=== PATIENT | male | born 1955 | race Caucasian/White ===

== ENCOUNTER → 2022-11-16 | Outpatient (CLI) | payer BC, SELFPAY ==
[2022-11-16 16:19] LABS: Anion Gap 4 (5-15); BUN 21 mg/dL (7-18); Calcium,Total 9.5 mg/dL (8.5-10.1); Chloride 108 mmol/L (98-107); Cholesterol 171 mg/dL (200); Creatinine, Serum 0.64 mg/dL (0.70-1.30); EST Glomerular Filtration Rate 134 mL/min (>60); Est Glom Filt Rate - Afr Amer 162 mL/min (>60); Glucose 98 mg/dL (74-106); High Density Lipoprotein 38 mg/dL; PSA,Total - Annual Screen 2.53 ng/mL (0.00-4.00); Potassium 4.2 mmol/L (3.5-5.1); Sodium Level 139 mmol/L (136-145); Triglycerides 101 mg/dL; Very Low Density Lipoprotein 20 mg/dL (5-40)
== END | disposition home or self-care (01) ==
LOC: MFPLAB 11:42
PROVIDERS: PCP Family Medicine; Visit Provider Family Medicine
DX: Z13.220 Encounter for screening for lipoid disorders (principal); Z13.1 Encounter for screening for diabetes mellitus; Z12.5 Encounter for screening for malignant neoplasm of prostate
CPT/HCPCS: 36415; 80048; 80061; 84153; G0103

== ENCOUNTER 2024-10-08 18:43 | Inpatient (IN) | payer BC, MEDICARE, SELFPAY ==
[2024-10-08] VITALS (7 sets, daily range): BP systolic 103–123; BP diastolic 79–90; PULSE 115–140; RESP 13–21; TEMP 36.6–36.7; O2SAT 96–100; BMI 27.1
[2024-10-08 19:04] LABS: Absolute Lymphocyte Count 1.53 X10^3/uL (0.83-4.51); Absolute Neutrophil Count 13.8 X10^3/uL (2.0-7.7); Basophil# 0.04 X10^3/uL; Basophil% 0.2 % (0-1); Eosinophil# 0.09 X10^3/uL; Eosinophils% 0.5 % (0-5); Hematocrit 49.6 % (40-54); Hemoglobin 16.5 g/dL (13.0-16.5); Lymphocyte # 1.53 X10^3/ul (0.83-4.51); Mean Corp Hgb Conc 33.3 g/dL (32-36); Mean Corpuscular Hgb 29.9 pg (27.0-32.0); Mean Corpuscular Volume 89.9 fL (80-94); Mean Platelet Vol. 11.3 fl (6.2-12.0); Monocyte# 1.36 X10^3/uL; NRBC Flagged by Analyzer 0 % (0-5); Neutrophil # 13.83 X10^3/uL (2.7-7.7); Neutrophil % 81.9 % (47-70); Platelet Count 280 K/mm3 (150-450); RBC Distribution Width CV 13.8 % (11.6-14.6); RBC Distribution Width SD 45.5 fl (35.1-43.9); Red Blood Count 5.52 M/mm3 (4.6-6.2); White Blood Count 16.9 K/mm3 (4.4-11.0)
[2024-10-08 19:30] LABS: Mucous, Urine 0 SEEN /hpf (<or=2+)
[2024-10-08 19:31] LABS: Color, Urine Yellow (Yellow); Glucose, Dipstick Normal (Normal); Ketone-Dipstick 5 mg/dl (Negative); Leukocyte Esterase-Dipstick 500 /ul (Negative); Nitrite-Dipstick Negative (Negative); Occult Blood-Urine 10 /ul (Negative); Protein-Dipstick 30 mg/dl (Negative); Urine Bilirubin Dipstick Negative (Negative); Urine Clarity Sl. Cloudy (Clear); Urine Urobilinogen Normal (Normal)
[2024-10-08 19:43] LABS: Bacteria 4+ /hpf (None Seen); Red Blood Cells-Urine 5-10 SEEN /hpf (0-5); Renal Epithelial Cells 0-5 SEEN /hpf (0-5); Squamous Epithelial Cells - UA 0-5 SEEN /hpf (0-5); White Blood Cells 25-50 SEEN /hpf (0-5)
--- NOTE | 2024-10-08 19:53 | US_ITS ---
PROCEDURE: TESTICULAR WITH ARTERIAL FLOW 10/08/2024 REASON FOR EXAM: R TESTICULAR PAIN TECHNIQUE: Roberts scale imaging and color and spectral Doppler analysis of the scrotal contents. COMPARISON: None. FINDINGS: RIGHT testicle: 4.1 x 3.3 x 2.3 cm Homogeneous echotexture. No intratesticular mass. Right epididymis: Mild asymmetric enlargement of the right epididymis with increased vascularity. LEFT testicle: 4 point x 3.3 x 2.4 cm Homogeneous echotexture. No intratesticular mass. Left epididymis: Unremarkable Other findings: No hydrocele or large varicocele. DOPPLER FINDINGS: Symmetric color doppler blood flow signal at both testes. Normal arterial inflow and venous outflow waveforms at both testes. US/Testicular with Arterial Flow IMPRESSION: No evidence of testicular torsion. Asymmetric enlargement of the right epididy mis with hypervascularity, which may represent epididymitis. Clinical and laboratory correlation recommended. Reading Location: [id number]
[2024-10-08 19:59] LABS: ALB/GLOB Ratio 1.3 RATIO (0.9-2.4); AST(SGOT) 24 U/L (<=37); Alanine Aminotransfer ALT/SGPT 25 U/L (<=46); Albumin, Serum 4.1 g/dL (3.4-4.8); Alkaline Phosphatase 99 U/L (40-129); Anion Gap 11 (5-15); BUN 20 mg/dL (4-19); BUN/Creat Ratio 25.1 RATIO (10-20); Calcium,Total 9.4 mg/dL (7.6-11.0); Carbon Dioxide 24.8 mmol/L (21.0-32.0); Chloride 107 mmol/L (98-108); EST Glomerular Filtration Rate 98 (>60); Estimated Creatinine Clearance 81.97 ml/min (50-250); Globulin 3.1 g/dL (2.2-4.2); Glucose 118 mg/dL (70-99); Potassium 4.3 mmol/L (3.3-5.1); Protein, Total 7.3 g/dL (5.9-8.4); Sodium Level 143 mmol/L (133-145); Total Bilirubin 1.08 mg/dL (0.00-1.30)
[2024-10-08] MEDS: Morphine 4 MG/ML Syringe IV ×2 (20:13→23:47)
[2024-10-08] MEDS: Ondansetron 4 MG/2 ML Vial IV (20:13)
--- NOTE | 2024-10-08 20:13 | EKG12_ITS ---
Test Reason : PAIN Blood Pressure : */* mmHG Vent. Rate : 115 BPM Atrial Rate : 278 BPM P-R Int : * ms QRS Dur : 90 ms QT Int : 274 ms P-R-T Axes : * -6 163 degrees QTcB Int : 379 ms Atrial flutter with variable A-V block Minimal voltage criteria for LVH, may be normal variant ( Crowley product ) ST & T wave abnormality, consider lateral ischemia Abnormal ECG Confirmed by Michael Heard ([id number]), index editor INDIO SOLOMON ([id number]) on 10/16/2024 1:07:36 PM Referred By: Confirmed By: Michael Heard
--- NOTE | 2024-10-08 20:24 | PCA ---
no old ekg
[2024-10-08 20:26] LABS: Lactic Acid 1.3 mmol/L (0.0-2.0)
[2024-10-08] MEDS: 0.9% Normal Saline (1000mL) 1,000 ML 999 ML IV (20:43)
--- NOTE | 2024-10-08 20:56 | EX.ED.DYSGE1 ---
HPI <KIZZY Amos - Last Filed: 10/08/24 22:01> History of Present Illness Chief Complaint: Flank Pain Narrative Narrative: Patient presenting today with right testicular pain that somewhat radiates to his right groin and right flank that started yesterday evening. He reports that the pain has progressively gotten worse. He denies any trauma to his testicle, abnormal penile discharge, dysuria, hematuria, and history of kidney stones. He has not been to a PCP in several years, he is unaware of any chronic medical conditions he may have. PFSH <KIZZY Amos - Last Filed: 10/08/24 22:01> PFSH Medical History Hernia Home Medications ?Medication ?Instructions ?Recorded ?Last Taken ?Type multivitamin with folic acid 400 1 tab PO DAILY 03/05/15 Unknown History mcg tablet (Thera) Allergy/AdvReac Type Severity Reaction Status Date / Time Sulfa (Sulfonamide Allergy Unknown Verified 10/08/24 18:49 Antibiotics) Surgical History S/P hernia surgery Social History Smoking Status: Never smoker ROS <KIZZY Amos - Last Filed: 10/08/24 22:01> ROS ED Constitutional Constitutional ED: Denies chills or fever(s) Cardiovascular Cardiovascular: Denies chest pain Respiratory/Chest Respiratory/Chest: Denies dyspnea Gastrointestinal Gastrointestinal: Denies abdominal pain, nausea or vomiting Genitourinary Genitourinary ED: Denies dysuria, hematuria or urinary urgency Musculoskeletal Musculoskeletal: Denies back pain Integumentary Denies rash EXAM <KIZZY Amos - Last Filed: 10/08/24 22:01> Physical Exam Const Vital Signs: 10/08/24 18:47 10/08/24 19:16 10/08/24 20:04 Temperature 97.9 F Temperature Source Oral Pulse Rate 140 H 137 H 140 H Respiratory Rate 18 15 13 Blood Pressure 123/87 H 119/90 H 113/80 Blood Pressure Mean 99 99 91 Pulse Ox 98 100 97 Oxygen Delivery Method Room Air Room Air 10/08/24 21:00 10/08/24 22:00 10/08/24 23:00 Temperature Temperature Source Pulse Rate 135 H 115 H 115 H Respiratory Rate 21 H 20 H 15 Blood Pressure 111/84 H 104/80 113/79 Blood Pressure Mean 93 88 90 Pulse Ox 98 96 99 Oxygen Delivery Method Room Air Room Air Room Air Positive well nourished, well developed and no apparent distress General Appearance ED: well developed HEENT Reports normocephalic and head/scalp atraumatic Mouth ED: Yes moist mucous membranes normal Eyes PERRL and EOMs intact bilaterally Neck full ROM and supple Chest Wall inspection of chest normal Resp normal respiratory effort and clear to auscultation bilaterally Cardio regular rate and regular rhythm GI soft to palpation, non-tender, non-distended and no masses Narrative: Right testicular tenderness to palpation with edema and abnormal lie, absent cremasteric reflex on the right Back/Spine normal ROM and normal to inspection General Back: Negative for CVA tenderness Extremity normal to inspection and full ROM Neuro oriented x3, CN's II-XII intact bilaterally, moves all extremities, no focal motor deficits and no sensory deficits noted Sensorium / Orientation: awake and alert Psych mental status grossly normal and thought process normal Skin no rashes or lesions noted and no wounds <Dr. Janessa De La Torre DO - Last Filed: 10/09/24 00:07> Physical Exam Const Vital Signs: 10/08/24 18:47 10/08/24 19:16 10/08/24 20:04 Temperature 97.9 F Temperature Source Oral Pulse Rate 140 H 137 H 140 H Respiratory Rate 18 15 13 Blood Pressure 123/87 H 119/90 H 113/80 Blood Pressure Mean 99 99 91 Pulse Ox 98 100 97 Oxygen Delivery Method Room Air Room Air 10/08/24 21:00 10/08/24 22:00 10/08/24 23:00 Temperature Temperature Source Pulse Rate 135 H 115 H 115 H Respiratory Rate 21 H 20 H 15 Blood Pressure 111/84 H 104/80 113/79 Blood Pressure Mean 93 88 90 Pulse Ox 98 96 99 Oxygen Delivery Method Room Air Room Air Room Air MDM <KIZZY Amos - Last Filed: 10/08/24 22:01> [facility] MDM Narrative Medical decision making narrative: Presenting today with pain to the right testicle that started yesterday, the pain somewhat radiates to his groin and flank. His right testicle is very tender to palpation, exam is somewhat limited due to his pain. I do have concerns for testicular torsion, testicular ultrasound will be obtained. Labs obtained. He does have a leukocytosis at 16.9, his CMP is largely unremarkable. UA shows 500 leukocytes, 25-50 WBCs, and 4+ bacteria, this will be cultured and he will be given a dose of Rocephin. His lactic acid is WNL. He is tachycardic here with a heart rate around 130, EKG was obtained and shows atrial flutter. He denies any history of this. After being given IV fluids and pain medication he continued to be tachycardic, he was given IV metoprolol. Testicular ultrasound shows epididymitis, he will be treated for this with antibiotics. Lab Data Attestation: I reviewed the patient's lab results. Labs: Laboratory Results - last 24 hr 10/08/24 10/08/24 10/08/24 18:55 19:25 20:00 WBC 16.9 H RBC 5.52 Hgb 16.5 Hct 49.6 MCV 89.9 MCH 29.9 MCHC 33.3 RDW Std Deviation 45.5 H RDW Coeff of Natty 13.8 Plt Count 280 MPV 11.3 Immature Gran % (Auto) 0.400 Neut % (Auto) 81.9 H Lymph % (Auto) 9.0 L [place] % (Auto) 8.0 Eos % (Auto) 0.5 Baso % (Auto) 0.2 Absolute Neuts (auto) 13.8 H Absolute Lymphs (auto) 1.53 Nucleated RBC % 0 Sodium 143 Potassium 4.3 Chloride 107 Carbon Dioxide 24.8 Anion Gap 11 BUN 20 H Creatinine 0.80 Estim Creat Clear Calc 81.97 Est GFR (MDRD) Non-Af 98 BUN/Creatinine Ratio 25.1 H Glucose 118 H Lactic Acid 1.3 Calcium 9.4 Total Bilirubin 1.08 AST 24 ALT 25 Alkaline Phosphatase 99 Troponin T High Sens 12 Troponin T Hi Sens 2 Hr Total Protein 7.3 Albumin 4.1 Globulin 3.1 Albumin/Globulin Ratio 1.3 TSH 2.930 Urine Color Yellow Urine Clarity Sl. Cloudy Urine pH 6.0 Ur Specific [place] 1.020 Urine Protein 30 H Urine Glucose (UA) Normal Urine Ketones 5 H Urine Occult Blood 10 H Urine Nitrite Negative Urine Bilirubin Negative Urine Urobilinogen Normal Ur Leukocyte Esterase 500 H Urine RBC 5-10 SEEN Urine WBC 25-50 SEEN Ur Squamous Epith Cells 0-5 SEEN Ur Renal Epithelial Cell 0-5 SEEN Urine Bacteria 4+ Urine Mucus 0 SEEN 10/08/24 20:55 WBC RBC Hgb Hct MCV MCH MCHC RDW Std Deviation RDW Coeff of Natty Plt Count MPV Immature Gran % (Auto) Neut % (Auto) Lymph % (Auto) [place] % (Auto) Eos % (Auto) Baso % (Auto) Absolute Neuts (auto) Absolute Lymphs (auto) Nucleated RBC % Sodium Potassium Chloride Carbon Dioxide Anion Gap BUN Creatinine Estim Creat Clear Calc Est GFR (MDRD) Non-Af BUN/Creatinine Ratio Glucose Lactic Acid Calcium Total Bilirubin AST ALT Alkaline Phosphatase Troponin T High Sens Troponin T Hi Sens 2 Hr 13 Total Protein Albumin Globulin Albumin/Globulin Ratio TSH Urine Color Urine Clarity Urine pH Ur Specific [place] Urine Protein Urine Glucose (UA) Urine Ketones Urine Occult Blood Urine Nitrite Urine Bilirubin Urine Urobilinogen Ur Leukocyte Esterase Urine RBC Urine WBC Ur Squamous Epith Cells Ur Renal Epithelial Cell Urine Bacteria Urine Mucus Radiography Diagnostic Testing: Clinical Impression(s) from Imaging Studies Testicular Ultrasound 10/08/24 19:53 IMPRESSION: No evidence of testicular torsion. Asymmetric enlargement of the right epididymis with hypervascularity, which may represent epididymitis. Clinical and laboratory correlation recommended. Reading Location: [facility] EKG Initial EKG: Comments: 115 bpm, atrial flutter, no ST elevation, interpreted by attending ED physician <Dr. Janessa De La Torre, DO - Last Filed: 10/09/24 00:07> [employer] Narrative Medical decision making narrative: Presenting today with pain to the right testicle that started yesterday, the pain somewhat radiates to his groin and flank. His right testicle is very tender to palpation, exam is somewhat limited due to his pain. I do have concerns for testicular torsion, testicular ultrasound will be obtained. Labs obtained. He does have a leukocytosis at 16.9, his CMP is largely unremarkable. UA shows 500 leukocytes, 25-50 WBCs, and 4+ bacteria, this will be cultured and he will be given a dose of Rocephin. His lactic acid is WNL. He is tachycardic here with a heart rate around 130, EKG was obtained and shows atrial flutter. He denies any history of this. After being given IV fluids and pain medication he continued to be tachycardic, he was given IV metoprolol. Testicular ultrasound shows epididymitis, he will be treated for this with antibiotics. I have personally performed a face to face assessment of the patient and have reviewed the MARIAMA Note. I performed a substantive portion of the visit including all aspects of the following. My herrera findings include: History Patient is evaluated for worsening right testicular pain that started yesterday evening. Has tried ibuprofen for pain relief. In triage patient has noted to have tachycardia. EKG is obtained which shows Atrial flutter at a rate of [address] segment changes. On telemetry patient's rates is more in the 130s to 140s. Initially given IV fluids and pain control in case this is more of a pain response as he does not have any history of arrhythmia however patient does admit he does not regularly see a physician. Concern for testicular torsion, epididymitis, incarcerated hernia, new onset of atrial flutter/atrial fibrillation, ACS. Patient CBC does show a leukocytosis of 16.9 which is nonspecific. Lactate is added on which is normal. BMP/liver panel normal. High sensitive troponin initially normal at 12. TSH checked which is normal at 2.93. Urinalysis consistent with infection with 500 leukocyte esterase, 25-50 white blood cells and 4+ bacteria. Urine culture is sent. Patient started on IV Rocephin. Testicular ultrasound shows asymmetric enlargement of the right epididymis which could represent epididymitis. No evidence of testicular torsion. This is consistent with his clinical presentation. Patient is given IV morphine and fluids with improvement of pain but he still has a tachyarrhythmia. He is given aliquots of IV metoprolol with minimal improvement. His blood pressure is somewhat soft with this. He is relatively asymptomatic from the standpoint. I did speak with cardiology on-call, Dr. Montero, who states ideally the patient should be admitted especially as he does not have any known medical history/reliable outpatient follow-up. Would recommend anticoagulation we does decide to leave with Eliquis and start on Lopressor twice daily 25 mg. Patient thankfully is agreeable with admission. Is given a dose of metoprolol 25 mg in the emergency room for further rate control. Case discussed with hospitalist for admission. He does request that I order an echocardiogram for tomorrow. This was placed. Lab Data Labs: Laboratory Results - last 24 hr 10/08/24 10/08/24 10/08/24 18:55 19:25 20:00 WBC 16.9 H RBC 5.52 Hgb 16.5 Hct 49.6 MCV 89.9 MCH 29.9 MCHC 33.3 RDW Std Deviation 45.5 H RDW Coeff of Natty 13.8 Plt Count 280 MPV 11.3 Immature Gran % (Auto) 0.400 Neut % (Auto) 81.9 H Lymph % (Auto) 9.0 L [place] % (Auto) 8.0 Eos % (Auto) 0.5 Baso % (Auto) 0.2 Absolute Neuts (auto) 13.8 H Absolute Lymphs (auto) 1.53 Nucleated RBC % 0 Sodium 143 Potassium 4.3 Chloride 107 Carbon Dioxide 24.8 Anion Gap 11 BUN 20 H Creatinine 0.80 Estim Creat Clear Calc 81.97 Est GFR (MDRD) Non-Af 98 BUN/Creatinine Ratio 25.1 H Glucose 118 H Lactic Acid 1.3 Calcium 9.4 Total Bilirubin 1.08 AST 24 ALT 25 Alkaline Phosphatase 99 Troponin T High Sens 12 Troponin T Hi Sens 2 Hr Total Protein 7.3 Albumin 4.1 Globulin 3.1 Albumin/Globulin Ratio 1.3 TSH 2.930 Urine Color Yellow Urine Clarity Sl. Cloudy Urine pH 6.0 Ur Specific [place] 1.020 Urine Protein 30 H Urine Glucose (UA) Normal Urine Ketones 5 H Urine Occult Blood 10 H Urine Nitrite Negative Urine Bilirubin Negative Urine Urobilinogen Normal Ur Leukocyte Esterase 500 H Urine RBC 5-10 SEEN Urine WBC 25-50 SEEN Ur Squamous Epith Cells 0-5 SEEN Ur Renal Epithelial Cell 0-5 SEEN Urine Bacteria 4+ Urine Mucus 0 SEEN 10/08/24 20:55 WBC RBC Hgb Hct MCV MCH MCHC RDW Std Deviation RDW Coeff of Natty Plt Count MPV Immature Gran % (Auto) Neut % (Auto) Lymph % (Auto) [place] % (Auto) Eos % (Auto) Baso % (Auto) Absolute Neuts (auto) Absolute Lymphs (auto) Nucleated RBC % Sodium Potassium Chloride Carbon Dioxide Anion Gap BUN Creatinine Estim Creat Clear Calc Est GFR (MDRD) Non-Af BUN/Creatinine Ratio Glucose Lactic Acid Calcium Total Bilirubin AST ALT Alkaline Phosphatase Troponin T High Sens Troponin T Hi Sens 2 Hr 13 Total Protein Albumin Globulin Albumin/Globulin Ratio TSH Urine Color Urine Clarity Urine pH Ur Specific [place] Urine Protein Urine Glucose (UA) Urine Ketones Urine Occult Blood Urine Nitrite Urine Bilirubin Urine Urobilinogen Ur Leukocyte Esterase Urine RBC Urine WBC Ur Squamous Epith Cells Ur Renal Epithelial Cell Urine Bacteria Urine Mucus Radiography Diagnostic Testing: Clinical Impression(s) from Imaging Studies Testicular Ultrasound 10/08/24 19:53 IMPRESSION: No evidence of testicular torsion. Asymmetric enlargement of the right epididymis with hypervascularity, which may represent epididymitis. Clinical and laboratory correlation recommended. Reading Location: [id number] Management Discussion w/another healthcare provider: Hospitalist and Pie Filler (Cardiology) Discharge Plan Triage Chief Complaint: Flank Pain Other Complaint: Male Pain/Injury ED Midlevel Provider: Stacey Devine ED Provider: Janessa De La Torre Dx/Rx/DC Orders Clinical Impression: Epididymitis, Acute cystitis with hematuria, Leukocytosis, Atrial flutter with rapid ventricular response Primary Care Provider: Kilo Lewis Disposition Disposition: Acute Care Hospital [facility]
[2024-10-08 21:24] LABS: Troponin T High Sensitivity 12 ng/L (<=22)
[2024-10-08] MEDS: Ceftriaxone 1 GM/50 ML BAG IV (21:35)
[2024-10-08] MEDS: Metoprolol Tartrate 5 MG/5 ML Vial IV ×2 (21:48→22:03)
[2024-10-08 21:49] LABS: Troponin T High Sens 2 HR 13 ng/L (<=22)
--- NOTE | 2024-10-08 23:27 | PCM.HP.STD ---
[facility] - General General Date of Admission: 10/08/24 Date of Service: 10/08/24 Chief Complaint: Right Testicular Pain. HPI Narrative STACIE JIMENEZ, is a 68 M with a past medical history of being overweight; with BMI of 27.1 this admission and history of hernia; s/p repair who presents to [facility] complaining of Right testicular pain. Mr. Jimenez reports his symptoms began yesterday evening with the abrupt-onset of Right flank pain radiating in to his Right groin that has progressively worsened since that time so he finally decided to come n for further evaluation and treatment. He denies recent trauma to his testicle, penile discharge, dysuria, hematuria, history of renal calculi or similar previous episodes. He states he has not seen a physician to several years and he is unaware if he has any chronic medical conditions. He denies associated fever, chills, nausea, vomiting, diarrhea, constipations, dysuria, hematuria, chest pain, palpitations, headache or rash. In the ER he was noted to have UA positive for Acute Cystitis; with microscopic hematuria with Leukocytosis of 16.9K present on admission and a corresponding testicular ultrasounds that revealed Right testicle ~4.1 cm x ~3.3 cm x ~2.3 cm with homogenous echotexture, no intratesticular mass and Right epididymis mild asymmetric enlargement with increased vascularity with normal Left testicle consistent with Epididymitis complicated by EKG evidence of apparently New-onset Atrial Flutter with RVR at ~140 bpm and he was then admitted to the PCU for ongoing care for stay that is expected to extend beyond 2 midnights. [facility] Medical History Hernia Home Medications ?Medication ?Instructions ?Recorded ?Last Taken ?Type multivitamin with folic acid 400 1 tab PO DAILY supplement 03/05/15 Unknown History mcg tablet (Thera) Allergy/AdvReac Type Severity Reaction Status Date / Time Sulfa (Sulfonamide Allergy Unknown Verified 10/08/24 18:49 Antibiotics) Surgical History S/P hernia surgery Social History Smoking Status: Never smoker ROS ROS Narrative Review of Systems: Constitutional: Patient denies fever or chills. Eyes: Patient denies changes in vision or discharge from eyes. ENT: Patient denies runny nose, sore throat or ear pain. Resp: Patient denies shortness of breath or cough. GI: Patient denies abdominal pain, nausea, vomiting, diarrhea or constipation. : Patient admits to Right flank pain radiating to groin as per HPI. MSK: Patient denies arthralgias or myalgias. Skin: Patient denies rash, abscess, wounds or jaundice. Psych: Patient denies symptoms of uncontrolled depression or anxiety. Neuro: Patient denies headache, paresthesias or focal neurologic deficits. Allergy: Patient denies lip swelling, tongue swelling or urticaria. Hematology: Patient denies easy bleeding or easy bruisability. Endocrinology: Patient denies polyuria, polydipsia, polyphagia or heat/cold intolerance. 14 point ROS otherwise negative except for positives noted above in HPI. Vital Signs Vital Signs Vital Signs: 10/08/24 18:47 10/08/24 19:16 10/08/24 20:04 Temperature 97.9 F Temperature Source Oral Pulse Rate 140 H 137 H 140 H Respiratory Rate 18 15 13 Blood Pressure 123/87 H 119/90 H 113/80 Blood Pressure Mean 99 99 91 Pulse Ox 98 100 97 Oxygen Delivery Method Room Air Room Air 10/08/24 21:00 10/08/24 22:00 10/08/24 23:00 Temperature Temperature Source Pulse Rate 135 H 115 H 115 H Respiratory Rate 21 H 20 H 15 Blood Pressure 111/84 H 104/80 113/79 Blood Pressure Mean 93 88 90 Pulse Ox 98 96 99 Oxygen Delivery Method Room Air Room Air Room Air Weight Weight: 167 lb 12.8 oz Body Mass Index (BMI) 27.1 Physical Exam Const alert, oriented x3 and average body habitus Constitutional Narrative: Moderate distress noted. General Appearance: cooperative HEENT normocephalic, head/scalp atraumatic, hearing grossly normal bilaterally and moist oral mucous membranes Eyes PERRL, EOMs intact bilaterally and conjunctivae normal Neck no lymphadenopathy, supple and no JVD Resp normal respiratory effort, no retractions, no use of accessory muscles and clear to auscultation bilaterally Cardio regular rate and regular rhythm Cardio Narrative: Tachycardia noted at ~115 bpm. GI normal to inspection, nondistended, normoactive bowel sounds, soft to palpation, non-tender and non-distended Extremity normal to inspection, full ROM and no clubbing, cyanosis or edema Skin Skin Narrative: Patient has evidence of rash, abscess, wounds or jaundice. Neuro oriented x3, CN's II-XII intact bilaterally, moves all extremities and no focal motor deficits Sensorium / Orientation: awake, alert, oriented to person, oriented to place and oriented to time Speech: speech normal Psych Mood & Affect: anxious Results Medical Records Data Attestation: I reviewed the patient's medical records Lab / Micro Data Attestation: I reviewed the patient's lab results. 10/08/24 18:55 10/08/24 18:55 Labs: Laboratory Results - last 24 hr 10/08/24 18:55: WBC 16.9 H, RBC 5.52, Hgb 16.5, Hct 49.6, MCV 89.9, MCH 29.9, MCHC 33.3, RDW Std Deviation 45.5 H, RDW Coeff of Natty 13.8, Plt Count 280, MPV 11.3, Immature Gran % (Auto) 0.400, Neut % (Auto) 81.9 H, Lymph % (Auto) 9.0 L, [place] % (Auto) 8.0, Eos % (Auto) 0.5, Baso % (Auto) 0.2, Absolute Neuts (auto) 13.8 H, Absolute Lymphs (auto) 1.53, Nucleated RBC % 0, Sodium 143, Potassium 4.3, Chloride 107, Carbon Dioxide 24.8, Anion Gap 11, BUN 20 H, Creatinine 0.80, Estim Creat Clear Calc 81.97, Est GFR (MDRD) Non-Af 98, BUN/Creatinine Ratio 25.1 H, Glucose 118 H, Calcium 9.4, Total Bilirubin 1.08, AST 24, ALT 25, Alkaline Phosphatase 99, Troponin T High Sens 12, Total Protein 7.3, Albumin 4.1, Globulin 3.1, Albumin/Globulin Ratio 1.3, TSH 2.930 10/08/24 19:25: Urine Color Yellow, Urine Clarity Sl. Cloudy, Urine pH 6.0, Ur Specific [place] 1.020, Urine Protein 30 H, Urine Glucose (UA) Normal, Urine Ketones 5 H, Urine Occult Blood 10 H, Urine Nitrite Negative, Urine Bilirubin Negative, Urine Urobilinogen Normal, Ur Leukocyte Esterase 500 H, Urine RBC 5-10 SEEN, Urine WBC 25-50 SEEN, Ur Squamous Epith Cells 0-5 SEEN, Ur Renal Epithelial Cell 0-5 SEEN, Urine Bacteria 4+, Urine Mucus 0 SEEN 10/08/24 20:00: Lactic Acid 1.3 10/08/24 20:55: Troponin T Hi Sens 2 Hr 13 Imaging Radiology Impression Testicular Ultrasound 10/08/24 19:53 IMPRESSION: No evidence of testicular torsion. Asymmetric enlargement of the right epididymis with hypervascularity, which may represent epididymitis. Clinical and laboratory correlation recommended. Reading Location: [facility] Assessment & Plan Assessment/Plan (1) Acute cystitis with hematuria: (2) Leukocytosis: QUALIFIERS: Leukocytosis type: unspecified Qualified Code(s): D72.829 - Elevated white blood cell count, unspecified (3) Epididymitis: (4) Atrial flutter with rapid ventricular response: (5) Overweight (BMI 25.0-29.9): PLAN: Plan 1. UA positive for Acute Cystitis; with microscopic hematuria with Leukocytosis of 16.9K present on admission and patient who has deliberately not seen a physician in several years - Admit to PCU. Continue IV ceftriaxone begun in the ER and await culture and sensitivity data. Give ondansetron IV prn nausea and vomiting. Give acetaminophen prn for [id number] (level 1-5/10) pain or fever. Give morphine IV prnf or severe (level 6-10/10) pain. 2. Right-sided Epididymitis evident on ultrasound this admission complicating #1 - Maintain IV antibiotics already started for #1. 3. New-onset Atrial Flutter with RVR at ~140 bpm compounding #1 & #2 - Start diltiazem IV drip with goal to keep heart rate < 100 bpm. Start full-dose enoxaparin. I will [facility] decision [facility] with help appreciated in advance. 4. Overweight; with BMI of 27.1 this admission adding to the burden of disease outlined from #1 - #3 - Weight loss will be recommended. Check TSH in light of #3. 5. History of hernia; s/p repair - Noted. 6. DVT prophylaxis - Patient on full-dose enoxaparin for #3. Total time: Approximately (but not less than) 75 minutes. Charges/Coding Visit Charges Inpatient E&M: 29957 Init Hosp L3
[2024-10-08] MEDS: Metoprolol Tartrate 25 MG Tablet PO (23:47)
[2024-10-09] VITALS (27 sets, daily range): BP systolic 90–130; BP diastolic 60–98; PULSE 79–135; RESP 12–23; TEMP 36.6–37.3; O2SAT 90–100; BMI 24.8; BMI 25.1
[2024-10-09 00:48] LABS: Troponin T High Sens 4 HR 14 ng/L (<=22)
[2024-10-09 00:51] LABS: Magnesium 1.8 mg/dL (1.5-2.2)
--- NOTE | 2024-10-09 01:40 | ECHOCSONC_ITS ---
Reason For Study Reason For Study: Afib, Aflutter Procedure This was a 2D Doppler, Color Flow transthoracic echocardiogram. Contrast injection was performed. Exam performed portable in patient room. Left Ventricle Moderately dilated left ventricle. The estimated ejection fraction is 10-15 %. Right Ventricle Mildly dilated right ventricle. Mild to moderate global right ventricular systolic dysfunction. Atria The left atrium is moderately enlarged. The right atrium is mildly enlarged. Mitral Valve The mitral valve is structurally normal. No prolapse or stenosis seen. Mild (1+) anteriorly directed mitral valve insufficiency. Tricuspid Valve Normal tricuspid valve. Mild (1+) tricuspid valve insufficiency. Aortic Valve Mild diffuse aortic valve calcification. Pulmonic Valve The pulmonic valve is not well visualized. Great Vessels The aortic root is not well visualized. Pericardium/Pleural No pericardial effusion. Medication Diluted definity 2ml given slow IV push to enhance endocardial definition. MMode/2D Measurements & Calculations LVIDd: 5.3 cm IVSd: 1.0 cm Ao root diam: 3.4 cm LVIDs: 4.6 cm LVPWd: 0.89 cm RVDd: 4.5 cm FS: 14.2 % LAV(MOD-bp): 89.9 ml LVAd ap4: 31.6 cm2 SV(MOD-sp4): 11.2 ml LAV(MOD-bp) Indexed: 48.5 ml/m2 LVLd ap4: 7.5 cm SI(MOD-sp4): 6.0 ml/m2 LAV(MOD-sp2): 88.9 ml EDV(MOD-sp4): 108.5 ml LAV(MOD-sp4): 84.6 ml EDV(sp4-el): 113.2 ml LVAs ap4: 28.6 cm2 LVLs ap4: 7.1 cm ESV(MOD-sp4): 97.3 ml ESV(sp4-el): 98.3 ml EF(MOD-sp4): 10.3 % EF(sp4-el): 13.2 % SV(sp4-el): 14.9 ml LA A4 area: 26.6 cm2 LA dimension(2D): 5.0 cm RA A4 area: 26.4 cm2 TAPSE: 1.2 cm Doppler Measurements & Calculations MV E max rios: 59.9 cm/sec Lat Peak E' Rios: 12.2 cm/sec Med Peak E' Rios: 8.6 cm/sec E/E' lat: 4.9 E/E' med: 7.0 Ao V2 max: 163.6 cm/sec LV V1 max: 96.2 cm/sec PA V2 max: 57.3 cm/sec Ao max P.1 mmHg LV V1 max P.9 mmHg Ao V2 mean: 121.9 cm/sec Ao mean P.7 mmHg Ao V2 VTI: 21.9 cm TR max rios: 254.2 cm/sec TR max P.8 mmHg ECHO/ONC Echo Complete W/ Contrast Interpretation Summary The estimated ejection fraction is 10-15 %. Severe global LV hypokinesia Severe LV systolic dysfunction Definity/contrast echo used No prior study to compare Ordering Physician: Michael Reyna Referring Physician: Kilo Lewis Performed By: Tere Castorena, MARTÍN, RVT
[2024-10-09] MEDS: 0.9% Normal Saline (1000mL) 1,000 ML 100 ML IV ×2 (01:45→11:23)
[2024-10-09] MEDS: Diltiazem 125 MG in Dextrose 5%-Water (100mL Bag) 100 ML IV (01:48)
[2024-10-09] MEDS: Enoxaparin 80 MG/0.8 ML Syringe 70 MG SC (01:51)
[2024-10-09 06:13] LABS: Absolute Lymphocyte Count 1.35 X10^3/uL (0.83-4.51); Absolute Neutrophil Count 14.9 X10^3/uL (2.0-7.7); Basophil# 0.04 X10^3/uL; Basophil% 0.2 % (0-1); Eosinophil# 0.01 X10^3/uL; Eosinophils% 0.1 % (0-5); Hematocrit 44.5 % (40-54); Hemoglobin 14.7 g/dL (13.0-16.5); Lymphocyte # 1.35 X10^3/ul (0.83-4.51); Lymphocyte % 7.6 % (19-41); Mean Corpuscular Hgb 29.8 pg (27.0-32.0); Mean Corpuscular Volume 90.1 fL (80-94); Mean Platelet Vol. 12.5 fl (6.2-12.0); Monocyte# 1.36 X10^3/uL; Monocyte% 7.7 % (0-10); NRBC Flagged by Analyzer 0 % (0-5); Neutrophil # 14.88 X10^3/uL (2.7-7.7); Neutrophil % 83.8 % (47-70); Platelet Count 225 K/mm3 (150-450); RBC Distribution Width CV 14.2 % (11.6-14.6); RBC Distribution Width SD 46.5 fl (35.1-43.9); Red Blood Count 4.94 M/mm3 (4.6-6.2); White Blood Count 17.8 K/mm3 (4.4-11.0)
[2024-10-09 06:37] LABS: ALB/GLOB Ratio 1.3 RATIO (0.9-2.4); AST(SGOT) 16 U/L (<=37); Alanine Aminotransfer ALT/SGPT 18 U/L (<=46); Albumin, Serum 3.5 g/dL (3.4-4.8); Alkaline Phosphatase 80 U/L (40-129); Anion Gap 11 (5-15); BUN 19 mg/dL (4-19); BUN/Creat Ratio 28.6 RATIO (10-20); Calcium,Total 8.9 mg/dL (7.6-11.0); Carbon Dioxide 18.5 mmol/L (21.0-32.0); Chloride 108 mmol/L (98-108); Creatinine, Serum 0.67 mg/dL (0.70-1.20); EST Glomerular Filtration Rate 103 (>60); Estimated Creatinine Clearance 87.88 ml/min (50-250); Globulin 2.8 g/dL (2.2-4.2); Glucose 146 mg/dL (70-99); Potassium 4.2 mmol/L (3.3-5.1); Protein, Total 6.3 g/dL (5.9-8.4); Sodium Level 138 mmol/L (133-145); Total Bilirubin 1.17 mg/dL (0.00-1.30)
[2024-10-09] MEDS: Lactobacillis Acidophilus 1 CAP PO ×2 (09:13→21:26)
[2024-10-09] MEDS: Multivitamins,Therapeutic Tablet 1 TABLET PO (09:13)
[2024-10-09] MEDS: Metoprolol Tartrate 25 MG Tablet PO ×3 (11:01→23:21)
[2024-10-09] MEDS: Ondansetron 4 MG/2 ML Vial IV (11:24)
[2024-10-09] MEDS: 0.9% Saline Lock 10 ML Syringe IV (11:29)
[2024-10-09] MEDS: Morphine 2 MG/ML Syringe IV (11:29)
--- NOTE | 2024-10-09 11:45 | PN_ITS ---
Subjective Subjective Patient seen and examined. He still complained of right scrotal pain. He denied any fever, chills, cough, palpitations, dizziness, nausea, vomiting or any other symptoms. Review of systems is otherwise negative. He is still in afib though now rate controlled. Objective Data Objective Data Vital Signs: Vital Signs Temp Pulse Resp BP Pulse Ox O2 Del Method O2 Flow Rate 97.9 F 95 15 104/74 99 Nasal Cannula 2 10/09/24 09:10 10/09/24 11:01 10/09/24 09:10 10/09/24 09:10 10/09/24 09:10 10/09/24 09:10 10/09/24 09:10 Oxygen Flow Rate (L/min) 2 Oxygen Delivery Method Nasal Cannula Weight: 165 lb 2.02 oz Body Mass Index (BMI) 25.1 Intake & Output: Intake and Output for Last 24 Hours 10/07/24 10/08/24 10/09/24 23:59 23:59 23:59 Intake Total 1050 / 1050 1200.16 / 1200.16 Balance 1050 / 1050 1200.16 / 1200.16 Lab / Micro Data 10/09/24 05:17 10/09/24 05:17 Labs: Laboratory Results - last 24 hr 10/08/24 18:55: WBC 16.9 H, RBC 5.52, Hgb 16.5, Hct 49.6, MCV 89.9, MCH 29.9, MCHC 33.3, RDW Std Deviation 45.5 H, RDW Coeff of Natty 13.8, Plt Count 280, MPV 11.3, Immature Gran % (Auto) 0.400, Neut % (Auto) 81.9 H, Lymph % (Auto) 9.0 L, [place] % (Auto) 8.0, Eos % (Auto) 0.5, Baso % (Auto) 0.2, Absolute Neuts (auto) 13.8 H, Absolute Lymphs (auto) 1.53, Nucleated RBC % 0, Sodium 143, Potassium 4.3, Chloride 107, Carbon Dioxide 24.8, Anion Gap 11, BUN 20 H, Creatinine 0.80, Estim Creat Clear Calc 81.97, Est GFR (MDRD) Non-Af 98, BUN/Creatinine Ratio 25.1 H, Glucose 118 H, Calcium 9.4, Total Bilirubin 1.08, AST 24, ALT 25, Alkaline Phosphatase 99, Troponin T High Sens 12, Total Protein 7.3, Albumin 4.1, Globulin 3.1, Albumin/Globulin Ratio 1.3, TSH 2.930 10/08/24 19:25: Urine Color Yellow, Urine Clarity Sl. Cloudy, Urine pH 6.0, Ur Specific [place] 1.020, Urine Protein 30 H, Urine Glucose (UA) Normal, Urine Ketones 5 H, Urine Occult Blood 10 H, Urine Nitrite Negative, Urine Bilirubin Negative, Urine Urobilinogen Normal, Ur Leukocyte Esterase 500 H, Urine RBC 5-10 SEEN, Urine WBC 25-50 SEEN, Ur Squamous Epith Cells 0-5 SEEN, Ur Renal Epithelial Cell 0-5 SEEN, Urine Bacteria 4+, Urine Mucus 0 SEEN 10/08/24 20:00: Lactic Acid 1.3 10/08/24 20:55: Troponin T Hi Sens 2 Hr 13 10/09/24 00:26: Magnesium 1.8, Troponin T Hi Sens 4Hr 14, TSH 2.440 10/09/24 05:17: WBC 17.8 H, RBC 4.94, Hgb 14.7, Hct 44.5, MCV 90.1, MCH 29.8, MCHC 33.0, RDW Std Deviation 46.5 H, RDW Coeff of Natty 14.2, Plt Count 225, MPV 12.5 H, Immature Gran % (Auto) 0.600, Neut % (Auto) 83.8 H, Lymph % (Auto) 7.6 L , [place] % (Auto) 7.7, Eos % (Auto) 0.1, Baso % (Auto) 0.2, Absolute Neuts (auto) 14.9 H, Absolute Lymphs (auto) 1.35, Nucleated RBC % 0, Sodium 138, Potassium 4.2, Chloride 108, Carbon Dioxide 18.5 L, Anion Gap 11, BUN 19, Creatinine 0.67 L, Estim Creat Clear Calc 87.88, Est GFR (MDRD) Non-Af 103, BUN/Creatinine Ratio 28.6 H, Glucose 146 H, Calcium 8.9, Phosphorus 3.0, Total Bilirubin 1.17, AST 16, ALT 18, Alkaline Phosphatase 80, Total Protein 6.3, Albumin 3.5, Globulin 2.8, Albumin/Globulin Ratio 1.3 Radiography Diagnostic Testing: Radiology Impression Testicular Ultrasound 10/08/24 19:53 IMPRESSION: No evidence of testicular torsion. Asymmetric enlargement of the right epididymis with hypervascularity, which may represent epididymitis. Clinical and laboratory correlation recommended. Reading Location: [facility] Physical Exam Const alert, oriented x3, no apparent distress and well nourished General Appearance: cooperative and well developed HEENT normocephalic, head/scalp atraumatic, moist oral mucous membranes and oropharynx normal Eyes PERRL and EOMs intact bilaterally Neck no lymphadenopathy, supple and no JVD Lymph Lymphatic: no lymphadenopathy noted and no lymphedema noted Resp normal respiratory effort, normal air movement and clear to auscultation bilaterally Cardio regular rate, S1 normal heart sound, S2 normal heart sound and no murmurs Cardio Narrative: afib, rate controlled GI normal to inspection, nondistended, normoactive bowel sounds, soft to palpation, non-tender and non-distended Extremity normal capillary refill, no clubbing, cyanosis or edema and no calf tenderness General Extremity: no tenderness to palpation of joints or extremities Skin Skin Narrative: scrotum is erythematous, right testicle very tender and warm to touch Neuro CN's II-XII intact bilaterally, no focal motor deficits and no sensory deficits noted Motor Exam: strength 5/5 throughout and general weakness Psych thought process normal, cooperative and affect normal Appearance: appropriate Assessment & Plan Assessment/Plan (1) Atrial flutter with rapid ventricular response: (2) Epididymitis: (3) Acute cystitis with hematuria: PLAN: Plan #Acute right epididymitis * ultrasound of the scrotum showed evidence of epididymitis, with no torsion. * on IV ceftriaxone * PO tylenol, PO oxycodone and IV morphine prn for pain. * #UTI * Urinalysis showed evidence of UTI with 4+ bacteriaand WBC was also elevated. * On IV ceftriaxone. * On IV Zofran as needed for nausea and vomiting. * Urine cultures ordered. * #New onset afib * patient now rate controlled. * on cardizem drip * will switch to PO metoprolol 25mg bid and wean off cardizem drip * on therapeutic lovenox * 2D echo ordered * TSH WNL * CHADVASC score is 1. * #DVT prophylaxis: on therapeutic lovenox for afib as above Charges/Coding Visit Charges Inpatient E&M: 33863 Subs Hosp L2
--- NOTE | 2024-10-09 15:44 | PCM.CONS.C ---
Assessment & Plan Assessment/Plan (1) Atrial flutter with rapid ventricular response: (2) Epididymitis: (3) Leukocytosis: QUALIFIERS: Leukocytosis type: unspecified Qualified Code(s): D72.829 - Elevated white blood cell count, unspecified (4) Acute cystitis with hematuria: PLAN: Cardiac care plan; 68-year-old patient seen and evaluated today along with the nursing staff Cardiac consult patient requested as patient has a new onset A-fib/atrial flutter with RVR in addition to severe LV dysfunction by echocardiogram. Patient has hernia repair presented with, right testicular pain. He also had symptoms of shortness of breath. I reviewed the cardiac evaluation which included the EKG the 21 dealer had underlying atrial flutter/A-fib Rate is better controlled on the current treatment with metoprolol started today. Patient has severe LV systolic dysfunction on echocardiogram Ejection fraction calculated 10-15%. With global LV hypokinesia I reviewed all his current medication Patient has been on beta-chucky metoprolol for rate control Calcium channel chucky has been discontinued Will continue on CHF protocol. And diuresis with Lasix Other medical problem patient has leukocytosis with acute cystitis with microscopic hematuria Epididymitis And has been on antibiotic treatment. Adding Entresto to his current treatment High risk patient will require further cardiac workup which will include a LifeVest prior to discharge possible And follow-up with the cardiology team and evaluate further. With possible Lexiscan sestamibi versus cardiac catheterization. Will continue to monitor during this admission and will follow-up clinically. Jonas Cedeno MD,[facility] HPI Consult Data Date of Consult: 10/09/24 HPI Narrative Reason for Consultation: Severe LV systolic dysfunction, EF 10-15%/A-fib HPI Narrative: STACIE JIMENEZ, is a 68 M who presents [facility] Medical History Hernia Home Medications ?Medication ?Instructions ?Recorded ?Last Taken ?Type multivitamin with folic acid 400 1 tab PO DAILY supplement 03/05/15 Unknown History mcg tablet (Thera) Allergy/AdvReac Type Severity Reaction Status Date / Time Sulfa (Sulfonamide Allergy Unknown Verified 10/08/24 18:49 Antibiotics) Surgical History S/P hernia surgery Social History Smoking Status: Never smoker Physical Exam Cardio Cardio Narrative: Patient seen and evaluated today along with the nursing staff Reviewed his 21 dealer which showed A-fib with controlled ventricular rate. I distended abdomen as well as discomfort in his swollen testicles. Cardiac exam regular venous pressure elevated S1-S2 is regular Chest exam mildly diminished air entry bilateral. Mild, bilateral lower extremity edema Risk Stratification Risk Stratification Applicable: No Objective Data Vital Signs: Vital Signs Temp Pulse Resp BP Pulse Ox O2 Del Method O2 Flow Rate 97.9 F 79 20 H 94/72 97 Room Air 2 10/09/24 12:00 10/09/24 12:00 10/09/24 12:00 10/09/24 12:00 10/09/24 12:00 10/09/24 12:00 10/09/24 09:10 Oxygen Flow Rate (L/min) 2 Oxygen Delivery Method Room Air Weight: 165 lb 2.02 oz Body Mass Index (BMI) 25.1 Intake & Output: Intake and Output for Last 24 Hours 10/07/24 10/08/24 10/09/24 23:59 23:59 23:59 Intake Total 1050 / 1050 1421.83 / 1421.83 Output Total 300 / 300 Balance 1050 / 1050 1121.83 / 1121.83 Lab / Micro Data 10/09/24 05:17 10/09/24 05:17 Labs: Laboratory Results - last 24 hr 10/08/24 18:55: WBC 16.9 H, RBC 5.52, Hgb 16.5, Hct 49.6, MCV 89.9, MCH 29.9, MCHC 33.3, RDW Std Deviation 45.5 H, RDW Coeff of Natty 13.8, Plt Count 280, MPV 11.3, Immature Gran % (Auto) 0.400, Neut % (Auto) 81.9 H, Lymph % (Auto) 9.0 L, [place] % (Auto) 8.0, Eos % (Auto) 0.5, Baso % (Auto) 0.2, Absolute Neuts (auto) 13.8 H, Absolute Lymphs (auto) 1.53, Nucleated RBC % 0, Sodium 143, Potassium 4.3, Chloride 107, Carbon Dioxide 24.8, Anion Gap 11, BUN 20 H, Creatinine 0.80, Estim Creat Clear Calc 81.97, Est GFR (MDRD) Non-Af 98, BUN/Creatinine Ratio 25.1 H, Glucose 118 H, Calcium 9.4, Total Bilirubin 1.08, AST 24, ALT 25, Alkaline Phosphatase 99, Troponin T High Sens 12, Total Protein 7.3, Albumin 4.1, Globulin 3.1, Albumin/Globulin Ratio 1.3, TSH 2.930 10/08/24 19:25: Urine Color Yellow, Urine Clarity Sl. Cloudy, Urine pH 6.0, Ur Specific [place] 1.020, Urine Protein 30 H, Urine Glucose (UA) Normal, Urine Ketones 5 H, Urine Occult Blood 10 H, Urine Nitrite Negative, Urine Bilirubin Negative, Urine Urobilinogen Normal, Ur Leukocyte Esterase 500 H, Urine RBC 5-10 SEEN, Urine WBC 25-50 SEEN, Ur Squamous Epith Cells 0-5 SEEN, Ur Renal Epithelial Cell 0-5 SEEN, Urine Bacteria 4+, Urine Mucus 0 SEEN 10/08/24 20:00: Lactic Acid 1.3 10/08/24 20:55: Troponin T Hi Sens 2 Hr 13 10/09/24 00:26: Magnesium 1.8, Troponin T Hi Sens 4Hr 14, TSH 2.440 10/09/24 05:17: WBC 17.8 H, RBC 4.94, Hgb 14.7, Hct 44.5, MCV 90.1, MCH 29.8, MCHC 33.0, RDW Std Deviation 46.5 H, RDW Coeff of Natty 14.2, Plt Count 225, MPV 12.5 H, Immature Gran % (Auto) 0.600, Neut % (Auto) 83.8 H, Lymph % (Auto) 7.6 L, [place] % (Auto) 7.7, Eos % (Auto) 0.1, Baso % (Auto) 0.2, Absolute Neuts (auto) 14.9 H, Absolute Lymphs (auto) 1.35, Nucleated RBC % 0, Sodium 138, Potassium 4.2, Chloride 108, Carbon Dioxide 18.5 L, Anion Gap 11, BUN 19, Creatinine 0.67 L, Estim Creat Clear Calc 87.88, Est GFR (MDRD) Non-Af 103, BUN/Creatinine Ratio 28.6 H, Glucose 146 H, Calcium 8.9, Phosphorus 3.0, Total Bilirubin 1.17, AST 16, ALT 18, Alkaline Phosphatase 80, Total Protein 6.3, Albumin 3.5, Globulin 2.8, Albumin/Globulin Ratio 1.3 Cardiology Labs/Tests 10/08/24 18:55: WBC 16.9 H, RBC 5.52, Hgb 16.5, Hct 49.6, MCV 89.9, MCH 29.9, MCHC 33.3, Plt Count 280, MPV 11.3, Immature Gran % (Auto) 0.400, Neut % (Auto) 81.9 H, Lymph % (Auto) 9.0 L, [place] % (Auto) 8.0, Eos % (Auto) 0.5, Baso % (Auto) 0.2, Absolute Neuts (auto) 13.8 H, Nucleated RBC % 0, Sodium 143, Potassium 4.3, Chloride 107, Carbon Dioxide 24.8, Anion Gap 11, BUN 20 H, Creatinine 0.80, Est GFR (MDRD) Non-Af 98, BUN/Creatinine Ratio 25.1 H, Glucose 118 H, Calcium 9.4, Total Bilirubin 1.08 10/08/24 19:25: Urine Color Yellow, Urine Clarity Sl. Cloudy, Urine pH 6.0, Ur Specific [place] 1.020, Urine Protein 30 H, Urine Glucose (UA) Normal, Urine Ketones 5 H, Urine Occult Blood 10 H, Urine Nitrite Negative, Urine Bilirubin Negative, Urine Urobilinogen Normal, Ur Leukocyte Esterase 500 H, Urine RBC 5-10 SEEN, Urine WBC 25-50 SEEN 10/08/24 20:00: Lactic Acid 1.3 10/09/24 00:26: Magnesium 1.8 10/09/24 05:17: WBC 17.8 H, RBC 4.94, Hgb 14.7, Hct 44.5, MCV 90.1, MCH 29.8, MCHC 33.0, Plt Count 225, MPV 12.5 H, Immature Gran % (Auto) 0.600, Neut % (Auto) 83.8 H, Lymph % (Auto) 7.6 L, [place] % (Auto) 7.7, Eos % (Auto) 0.1, Baso % (Auto) 0.2, Absolute Neuts (auto) 14.9 H, Nucleated RBC % 0, Sodium 138, Potassium 4.2, Chloride 108, Carbon Dioxide 18.5 L, Anion Gap 11, BUN 19, Creatinine 0.67 L, Est GFR (MDRD) Non-Af 103, BUN/Creatinine Ratio 28.6 H, Glucose 146 H, Calcium 8.9, Phosphorus 3.0, Total Bilirubin 1.17 Rhythm: EKG: ECHO: Stress Test: Cardiac Cath: PCI: CT Surgery: Holter monitor: EPS: PPM: CXR: Chest CT Scan: Radiography Diagnostic Testing: Radiology Impression Testicular Ultrasound 10/08/24 19:53 IMPRESSION: No evidence of testicular torsion. Asymmetric enlargement of the right epididymis with hypervascularity, which may represent epididymitis. Clinical and laboratory correlation recommended. Reading Location: [id number] Echocardiogram 10/09/24 01:40 Interpretation Summary The estimated ejection fraction is 10-15 %. Severe global LV hypokinesia Severe LV systolic dysfunction Definity/contrast echo used No prior study to compare Ordering Physician: Michael Reyna Referring Physician: Kilo Lewis Performed By: Tere Castorena, WILLIANCS, RVT
--- NOTE | 2024-10-09 15:49 | EKG12_ITS ---
Test Reason : AF Blood Pressure : */* mmHG Vent. Rate : 109 BPM Atrial Rate : 271 BPM P-R Int : * ms QRS Dur : 96 ms QT Int : 386 ms P-R-T Axes : * 51 262 degrees QTcB Int : 519 ms Atrial flutter with variable A-V block Minimal voltage criteria for LVH, may be normal variant ( [place] product ) ST & T wave abnormality, consider anterolateral ischemia Abnormal ECG When compared with ECG of 08-Oct-2024 19:01, MANUAL COMPARISON REQUIRED DATA IS UNCONFIRMED Confirmed by Michael Heard ([id number]), editor in chief newspaper INDIO SOLOMON ([id number]) on 10/16/2024 1:25:21 PM Referred By: Confirmed By: Michael Heard
[2024-10-09] MEDS: Ketorolac 15 MG/ML Vial IV (15:58)
[2024-10-09] MEDS: Polyethylene Glycol 3350 17 GM PACKET PO (17:21)
[2024-10-09] MEDS: Furosemide 20 MG/2 ML VIAL IV (17:21)
[2024-10-09] MEDS: APIXABAN 5 MG TABLET PO (21:26)
[2024-10-09] MEDS: Ceftriaxone 1 GM/50 ML BAG IV (21:26)
[2024-10-09] MEDS: SACUBITRIL/VALSARTAN 24/26 MG TABLET 1 EACH PO (21:26)
[2024-10-09] MEDS: MELATONIN 3 MG TABLET PO (23:22)
[2024-10-10] VITALS (32 sets, daily range): BP systolic 87–169; BP diastolic 68–98; PULSE 68–138; RESP 12–27; TEMP 36.5–37.3; O2SAT 90–99; BMI 25.6
[2024-10-10] MEDS: Diltiazem 125 MG in Dextrose 5%-Water (100mL Bag) 100 ML IV (01:10)
[2024-10-10] MEDS: Acetaminophen 325 MG Tablet 650 MG PO ×2 (02:18→20:25)
[2024-10-10] MEDS: 0.9% Saline Lock 10 ML Syringe IV ×4 (02:19→18:12)
[2024-10-10] MEDS: Ketorolac 15 MG/ML Vial IV (02:19)
[2024-10-10 06:49] LABS: Absolute Lymphocyte Count 1.97 X10^3/uL (0.83-4.51); Absolute Neutrophil Count 18.5 X10^3/uL (2.0-7.7); Basophil# 0.05 X10^3/uL; Basophil% 0.2 % (0-1); Hemoglobin 14.3 g/dL (13.0-16.5); Lymphocyte # 1.97 X10^3/ul (0.83-4.51); Lymphocyte % 8.6 % (19-41); Mean Corpuscular Hgb 30.7 pg (27.0-32.0); Mean Corpuscular Volume 90.1 fL (80-94); Monocyte# 2.11 X10^3/uL; Monocyte% 9.2 % (0-10); NRBC Flagged by Analyzer 0 % (0-5); Neutrophil # 18.53 X10^3/uL (2.7-7.7); Neutrophil % 81.1 % (47-70); POSITIVE DIFFERENTIAL YES; Platelet Count 216 K/mm3 (150-450); RBC Distribution Width CV 14.3 % (11.6-14.6); RBC Distribution Width SD 46.9 fl (35.1-43.9); Red Blood Count 4.66 M/mm3 (4.6-6.2); White Blood Count 22.9 K/mm3 (4.4-11.0)
[2024-10-10 06:50] LABS: Differential Indicated SCAN CRITERIA MET
[2024-10-10 07:10] LABS: Anion Gap 10 (5-15); BUN 21 mg/dL (4-19); BUN/Creat Ratio 31.5 RATIO (10-20); Calcium,Total 8.7 mg/dL (7.6-11.0); Carbon Dioxide 19.6 mmol/L (21.0-32.0); Chloride 108 mmol/L (98-108); Creatinine, Serum 0.65 mg/dL (0.70-1.20); EST Glomerular Filtration Rate 104 (>60); Estimated Creatinine Clearance 87.88 ml/min (50-250); Glucose 122 mg/dL (70-99); Potassium 3.8 mmol/L (3.3-5.1); Sodium Level 138 mmol/L (133-145)
[2024-10-10 07:40] LABS: Platelet Estimate A (ADEQ); Platelet Morphology GIANT
[2024-10-10] MEDS: 0.9% Normal Saline (250mL Bag) 250 ML 15 ML IV (09:06)
[2024-10-10] MEDS: Piperacil/Tazobactam 3.375 GM in 0.9% Normal Saline (50mL MB+) 50 ML IV ×3 (09:07→22:20)
--- NOTE | 2024-10-10 10:19 | PN_ITS ---
Subjective Subjective Patient seen and examined. He said he had an uneventful night. He was asking he could go home. Per his nurse he went into A-fib with RVR overnight again so he was placed back on the Cardizem drip. He was still in afib but rate controlled today. Objective Data Objective Data Vital Signs: Vital Signs Temp Pulse Resp BP Pulse Ox O2 Del Method O2 Flow Rate 98.4 F 73 18 107/83 H 98 Room Air 2 10/10/24 03:00 10/10/24 08:17 10/10/24 08:17 10/10/24 08:17 10/10/24 08:01 10/10/24 08:01 10/09/24 09:10 Oxygen Flow Rate (L/min) 2 Oxygen Delivery Method Room Air Weight: 168 lb 6.931 oz Body Mass Index (BMI) 25.6 Intake & Output: Intake and Output for Last 24 Hours 10/08/24 10/09/24 10/10/24 23:59 23:59 23:59 Intake Total 1050 / 1050 2671.83 / 2671.83 182.26 / 182.26 Output Total 550 / 800 250 / 250 Balance 1050 / 1050 2121.83 / 1871.83 -67.74 / -67.74 Lab / Micro Data 10/10/24 06:30 10/10/24 06:30 Labs: Laboratory Results - last 24 hr 10/10/24 06:30: WBC 22.9 H, RBC 4.66, Hgb 14.3, Hct 42.0, MCV 90.1, MCH 30.7, MCHC 34.0, RDW Std Deviation 46.9 H, RDW Coeff of Natty 14.3, Plt Count 216, MPV 12.0, Immature Gran % (Auto) 0.900, Neut % (Auto) 81.1 H, Lymph % (Auto) 8.6 L, [place] % (Auto) 9.2, Eos % (Auto) 0.0, Baso % (Auto) 0.2, Absolute Neuts (auto) 18.5 H, Absolute Lymphs (auto) 1.97, Nucleated RBC % 0, Platelet Estimate A, Plt Morphology Comment GIANT, Sodium 138, Potassium 3.8, Chloride 108, Carbon Dioxide 19.6 L, Anion Gap 10, BUN 21 H, Creatinine 0.65 L, Estim Creat Clear Calc 87.88, Est GFR (MDRD) Non-Af 104, BUN/Creatinine Ratio 31.5 H, Glucose 122 H, Calcium 8.7 Radiography Diagnostic Testing: Radiology Impression Echocardiogram 10/09/24 01:40 Interpretation Summary The estimated ejection fraction is 10-15 %. Severe global LV hypokinesia Severe LV systolic dysfunction Definity/contrast echo used No prior study to compare Ordering Physician: Michael Reyna Referring Physician: Kilo Lewis Performed By: Tere Castorena, MARTÍN, RVT Physical Exam Const alert, oriented x3, no apparent distress, average body habitus and well nourished Constitutional Narrative: Moderate distress noted. General Appearance: cooperative and well developed HEENT normocephalic, head/scalp atraumatic, hearing grossly normal bilaterally, moist oral mucous membranes and oropharynx normal Eyes PERRL, EOMs intact bilaterally and conjunctivae normal Neck no lymphadenopathy, supple and no JVD Lymph Lymphatic: no lymphadenopathy noted and no lymphedema noted Resp normal respiratory effort, normal air movement, no retractions, no use of accessory muscles and clear to auscultation bilaterally Cardio regular rate, S1 normal heart sound, S2 normal heart sound and no murmurs Cardio Narrative: afib, rate controlled GI normal to inspection, nondistended, normoactive bowel sounds, soft to palpation, non-tender and non-distended Extremity normal to inspection, full ROM, normal capillary refill, no clubbing, cyanosis or edema and no calf tenderness General Extremity: no tenderness to palpation of joints or extremities Skin Skin Narrative: scrotum is erythematous, right testicle mat making machine tender Neuro oriented x3, CN's II-XII intact bilaterally, moves all extremities, no focal motor deficits and no sensory deficits noted Sensorium / Orientation: awake, alert, oriented to person, oriented to place and oriented to time Speech: speech normal Motor Exam: strength 5/5 throughout and general weakness Psych thought process normal, cooperative and affect normal Appearance: appropriate Assessment & Plan Assessment/Plan (1) Atrial flutter with rapid ventricular response: (2) Epididymitis: (3) Acute cystitis with hematuria: PLAN: Plan #Acute right epididymitis * ultrasound of the scrotum showed evidence of epididymitis, with no torsion. * wbc trended upwards today to 22.9, so antibiotics broadened to IV zosyn. * PO tylenol, PO oxycodone and IV morphine prn for pain. * blood cultures pending * #UTI * Urinalysis showed evidence of UTI with 4+ bacteria and WBC was also elevated. * antibiotics broadened to IV zosyn. * On IV Zofran as needed for nausea and vomiting. * Urine cultures pending * #New onset afib * went back in into afib with RVR. * had to be put back on cardizem drip again overnight. * wean off cardizem drip and put on PO metoprolol 25mg bid again. * 2D echo is 10-15% with severe global LV hypokinesia and severe LV systolic dysfunction. * discussed with Dr Leo of cardiology who was consulted yesterday; he thinks it is more of a nonischemic cardiomyopathy and does not think patient needs cardiac cath now; cardiac cath can be done on outpatient basis. * TSH WNL. Now on eliquis * per cardiology, if afib with RVR recurs, to place on amiodarone drip and not cardizem drip. * #DVT prophylaxis: on eliquis Charges/Coding Visit Charges Inpatient E&M: 65221 Subs Hosp L2
[2024-10-10] MEDS: APIXABAN 5 MG TABLET PO ×2 (10:35→22:22)
[2024-10-10] MEDS: Lactobacillis Acidophilus 1 CAP PO ×3 (10:35→22:23)
[2024-10-10] MEDS: Furosemide 20 MG/2 ML VIAL IV ×2 (10:35→18:12)
[2024-10-10] MEDS: Multivitamins,Therapeutic Tablet 1 TABLET PO (10:35)
--- NOTE | 2024-10-10 11:00 | PN.CARD_ITS ---
Subjective Subjective Events of last night noted patient was in A-fib with RVR. Objective Data Vital Signs: Vital Signs Temp Pulse Resp BP Pulse Ox O2 Del Method O2 Flow Rate 97.7 F L 80 18 88/68 L 98 Room Air 2 10/10/24 09:00 10/10/24 10:32 10/10/24 10:32 10/10/24 10:32 10/10/24 10:32 10/10/24 10:32 10/09/24 09:10 Oxygen Flow Rate (L/min) 2 Oxygen Delivery Method Room Air Weight: 168 lb 6.931 oz Body Mass Index (BMI) 25.6 Intake & Output: Intake and Output for Last 24 Hours 10/08/24 10/09/24 10/10/24 23:59 23:59 23:59 Intake Total 1050 / 1050 2671.83 / 2671.83 190.84 / 190.84 Output Total 550 / 800 250 / 250 Balance 1050 / 1050 2121.83 / 1871.83 -59.16 / -59.16 Lab / Micro Data 10/10/24 06:30 10/10/24 06:30 Labs: Laboratory Results - last 24 hr 10/10/24 06:30: WBC 22.9 H, RBC 4.66, Hgb 14.3, Hct 42.0, MCV 90.1, MCH 30.7, MCHC 34.0, RDW Std Deviation 46.9 H, RDW Coeff of Natty 14.3, Plt Count 216, MPV 12.0, Immature Gran % (Auto) 0.900, Neut % (Auto) 81.1 H, Lymph % (Auto) 8.6 L, [place] % (Auto) 9.2, Eos % (Auto) 0.0, Baso % (Auto) 0.2, Absolute Neuts (auto) 18.5 H, Absolute Lymphs (auto) 1.97, Nucleated RBC % 0, Platelet Estimate A, Plt Morphology Comment GIANT, Sodium 138, Potassium 3.8, Chloride 108, Carbon Dioxide 19.6 L, Anion Gap 10, BUN 21 H, Creatinine 0.65 L, Estim Creat Clear Calc 87.88, Est GFR (MDRD) Non-Af 104, BUN/Creatinine Ratio 31.5 H, Glucose 122 H, Calcium 8.7 Cardiology Labs/Tests 10/10/24 06:30: WBC 22.9 H, RBC 4.66, Hgb 14.3, Hct 42.0, MCV 90.1, MCH 30.7, MCHC 34.0, Plt Count 216, MPV 12.0, Immature Gran % (Auto) 0.900, Neut % (Auto) 81.1 H, Lymph % (Auto) 8.6 L, [place] % (Auto) 9.2, Eos % (Auto) 0.0, Baso % (Auto) 0.2, Absolute Neuts (auto) 18.5 H, Nucleated RBC % 0, Sodium 138, Potassium 3.8, Chloride 108, Carbon Dioxide 19.6 L, Anion Gap 10, BUN 21 H, Creatinine 0.65 L, Est GFR (MDRD) Non-Af 104, BUN/Creatinine Ratio 31.5 H, Glucose 122 H, Calcium 8.7 Rhythm: EKG: ECHO: Stress Test: Cardiac Cath: PCI: CT Surgery: Holter monitor: EPS: PPM: CXR: Chest CT Scan: Radiography Diagnostic Testing: Radiology Impression Echocardiogram 10/09/24 01:40 Interpretation Summary The estimated ejection fraction is 10-15 %. Severe global LV hypokinesia Severe LV systolic dysfunction Definity/contrast echo used No prior study to compare Ordering Physician: Michael Reyna Referring Physician: Kilo Lewis Performed By: Tere Castorena, MARTÍN, RVT Assessment & Plan Assessment/Plan (1) Epididymitis: (2) Leukocytosis: QUALIFIERS: Leukocytosis type: unspecified Qualified Code(s): D 72.829 - Elevated white blood cell count, unspecified (3) Acute cystitis with hematuria: (4) Overweight (BMI 25.0-29.9): (5) Atrial flutter with rapid ventricular response: PLAN: Cardiac care plan recommendations; 68-year-old patient with new onset severe LV dysfunction EF in the range of 10-15% Patient has atrial flutter with rapid ventricular rate In this admission patient has epididymitis with acute cystitis and hematuria/microscopic. I review all his current medication. Discontinue the calcium channel chucky diltiazem Will continue on beta-chucky metoprolol Added digoxin to 50 mcg start dose with the plan of follow-up with 125 mcg His renal function is normal with a normal serum creatinine. From cardiac standpoint patient plan will be to continue medical treatment with guideline directed medical therapy as tolerated which will include Entresto in addition to Aldactone possible Farxiga LifeVest prior to discharge for risk of sudden cardiac . Evaluate further as an outpatient with the cardiac team/possible left heart catheterization to assess for CAD Likely presentation is secondary to nonischemic cardiomyopathy/with atrial flutter and rapid ventricular response. He is ventricular rate is improving with the current treatment Will continue to monitor and follow-up clinically. Cardiac care plan explained in detail to the medical team, patient and nursing staff Jonas Cedeno MD,FACC,[facility]
[2024-10-10] MEDS: Metoprolol Tartrate 25 MG Tablet PO ×2 (11:08→22:22)
[2024-10-10] MEDS: Spironolactone 25 MG Tablet PO (11:08)
[2024-10-10] MEDS: Digoxin 250 MCG Tablet PO (11:25)
--- NOTE | 2024-10-10 12:13 | CASEMGMT ---
CHARLEE PEARCE Assessment Face to Face with patient for initial transition planning/care coordination assessment. CHARLEE PEARCE introduced self and role at [facility], pt voices understanding. Pt is A&Ox4 and is resting comfortably in bed and is calm. Care providers, pharmacy, and demographics verified. Admitting dx: UTI, Right Epididymitis, New onset A-Flutter LACE Strata: 1 PCP: Kilo Lewis Specialists: Denies. Pt plans to follow with [facility] moving forward Preferred Pharmacy: [facility] Insurance: SANDIE Nicole Only Prescription Benefit: Yes LNOK: Aretta (W) Living Arrangements: Pt lives with his in a 2 story home with 3 steps to enter ADLs/IADLs: Independent, Cleared PT here Transportation: Self, DME: FWW, [employer] HHC/SNF: Denies history or needs Pt?s goal: Home Plan: Pt plans to DC home with his once medically ready and plans to follow up with cardiology as an OP. Per chart review, pt has low EF. Pt educated about the potential to follow up with the cardiac rehab program. Pt states that he may be interested in this if advised by the cardio team. CM to follow for new anticoagulant. Pt denies further questions or concerns at this time. Zo Alves RN, CM
[2024-10-10] MEDS: Magnesium Hydroxide 30 ML UDC PO (17:01)
[2024-10-10] MEDS: Ondansetron 4 MG/2 ML Vial IV (17:02)
[2024-10-10] MEDS: Amiodarone 360 MG in Dextrose 5% Viaflo Bag 192.8 ML 33.3 MG CONT INF (18:16)
[2024-10-10] MEDS: SACUBITRIL/VALSARTAN 24/26 MG TABLET 1 EACH PO (22:22)
[2024-10-11] VITALS (31 sets, daily range): BP systolic 100–141; BP diastolic 81–122; PULSE 105–137; RESP 11–27; TEMP 36.4–36.9; O2SAT 93–100; BMI 25.2
[2024-10-11] MEDS: Amiodarone 360 MG in Dextrose 5% Viaflo Bag 192.8 ML 16.7 MG CONT INF ×3 (00:15→20:33)
[2024-10-11] MEDS: Acetaminophen 325 MG Tablet 650 MG PO ×2 (02:32→22:22)
[2024-10-11] MEDS: Piperacil/Tazobactam 3.375 GM in 0.9% Normal Saline (50mL MB+) 50 ML IV ×3 (05:57→20:34)
[2024-10-11 06:03] LABS: Absolute Lymphocyte Count 1.89 X10^3/uL (0.83-4.51); Absolute Neutrophil Count 15.4 X10^3/uL (2.0-7.7); Basophil# 0.05 X10^3/uL; Basophil% 0.3 % (0-1); Eosinophil# 0.02 X10^3/uL; Eosinophils% 0.1 % (0-5); Hematocrit 44.6 % (40-54); Hemoglobin 14.9 g/dL (13.0-16.5); Lymphocyte # 1.89 X10^3/ul (0.83-4.51); Lymphocyte % 9.9 % (19-41); Mean Corp Hgb Conc 33.4 g/dL (32-36); Mean Corpuscular Volume 89.7 fL (80-94); Mean Platelet Vol. 11.8 fl (6.2-12.0); Monocyte% 8.4 % (0-10); NRBC Flagged by Analyzer 0 % (0-5); Neutrophil # 15.38 X10^3/uL (2.7-7.7); Neutrophil % 80.6 % (47-70); POSITIVE DIFFERENTIAL YES; Platelet Count 236 K/mm3 (150-450); RBC Distribution Width CV 13.7 % (11.6-14.6); RBC Distribution Width SD 44.8 fl (35.1-43.9); Red Blood Count 4.97 M/mm3 (4.6-6.2); White Blood Count 19.1 K/mm3 (4.4-11.0)
[2024-10-11 06:15] LABS: Differential Indicated SCAN CRITERIA MET
[2024-10-11 06:29] LABS: Anion Gap 11 (5-15); BUN 14 mg/dL (4-19); BUN/Creat Ratio 18.4 RATIO (10-20); Calcium,Total 8.5 mg/dL (7.6-11.0); Carbon Dioxide 22.7 mmol/L (21.0-32.0); Chloride 105 mmol/L (98-108); Creatinine, Serum 0.73 mg/dL (0.70-1.20); EST Glomerular Filtration Rate 100 (>60); Estimated Creatinine Clearance 87.88 ml/min (50-250); Glucose 103 mg/dL (70-99); Potassium 3.5 mmol/L (3.3-5.1); Sodium Level 138 mmol/L (133-145)
[2024-10-11 06:51] LABS: Differential Comment SCANNED
[2024-10-11] MEDS: Metoprolol Tartrate 25 MG Tablet PO ×2 (08:27→20:35)
[2024-10-11] MEDS: Lactobacillis Acidophilus 1 CAP PO ×4 (08:27→20:35)
[2024-10-11] MEDS: Multivitamins,Therapeutic Tablet 1 TABLET PO (08:27)
[2024-10-11] MEDS: Furosemide 20 MG/2 ML VIAL IV ×2 (10:16→18:05)
[2024-10-11] MEDS: Digoxin 125 MCG Tablet PO (10:16)
[2024-10-11] MEDS: APIXABAN 5 MG TABLET PO ×2 (10:16→20:35)
[2024-10-11] MEDS: Spironolactone 25 MG Tablet PO (10:17)
[2024-10-11] MEDS: 0.9% Saline Lock 10 ML Syringe IV ×3 (10:17→18:05)
--- NOTE | 2024-10-11 12:12 | PCM.PROGNOTE ---
Subjective Subjective Patient seen and examined. HE had no active complaints. He went back into [facility] overnight, and was started on amiodarone drip. He remains on amiodarone drip. He denies any chest pain, shortness of breath, palpitations, nausea, vomiting or any other symptoms. Review of systems is otherwise negative. Objective Data Objective Data Vital Signs: Vital Signs Temp Pulse Resp BP Pulse Ox O2 Del Method O2 Flow Rate 98.5 F 108 H 13 133/111 H 97 Room Air 2 10/11/24 03:00 10/11/24 10:16 10/11/24 07:02 10/11/24 07:02 10/11/24 07:02 10/11/24 08:20 10/09/24 09:10 Oxygen Flow Rate (L/min) 2 Oxygen Delivery Method Room Air Weight: 166 lb 0.129 oz Body Mass Index (BMI) 25.2 Intake & Output: Intake and Output for Last 24 Hours 10/09/24 10/10/24 10/11/24 23:59 23:59 23:59 Intake Total 2671.83 / 2671.83 480.00 / 912.19 1021.30 / 1021.30 Output Total 550 / 800 450 / 2250 2575 / 2575 Balance 2121.83 / 1871.83 30.00 / -1337.81 -1553.70 / -1553.70 Lab / Micro Data 10/11/24 05:48 10/11/24 05:48 Labs: Laboratory Results - last 24 hr 10/11/24 05:48: WBC 19.1 H, RBC 4.97, Hgb 14.9, Hct 44.6, MCV 89.7, MCH 30.0, MCHC 33.4, RDW Std Deviation 44.8 H, RDW Coeff of Natty 13.7, Plt Count 236, MPV 11.8, Immature Gran % (Auto) 0.700, Neut % (Auto) 80.6 H, Lymph % (Auto) 9.9 L, [place] % (Auto) 8.4, Eos % (Auto) 0.1, Baso % (Auto) 0.3, Absolute Neuts (auto) 15.4 H, Absolute Lymphs (auto) 1.89, Nucleated RBC % 0, Differential Comment SCANNED, Sodium 138, Potassium 3.5, Chloride 105, Carbon Dioxide 22.7, Anion Gap 11, BUN 14, Creatinine 0.73, Estim Creat Clear Calc 87.88, Est GFR (MDRD) Non-Af 100, BUN/Creatinine Ratio 18.4, Glucose 103 H, Calcium 8.5 Micro: Microbiology 10/10/24 09:48 Urine, Clean Catch Urine Culture - Preliminary Staphylococcus aureus Physical Exam Const alert, oriented x3, no apparent distress, average body habitus and well nourished General Appearance: cooperative and well developed HEENT normocephalic, head/scalp atraumatic, hearing grossly normal bilaterally, moist oral mucous membranes and oropharynx normal Eyes PERRL, EOMs intact bilaterally and conjunctivae normal Neck no lymphadenopathy, supple and no JVD Lymph Lymphatic: no lymphadenopathy noted and no lymphedema noted Resp normal respiratory effort, normal air movement, no retractions, no use of accessory muscles and clear to auscultation bilaterally Cardio S1 normal heart sound, S2 normal heart sound and no murmurs Cardio Narrative: afib,poor rate control GI normal to inspection, nondistended, normoactive bowel sounds, soft to palpation, non-tender and non-distended Extremity normal to inspection, full ROM, normal capillary refill, no clubbing, cyanosis or edema and no calf tenderness General Extremity: no tenderness to palpation of joints or extremities Skin Skin Narrative: scrotum erythema has improvecd, right testicle tenderness and erythema has improved significantly Neuro oriented x3, CN's II-XII intact bilaterally, moves all extremities, no focal motor deficits and no sensory deficits noted Sensorium / Orientation: awake, alert, oriented to person, oriented to place and oriented to time Speech: speech normal Motor Exam: strength 5/5 throughout and general weakness Psych thought process normal, cooperative and affect normal Appearance: appropriate Assessment & Plan Assessment/Plan (1) Atrial flutter with rapid ventricular response: (2) Epididymitis: (3) Acute cystitis with hematuria: PLAN: Plan #Acute right epididymitis ultrasound of the scrotum showed evidence of epididymitis, with no torsion. wbc is down to 19.1 today. Cotninue IV zosyn PO tylenol, PO oxycodone and IV morphine prn for pain. blood cultures pending #UTI Urinalysis showed evidence of UTI with 4+ bacteria and WBC was also elevated. antibiotics broadened to IV zosyn. On IV Zofran as needed for nausea and vomiting. Urine cultures growing staph aureus will add on PO bactrim #New onset afib went back in into afib with RVR. now on amiodarone drip 2D echo is 10-15% with severe global LV hypokinesia and severe LV systolic dysfunction. discussed with Dr Leo of cardiology who was consulted yesterday; he thinks it is more of a nonischemic cardiomyopathy and does not think patient needs cardiac cath now; cardiac cath can be done on outpatient basis. TSH WNL. Now on eliquis will await cardiology evaluation today. #DVT prophylaxis: on eliquis Charges/Coding Visit Charges Inpatient E&M: 59876 Subs Hosp L2
[2024-10-11] MEDS: SACUBITRIL/VALSARTAN 24/26 MG TABLET 1 EACH PO (20:36)
[2024-10-12] VITALS (28 sets, daily range): BP systolic 105–142; BP diastolic 67–107; PULSE 99–135; RESP 12–24; TEMP 35.3–36.4; O2SAT 93–100; BMI 24.4
[2024-10-12] MEDS: Piperacil/Tazobactam 3.375 GM in 0.9% Normal Saline (50mL MB+) 50 ML IV ×3 (04:47→21:50)
[2024-10-12 06:18] LABS: Absolute Lymphocyte Count 1.95 X10^3/uL (0.83-4.51); Absolute Neutrophil Count 13.3 X10^3/uL (2.0-7.7); Basophil# 0.08 X10^3/uL; Basophil% 0.5 % (0-1); Eosinophil# 0.03 X10^3/uL; Eosinophils% 0.2 % (0-5); Hematocrit 46.7 % (40-54); Lymphocyte # 1.95 X10^3/ul (0.83-4.51); Lymphocyte % 11.5 % (19-41); Mean Corp Hgb Conc 34.3 g/dL (32-36); Mean Corpuscular Hgb 30.5 pg (27.0-32.0); Mean Corpuscular Volume 89.1 fL (80-94); Mean Platelet Vol. 11.7 fl (6.2-12.0); Monocyte# 1.51 X10^3/uL; Monocyte% 8.9 % (0-10); NRBC Flagged by Analyzer 0 % (0-5); Neutrophil # 13.26 X10^3/uL (2.7-7.7); POSITIVE DIFFERENTIAL YES; Platelet Count 283 K/mm3 (150-450); RBC Distribution Width CV 13.7 % (11.6-14.6); RBC Distribution Width SD 44.4 fl (35.1-43.9); Red Blood Count 5.24 M/mm3 (4.6-6.2)
[2024-10-12 06:22] LABS: Differential Indicated SCAN CRITERIA MET
[2024-10-12 06:48] LABS: Anion Gap 10 (5-15); BUN 14 mg/dL (4-19); BUN/Creat Ratio 18.4 RATIO (10-20); Calcium,Total 8.5 mg/dL (7.6-11.0); Carbon Dioxide 25.8 mmol/L (21.0-32.0); Chloride 104 mmol/L (98-108); Creatinine, Serum 0.76 mg/dL (0.70-1.20); EST Glomerular Filtration Rate 99 (>60); Estimated Creatinine Clearance 87.88 ml/min (50-250); Glucose 106 mg/dL (70-99); Potassium 3.2 mmol/L (3.3-5.1); Sodium Level 140 mmol/L (133-145)
[2024-10-12] MEDS: Multivitamins,Therapeutic Tablet 1 TABLET PO (08:11)
[2024-10-12] MEDS: Metoprolol Tartrate 25 MG Tablet PO ×2 (08:11→21:42)
[2024-10-12] MEDS: Lactobacillis Acidophilus 1 CAP PO ×3 (08:12→21:43)
[2024-10-12] MEDS: Amiodarone 360 MG in Dextrose 5% Viaflo Bag 192.8 ML 16.7 MG CONT INF ×2 (08:13→21:40)
[2024-10-12] MEDS: Potassium Chloride Oral Tablet 20 MEQ 40 MEQ PO (10:17)
[2024-10-12] MEDS: Furosemide 20 MG/2 ML VIAL IV ×2 (10:18→17:52)
[2024-10-12] MEDS: SACUBITRIL/VALSARTAN 24/26 MG TABLET 1 EACH PO ×2 (10:18→21:42)
[2024-10-12] MEDS: Spironolactone 25 MG Tablet PO (10:18)
[2024-10-12] MEDS: APIXABAN 5 MG TABLET PO ×2 (10:18→21:42)
[2024-10-12] MEDS: 0.9% Saline Lock 10 ML Syringe IV ×2 (10:21→17:52)
--- NOTE | 2024-10-12 11:09 | PN_ITS ---
Subjective Subjective Patient seen and examined. He still remains on the amiodarone drip and remains in afib with RVR. He had no active complaints today. He denied any chest pain, nausea or vomiting. He is still having palpitations though. Review of systems is otherwise negative. Objective Data Objective Data Vital Signs: Vital Signs Temp Pulse Resp BP Pulse Ox O2 Del Method O2 Flow Rate 97.6 F L 128 H 15 133/103 H 98 Room Air 2 10/12/24 09:00 10/12/24 10:00 10/12/24 10:00 10/12/24 10:00 10/12/24 10:00 10/12/24 10:00 10/09/24 09:10 Oxygen Flow Rate (L/min) 2 Oxygen Delivery Method Room Air Weight: 160 lb 7.944 oz Body Mass Index (BMI) 24.4 Intake & Output: Intake and Output for Last 24 Hours 10/10/24 10/11/24 10/12/24 23:59 23:59 23:59 Intake Total 480.00 / 912.19 2055.93 / 2072.63 283.70 / 283.70 Output Total 450 / 2250 5500 / 5500 400 / 400 Balance 30.00 / -1337.81 -3444.07 / -3427.37 -116.30 / -116.30 Lab / Micro Data 10/12/24 06:00 10/12/24 06:00 Labs: Laboratory Results - last 24 hr 10/12/24 06:00: WBC 17.0 H, RBC 5.24, Hgb 16.0, Hct 46.7, MCV 89.1, MCH 30.5, MCHC 34.3, RDW Std Deviation 44.4 H, RDW Coeff of Natty 13.7, Plt Count 283, MPV 11.7, Immature Gran % (Auto) 0.900, Neut % (Auto) 78.0 H, Lymph % (Auto) 11.5 L, [place] % (Auto) 8.9, Eos % (Auto) 0.2, Baso % (Auto) 0.5, Absolute Neuts (auto) 13.3 H, Absolute Lymphs (auto) 1.95, Nucleated RBC % 0, Differential Comment COMMENT, Sodium 140, Potassium 3.2 L, Chloride 104, Carbon Dioxide 25.8, Anion Gap 10, BUN 14, Creatinine 0.76, Estim Creat Clear Calc 87.88, Est GFR (MDRD) Non-Af 99, BUN/Creatinine Ratio 18.4, Glucose 106 H, Calcium 8.5 Micro: Microbiology 10/10/24 09:48 Urine, Clean Catch Urine Culture - Final Staphylococcus aureus 10/10/24 08:40 Blood Culture (Wb) - Right Forearm Blood Culture - Preliminary No growth in 48 hours. 10/10/24 08:33 Blood Culture (Wb) - Anticubital Right Blood Culture - Preliminary No growth in 48 hours. Physical Exam Const alert, oriented x3, no apparent distress and average body habitus General Appearance: cooperative and well developed HEENT normocephalic, head/scalp atraumatic, hearing grossly normal bilaterally, moist oral mucous membranes and oropharynx normal Eyes PERRL, EOMs intact bilaterally and conjunctivae normal Neck no lymphadenopathy, supple and no JVD Lymph Lymphatic: no lymphadenopathy noted and no lymphedema noted Resp normal respiratory effort, normal air movement, no retractions, no use of accessory muscles and clear to auscultation bilaterally Cardio S1 normal heart sound, S2 normal heart sound and no murmurs Cardio Narrative: afib,poor rate control, still in RVR GI normal to inspection, nondistended, normoactive bowel sounds, soft to palpation, non-tender and non-distended Extremity normal to inspection, full ROM, normal capillary refill, no clubbing, cyanosis or edema and no calf tenderness General Extremity: no tenderness to palpation of joints or extremities Skin Skin Narrative: scrotum erythema has improvecd, right testicle tenderness and erythema has improved significantly Neuro oriented x3, CN's II-XII intact bilaterally, moves all extremities, no focal motor deficits and no sensory deficits noted Sensorium / Orientation: awake, alert, oriented to person, oriented to place and oriented to time Speech: speech normal Motor Exam: strength 5/5 throughout and general weakness Psych thought process normal, cooperative and affect normal Appearance: appropriate Mood & Affect: anxious Assessment & Plan Assessment/Plan (1) Atrial flutter with rapid ventricular response: (2) Epididymitis: (3) Acute cystitis with hematuria: PLAN: Plan #Acute right epididymitis * ultrasound of the scrotum showed evidence of epididymitis, with no torsion. * wbc is down to 17.0 today. Cotninue IV zosyn * PO tylenol, PO oxycodone and IV morphine prn for pain. * blood cultures negative so far. * will add on IV vancomycin due to culture results and elevated wbc #UTI * Urinalysis showed evidence of UTI with 4+ bacteria and WBC was also elevated. * antibiotics broadened to IV zosyn. * On IV Zofran as needed for nausea and vomiting. * Urine cultures growing staph aureus * will dc bactrim and add on vancomycin * #Persistent afib with RVR * went back in into afib with RVR. * remains on amiodarone drip * 2D echo is 10-15% with severe global LV hypokinesia and severe LV systolic dysfunction. * discussed with Dr Leo of cardiology who was consulted yesterday; he thinks it is more of a nonischemic cardiomyopathy and does not think patient needs cardiac cath now; cardiac cath can be done on outpatient basis. * TSH WNL. Now on eliquis * management as per cardiology * #DVT prophylaxis: on eliquis Charges/Coding Visit Charges Inpatient E&M: 88202 Subs Hosp L2
[2024-10-12] MEDS: Vancomycin HCl 1,750 MG in 0.9% Normal Saline (500mL Bag) 500 ML 250 MG IV (11:56)
--- NOTE | 2024-10-12 12:16 | PCM.RX.CS ---
Consult Antibiotic Management Pharmacy has been consulted to manage selected antibiotic: Vancomycin Type of Intervention Type of Consult: New start Suspected Infection Suspected Infection: Other (UTI) Prior Doses of Antibiotics Prior Doses of Antibiotics Received/Current Regimen: Vancomycin 1750 mg IV x 1 given 10/12/24 @ 1158 Labs Labs: Sodium 140 mmol/L (133-145) 10/12/24 06:00 Potassium 3.2 mmol/L (3.3-5.1) L 10/12/24 06:00 Chloride 104 mmol/L (98-108) 10/12/24 06:00 Carbon Dioxide 25.8 mmol/L (21.0-32.0) 10/12/24 06:00 Anion Gap 10 (5-15) 10/12/24 06:00 BUN 14 mg/dL (4-19) 10/12/24 06:00 Creatinine 0.76 mg/dL (0.70-1.20) 10/12/24 06:00 Est GFR (MDRD) Non-Af 99 (>60) 10/12/24 06:00 BUN/Creatinine Ratio 18.4 RATIO (10-20) 10/12/24 06:00 Glucose 106 mg/dL (70-99) H 10/12/24 06:00 Microbiology Microbiology: Microbiology 10/10/24 09:48 Urine, Clean Catch Urine Culture - Final Staphylococcus aureus 10/10/24 08:40 Blood Culture (Wb) - Right Forearm Blood Culture - Preliminary No growth in 48 hours. 10/10/24 08:33 Blood Culture (Wb) - Anticubital Right Blood Culture - Preliminary No growth in 48 hours. Dosing Weight Weight used for dosin kg Estimated Creatinine Clearance Estimated Creatinine Clearance: ~ 88 Goal Trough Goal Trough: 15-20 mcg/mL Pharmacy Plan for Drug Dosing Pharmacy Plan for Drug Dosing: Vancomycin 1750 mg IV x 1 followed by 1250 mg Q12H Pharmacy Service will continue to monitor and adjust dosing as required. Follow-Up Labs Follow-Up Labs: Trough: Vancomycin Date/Time Labs Ordered Labs to be done on [date and time ordered]: 10/13/24 @ 6413
[2024-10-13] VITALS (32 sets, daily range): BP systolic 90–134; BP diastolic 70–104; PULSE 88–130; RESP 12–25; TEMP 35.9–36.8; O2SAT 95–100; BMI 24.5
[2024-10-13] MEDS: Vancomycin HCl 1,250 MG in 0.9% Normal Saline (250mL Bag) 250 ML 167 MG IV ×2 (01:48→11:56)
[2024-10-13] MEDS: Piperacil/Tazobactam 3.375 GM in 0.9% Normal Saline (50mL MB+) 50 ML IV ×3 (05:37→21:29)
[2024-10-13 06:24] LABS: Absolute Lymphocyte Count 1.97 X10^3/uL (0.83-4.51); Absolute Neutrophil Count 12.4 X10^3/uL (2.0-7.7); Basophil# 0.09 X10^3/uL; Basophil% 0.6 % (0-1); Eosinophil# 0.08 X10^3/uL; Eosinophils% 0.5 % (0-5); Hematocrit 46.7 % (40-54); Lymphocyte # 1.97 X10^3/ul (0.83-4.51); Lymphocyte % 12.2 % (19-41); Mean Corp Hgb Conc 34.3 g/dL (32-36); Mean Corpuscular Hgb 30.2 pg (27.0-32.0); Mean Corpuscular Volume 88.3 fL (80-94); Mean Platelet Vol. 12.1 fl (6.2-12.0); Monocyte# 1.39 X10^3/uL; Monocyte% 8.6 % (0-10); NRBC Flagged by Analyzer 0 % (0-5); Neutrophil # 12.43 X10^3/uL (2.7-7.7); Neutrophil % 77.1 % (47-70); Platelet Count 278 K/mm3 (150-450); RBC Distribution Width CV 13.5 % (11.6-14.6); RBC Distribution Width SD 43.6 fl (35.1-43.9); Red Blood Count 5.29 M/mm3 (4.6-6.2); White Blood Count 16.1 K/mm3 (4.4-11.0)
[2024-10-13 06:46] LABS: Anion Gap 12 (5-15); BUN 14 mg/dL (4-19); BUN/Creat Ratio 19.9 RATIO (10-20); Calcium,Total 8.6 mg/dL (7.6-11.0); Carbon Dioxide 22.1 mmol/L (21.0-32.0); Chloride 104 mmol/L (98-108); EST Glomerular Filtration Rate 101 (>60); Estimated Creatinine Clearance 87.88 ml/min (50-250); Glucose 102 mg/dL (70-99); Potassium 3.1 mmol/L (3.3-5.1); Sodium Level 138 mmol/L (133-145)
[2024-10-13] MEDS: Potassium Chloride Oral Tablet 20 MEQ 40 MEQ PO (09:25)
[2024-10-13] MEDS: Lactobacillis Acidophilus 1 CAP PO ×3 (09:25→21:30)
[2024-10-13] MEDS: APIXABAN 5 MG TABLET PO ×2 (09:25→21:30)
[2024-10-13] MEDS: Multivitamins,Therapeutic Tablet 1 TABLET PO (09:25)
[2024-10-13] MEDS: Metoprolol Tartrate 25 MG Tablet PO (09:25)
[2024-10-13] MEDS: Spironolactone 25 MG Tablet PO (09:26)
[2024-10-13] MEDS: SACUBITRIL/VALSARTAN 24/26 MG TABLET 1 EACH PO ×2 (10:12→21:30)
[2024-10-13] MEDS: Furosemide 20 MG/2 ML VIAL IV ×2 (10:12→18:27)
[2024-10-13] MEDS: 0.9% Saline Lock 10 ML Syringe IV ×4 (10:13→21:30)
[2024-10-13] MEDS: Amiodarone 360 MG in Dextrose 5% Viaflo Bag 192.8 ML 16.7 MG CONT INF ×2 (10:21→21:31)
--- NOTE | 2024-10-13 11:13 | PN_ITS ---
Subjective Subjective Patient seen and examined. He has no active complaints. He still remains tachycardic, in afib with RVR. He remains on the amiodarone drip. His scrotal swellng has also improved. REview of systems is otherwise negative. Objective Data Objective Data Vital Signs: Vital Signs Temp Pulse Resp BP Pulse Ox O2 Del Method O2 Flow Rate 97.7 F L 123 H 17 126/97 H 99 Room Air 2 10/13/24 10:10/13/24 10:10/13/24 10:00 10/13/24 10:10/13/24 10:10/13/24 10:00 10/09/24 09:10 Oxygen Flow Rate (L/min) 2 Oxygen Delivery Method Room Air Weight: 161 lb 2.526 oz Body Mass Index (BMI) 24.5 Intake & Output: Intake and Output for Last 24 Hours 10/11/24 10/12/24 10/13/24 23:59 23:59 23:59 Intake Total 2055.93 / 2072.63 1661.19 / 2077.89 1302.73 / 1302.73 Output Total 5500 / 5500 1550 / 2250 1100 / 1100 Balance -3444.07 / -3427.37 111.19 / -172.11 202.73 / 202.73 Lab / Micro Data 10/13/24 05:41 10/13/24 05:41 Labs: Laboratory Results - last 24 hr 10/13/24 05:41: WBC 16.1 H, RBC 5.29, Hgb 16.0, Hct 46.7, MCV 88.3, MCH 30.2, MCHC 34.3, RDW Std Deviation 43.6, RDW Coeff of Natty 13.5, Plt Count 278, MPV 12.1 H, Immature Gran % (Auto) 1.000 H, Neut % (Auto) 77.1 H, Lymph % (Auto) 12.2 L, [place] % (Auto) 8.6, Eos % (Auto) 0.5, Baso % (Auto) 0.6, Absolute Neuts (auto) 12.4 H, Absolute Lymphs (auto) 1.97, Nucleated RBC % 0, Sodium 138, P otassium 3.1 L, Chloride 104, Carbon Dioxide 22.1, Anion Gap 12, BUN 14, Creatinine 0.70, Estim Creat Clear Calc 87.88, Est GFR (MDRD) Non-Af 101, BUN/Creatinine Ratio 19.9, Glucose 102 H, Calcium 8.6 Micro: Microbiology 10/10/24 09:48 Urine, Clean Catch Urine Culture - Final Staphylococcus aureus 10/10/24 08:40 Blood Culture (Wb) - Right Forearm Blood Culture - Preliminary No growth in 48 hours. 10/10/24 08:33 Blood Culture (Wb) - Anticubital Right Blood Culture - Preliminary No growth in 48 hours. Physical Exam Const alert, oriented x3, no apparent distress, average body habitus and well nourished Constitutional Narrative: General Appearance: cooperative and well developed HEENT normocephalic, head/scalp atraumatic, hearing grossly normal bilaterally, moist oral mucous membranes and oropharynx normal Eyes PERRL, EOMs intact bilaterally and conjunctivae normal Neck no lymphadenopathy, supple and no JVD Lymph Lymphatic: no lymphadenopathy noted and no lymphedema noted Resp normal respiratory effort, normal air movement, no retractions, no use of accessory muscles and clear to auscultation bilaterally Cardio S1 normal heart sound, S2 normal heart sound and no murmurs Cardio Narrative: afib,poor rate control, still in RVR GI normal to inspection, nondistended, normoactive bowel sounds, soft to palpation, non-tender and non-distended Extremity normal to inspection, full ROM, normal capillary refill, no clubbing, cyanosis or edema and no calf tenderness General Extremity: no tenderness to palpation of joints or extremities Skin Skin Narrative: scrotum erythema has improved, right testicle tenderness and erythema has improved significantly Neuro oriented x3, CN's II-XII intact bilaterally, moves all extremities, no focal motor deficits and no sensory deficits noted Sensorium / Orientation: awake, alert, oriented to person, oriented to place and oriented to time Speech: speech normal Motor Exam: strength 5/5 throughout and general weakness Psych thought process normal, cooperative and affect normal Appearance: appropriate Mood & Affect: anxious Assessment & Plan Assessment/Plan (1) Atrial flutter with rapid ventricular response: (2) Epididymitis: (3) Acute cystitis with hematuria: PLAN: Plan #Acute right epididymitis * ultrasound of the scrotum showed evidence of epididymitis, with no torsion. * wbc is 16 today. Cotninue IV zosyn * PO tylenol, PO oxycodone and IV morphine prn for pain. * blood cultures negative so far. * on IV vancomycin and zosyn. * #UTI * Urinalysis showed evidence of UTI with 4+ bacteria and WBC was also elevated. * urine cultures * On IV Zofran as needed for nausea and vomiting. * Urine cultures growing staph aureus * on IV vancomycin and zosyn * #Persistent afib with RVR * went back in into afib with RVR. * remains on amiodarone drip * 2D echo is 10-15% with severe global LV hypokinesia and severe LV systolic dysfunction. * I did see the patient with Dr Leo today; he says patient is not a candidate for [facility] cardioversion as he is worried that with his EF of 10% he may arrest in the [employer]. He wants to keep patient on amiodarone for now and add on loading dose of digoxin IV 250 mcg every 6 hours. * cardiology does not think this is an ischemic cardiomyopathy, so Dr Leo wants to hold off on doing a cardiac cath for now. * TSH WNL. Now on eliquis * management as per cardiology * #DVT prophylaxis: on eliquis Charges/Coding Visit Charges Inpatient E&M: 91251 Subs Hosp L2
[2024-10-13] MEDS: Digoxin 250 MCG/ML Ampul 125 MCG IV ×2 (11:49→18:27)
--- NOTE | 2024-10-13 15:52 | PN.CARD_ITS ---
Subjective Subjective Seen and evaluated at bedside along with the medical team and the nursing staff Lying in bed no symptoms reported. Objective Data Vital Signs: Vital Signs Temp Pulse Resp BP Pulse Ox O2 Del Method O2 Flow Rate 97.7 F L 127 H 19 H 100/88 H 100 Room Air 2 10/13/24 10:00 10/13/24 15:00 10/13/24 15:00 10/13/24 15:00 10/13/24 15:00 10/13/24 15:00 10/09/24 09:10 Oxygen Flow Rate (L/min) 2 Oxygen Delivery Method Room Air Weight: 161 lb 2.526 oz Body Mass Index (BMI) 24.5 Intake & Output: Intake and Output for Last 24 Hours 10/11/24 10/12/24 10/13/24 23:59 23:59 23:59 Intake Total 2055.93 / 2072.63 1661.19 / 2077.89 1686.64 / 1686.64 Output Total 5500 / 5500 1550 / 2250 1400 / 1400 Balance -3444.07 / -3427.37 111.19 / -172.11 286.64 / 286.64 Lab / Micro Data 10/13/24 05:41 10/13/24 05:41 Labs: Laboratory Results - last 24 hr 10/13/24 05:41: WBC 16.1 H, RBC 5.29, Hgb 16.0, Hct 46.7, MCV 88.3, MCH 30.2, MCHC 34.3, RDW Std Deviation 43.6, RDW Coeff of Natty 13.5, Plt Count 278, MPV 12.1 H, Immature Gran % (Auto) 1.000 H, Neut % (Auto) 77.1 H, Lymph % (Auto) 12.2 L, [place] % (Auto) 8.6, Eos % (Auto) 0.5, Baso % (Auto) 0.6, Absolute Neuts (auto) 12.4 H, Absolute Lymphs (auto) 1.97, Nucleated RBC % 0, Sodium 138, P otassium 3.1 L, Chloride 104, Carbon Dioxide 22.1, Anion Gap 12, BUN 14, Creatinine 0.70, Estim Creat Clear Calc 87.88, Est GFR (MDRD) Non-Af 101, BUN/Creatinine Ratio 19.9, Glucose 102 H, Calcium 8.6 Cardiology Labs/Tests 10/13/24 05:41: WBC 16.1 H, RBC 5.29, Hgb 16.0, Hct 46.7, MCV 88.3, MCH 30.2, MCHC 34.3, Plt Count 278, MPV 12.1 H, Immature Gran % (Auto) 1.000 H, Neut % (Auto) 77.1 H, Lymph % (Auto) 12.2 L, [place] % (Auto) 8.6, Eos % (Auto) 0.5, Baso % (Auto) 0.6, Absolute Neuts (auto) 12.4 H, Nucleated RBC % 0, Sodium 138, P otassium 3.1 L, Chloride 104, Carbon Dioxide 22.1, Anion Gap 12, BUN 14, Creatinine 0.70, Est GFR (MDRD) Non-Af 101, BUN/Creatinine Ratio 19.9, Glucose 102 H, Calcium 8.6 Rhythm: EKG: ECHO: Stress Test: Cardiac Cath: PCI: CT Surgery: Holter monitor: EPS: PPM: CXR: Chest CT Scan: Assessment & Plan Assessment/Plan (1) Atrial flutter with rapid ventricular response: (2) Epididymitis: (3) Leukocytosis: QUALIFIERS: Leukocytosis type: unspecified Qualified Code(s): D 72.829 - Elevated white blood cell count, unspecified PLAN: Plan 68-year-old patient Seen and evaluated today at bedside along with the medical team and the nursing staff. Review of the cardiac cath lab technologist showed A-fib with RVR. Cardiac exam S1-S2 is irregular This patient has severe LV systolic dysfunction with ejection fraction in the range of 10-15%. Cardiac medication and care plan discussed; 1. Amiodarone IV 2. Increase the dose of beta-chucky to metoprolol 50 twice daily 3. Load with digoxin 125 mcg every 6 hours then followed by 125 mcg daily His renal function is normal with a creatinine within normal. From cardiac standpoint once his ventricular rate is controlled and patient currently on anticoagulation/OAC with Eliquis With recommend to follow-up with cardiology team, at [facility] With a LifeVest prior to discharge due to high risk of sudden cardiac and severe LV dysfunction EF 10-15%. In addition as tolerated to start him on guideline directed medical therapy in the form of Entresto, Aldactone, Farxiga. Patient will require further evaluation as an outpatient and repeat echocardiogram possible in 3 months. He will require left heart cath as an elective outpatient to assess for coronary artery disease and ischemic cardiomyopathy. Likely his presentation is nonischemic cardiomyopathy. Jonas Cedeno MD,FACC,[facility]
[2024-10-13] MEDS: Metoprolol Tartrate 50 MG Tablet PO (21:30)
[2024-10-14] VITALS (25 sets, daily range): BP systolic 98–130; BP diastolic 69–102; PULSE 65–126; RESP 12–23; TEMP 36.1–37.1; O2SAT 97–100; BMI 24.1
[2024-10-14 00:10] LABS: Vancomycin, Trough Level 10.4 ug/mL (5.0-15.0)
[2024-10-14] MEDS: Vancomycin Trough/Random Due 1 LAB MC (00:20)
--- NOTE | 2024-10-14 00:24 | PCM.RX.CS ---
Consult Antibiotic Management Pharmacy has been consulted to manage selected antibiotic: Vancomycin Type of Intervention Type of Consult: Follow-up Labs Labs: Sodium 138 mmol/L (133-145) 10/13/24 05:41 Potassium 3.1 mmol/L (3.3-5.1) L 10/13/24 05:41 Chloride 104 mmol/L (98-108) 10/13/24 05:41 Carbon Dioxide 22.1 mmol/L (21.0-32.0) 10/13/24 05:41 Anion Gap 12 (5-15) 10/13/24 05:41 BUN 14 mg/dL (4-19) 10/13/24 05:41 Creatinine 0.70 mg/dL (0.70-1.20) 10/13/24 05:41 Est GFR (MDRD) Non-Af 101 (>60) 10/13/24 05:41 BUN/Creatinine Ratio 19.9 RATIO (10-20) 10/13/24 05:41 Glucose 102 mg/dL (70-99) H 10/13/24 05:41 Vancomycin Trough 10.4 ug/mL (5.0-15.0) 10/13/24 23:30 Microbiology Microbiology: Microbiology 10/10/24 09:48 Urine, Clean Catch Urine Culture - Final Staphylococcus aureus 10/10/24 08:40 Blood Culture (Wb) - Right Forearm Blood Culture - Preliminary No growth in 48 hours. 10/10/24 08:33 Blood Culture (Wb) - Anticubital Right Blood Culture - Preliminary No growth in 48 hours. Pharmacy Plan for Drug Dosing Pharmacy Plan for Drug Dosing: VANCOMYCIN LEVEL RECEIVED Current Vancomycin Dose: 1250MG Q12 Number of Doses Received: 3 Vancomycin Level: 10.4 MG/DL Hours Since Last Dose: 11.5 Renal Function: SCr 0.7 mg/dL, CrCl 87 mL/min Renal Function Trend: stable Lab/Micro: MSSA in wound cx Vancomycin Plan/Comments: 11.5 hour trough is subtherapeutic at 10.4 mg/dL (goal 15-20). Will increase dose to 1750mg Q12 and get a trough prior to 4th dose of new regimen. Pending Level: 10/15/24 @ 1200 Pharmacy Service will continue to monitor and adjust dosing as required.
[2024-10-14] MEDS: Digoxin 250 MCG/ML Ampul 125 MCG IV ×3 (01:10→09:31)
[2024-10-14] MEDS: Vancomycin HCl 1,750 MG in 0.9% Normal Saline (500mL Bag) 500 ML 250 MG IV ×2 (01:15→12:07)
[2024-10-14] MEDS: Piperacil/Tazobactam 3.375 GM in 0.9% Normal Saline (50mL MB+) 50 ML IV ×2 (05:09→14:24)
[2024-10-14] MEDS: 0.9% Saline Lock 10 ML Syringe IV ×2 (05:11→06:19)
[2024-10-14 05:14] LABS: Absolute Neutrophil Count 10.5 X10^3/uL (2.0-7.7); Basophil# 0.06 X10^3/uL; Basophil% 0.4 % (0-1); Eosinophil# 0.16 X10^3/uL; Eosinophils% 1.1 % (0-5); Hematocrit 46.5 % (40-54); Hemoglobin 15.9 g/dL (13.0-16.5); Lymphocyte % 15.4 % (19-41); Mean Corp Hgb Conc 34.2 g/dL (32-36); Mean Corpuscular Hgb 30.4 pg (27.0-32.0); Mean Corpuscular Volume 88.9 fL (80-94); Mean Platelet Vol. 11.6 fl (6.2-12.0); Monocyte# 1.18 X10^3/uL; Monocyte% 8.2 % (0-10); NRBC Flagged by Analyzer 0 % (0-5); Neutrophil # 10.54 X10^3/uL (2.7-7.7); Neutrophil % 73.6 % (47-70); Platelet Count 282 K/mm3 (150-450); RBC Distribution Width CV 13.5 % (11.6-14.6); RBC Distribution Width SD 43.5 fl (35.1-43.9); Red Blood Count 5.23 M/mm3 (4.6-6.2); White Blood Count 14.3 K/mm3 (4.4-11.0)
[2024-10-14 05:50] LABS: Anion Gap 11 (5-15); BUN 13 mg/dL (4-19); BUN/Creat Ratio 17.5 RATIO (10-20); Calcium,Total 8.5 mg/dL (7.6-11.0); Chloride 108 mmol/L (98-108); Creatinine, Serum 0.74 mg/dL (0.70-1.20); EST Glomerular Filtration Rate 100 (>60); Estimated Creatinine Clearance 87.88 ml/min (50-250); Glucose 106 mg/dL (70-99); Potassium 3.4 mmol/L (3.3-5.1); Sodium Level 139 mmol/L (133-145)
[2024-10-14] MEDS: APIXABAN 5 MG TABLET PO ×2 (09:33→21:31)
[2024-10-14] MEDS: Lactobacillis Acidophilus 1 CAP PO ×4 (09:33→21:31)
[2024-10-14] MEDS: Multivitamins,Therapeutic Tablet 1 TABLET PO (09:34)
[2024-10-14] MEDS: Furosemide 20 MG/2 ML VIAL IV ×2 (09:34→17:52)
[2024-10-14] MEDS: SACUBITRIL/VALSARTAN 24/26 MG TABLET 1 EACH PO ×2 (09:34→21:31)
[2024-10-14] MEDS: Spironolactone 25 MG Tablet PO (09:34)
[2024-10-14] MEDS: Metoprolol Tartrate 50 MG Tablet PO ×2 (09:35→21:31)
[2024-10-14] MEDS: Amiodarone 360 MG in Dextrose 5% Viaflo Bag 192.8 ML 16.7 MG CONT INF (10:33)
--- NOTE | 2024-10-14 10:43 | CASEMGMT ---
CHARLEE PEARCE into pt room, pt and granddaughter came in while CHARLEE PEARCE was speaking to pt. Pt started on Eliquis while in the hospital, provided Pt with a savings card in case pt is DC'd tomorrow. Explained savings card to pt, pt denies questions or concerns at this time. Denies any DC needs at this time.
--- NOTE | 2024-10-14 12:01 | PN.HOSP_ITS ---
Reason for Visit Reason for Visit: Diagnoses Elevated white blood cell count, unspecified (10/08/24) Overweight (10/08/24) Unspecified atrial flutter (10/08/24) Acute cystitis with hematuria (10/08/24) Epididymitis (10/08/24) Objective Data Objective Data Vital Signs: Vital Signs Temp Pulse Resp BP Pulse Ox O2 Del Method O2 Flow Rate 98.7 F 88 19 H 105/69 99 Room Air 2 10/14/24 09:44 10/14/24 11:00 10/14/24 11:00 10/14/24 11:00 10/14/24 11:00 10/14/24 11:00 10/09/24 09:10 Oxygen Flow Rate (L/min) 2 Oxygen Delivery Method Room Air Weight: 158 lb 11.725 oz Body Mass Index (BMI) 24.1 Intake & Output: Intake and Output for Last 24 Hours 10/12/24 10/13/24 10/14/24 23:59 23:59 23:59 Intake Total 1661.19 / 2077.89 2288.36 / 2305.06 1467.75 / 1467.75 Output Total 1550 / 2250 2400 / 2400 700 / 700 Balance 111.19 / -172.11 -111.64 / -94.94 767.75 / 767.75 Lab / Micro Data 10/14/24 05:00 10/14/24 05:00 Labs: Laboratory Results - last 24 hr 10/13/24 23:30: Vancomycin Trough 10.4 10/14/24 05:00: WBC 14.3 H, RBC 5.23, Hgb 15.9, Hct 46.5, MCV 88.9, MCH 30.4, MCHC 34.2, RDW Std Deviation 43.5, RDW Coeff of Natty 13.5, Plt Count 282, MPV 11.6, Immature Gran % (Auto) 1.300 H, Neut % (Auto) 73.6 H, Lymph % (Auto) 15.4 L, [place] % (Auto) 8.2, Eos % (Auto) 1.1, Baso % (Auto) 0.4, Absolute Neuts (auto) 10.5 H, Absolute Lymphs (auto) 2.20, Nucleated RBC % 0, Sodium 139, Potassium 3.4, Chloride 108, Carbon Dioxide 20.0 L, Anion Gap 11, BUN 13, Creatinine 0.74, Estim Creat Clear Calc 87.88, Est GFR (MDRD) Non-Af 100, BUN/Creatinine Ratio 17.5, Glucose 106 H, Calcium 8.5 Micro: Microbiology 10/10/24 09:48 Urine, Clean Catch Urine Culture - Final Staphylococcus aureus 10/10/24 08:40 Blood Culture (Wb) - Right Forearm Blood Culture - Preliminary No growth in 48 hours. 10/10/24 08:33 Blood Culture (Wb) - Anticubital Right Blood Culture - Preliminary No growth in 48 hours. Physical Exam Narrative Seen and examined. Patient does not have chest pain shortness of breath or palpitation. Heart rate is controlled. Afebrile. Patient on amnio drip. Denies burning micturition. Patient said he had a soft loose bowel movement Physical exam General: Alert, Oriented x3, Cooperative HEENT: Atraumatic, PERRLA, EOMI, Normocephalic. Oral: No Gingival or Mucosal Lesions/ Ulcerations Neck: Supple, No JVD, Negative Carotid Bruits Chest wall/Lungs: Air entry diminished in bilateral lung bases. No crepitation/rhonchi Cardiovascular: Irregular rate and rhythm, A-fib, Normal S1,S2, No M/G/R Abdomen: Bowel Sounds Present, Soft, Non Tender, Non-Distended : No dysuria. No renal angle tenderness. No suprapubic tenderness. Extremities: No edema, Capillary Refill Less than 3 Seconds Skin: No rashes, No breakdown Musculoskeletal: No Tenderness to Palpation of Joints or Extremities Neurological: Cranial nerves II-XII grossly intact, DTR 2+/4. No acute focal neurological deficit. Psych/Mental Status: Normal Affect, Appropriate. Assessment & Plan Assessment/Plan (1) Atrial flutter with rapid ventricular response: (2) Epididymitis: (3) Acute cystitis with hematuria: PLAN: Plan #Acute right epididymitis * ultrasound of the scrotum showed evidence of epididymitis, with no torsion. * wbc is 16 today. Cotninue IV zosyn * PO tylenol, PO oxycodone and IV morphine prn for pain. * blood cultures negative so far. * on IV vancomycin and zosyn. 10/14: Urine culture shows MSSA 11,000-25,000 colonies, not in pathology range. IV antibiotic changed to doxycycline and ceftriaxone #UTI * Urinalysis showed evidence of UTI with 4+ bacteria and WBC was also elevated. * urine cultures * On IV Zofran as needed for nausea and vomiting. * Urine cultures growing staph aureus * on IV vancomycin and zosyn * #Persistent afib with RVR * went back in into afib with RVR. * remains on amiodarone drip * 2D echo is 10-15% with severe global LV hypokinesia and severe LV systolic dysfunction. * I did see the patient with Dr Leo today; he says patient is not a candidate for LAMONT cardioversion as he is worried that with his EF of 10% he may arrest in the [employer]. He wants to keep patient on amiodarone for now and add on loading dose of digoxin IV 250 mcg every 6 hours. * cardiology does not think this is an ischemic cardiomyopathy, so Dr Leo wants to hold off on doing a cardiac cath for now. * TSH WNL. Now on eliquis * management as per cardiology 10/14: On amiodarone drip being changed to oral 20 mg twice daily. Metoprolol dose decreased to 25 mg twice daily. Recommend LifeVest prior to discharge. #DVT prophylaxis: on eliquis Charges/Coding Visit Charges Inpatient E&M: 98809 Subs Hosp L2
--- NOTE | 2024-10-14 14:31 | PN.CARD_ITS ---
Subjective Subjective Seen and evaluated today at bedside and examined and family were at bedside Discussed with the nursing staff patient is comfortable not in apparent distress. And no symptoms reported. Objective Data Vital Signs: Vital Signs Temp Pulse Resp BP Pulse Ox O2 Del Method O2 Flow Rate 98.7 F 76 21 H 113/87 H 100 Room Air 2 10/14/24 09:44 10/14/24 13:00 10/14/24 13:00 10/14/24 13:00 10/14/24 13:00 10/14/24 13:00 10/09/24 09:10 Oxygen Flow Rate (L/min) 2 Oxygen Delivery Method Room Air Weight: 158 lb 11.725 oz Body Mass Index (BMI) 24.1 Intake & Output: Intake and Output for Last 24 Hours 10/12/24 10/13/24 10/14/24 23:59 23:59 23:59 Intake Total 1661.19 / 2077.89 2288.36 / 2305.06 2336.15 / 2336.15 Output Total 1550 / 2250 2400 / 2400 1450 / 1450 Balance 111.19 / -172.11 -111.64 / -94.94 886.15 / 886.15 Lab / Micro Data 10/14/24 05:00 10/14/24 05:00 Labs: Laboratory Results - last 24 hr 10/13/24 23:30: Vancomycin Trough 10.4 10/14/24 05:00: WBC 14.3 H, RBC 5.23, Hgb 15.9, Hct 46.5, MCV 88.9, MCH 30.4, MCHC 34.2, RDW Std Deviation 43.5, RDW Coeff of Natty 13.5, Plt Count 282, MPV 11.6, Immature Gran % (Auto) 1.300 H, Neut % (Auto) 73.6 H, Lymph % (Auto) 15.4 L, [place] % (Auto) 8.2, Eos % (Auto) 1.1, Baso % (Auto) 0.4, Absolute Neuts (auto) 10.5 H, Absolute Lymphs (auto) 2.20, Nucleated RBC % 0, Sodium 139, Potassium 3.4, Chloride 108, Carbon Dioxide 20.0 L, Anion Gap 11, BUN 13, Creatinine 0.74, Estim Creat Clear Calc 87.88, Est GFR (MDRD) Non-Af 100, BUN/Creatinine Ratio 17.5, Glucose 106 H, Calcium 8.5 Cardiology Labs/Tests 10/14/24 05:00: WBC 14.3 H, RBC 5.23, Hgb 15.9, Hct 46.5, MCV 88.9, MCH 30.4, MCHC 34.2, Plt Count 282, MPV 11.6, Immature Gran % (Auto) 1.300 H, Neut % (Auto) 73.6 H, Lymph % (Auto) 15.4 L, [place] % (Auto) 8.2, Eos % (Auto) 1.1, Baso % (Auto) 0.4, Absolute Neuts (auto) 10.5 H, Nucleated RBC % 0, Sodium 139, Potassium 3.4, Chloride 108, Carbon Dioxide 20.0 L, Anion Gap 11, BUN 13, Creatinine 0.74, Est GFR (MDRD) Non-Af 100, BUN/Creatinine Ratio 17.5, Glucose 106 H, Calcium 8.5 Rhythm: EKG: ECHO: Stress Test: Cardiac Cath: PCI: CT Surgery: Holter monitor: EPS: PPM: CXR: Chest CT Scan: Physical Exam Cardio Cardio Narrative: Cardiac rhythm A-fib with controlled ventricular rate Cardiac exam S1-S2 is irregular Chest exam mildly diminished air entry bilateral Examination lower extremity mild lower extremity edema. Assessment & Plan Assessment/Plan (1) Atrial flutter with rapid ventricular response: (2) Severe left ventricular systolic dysfunction (LVSD): (3) Epididymitis: (4) Leukocytosis: QUALIFIERS: Leukocytosis type: unspecified Qualified Code(s): D 72.829 - Elevated white blood cell count, unspecified (5) Acute cystitis with hematuria: (6) Overweight (BMI 25.0-29.9): PLAN: 68-year-old patient admitted with symptoms of shortness of breath palpitation He had echocardiogram which showed severe LV systolic dysfunction Ejection fraction in the range of 10-15% does not have any active symptoms of chest pain His presentation also is swelling of the scrotum with pain and diagnosed with epididymitis and has been on antibiotic treatment I reviewed all the current cardiac evaluation as well as his medication Will start the patient on amiodarone, digoxin, beta-chucky Is a underlying atrial flutter improved with rate control. Cardiac care plan; 1. Will discontinue the digoxin On we will reduce the dose of beta-chucky to metoprolol tartrate 25 twice daily Will continue on amiodarone 200 mg twice daily. Patient will require [facility] he has mild bilateral inspiratory rales and diminished air entry bilateral. In addition we will start on guideline directed medical therapy in the form of Entresto, Farxiga, Aldactone as tolerated. Patient to have LifeVest and to follow-up with the cardiology team at [facility]. I discussed this in detail and including the cardiac care plan to the patient, to the as well as to the nursing staff.
[2024-10-14] MEDS: Amiodarone 200 MG Tablet PO (21:31)
[2024-10-14] MEDS: Doxycycline 100 MG CAPSULE PO (21:31)
[2024-10-15 03:30] VITALS: BP 98/80; PULSE 90; RESP 18; TEMP 36.4; O2SAT 99
[2024-10-15 03:56] VITALS: BMI 23.8
[2024-10-15 05:51] LABS: Absolute Lymphocyte Count 2.45 X10^3/uL (0.83-4.51); Absolute Neutrophil Count 9.7 X10^3/uL (2.0-7.7); Basophil# 0.06 X10^3/uL; Basophil% 0.4 % (0-1); Eosinophil# 0.17 X10^3/uL; Eosinophils% 1.2 % (0-5); Hematocrit 48.6 % (40-54); Hemoglobin 16.3 g/dL (13.0-16.5); Lymphocyte # 2.45 X10^3/ul (0.83-4.51); Lymphocyte % 17.9 % (19-41); Mean Corp Hgb Conc 33.5 g/dL (32-36); Mean Corpuscular Hgb 29.6 pg (27.0-32.0); Mean Corpuscular Volume 88.4 fL (80-94); Monocyte# 1.02 X10^3/uL; Monocyte% 7.5 % (0-10); NRBC Flagged by Analyzer 0 % (0-5); Neutrophil # 9.71 X10^3/uL (2.7-7.7); Neutrophil % 71.2 % (47-70); Platelet Count 341 K/mm3 (150-450); RBC Distribution Width CV 13.4 % (11.6-14.6); RBC Distribution Width SD 43.2 fl (35.1-43.9); White Blood Count 13.7 K/mm3 (4.4-11.0)
[2024-10-15 06:42] LABS: Anion Gap 13 (5-15); BUN 14 mg/dL (4-19); BUN/Creat Ratio 17.8 RATIO (10-20); Calcium,Total 9.2 mg/dL (7.6-11.0); Carbon Dioxide 19.9 mmol/L (21.0-32.0); Chloride 108 mmol/L (98-108); Creatinine, Serum 0.77 mg/dL (0.70-1.20); EST Glomerular Filtration Rate 99 (>60); Estimated Creatinine Clearance 87.88 ml/min (50-250); Glucose 100 mg/dL (70-99); Potassium 3.3 mmol/L (3.3-5.1); Sodium Level 140 mmol/L (133-145)
[2024-10-15 07:49] VITALS: BP 131/101; PULSE 103; RESP 14; TEMP 36.8; O2SAT 100
[2024-10-15 07:53] VITALS: PULSE 103
[2024-10-15] MEDS: Metoprolol Tartrate 25 MG Tablet PO ×2 (07:53→20:58)
[2024-10-15] MEDS: APIXABAN 5 MG TABLET PO ×2 (07:53→20:58)
[2024-10-15] MEDS: Amiodarone 200 MG Tablet PO ×2 (07:53→20:58)
[2024-10-15] MEDS: Lactobacillis Acidophilus 1 CAP PO ×4 (07:54→20:58)
[2024-10-15] MEDS: Furosemide 20 MG/2 ML VIAL IV (07:54)
[2024-10-15] MEDS: Multivitamins,Therapeutic Tablet 1 TABLET PO (07:54)
[2024-10-15] MEDS: SACUBITRIL/VALSARTAN 24/26 MG TABLET 1 EACH PO ×2 (07:54→20:58)
[2024-10-15] MEDS: Doxycycline 100 MG CAPSULE PO ×2 (07:55→20:58)
[2024-10-15] MEDS: Spironolactone 25 MG Tablet PO (07:56)
[2024-10-15] MEDS: Ceftriaxone 1 GM/50 ML BAG IV (08:00)
--- NOTE | 2024-10-15 12:29 | PN.CARD_ITS ---
Subjective Subjective Patient seen and evaluated today along with the nursing staff Comfortable in bed no symptoms reported. Objective Data Vital Signs: Vital Signs Temp Pulse Resp BP Pulse Ox O2 Del Method O2 Flow Rate 98.3 F 103 H 14 131/101 H 100 Room Air 2 10/15/24 07:49 10/15/24 07:53 10/15/24 07:49 10/15/24 07:49 10/15/24 07:49 10/15/24 07:49 10/09/24 09:10 Oxygen Flow Rate (L/min) 2 Oxygen Delivery Method Room Air Weight: 156 lb 11.979 oz Body Mass Index (BMI) 23.8 Intake & Output: Intake and Output for Last 24 Hours 10/13/24 10/14/24 10/15/24 23:59 23:59 23:59 Intake Total 2288.36 / 2305.06 2808.63 / 2808.63 50 / 50 Output Total 2400 / 2400 2350 / 3150 1300 / 1300 Balance -111.64 / -94.94 458.63 / -341.37 -1250 / -1250 Lab / Micro Data 10/15/24 05:15 10/15/24 05:15 Labs: Laboratory Results - last 24 hr 10/15/24 05:15: WBC 13.7 H, RBC 5.50, Hgb 16.3, Hct 48.6, MCV 88.4, MCH 29.6, MCHC 33.5, RDW Std Deviation 43.2, RDW Coeff of Natty 13.4, Plt Count 341, MPV 12.0, Immature Gran % (Auto) 1.800 H, Neut % (Auto) 71.2 H, Lymph % (Auto) 17.9 L, [place] % (Auto) 7.5, Eos % (Auto) 1.2, Baso % (Auto) 0.4, Absolute Neuts (auto) 9.7 H, Absolute Lymphs (auto) 2.45, Nucleated RBC % 0, Sodium 140, Potassium 3.3, Chloride 108, Carbon Dioxide 19.9 L, Anion Gap 13, BUN 14, Creatinine 0.77, Estim Creat Clear Calc 87.88, Est GFR (MDRD) Non-Af 99, BUN/Creatinine Ratio 17.8, Glucose 100 H, Calcium 9.2 Cardiology Labs/Tests 10/15/24 05:15: WBC 13.7 H, RBC 5.50, Hgb 16.3, Hct 48.6, MCV 88.4, MCH 29.6, MCHC 33.5, Plt Count 341, MPV 12.0, Immature Gran % (Auto) 1.800 H, Neut % (Auto) 71.2 H, Lymph % (Auto) 17.9 L, [place] % (Auto) 7.5, Eos % (Auto) 1.2, Baso % (Auto) 0.4, Absolute Neuts (auto) 9.7 H, Nucleated RBC % 0, Sodium 140, Potassium 3.3, Chloride 108, Carbon Dioxide 19.9 L, Anion Gap 13, BUN 14, Creatinine 0.77, Est GFR (MDRD) Non-Af 99, BUN/Creatinine Ratio 17.8, Glucose 100 H, Calcium 9.2 Rhythm: EKG: ECHO: Stress Test: Cardiac Cath: PCI: CT Surgery: Holter monitor: EPS: PPM: CXR: Chest CT Scan: Physical Exam Cardio Cardio Narrative: nuclear monitoring technician reviewed revealed evidence of A- flutter with controlled ventricular rate Cardiac exam S1-S2 is irregular Chest exam, mildly reduced air entry bilateral Examination lower extremity no lower extremity edema noted. Assessment & Plan Assessment/Plan (1) Severe left ventricular systolic dysfunction (LVSD): (2) Atrial flutter with rapid ventricular response: (3) Epididymitis: (4) Leukocytosis: QUALIFIERS: Leukocytosis type: unspecified Qualified Code(s): D 72.829 - Elevated white blood cell count, unspecified PLAN: Cardiac care plan recommendation 68-year-old patient admitted with scrotal swelling and pain And diagnosed with epididymitis acute and treated with antibiotic improving Has cardiac evaluation which revealed severe LV systolic dysfunction on echocardiogram EF in the range of 10-15% Patient had atrial flutter with rapid ventricular response Started on treatment with amiodarone beta-chucky digoxin Responded well now he is underlying cardiac rhythm is atrial flutter with controlled ventricular rate Discontinued digoxin and will continue on a low-dose beta-chucky metoprolol 25 g twice daily in addition to amiodarone 200 mg twice a day. Cardiac care plan; 1. I discussed the cardiac medication which include guideline directed medical therapy in the form of Entresto, Aldactone, beta-chucky metoprolol. Patient will require LifeVest prior to discharge. He also would require evaluation further by the cardiac team possible cardiac catheterization versus Lexiscan sestamibi The underlying etiology of his severe LV systolic dysfunction may represent multivessel CAD versus nonischemic cardiomyopathy. I discussed the cardiac care plan in detail to the patient to the as well as to the nursing staff and patient can be discharged from cardiac standpoint to follow-up with the, cardiology team at [facility].
--- NOTE | 2024-10-15 13:51 | PN.HOSP_ITS ---
Reason for Visit Reason for Visit: Diagnoses Elevated white blood cell count, unspecified (10/08/24) Overweight (10/08/24) Unspecified atrial flutter (10/08/24) Other ill-defined heart diseases (10/08/24) Acute cystitis with hematuria (10/08/24) Epididymitis (10/08/24) Objective Data Objective Data Vital Signs: Vital Signs Temp Pulse Resp BP Pulse Ox O2 Del Method O2 Flow Rate 98.3 F 103 H 14 131/101 H 100 Room Air 2 10/15/24 07:49 10/15/24 07:53 10/15/24 07:49 10/15/24 07:49 10/15/24 07:49 10/15/24 07:49 10/09/24 09:10 Oxygen Flow Rate (L/min) 2 Oxygen Delivery Method Room Air Weight: 156 lb 11.979 oz Body Mass Index (BMI) 23.8 Intake & Output: Intake and Output for Last 24 Hours 10/13/24 10/14/24 10/15/24 23:59 23:59 23:59 Intake Total 2288.36 / 2305.06 2808.63 / 2808.63 50 / 50 Output Total 2400 / 2400 2350 / 3150 1300 / 1300 Balance -111.64 / -94.94 458.63 / -341.37 -1250 / -1250 Lab / Micro Data 10/15/24 05:15 10/15/24 05:15 Labs: Laboratory Results - last 24 hr 10/15/24 05:15: WBC 13.7 H, RBC 5.50, Hgb 16.3, Hct 48.6, MCV 88.4, MCH 29.6, MCHC 33.5, RDW Std Deviation 43.2, RDW Coeff of Natty 13.4, Plt Count 341, MPV 12.0, Immature Gran % (Auto) 1.800 H, Neut % (Auto) 71.2 H, Lymph % (Auto) 17.9 L, [place] % (Auto) 7.5, Eos % (Auto) 1.2, Baso % (Auto) 0.4, Absolute Neuts (auto) 9.7 H, Absolute Lymphs (auto) 2.45, Nucleated RBC % 0, Sodium 140, Potassium 3.3, Chloride 108, Carbon Dioxide 19.9 L, Anion Gap 13, BUN 14, Creatinine 0.77, Estim Creat Clear Calc 87.88, Est GFR (MDRD) Non-Af 99, BUN/Creatinine Ratio 17.8, Glucose 100 H, Calcium 9.2 Micro: Microbiology 10/10/24 09:48 Urine, Clean Catch Urine Culture - Final Staphylococcus aureus 10/10/24 08:40 Blood Culture (Wb) - Right Forearm Blood Culture - Preliminary No growth in 48 hours. 10/10/24 08:33 Blood Culture (Wb) - Anticubital Right Blood Culture - Preliminary No growth in 48 hours. Physical Exam Narrative Seen and examined. Patient does not have chest pain shortness of breath or palpitation. Heart rate is controlled, A-fib on the monitor. Afebrile. Patient have soft Dilaudid 0.5 mg for moderate pain and 1 mg for severe pain respectively bowel movement Physical exam General: Alert, Oriented x3, Cooperative HEENT: Atraumatic, PERRLA, EOMI, Normocephalic. Oral: No Gingival or Mucosal Lesions/ Ulcerations Neck: Supple, No JVD, Negative Carotid Bruits Chest wall/Lungs: Air entry diminished in bilateral lung bases. No crepitation/rhonchi Cardiovascular: Irregular rate and rhythm, A-fib, No M/G/R Abdomen: Bowel Sounds Present, Soft, Non Tender, Non-Distended : No dysuria. No renal angle tenderness. No suprapubic tenderness. Extremities: No edema, Capillary Refill Less than 3 Seconds Skin: No rashes, No breakdown Musculoskeletal: No Tenderness to Palpation of Joints or Extremities Neurological: Cranial nerves II-XII grossly intact, DTR 2+/4. No acute focal neurological deficit. Psych/Mental Status: Normal Affect, Appropriate. Assessment & Plan Assessment/Plan (1) Atrial flutter with rapid ventricular response: (2) Epididymitis: (3) Acute cystitis with hematuria: PLAN: Plan #Acute right epididymitis * ultrasound of the scrotum showed evidence of epididymitis, with no torsion. * wbc is 16 today. Cotninue IV zosyn * PO tylenol, PO oxycodone and IV morphine prn for pain. * blood cultures negative so far. * on IV vancomycin and zosyn. 10/14: Urine culture shows MSSA 11,000-25,000 colonies, not in pathology range. IV antibiotic changed to doxycycline and ceftriaxone #UTI * Urinalysis showed evidence of UTI with 4+ bacteria and WBC was also elevated. * urine cultures * On IV Zofran as needed for nausea and vomiting. * Urine cultures growing staph aureus 10/15: As mentioned above #Persistent afib with RVR, severe systolic heart failure, exact etiology unclear and classification * went back in into afib with RVR. * remains on amiodarone drip * 2D echo is 10-15% with severe global LV hypokinesia and severe LV systolic dysfunction. * I did see the patient with Dr Leo today; he says patient is not a candidate for LAMONT cardioversion as he is worried that with his EF of 10% he may arrest in the [employer]. He wants to keep patient on amiodarone for now and add on loading dose of digoxin IV 250 mcg every 6 hours. * cardiology does not think this is an ischemic cardiomyopathy, so Dr Leo wants to hold off on doing a cardiac cath for now. * TSH WNL. Now on eliquis * management as per cardiology 10/14: On amiodarone drip being changed to oral 20 mg twice daily. Metoprolol dose decreased to 25 mg twice daily. Recommend LifeVest prior to discharge. 10/15: Cardiology note reviewed. Guideline directed medical therapy Entresto, Aldactone beta-chucky metoprolol. LifeVest prior to discharge. Further evaluation as an outpatient, stress test versus cardiac cath to ascertain possible etiology either ischemic or nonischemic cardiomyopathy. On oral amiodarone 200 mg twice daily #DVT prophylaxis: on eliquis Anticipate discharge tomorrow Charges/Coding Visit Charges Inpatient E&M: 54601 Subs Hosp L2
[2024-10-15 14:25] VITALS: BP 109/88; PULSE 93; RESP 14; TEMP 37.3; O2SAT 100
[2024-10-15 20:58] VITALS: PULSE 111
[2024-10-15] MEDS: 0.9% Saline Lock 10 ML Syringe IV (20:58)
[2024-10-15 21:00] VITALS: BP 109/60; PULSE 115; RESP 18; TEMP 36.6; O2SAT 99
[2024-10-16] VITALS (7 sets, daily range): BP systolic 120–124; BP diastolic 73–85; PULSE 82–118; RESP 16–20; TEMP 36.4–36.6; O2SAT 94–99; BMI 23.5
[2024-10-16 05:40] LABS: Absolute Lymphocyte Count 2.17 X10^3/uL (0.83-4.51); Absolute Neutrophil Count 7.7 X10^3/uL (2.0-7.7); Basophil# 0.09 X10^3/uL; Basophil% 0.8 % (0-1); Eosinophils% 1.8 % (0-5); Hematocrit 46.4 % (40-54); Hemoglobin 15.6 g/dL (13.0-16.5); Lymphocyte # 2.17 X10^3/ul (0.83-4.51); Lymphocyte % 19.2 % (19-41); Mean Corp Hgb Conc 33.6 g/dL (32-36); Mean Corpuscular Hgb 29.9 pg (27.0-32.0); Mean Corpuscular Volume 88.9 fL (80-94); Mean Platelet Vol. 11.7 fl (6.2-12.0); Monocyte# 0.92 X10^3/uL; Monocyte% 8.2 % (0-10); NRBC Flagged by Analyzer 0 % (0-5); Neutrophil # 7.66 X10^3/uL (2.7-7.7); Neutrophil % 67.9 % (47-70); Platelet Count 316 K/mm3 (150-450); RBC Distribution Width CV 13.4 % (11.6-14.6); RBC Distribution Width SD 43.9 fl (35.1-43.9); Red Blood Count 5.22 M/mm3 (4.6-6.2); White Blood Count 11.3 K/mm3 (4.4-11.0)
[2024-10-16 06:18] LABS: Anion Gap 12 (5-15); BUN 17 mg/dL (4-19); BUN/Creat Ratio 23.2 RATIO (10-20); Calcium,Total 8.9 mg/dL (7.6-11.0); Carbon Dioxide 20.7 mmol/L (21.0-32.0); Chloride 109 mmol/L (98-108); Creatinine, Serum 0.72 mg/dL (0.70-1.20); EST Glomerular Filtration Rate 101 (>60); Estimated Creatinine Clearance 87.88 ml/min (50-250); Glucose 91 mg/dL (70-99); Potassium 3.4 mmol/L (3.3-5.1); Sodium Level 141 mmol/L (133-145)
--- NOTE | 2024-10-16 08:47 | PN.CARD_ITS ---
Subjective Subjective Patient was resting flat in the bed in no apparent distress. Reports his pain in his testicles is markedly improved. He has been up in the room and walk the pitts. Objective Data Vital Signs: Vital Signs Temp Pulse Resp BP Pulse Ox O2 Del Method O2 Flow Rate 97.8 F 82 18 124/83 H 96 Room Air 2 10/16/24 03:10 10/16/24 03:10 10/16/24 03:10 10/16/24 03:10 10/16/24 03:10 10/16/24 03:10 10/09/24 09:10 Oxygen Flow Rate (L/min) 2 Oxygen Delivery Method Room Air Weight: 154 lb 12.232 oz Body Mass Index (BMI) 23.5 Intake & Output: Intake and Output for Last 24 Hours 10/14/24 10/15/24 10/16/24 23:59 23:59 23:59 Intake Total 2808.63 / 2808.63 850 / 850 Output Total 2350 / 3150 2100 / 2250 450 / 450 Balance 458.63 / -341.37 -1250 / -1400 -450 / -450 Lab / Micro Data Attestation: I reviewed the patient's lab results. 10/16/24 05:07 10/16/24 05:07 Labs: Laboratory Results - last 24 hr 10/16/24 05:07: WBC 11.3 H, RBC 5.22, Hgb 15.6, Hct 46.4, MCV 88.9, MCH 29.9, MCHC 33.6, RDW Std Deviation 43.9, RDW Coeff of Natty 13.4, Plt Count 316, MPV 11.7, Immature Gran % (Auto) 2.100 H, Neut % (Auto) 67.9, Lymph % (Auto) 19.2, [place] % (Auto) 8.2, Eos % (Auto) 1.8, Baso % (Auto) 0.8, Absolute Neuts (auto) 7.7, Absolute Lymphs (auto) 2.17, Nucleated RBC % 0, Sodium 141, Potassium 3.4, Chloride 109 H, Carbon Dioxide 20.7 L, Anion Gap 12, BUN 17, Creatinine 0.72, Estim Creat Clear Calc 87.88, Est GFR (MDRD) Non-Af 101, BUN/Creatinine Ratio 23.2 H, Glucose 91, Calcium 8.9 Micro: Microbiology 05/27/25 08:40 Blood Culture (Wb) - Right Forearm Blood Culture - Final No growth in 5 days. 10/10/24 08:33 Blood Culture (Wb) - Anticubital Right Blood Culture - Final No growth in 5 days. Rhythm Strip Rhythm Strip: A.Flutter Rate: 120 Cardiology Labs/Tests 10/16/24 05:07: WBC 11.3 H, RBC 5.22, Hgb 15.6, Hct 46.4, MCV 88.9, MCH 29.9, MCHC 33.6, Plt Count 316, MPV 11.7, Immature Gran % (Auto) 2.100 H, Neut % (Auto) 67.9, Lymph % (Auto) 19.2, [place] % (Auto) 8.2, Eos % (Auto) 1.8, Baso % (Auto) 0.8, Absolute Neuts (auto) 7.7, Nucleated RBC % 0, Sodium 141, Potassium 3.4, Chloride 109 H, Carbon Dioxide 20.7 L, Anion Gap 12, BUN 17, Creatinine 0.72, Est GFR (MDRD) Non-Af 101, BUN/Creatinine Ratio 23.2 H, Glucose 91, Calcium 8.9 Rhythm: EKG: ECHO: Stress Test: Cardiac Cath: PCI: CT Surgery: Holter monitor: EPS: PPM: CXR: Chest CT Scan: Physical Exam Const alert and oriented x3 HEENT normocephalic Eyes EOMs intact bilaterally Neck no JVD Chest inspection of chest normal Resp normal respiratory effort and clear to auscultation bilaterally Cardio Rate: tachycardic Rhythm: other Other Details: Atrial flutter by telemetry with variable AV conduction 2-1 versus 3-1. Heart Sounds: S1 normal and S2 normal; Negative for click, gallop or murmur GI soft to palpation Extremity no pedal edema Neuro Neuro Narrative: Alert and oriented x 3 Psych mental status grossly normal Assessment & Plan Assessment/Plan (1) Severe left ventricular systolic dysfunction (LVSD): PLAN: Patient's LVEF was documented 10-15% on echocardiogram. The patient has no prior history of progressive dyspnea on exertion shortness of breath lower extremity edema or drop-off in exercise tolerance prior to the week that he presented here with epididymitis. The patient specifically denies any history of chest pains tightness squeezing no PND orthopnea no lower extremity edema. 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 Currently the patient is tolerating his guideline directed medical therapy he is on metoprolol, Entresto, spironolactone, and Lasix. His atrial arrhythmias being treated with amiodarone 200 mg twice daily. His heart rate remains elevated. At this point, do not feel the patient will require LifeVest as given his current atrial arrhythmia he would probably be more apt obtain inappropriate shocks due to the tachycardia. (2) Atrial flutter with rapid ventricular response: PLAN: Telemetry shows the patient is in atrial flutter with 2-1 AV conduction at 120 bpm. Would recommend increasing his amiodarone to 400 mg twice daily. The patient is also on Eliquis. At this point in time would recommend the patient be maintained on Eliquis and amiodarone 400 g twice daily for 5 days. The amiodarone will then be decreased to 200 mg twice daily when he is discharged to home. And the plan would be to bring the patient back to the office in 3-4 weeks for a repeat ECG and determination of timing of an attempt at direct-current cardioversion. PLAN: Plan 1. Will increase amiodarone to 400 mg twice daily to increase loading. 2. Continue Entresto, spironolactone, and metoprolol, and Lasix. 3. Continue Eliquis 5 mg twice daily. Charges/Coding Visit Charges Inpatient E&M: 47785 [facility] L3
--- NOTE | 2024-10-16 08:56 | PCM.PN.HOSP ---
Reason for Visit Reason for Visit: Diagnoses Elevated white blood cell count, unspecified (10/08/24) Overweight (10/08/24) Unspecified atrial flutter (10/08/24) Other ill-defined heart diseases (10/08/24) Acute cystitis with hematuria (10/08/24) Epididymitis (10/08/24) Subjective Subjective still with some scrotal pain Objective Data Objective Data Vital Signs: Vital Signs Temp Pulse Resp BP Pulse Ox O2 Del Method O2 Flow Rate 36.6 C 82 18 124/83 H 96 Room Air 2 10/16/24 03:10 10/16/24 03:10 10/16/24 03:10 10/16/24 03:10 10/16/24 03:10 10/16/24 03:10 10/09/24 09:10 Oxygen Flow Rate (L/min) 2 Oxygen Delivery Method Room Air Weight: 70.2 kg Body Mass Index (BMI) 23.5 Intake & Output: Intake and Output for Last 24 Hours 10/14/24 10/15/24 10/16/24 23:59 23:59 23:59 Intake Total 2808.63 / 2808.63 850 / 850 Output Total 2350 / 3150 2100 / 2250 450 / 450 Balance 458.63 / -341.37 -1250 / -1400 -450 / -450 Lab / Micro Data 10/16/24 05:07 10/16/24 05:07 Labs: Laboratory Results - last 24 hr 10/16/24 05:07: WBC 11.3 H, RBC 5.22, Hgb 15.6, Hct 46.4, MCV 88.9, MCH 29.9, MCHC 33.6, RDW Std Deviation 43.9, RDW Coeff of Natty 13.4, Plt Count 316, MPV 11.7, Immature Gran % (Auto) 2.100 H, Neut % (Auto) 67.9, Lymph % (Auto) 19.2, [place] % (Auto) 8.2, Eos % (Auto) 1.8, Baso % (Auto) 0.8, Absolute Neuts (auto) 7.7, Absolute Lymphs (auto) 2.17, Nucleated RBC % 0, Sodium 141, Potassium 3.4, Chloride 109 H, Carbon Dioxide 20.7 L, Anion Gap 12, BUN 17, Creatinine 0.72, Estim Creat Clear Calc 87.88, Est GFR (MDRD) Non-Af 101, BUN/Creatinine Ratio 23.2 H, Glucose 91, Calcium 8.9 Micro: Microbiology 10/10/24 08:40 Blood Culture (Wb) - Right Forearm Blood Culture - Final No growth in 5 days. 10/10/24 08:33 Blood Culture (Wb) - Anticubital Right Blood Culture - Final No growth in 5 days. 10/10/24 09:48 Urine, Clean Catch Urine Culture - Final Staphylococcus aureus Rhythm Strip Rhythm Strip: A.Flutter Rate: 120 Physical Exam Const alert and no apparent distress HEENT head/scalp atraumatic and moist oral mucous membranes Resp normal respiratory effort, no retractions, no use of accessory muscles and clear to auscultation bilaterally Cardio regular rate, regular rhythm, S1 normal heart sound and S2 normal heart sound GI normal to inspection, nondistended, normoactive bowel sounds, soft to palpation, non-tender and non-distended Extremity Extremity Narrative: infiltrated IV in LUE. Neuro Sensorium / Orientation: awake and alert Assessment & Plan Assessment/Plan (1) Epididymitis: PLAN: Noted asymmetric enlargement of the right epididymis w hypervascularity. Doxycycline and CTX (2) UTI (urinary tract infection): PLAN: Cx positive for MSSA, but only 11-25k. Doubt true infection. (3) Severe left ventricular systolic dysfunction (LVSD): PLAN: EF 10-15 % on echo on metoprolol, furosemide, spironolactone, sacubitril/valsartan Cardiology not recommending LifeVest at this time given his Aflutter and risk for inappropriate shocks. (4) Atrial flutter with rapid ventricular response: PLAN: metoprolol tartrate, amiodarone 400 BID (started today) for 5 days, then 200 BID. anticoagulated on apixaban PLAN: Plan VTE prophylaxis: not indicated as already anticoagulated. Disposition: hopefully home in 1-2 days depending on HR. Charges/Coding Visit Charges Inpatient E&M: 99250 Subs Hosp L2
[2024-10-16] MEDS: Ceftriaxone 1 GM/50 ML BAG IV (09:44)
[2024-10-16] MEDS: 0.9% Saline Lock 10 ML Syringe IV ×2 (09:45→21:30)
[2024-10-16] MEDS: Metoprolol Tartrate 25 MG Tablet PO ×2 (09:45→21:29)
[2024-10-16] MEDS: Spironolactone 25 MG Tablet PO (09:46)
[2024-10-16] MEDS: APIXABAN 5 MG TABLET PO ×2 (09:46→21:29)
[2024-10-16] MEDS: Furosemide 20 MG Tablet PO (09:46)
[2024-10-16] MEDS: Amiodarone 200 MG Tablet 400 MG PO ×2 (09:46→21:29)
[2024-10-16] MEDS: Multivitamins,Therapeutic Tablet 1 TABLET PO (09:46)
[2024-10-16] MEDS: SACUBITRIL/VALSARTAN 24/26 MG TABLET 1 EACH PO ×2 (09:46→21:29)
[2024-10-16] MEDS: Lactobacillis Acidophilus 1 CAP PO ×4 (09:46→21:29)
[2024-10-16] MEDS: Doxycycline 100 MG CAPSULE PO ×2 (09:47→21:29)
[2024-10-17 03:00] VITALS: BP 117/82; PULSE 78; RESP 16; TEMP 36.4; O2SAT 98
[2024-10-17 05:16] VITALS: BMI 23.7
[2024-10-17 06:13] LABS: Absolute Lymphocyte Count 2.26 X10^3/uL (0.83-4.51); Absolute Neutrophil Count 7.5 X10^3/uL (2.0-7.7); Basophil# 0.08 X10^3/uL; Basophil% 0.7 % (0-1); Eosinophil# 0.22 X10^3/uL; Hematocrit 46.5 % (40-54); Hemoglobin 15.7 g/dL (13.0-16.5); Lymphocyte # 2.26 X10^3/ul (0.83-4.51); Lymphocyte % 20.2 % (19-41); Mean Corp Hgb Conc 33.8 g/dL (32-36); Mean Corpuscular Volume 88.7 fL (80-94); Mean Platelet Vol. 11.9 fl (6.2-12.0); Monocyte# 0.91 X10^3/uL; Monocyte% 8.1 % (0-10); NRBC Flagged by Analyzer 0 % (0-5); Neutrophil # 7.53 X10^3/uL (2.7-7.7); Neutrophil % 67.2 % (47-70); Platelet Count 343 K/mm3 (150-450); RBC Distribution Width CV 13.4 % (11.6-14.6); RBC Distribution Width SD 43.3 fl (35.1-43.9); Red Blood Count 5.24 M/mm3 (4.6-6.2); White Blood Count 11.2 K/mm3 (4.4-11.0)
[2024-10-17 06:57] LABS: Anion Gap 13 (5-15); BUN 15 mg/dL (4-19); BUN/Creat Ratio 21.2 RATIO (10-20); Calcium,Total 8.6 mg/dL (7.6-11.0); Carbon Dioxide 18.6 mmol/L (21.0-32.0); Chloride 109 mmol/L (98-108); Creatinine, Serum 0.71 mg/dL (0.70-1.20); EST Glomerular Filtration Rate 101 (>60); Estimated Creatinine Clearance 87.88 ml/min (50-250); Glucose 83 mg/dL (70-99); Potassium 3.6 mmol/L (3.3-5.1); Sodium Level 140 mmol/L (133-145)
--- NOTE | 2024-10-17 08:03 | PN.CARD_ITS ---
Subjective Subjective Patient resting comfortably in recumbent position in bed. He denies any recurrent fevers or chills. His heart rate has come under much better control he remains in atrial flutter on telemetry heart rate is 45-80 bpm. Objective Data Vital Signs: Vital Signs Temp Pulse Resp BP Pulse Ox O2 Del Method O2 Flow Rate 97.6 F L 78 16 117/82 H 98 Room Air 2 10/17/24 03:00 10/17/24 03:00 10/17/24 03:00 10/17/24 03:00 10/17/24 03:00 10/17/24 03:00 10/09/24 09:10 Oxygen Flow Rate (L/min) 2 Oxygen Delivery Method Room Air Weight: 156 lb 1.396 oz Body Mass Index (BMI) 23.7 Intake & Output: Intake and Output for Last 24 Hours 10/15/24 10/16/24 10/17/24 23:59 23:59 23:59 Intake Total 850 / 850 50 / 250 400 / 400 Output Total 2100 / 2250 450 / 850 800 / 800 Balance -1250 / -1400 -400 / -600 -400 / -400 Lab / Micro Data Attestation: I reviewed the patient's lab results. 10/17/24 04:46 10/17/24 04:46 Labs: Laboratory Results - last 24 hr 10/17/24 04:46: WBC 11.2 H, RBC 5.24, Hgb 15.7, Hct 46.5, MCV 88.7, MCH 30.0, MCHC 33.8, RDW Std Deviation 43.3, RDW Coeff of Natty 13.4, Plt Count 343, MPV 11.9, Immature Gran % (Auto) 1.800 H, Neut % (Auto) 67.2, Lymph % (Auto) 20.2, [place] % (Auto) 8.1, Eos % (Auto) 2.0, Baso % (Auto) 0.7, Absolute Neuts (auto) 7.5, Absolute Lymphs (auto) 2.26, Nucleated RBC % 0, Sodium 140, Potassium 3.6, Chloride 109 H, Carbon Dioxide 18.6 L, Anion Gap 13, BUN 15, Creatinine 0.71, Estim Creat Clear Calc 87.88, Est GFR (MDRD) Non-Af 101, BUN/Creatinine Ratio 21.2 H, Glucose 83, Calcium 8.6 Rhythm Strip Rhythm Strip: A.Flutter Rate: 70 Cardiology Labs/Tests 10/17/24 04:46: WBC 11.2 H, RBC 5.24, Hgb 15.7, Hct 46.5, MCV 88.7, MCH 30.0, MCHC 33.8, Plt Count 343, MPV 11.9, Immature Gran % (Auto) 1.800 H, Neut % (Auto) 67.2, Lymph % (Auto) 20.2, [place] % (Auto) 8.1, Eos % (Auto) 2.0, Baso % (Auto) 0.7, Absolute Neuts (auto) 7.5, Nucleated RBC % 0, Sodium 140, Potassium 3.6, Chloride 109 H, Carbon Dioxide 18.6 L, Anion Gap 13, BUN 15, Creatinine 0.71, Est GFR (MDRD) Non-Af 101, BUN/Creatinine Ratio 21.2 H, Glucose 83, Calcium 8.6 Rhythm: EKG: ECHO: Stress Test: Cardiac Cath: PCI: CT Surgery: Holter monitor: EPS: PPM: CXR: Chest CT Scan: Physical Exam Const alert and oriented x3 HEENT normocephalic Eyes EOMs intact bilaterally Neck no JVD Resp normal respiratory effort and clear to auscultation bilaterally Cardio Rate: regular rate Rhythm: regular rhythm Heart Sounds: S1 normal and S2 normal; Negative for click, gallop or murmur GI non-tender Extremity no pedal edema Neuro Neuro Narrative: Alert and oriented x 3 Psych mental status grossly normal Assessment & Plan Assessment/Plan (1) Atrial flutter with rapid ventricular response: PLAN: Patient remains in atrial flutter on telemetry with heart rates running 45-80 bpm. His heart rate is much better controlled on the combination of the amiodarone 400 mg twice daily and metoprolol 25 mg twice daily. The patient is tolerating Eliquis 5 mg twice daily without incident. Plan would be to keep the patient on amiodarone 400 mg twice daily until day of discharge. At that time I would decrease it to 200 mg twice daily, continue his metoprolol at 25 mg twice daily along with his Entresto spironolactone and his home Lasix dose. The patient should be reevaluated in the [facility] office in 7 to 10 days with an ECG. He should follow-up with one of our advanced practitioners in 4 weeks in preparation for direct-current cardioversion to be done as an outpatient in 6 weeks. I went over this in detail with the patient today. (2) Severe left ventricular systolic dysfunction (LVSD): PLAN: Patient has a history of significant LV dysfunction EF was 10-15%. This will be reevaluated with a limited echocardiogram at 4 weeks prior to his direct-current cardioversion. He should continue his current Entresto, metoprolol, spironolactone, and home Lasix doses at discharge. (3) Epididymitis: PLAN: Treatment per the primary service. PLAN: Plan 1. From a cardiovascular standpoint the patient's heart rate remains controlled over the next 24 hours he should be able to be discharged to home. 2. At discharge the patient should follow-up with the [facility] in 7 to 10 days with an ECG in the office. Should then be evaluated by advanced practitioner in 4 weeks and at that time scheduled for limited echocardiogram. We would then plan tentatively on a direct-current cardioversion in the ambulatory setting at 6 to 7 weeks if he remains in atrial flutter after clearing his infectious process. Charges/Coding Visit Charges Inpatient E&M: 91219 Subs Hosp L2
--- NOTE | 2024-10-17 08:12 | PN.HOSP_ITS ---
Reason for Visit Reason for Visit: Diagnoses Elevated white blood cell count, unspecified (10/08/24) Overweight (10/08/24) Unspecified atrial flutter (10/08/24) Other ill-defined heart diseases (10/08/24) Acute cystitis with hematuria (10/08/24) Urinary tract infection, site not specified (10/08/24) Epididymitis (10/08/24) Subjective Subjective Feeling well. Right scrotal induration improving. Objective Data Objective Data Vital Signs: Vital Signs Temp Pulse Resp BP Pulse Ox O2 Del Method O2 Flow Rate 36.4 C L 78 16 117/82 H 98 Room Air 2 10/17/24 03:00 10/17/24 03:00 10/17/24 03:00 10/17/24 03:00 10/17/24 03:00 10/17/24 03:00 10/09/24 09:10 Oxygen Flow Rate (L/min) 2 Oxygen Delivery Method Room Air Weight: 70.8 kg Body Mass Index (BMI) 23.7 Intake & Output: Intake and Output for Last 24 Hours 10/15/24 10/16/24 10/17/24 23:59 23:59 23:59 Intake Total 850 / 850 50 / 250 400 / 400 Output Total 2100 / 2250 450 / 850 800 / 800 Balance -1250 / -1400 -400 / -600 -400 / -400 Lab / Micro Data 10/17/24 04:46 10/17/24 04:46 Labs: Laboratory Results - last 24 hr 10/17/24 04:46: WBC 11.2 H, RBC 5.24, Hgb 15.7, Hct 46.5, MCV 88.7, MCH 30.0, MCHC 33.8, RDW Std Deviation 43.3, RDW Coeff of Natty 13.4, Plt Count 343, MPV 11.9, Immature Gran % (Auto) 1.800 H, Neut % (Auto) 67.2, Lymph % (Auto) 20.2, [place] % (Auto) 8.1, Eos % (Auto) 2.0, Baso % (Auto) 0.7, Absolute Neuts (auto) 7.5, Absolute Lymphs (auto) 2.26, Nucleated RBC % 0, Sodium 140, Potassium 3.6, Chloride 109 H, Carbon Dioxide 18.6 L, Anion Gap 13, BUN 15, Creatinine 0.71, Estim Creat Clear Calc 87.88, Est GFR (MDRD) Non-Af 101, BUN/Creatinine Ratio 21.2 H, Glucose 83, Calcium 8.6 Micro: Microbiology 10/10/24 08:40 Blood Culture (Wb) - Right Forearm Blood Culture - Final No growth in 5 days. 10/10/24 08:33 Blood Culture (Wb) - Anticubital Right Blood Culture - Final No growth in 5 days. 10/10/24 09:48 Urine, Clean Catch Urine Culture - Final Staphylococcus aureus Rhythm Strip Rhythm Strip: A.Flutter Rate: 70 Physical Exam Narrative induration over right scrotum. Const alert and no apparent distress Assessment & Plan Assessment/Plan (1) Epididymitis: PLAN: Noted asymmetric enlargement of the right epididymis w hypervascularity. Doxycycline and CTX (2) UTI (urinary tract infection): PLAN: Cx positive for MSSA, but only 11-25k. Doubt true infection. (3) Severe left ventricular systolic dysfunction (LVSD): PLAN: EF 10-15 % on echo on metoprolol, furosemide, spironolactone, sacubitril/valsartan Cardiology not recommending LifeVest at this time given his Aflutter and risk for inappropriate shocks. (4) Atrial flutter with rapid ventricular response: PLAN: metoprolol tartrate, amiodarone 400 BID (started today) for 5 days, then 200 BID. anticoagulated on apixaban PLAN: Plan VTE prophylaxis: not indicated as already anticoagulated. Disposition: hopefully home in 1-2 days depending on HR.
[2024-10-17 09:00] VITALS: BP 128/92; PULSE 84; RESP 16; TEMP 36.3; O2SAT 100
[2024-10-17] MEDS: Multivitamins,Therapeutic Tablet 1 TABLET PO (09:18)
[2024-10-17] MEDS: Lactobacillis Acidophilus 1 CAP PO ×4 (09:18→21:43)
[2024-10-17] MEDS: Spironolactone 25 MG Tablet PO (09:18)
[2024-10-17 09:19] VITALS: BP 128/92; PULSE 84
[2024-10-17] MEDS: Metoprolol Tartrate 25 MG Tablet PO ×2 (09:19→21:42)
[2024-10-17] MEDS: Furosemide 20 MG Tablet PO (09:19)
[2024-10-17] MEDS: APIXABAN 5 MG TABLET PO ×2 (09:19→21:42)
[2024-10-17] MEDS: Doxycycline 100 MG CAPSULE PO ×2 (09:19→21:42)
[2024-10-17] MEDS: SACUBITRIL/VALSARTAN 24/26 MG TABLET 1 EACH PO ×2 (09:19→21:42)
[2024-10-17] MEDS: Amiodarone 200 MG Tablet 400 MG PO ×2 (09:19→21:43)
[2024-10-17] MEDS: Ceftriaxone 1 GM/50 ML BAG IV (09:25)
--- NOTE | 2024-10-17 12:16 | DS.PCM_ITS ---
Providers Date of Admission: 10/08/24 Primary Care Physician: Dr. Kilo Lewis MD Consultations 10/09/24 15:42 Consult: Cardiology Routine Consulting Provider: Jonas Cedeno Reason for Consult: reduced EF EMERGENT Consult: No MD Notified: Yes Date Notified: 10/09/24 Time Notified: 15:42 Method of Notification: Verbal Reason For Visit: UTI, RIGHT EPIDIDYMITIS AND [place] ATRIAL Diagnosis Discharge Diagnosis (1) Epididymitis: Status: Acute Code(s): N45.1 - Epididymitis Plan: Noted asymmetric enlargement of the right epididymis w hypervascularity. Doxycycline and CTX (2) UTI (urinary tract infection): Status: Acute Code(s): N39.0 - Urinary tract infection, site not specified Plan: Cx positive for MSSA, but only 11-25k. Doubt true infection. (3) Severe left ventricular systolic dysfunction (LVSD): Status: Acute Code(s): I51.89 - Other ill-defined heart diseases Plan: EF 10-15 % on echo on metoprolol, furosemide, spironolactone, sacubitril/valsartan Cardiology not recommending LifeVest at this time given his Aflutter and risk for inappropriate shocks. (4) Atrial flutter with rapid ventricular response: Status: Acute Code(s): I48.92 - Unspecified atrial flutter Plan: metoprolol tartrate, amiodarone 400 BID (started today) for 5 days, then 200 BID. anticoagulated on apixaban Plan VTE prophylaxis: not indicated as already anticoagulated. Disposition: hopefully home in 1-2 days depending on HR. Medications at Discharge Home Medications multivitamin with folic acid 400 mcg tablet (Thera) 1 tab PO DAILY supplement 03/05/15 Hospital Course Operations None Procedures None Summary of Care Provided Hospital Course: Pt admitted with right epididymitis, will discharge with Augmentin. Developed aflutter with RVR. Aflutter improved and will be discharged with amiodarone. Weight / BMI Weight Weight: 70.8 kg Body Mass Index (BMI) 23.7 ABG / Lab / Microbiology Data 10/17/24 04:46 10/17/24 04:46 Laboratory: Laboratory Results - last 24 hr 10/17/24 04:46: WBC 11.2 H, RBC 5.24, Hgb 15.7, Hct 46.5, MCV 88.7, MCH 30.0, MCHC 33.8, RDW Std Deviation 43.3, RDW Coeff of Natty 13.4, Plt Count 343, MPV 11.9, Immature Gran % (Auto) 1.800 H, Neut % (Auto) 67.2, Lymph % (Auto) 20.2, [place] % (Auto) 8.1, Eos % (Auto) 2.0, Baso % (Auto) 0.7, Absolute Neuts (auto) 7.5, Absolute Lymphs (auto) 2.26, Nucleated RBC % 0, Sodium 140, Potassium 3.6, Chloride 109 H, Carbon Dioxide 18.6 L, Anion Gap 13, BUN 15, Creatinine 0.71, Estim Creat Clear Calc 87.88, Est GFR (MDRD) Non-Af 101, BUN/Creatinine Ratio 21.2 H, Glucose 83, Calcium 8.6 Microbiology: Microbiology 10/10/24 08:40 Blood Culture (Wb) - Right Forearm Blood Culture - Final No growth in 5 days. 10/10/24 08:33 Blood Culture (Wb) - Anticubital Right Blood Culture - Final No growth in 5 days. 10/10/24 09:48 Urine, Clean Catch Urine Culture - Final Staphylococcus aureus D/C Instructions Discharge Diet: No restrictions Meaningful Use Info Meaningful Use Meaningful Use Diagnoses (Choose all that apply): None applicable Ischemic Stroke Statin Dosing Therapy Reference: STATIN DOSE THERAPY REFERENCE: * Patients > 75 years receive moderate or high dose statin therapy. * Patients 75 years or YOUNGER should receive HIGH intensity statin dose unless contraindicated. You will be required to document reason for non-treatment if statin daily dose does not meet guidelines. HIGH DOSE STATIN THERAPY DAILY Atorvastatin > than or = to 40 mg Rosuvastatin > than or = to 20 mg Amlodipine + Atorvastatin > than or = to 2.5/40 mg Ezetimibe + Simvastatin 10/80 mg Simvastatin 80mg Discharge Plan Admission Admit Date/Time: 10/08/24 23:59 Primary Reason for Your Visit: epididymitis. Aflutter. Attending Provider: Chaitanya Saucedo Primary Care Provider: Kilo Lewis Consulting Providers: Michael Reyna; Jonas Cedeno; Madison Lemus; Garrison Viveros Instructions Additional Instructions / Restrictions: You developed epididymitis (the scrotal infection). Be sure to compete you antibioitcs (Augmentin [amoxicillin/clavulonic acid]) as instructed. Addditionally, you developed Atrial flutter. You will be on metoprolol and amiodarone and blood thinners with Eliquis (apixaban) to prevent a stroke. Please follow up with cardiology in 1 month. Discharge Orders/Prescriptions Prescriptions: No Action multivitamin with folic acid [Thera] 1 TABLET tablet 1 tab PO DAILY Referrals / Follow Up: Kilo Lewis MD [Primary Care Provider] -
[2024-10-17 14:00] VITALS: PULSE 105
[2024-10-17 15:08] VITALS: BP 112/83; PULSE 95; RESP 14; TEMP 36.3; O2SAT 96
[2024-10-17 21:42] VITALS: BP 117/82; PULSE 85
[2024-10-17] MEDS: 0.9% Saline Lock 10 ML Syringe IV (21:44)
[2024-10-18 03:00] VITALS: BP 105/72; PULSE 76; RESP 16; TEMP 36.4; O2SAT 98
[2024-10-18 06:00] VITALS: BMI 23.4
[2024-10-18 09:00] VITALS: BP 127/98; PULSE 102; RESP 16; TEMP 36.8; O2SAT 95
--- NOTE | 2024-10-18 09:08 | PCM.PN.CARD ---
Subjective Subjective Patient reports that he is doing fairly well. He has been up in his room but has not been out in the halls walking. He denies any significant shortness of breath denies any PND orthopnea. Objective Data Vital Signs: Vital Signs Temp Pulse Resp BP Pulse Ox O2 Del Method O2 Flow Rate 97.5 F L 76 16 105/72 98 Room Air 2 10/18/24 03:00 10/18/24 03:00 10/18/24 03:00 10/18/24 03:00 10/18/24 03:00 10/18/24 03:00 10/09/24 09:10 Oxygen Flow Rate (L/min) 2 Oxygen Delivery Method Room Air Weight: 154 lb 1 oz Body Mass Index (BMI) 23.4 Intake & Output: Intake and Output for Last 24 Hours 10/16/24 10/17/24 10/18/24 23:59 23:59 23:59 Intake Total 50 / 250 1500 / 1500 200 / 200 Output Total 450 / 850 1100 / 1100 400 / 400 Balance -400 / -600 400 / 400 -200 / -200 Lab / Micro Data Attestation: I reviewed the patient's lab results. 10/17/24 04:46 10/17/24 04:46 Rhythm Strip Rhythm Strip: A.Flutter Rate: 65 Cardiology Labs/Tests Rhythm: EKG: ECHO: Stress Test: Cardiac Cath: PCI: CT Surgery: Holter monitor: EPS: PPM: CXR: Chest CT Scan: Physical Exam Const alert and oriented x3 HEENT normocephalic Eyes EOMs intact bilaterally Neck no JVD Resp normal respiratory effort and clear to auscultation bilaterally Cardio Rate: regular rate Rhythm: regular rhythm Heart Sounds: S1 normal and S2 normal; Negative for click, gallop or murmur Extremity no pedal edema Psych mental status grossly normal Assessment & Plan Assessment/Plan (1) Severe left ventricular systolic dysfunction (LVSD): PLAN: EF was initially estimated at 10 to 15% on his echo this admission. He has now been titrated on guideline directed medical therapy. He does remain in atrial flutter with a controlled ventricular response. Patient is tolerating Eliquis without incident. He remains on amiodarone 40 mg twice daily. This will be decreased to 200 mg twice daily at discharge. The patient is on furosemide 20 mg daily metoprolol tartrate 25 mg twice daily Entresto and spironolactone 25 mg daily. The patient be followed up in the [facility] office in 7 to 10 days with an ECG and will have repeat metabolic panel done at that time. After an additional 4 weeks of medical therapy the patient will see the advanced practitioner in 6 weeks after that have a limited echocardiogram to reevaluate the LV function. This should give time for complete clearing of his infectious process with his epididymitis. (2) Atrial flutter with rapid ventricular response: PLAN: Patient's heart rate is well-controlled on his current medical therapy. He will be continued on the amiodarone 400 mg twice daily until discharge. At discharge this will be decreased to 200 mg twice daily. He will then be reevaluated in the office with an ECG in 7 to 10 days and again in 4 weeks. If he remains in atrial flutter we will set up for direct-current cardioversion at 6 to 7 weeks after echocardiogram is repeated. PLAN: Plan 1. At discharge the patient should follow-up with the [facility] in 7 to 10 days with an ECG in the office. Should then be evaluated by advanced practitioner in 4 weeks and at that time scheduled for limited echocardiogram. We would then plan tentatively on a direct-current cardioversion in the ambulatory setting at 6 to 7 weeks if he remains in atrial flutter after clearing his infectious process. 2. From a cardiovascular standpoint should be able to be discharged to home if able to ambulate in the halls and feels able to do self-care in his home environment. 3. If further assistance is needed please call. 4. Please reinstruct the patient on follow-up directions as I gave him these this morning and room but I want a make sure that he follows through. Charges/Coding Visit Charges Inpatient E&M: 70978 Subs Hosp L3
[2024-10-18] MEDS: Multivitamins,Therapeutic Tablet 1 TABLET PO (09:14)
[2024-10-18] MEDS: Lactobacillis Acidophilus 1 CAP PO ×2 (09:14→13:49)
[2024-10-18] MEDS: Spironolactone 25 MG Tablet PO (09:14)
[2024-10-18 09:15] VITALS: BP 127/98; PULSE 102
[2024-10-18] MEDS: Doxycycline 100 MG CAPSULE PO (09:15)
[2024-10-18] MEDS: Amiodarone 200 MG Tablet 400 MG PO (09:15)
[2024-10-18] MEDS: Metoprolol Tartrate 25 MG Tablet PO (09:15)
[2024-10-18] MEDS: APIXABAN 5 MG TABLET PO (09:15)
[2024-10-18] MEDS: SACUBITRIL/VALSARTAN 24/26 MG TABLET 1 EACH PO (09:15)
[2024-10-18] MEDS: Furosemide 20 MG Tablet PO (09:15)
[2024-10-18] MEDS: Ceftriaxone 1 GM/50 ML BAG IV (09:16)
--- NOTE | 2024-10-18 12:40 | PCM.DC.SUM ---
Providers Date of Admission: 10/08/24 Primary Care Physician: Dr. Kilo Lewis MD Consultations 10/09/24 15:42 Consult: Cardiology Routine Consulting Provider: Jonas Cedeno Reason for Consult: reduced EF EMERGENT Consult: No MD Notified: Yes Date Notified: 10/09/24 Time Notified: 15:42 Method of Notification: Verbal Reason For Visit: UTI, RIGHT EPIDIDYMITIS AND NEW-ONSET ATRIAL Diagnosis Discharge Diagnosis (1) Severe left ventricular systolic dysfunction (LVSD): Status: Acute Code(s): I51.89 - Other ill-defined heart diseases Plan: EF 10-15 % on echo on metoprolol, furosemide, spironolactone, sacubitril/valsartan Cardiology not recommending LifeVest at this time given his Aflutter and risk for inappropriate shocks. (2) Atrial flutter with rapid ventricular response: Status: Acute Code(s): I48.92 - Unspecified atrial flutter Plan: metoprolol tartrate, amiodarone 400 BID (started today) for 5 days, then 200 BID. anticoagulated on apixaban DW osbaldo Ness for discharge. Further cardiac recommedations: At discharge the patient should follow-up with the [facility] in 7 to 10 days with an ECG in the office. Should then be evaluated by advanced practitioner in 4 weeks and at that time scheduled for limited echocardiogram. We would then plan tentatively on a direct-current cardioversion in the ambulatory setting at 6 to 7 weeks if he remains in atrial flutter after clearing his infectious process. Plan Epididymitis: overall improving. DC with Augmentin. Medications at Discharge Home Medications multivitamin with folic acid 400 mcg tablet (Thera) 1 tab PO DAILY supplement 03/05/15 amiodarone 200 mg tablet 200 mg PO BID #60 tabs 10/18/24 amoxicillin 875 mg-potassium clavulanate 125 mg tablet 1 tab PO Q12H #10 tabs 10/18/24 apixaban 5 mg tablet (Eliquis) 5 mg PO BID #60 tabs 10/18/24 furosemide 20 mg tablet 20 mg PO DAILY #30 tabs 10/18/24 metoprolol tartrate 25 mg tablet 25 mg PO BID #60 tabs 10/18/24 sacubitril 24 mg-valsartan 26 mg tablet (Entresto) 1 tab PO BID #60 tabs 10/18/24 spironolactone 25 mg tablet 25 mg PO DAILY #30 tabs 10/18/24 Hospital Course Operations None Procedures 2-D Echocardiogram Summary of Care Provided Minutes Spent on Discharge: 35 Weight / BMI Weight Weight: 69.882 kg Body Mass Index (BMI) 23.4 ABG / Lab / Microbiology Data 10/17/24 04:46 10/17/24 04:46 Microbiology: Microbiology 10/10/24 08:40 Blood Culture (Wb) - Right Forearm Blood Culture - Final No growth in 5 days. 10/10/24 08:33 Blood Culture (Wb) - Anticubital Right Blood Culture - Final No growth in 5 days. 10/10/24 09:48 Urine, Clean Catch Urine Culture - Final Staphylococcus aureus D/C Instructions Discharge Diet: 2000 mg Sodium Diet and - (1.5 liters fluid per day maximum. ) DC O2, CPAP, BIPAP Needs Home O2 Discharge instructions: No Meaningful Use Info Meaningful Use Meaningful Use Diagnoses (Choose all that apply): CHF CHF BECCA/ARB ordered at discharge?: Yes Documented LVEF (%): 20 Ischemic Stroke Statin Dosing Therapy Reference: STATIN DOSE THERAPY REFERENCE: * Patients > 75 years receive moderate or high dose statin therapy. * Patients 75 years or YOUNGER should receive HIGH intensity statin dose unless contraindicated. You will be required to document reason for non-treatment if statin daily dose does not meet guidelines. HIGH DOSE STATIN THERAPY DAILY Atorvastatin > than or = to 40 mg Rosuvastatin > than or = to 20 mg Amlodipine + Atorvastatin > than or = to 2.5/40 mg Ezetimibe + Simvastatin 10/80 mg Simvastatin 80mg Discharge Plan Admission Admit Date/Time: 10/08/24 23:59 Primary Reason for Your Visit: epididymitis. Aflutter. Attending Provider: Chaitanya Saucedo Primary Care Provider: Kilo Lewis Consulting Providers: Michael Reyna; Jonas Cedeno; Madison Lemus; Garrison Viveros Instructions Additional Instructions / Restrictions: You developed epididymitis (the scrotal infection). Be sure to compete you antibioitcs (Augmentin [amoxicillin/clavulonic acid]) as instructed. Addditionally, you developed Atrial flutter. You will be on metoprolol and amiodarone and blood thinners with Eliquis (apixaban) to prevent a stroke. Please follow up with cardiology in 7-10 days and again in 1 month. If redness and pain of your scrotum gets worse, notify your physician or return to the emergency room. Discharge Orders/Prescriptions Prescriptions: New amiodarone 200 mg Tablet 200 mg PO BID Qty: 60 0RF spironolactone 25 mg Tablet 25 mg PO DAILY Qty: 30 0RF furosemide 20 mg Tablet 20 mg PO DAILY Qty: 30 0RF metoprolol tartrate 25 mg Tablet 25 mg PO BID Qty: 60 0RF Eliquis 5 mg Tablet 5 mg PO BID Qty: 60 0RF Entresto 24-26 mg Tablet 1 tab PO BID Qty: 60 0RF amoxicillin-pot clavulanate 875-125 mg tablet 1 tab PO Q12H Qty: 10 0RF Continued multivitamin with folic acid [Thera] 1 TABLET tablet 1 tab PO DAILY Referrals / Follow Up: [facility] [Provider Group] - Within 1 Week Kilo Lewis MD [Primary Care Provider] - Within 2 Weeks Disposition Disposition (needs filled in before D/C Order can be placed): Home, Self Care Charges/Coding Visit Charges Inpatient E&M: 92906 Disch Hosp >30min
[2024-10-18 13:30] VITALS: BP 116/85; PULSE 69; RESP 16; TEMP 36.5; O2SAT 96
--- NOTE | 2024-10-18 14:32 | CASEMGMT ---
Patient has order for discharge. RN CM called [facility] to inquire about cost of Eliquis and Entresto, copays are $45 and $95. RN CM in to discuss needs at discharge. RN CM updated patient and regarding copays and provided savings cards to patient. Patient denies further needs or concerns. Patient had no further questions.
--- NOTE | 2024-10-18 15:12 | PHA.DC_ITS ---
Pharmacy [facility] Counseling Pharmacy Service has performed discharge medication reconciliation and counseling for this patient. 1. AUGMENTIN 875MG PO BID X 5 DAYS 2. AMIODARONE 200MG PO BID 3. APIXABAN 5MG PO BID 4. ENTRESTO 24/26MG PO BID 5. FUROSEMIDE 20MG PO DAILY 6. METOPROLOL TARTRATE 23MG PO BID 7. SPIRONOLACTONE 25MG PO DAILY The patient's discharge medication list was reviewed for discrepancies and discrepancies were resolved. The patient was counseled on the following discharge medications and changes in medications for homegoing were reviewed. The Reason for Use, instructions for use, and potential side effects were reviewed for all new medications. The patient's questions regarding all of their medications were answered. The patient was able to verbally demonstrate an understanding of their discharge medications. Medications at Discharge Home Medications multivitamin with folic acid 400 mcg tablet (Thera) 1 tab PO DAILY supplement 03/05/15 amiodarone 200 mg tablet 200 mg PO BID #60 tabs 10/18/24 amoxicillin 875 mg-potassium clavulanate 125 mg tablet 1 tab PO Q12H #10 tabs 10/18/24 apixaban 5 mg tablet (Eliquis) 5 mg PO BID #60 tabs 10/18/24 furosemide 20 mg tablet 20 mg PO DAILY #30 tabs 10/18/24 metoprolol tartrate 25 mg tablet 25 mg PO BID #60 tabs 10/18/24 sacubitril 24 mg-valsartan 26 mg tablet (Entresto) 1 tab PO BID #60 tabs 10/18/24 spironolactone 25 mg tablet 25 mg PO DAILY #30 tabs 10/18/24
== END 2024-10-18 15:05 | disposition home or self-care (01) | DRG 315 ==
LOC: ED 20:33 → PCU 23:47
PROVIDERS: Student in an Organized Health Care Education/Training Program; Admitting Provider Internal Medicine; Emergency Provider Emergency Medicine; PCP Family Medicine
DX: I42.8 Other cardiomyopathies (principal); I48.92 Unspecified atrial flutter; I48.19 Other persistent atrial fibrillation; D72.829 Elevated white blood cell count, unspecified; I51.89 Other ill-defined heart diseases; B95.61 Methicillin susceptible Staphylococcus aureus infection as the cause of diseases classified elsewhere; R31.29 Other microscopic hematuria; N45.1 Epididymitis; Z68.27 Body mass index [BMI] 27.0-27.9, adult; E66.3 Overweight; Z79.01 Long term (current) use of anticoagulants; Z79.899 Other long term (current) drug therapy
CPT/HCPCS: 36415; 76870; 80048; 80053; 80202; 81001; 83605; 83735; 84100; 84443; 84484; 85025; 87040; 87077; 87086; 87088; 87186; 93005; 93306; 93356; 93976; 94668; 94762; 97116; 97161; 97530; 99285; Q9957; A4216; C8929; J1938; J2405

== ENCOUNTER → 2024-11-29 | Outpatient (CLI) | payer BC, SELFPAY ==
--- NOTE | 2024-11-29 14:44 | ECHOD_ITS ---
Reason For Study Reason For Study: CARDIOMYOPATHY Procedure This was a 2D Doppler, Color Flow transthoracic echocardiogram. Exam performed in department. Left Ventricle Normal LV size. The left ventricular ejection fraction is 35 %. No regional wall motion abnormalities noted. There is moderate global hypokinesis of the left ventricle. Right Ventricle Normal RV size. Normal systolic function. Atria Normal left atrium. Normal right atrium. Mitral Valve Normal mitral valve. Tricuspid Valve Normal tricuspid valve. Mild tricuspid valve insufficiency. Pulmonary artery systolic pressure is 16 mmHg. Aortic Valve Trisinus/trileaflet aortic valve. Mild focal aortic valve calcification. Pulmonic Valve Normal pulmonic valve. Great Vessels Normal aortic root. The pulmonary artery is normal size. Inferior vena cava collapse with respiration. Pericardium/Pleural No pericardial effusion. MMode/2D Measurements & Calculations LVIDd: 4.7 cm IVSd: 1.1 cm LVOT diam: 2.0 cm LVIDs: 3.3 cm LVPWd: 1.1 cm LVOT area: 3.3 cm2 RVDd: 3.4 cm FS: 29.6 % asc Aorta Diam: 3.7 cm LAV(MOD-bp): 76.8 ml LVAd ap4: 21.3 cm2 LAV(MOD-bp) Indexed: 42.5 ml/m2 LVLd ap4: 7.3 cm LAV(MOD-sp2): 83.0 ml EDV(MOD-sp4): 52.7 ml LAV(MOD-sp4): 72.3 ml EDV(sp4-el): 52.9 ml LVAs ap4: 16.5 cm2 LVLs ap4: 6.8 cm ESV(MOD-sp4): 34.6 ml ESV(sp4-el): 33.8 ml EF(MOD-sp4): 34.4 % EF(sp4-el): 36.2 % LVAd ap2: 18.8 cm2 SV(MOD-sp4): 18.1 ml SV(MOD-sp2): 16.7 ml LVLd ap2: 7.2 cm SI(MOD-sp4): 10.0 ml/m2 SI(MOD-sp2): 9.3 ml/m2 EDV(MOD-sp2): 43.7 ml EDV(sp2-el): 41.6 ml LVAs ap2: 14.1 cm2 LVLs ap2: 6.5 cm ESV(MOD-sp2): 26.9 ml ESV(sp2-el): 26.2 ml EF(MOD-sp2): 38.3 % SV(sp4-el): 19.1 ml Ao sinus diam: 3.[address] Junction: 3.2 cm LA dimension(2D): 4.8 cm LA A4 area: 24.0 cm2 RA A4 area: 19.5 cm2 TAPSE: 2.4 cm Doppler Measurements & Calculations Lat Peak E' Rios: 7.8 cm/sec Med Peak E' Rios: 9.8 cm/sec Ao V2 max: 172.2 cm/sec Ao max P.9 mmHg Ao V2 mean: 122.0 cm/sec Ao mean P.8 mmHg Ao V2 VTI: 28.2 cm AV (velocity ratio): 0.80 YEMI(I,D): 2.6 cm2 YEMI(V,D): 2.7 cm2 LV V1 max: 145.4 cm/sec SV(LVOT): 73.4 ml PA V2 max: 76.1 cm/sec LV V1 max P.5 mmHg LV V1 mean P.0 mmHg LV V1 mean: 119.8 cm/sec LV V1 VTI: 22.6 cm TR max rios: 185.1 cm/sec TR max P.7 mmHg ECHO/Echo Complete Interpretation Summary Normal LV size. The left ventricular ejection fraction is 35 %. No regional wall motion abnormalities noted. There is moderate global hypokinesis of the left ventricle. Compared to previous study, the left ventricular systolic function has improved .. Ordering Physician: Trisha Colmenares Referring Physician: Kilo Lewis MD Performed By: Alexa Razo RDCS
== END | disposition home or self-care (01) ==
LOC: CVS 14:43
PROVIDERS: PCP Family Medicine; Referring Provider Nurse Practitioner Gerontology; Visit Provider Nurse Practitioner Gerontology
DX: I48.92 Unspecified atrial flutter (principal); I42.9 Cardiomyopathy, unspecified
CPT/HCPCS: 93306

== ENCOUNTER → 2024-12-01 | Outpatient (CLI) | payer BC, SELFPAY ==
[2024-12-01 16:35] LABS: Anion Gap 10 (5-15); BUN 26 mg/dL (4-19); BUN/Creat Ratio 29.3 RATIO (10-20); Calcium,Total 9.6 mg/dL (7.6-11.0); Carbon Dioxide 24.2 mmol/L (21.0-32.0); Chloride 106 mmol/L (98-108); Glucose 86 mg/dL (70-99); Potassium 5.3 mmol/L (3.3-5.1)
== END | disposition home or self-care (01) ==
LOC: LAB 14:53
PROVIDERS: PCP Family Medicine; Referring Provider Physician Assistant Medical; Visit Provider Physician Assistant Medical
DX: I42.9 Cardiomyopathy, unspecified (principal); I48.92 Unspecified atrial flutter; I51.89 Other ill-defined heart diseases
CPT/HCPCS: 36415; 80048

== ENCOUNTER → 2024-12-05 | Outpatient (CLI) | payer BC, SELFPAY ==
[2024-12-05 11:16] LABS: Anion Gap 9 (5-15); BUN 27 mg/dL (4-19); BUN/Creat Ratio 34.4 RATIO (10-20); Calcium,Total 9.2 mg/dL (7.6-11.0); Carbon Dioxide 25.1 mmol/L (21.0-32.0); Chloride 106 mmol/L (98-108); Glucose 94 mg/dL (70-99); Potassium 4.1 mmol/L (3.3-5.1)
--- OUTSIDE RECORDS SUMMARY | 2024-12-05 19:26 | XMS RPT_ITS | CCD ---
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 Boateng Primary Care Provider Dr. Janessa De La Torre DO Emergency Provider [phone] Reyna DO, Dr. Rodriguez Admit Provider Unavail able Reyna DO, Dr. Rodriguez Attending Provider Unav ailable Joshua LOBO, Dr. Boateng Primary Care Provider Dr. Janessa De La Torre DO Emergency Provider [phone] Reyna DO, Dr. Rodriguez Admit Provider Unavail able Reyna DO, Dr. Rodriguez Other Provider Unavail able Pao LOBO, Dr. Mcdaniel Other Provider Allan LOBO, Dr. Madison Raygoza Other Provider Dr. Garrison Viveros MD Other Provider Dr. Chaitanya Saucedo DO Attending Provider Dr. Jonas Cedeno MD Attending Provider Allan LOBO, Dr. Madison Raygoza Attending Provider Dr. Garrison Viveros MD Attending Provider Dr. Chaitanya Saucedo DO Other Provider Dr. Michael Heard MD Attending Provider Dr. Kilo Lewis MD Referring Provider Trisha Cannon Attending Provider Dr. Jonas Cedeno MD Other Provider Dr. Jonas Cedeno MD Attending Provider Trisha Cannon Referring Provider Dr. Bhavesh Song MD Attending Provider [phone] Regla Bautista Attending Provider [phone] Kilo Lewis Referring Unavailable Darrian PROTOTYPE MACHINIST, Trisha Attending Unavailable [facility] Unavailable Michael Reyna Consulting Unavailable Allan, Madison Raygoza Attending Unavailable Michael Reyna Admitting Unavailable [facility] Unavailable Belal, Farouk Consulting Unavailable Leandroam, Madison Idalmis Consulting Unavailable Cuate Cedenok Attending Unavailable Regla Bautista Attending Unavail able [facility] Unavailable Regla Bautista Referring Unavail able Darrian BILL, Trisha Referring Unavailable [facility] Unavailable Darrian BILL, Trisha Attending Unavailable Michael Reyna Admitting Unavailable Chaitanya Saucedo Attending Unavailable Michael Reyna Consulting Unavailable [facility] Unavailable Belal, Farouk Consulting Unavailable Koram, Madison Idalmis Consulting Unavailable Felice, Garrison Consulting Unavailable Felice, Garrison Consulting Unavailable Piter Viveroskash Attending Unavailable Chaitanya Saucedo Attending Unavailable Chaitanya Saucedo Consulting Unavailable Michael Heard Attending Unavailable Pao, Cuatek Attending Unavailable [facility] Unavailable Bhavesh Song Attending Unavailable [facility] Unavailable Michael Reyna Attending Unavailable [facility] Referring Unavailable [facility] Care Unavailable Regla Bautista Attending Unavail able Regla Bautista Referring Provider [phone] Allergies Allergy Classification Reported Allergen(s) Allergy Type Date of Onset Reaction(s) Facility (6 sources) Sulfonamides (Antibiotic) Allergy to substance 5 Unknown [facility] (1 source) Sulfonamides (Antibiotic) Drug allergy (disorder) 5 [facility] Repository Medications Current Medications Medication Drug Class(es) Dates Sig (Normalized) Sig (Original) amiodarone hydrochloride 200 mg oral tablet (9 sources) Antiarrhythmic Start: 10-23-2024 End: 11-13-2024 take 1 tablet by mouth once daily Amiodarone 200 mg tablet Active 200 mg PO daily 90 3 November 13, 2024 3:35pm Start: 10-18-2024 End: 10-23-2024 take 1 tablet by mouth twice daily Amiodarone 200 mg Tablet Discontinued 200 mg PO TWICE A DAY 60 0 October 18, 2024 12:00am October 23, 2024 2:11pm Multivitamin With Folic Acid (Thera) 1 TABLET tablet (6 sources) Start: 03-05-2015 take 1 tablet by mouth once daily Multivitamin With Folic Acid (Thera) 1 TABLET tablet Active 1 {tbl} PO DAILY March 05, 2015 12:00am supplement Start: 03-05-2015 take 1 tablet by renée th once daily Multivitamin With Folic Acid (Thera) 1 TABLET tablet Active 1 {tbl} PO DAILY March 05, 2015 12:00am Start: 03-05-2015 take 1 tablet by renée th once daily Multivitamin With Folic Acid (Thera) 1 TABLET tablet Active 1 TABLET PO DAILY March 05, 2015 12:00am Completed/Discontinued Medications Medication Drug Class(es) Dates Sig (Normalized) Sig (Original) amoxicillin 875 mg / clavulanate 125 mg oral tablet (4 sources) Penicillin-class Antibacterial Start: 10-18-2024 End: 10-23-2024 Amoxicillin-Pot Clavulanate 875-125 mg tablet Discontinued 1 {tbl} PO Q12H 10 0 October 18, 2024 12:00am October 23, 2024 1:43pm apixaban 5 mg oral tablet (9 sources) Factor Xa Inhibitor Start: 10-18-2024 End: 11-13-2024 take 1 tablet by mouth twice daily Apixaban (Eliquis) 5 mg tablet Discontinued 5 mg PO TWICE A DAY 180 3 October 23, 2024 2:09pm November 13, 2024 3:36pm etodolac 300 mg oral capsule (6 sources) Nonsteroidal Anti-inflammatory Drug Start: 03-05-2015 End: 10-08-2024 take 1 capsule by mouth three times daily at mealtime Etodolac 300 MG capsule Discontinued 300 mg PO 3 TIMES DAILY WITH MEALS 30 0 March 05, 2015 12:00am October 08, 2024 7:17pm with food furosemide 20 mg oral tablet (9 sources) Loop Diuretic Start: 10-18-2024 End: 11-13-2024 take 1 tablet by mouth once daily Furosemide 20 mg tablet Discontinued 20 mg PO DAILY 90 3 October 23, 2024 2:10pm November 13, 2024 3:36pm metoprolol tartrate 25 mg oral tablet (9 sources) beta-Adrenergic Chucky Start: 10-18-2024 End: 11-13-2024 take 1 tablet by mouth twice daily Metoprolol Tartrate 25 mg tablet Discontinued 25 mg PO TWICE A DAY 180 3 October 23, 2024 2:10pm November 13, 2024 3:36pm sacubitril 24 mg / valsartan 26 mg oral tablet (9 sources) Angiotensin 2 Receptor Chucky Start: 10-18-2024 End: 11-13-2024 Sacubitril-Valsarta n (Entresto) 24-26 mg tablet Discontinued 1 {tbl} PO TWICE A DAY 180 3 October 23, 2024 2:10pm November 13, 2024 3:36pm spironolactone 25 mg oral tablet (9 sources) Aldosterone Antagonist Start: 10-18-2024 End: 11-13-2024 take 1 tablet by mouth once daily Spironolactone 25 mg tablet Discontinued 25 mg PO DAILY 90 3 October 23, 2024 2:10pm November 13, 2024 3:36pm Problems Problem Classification Problem Date Documented Da te Episodic/Chronic Cardiac dysrhythmias (17 sources) Atrial flutter; Translations: [Unspecified atrial flutter] Onset: 11-29-2024 10-09-2024 Chronic Diseases of white blood cells (11 sources) Leukocytosis; Translations: [Elevated white blood cell count, unspecified] Onset: 10-31-2024 10-09-2024 Chronic Inflammatory conditions of male genital organs (11 sources) Epididymitis; Translations: [Epididymitis] Onset: 10-31-2024 10-09-2024 Episodic Other and ill-defined heart disease (12 sources) Left ventricular systolic dysfunction; Translations: [Other ill-defined heart diseases] 10-14-2024 Chronic Other and ill-defined heart disease (2 sources) Other ill-defined heart diseases; Translations: [Other ill-defined heart diseases] Onset: 10-31-2024 Chronic Other nutritional; endocrine; and metabolic disorders (10 sources) Body mass index 25-29 - overweight; Translations: [Overweight] 10-09-2024 Episodic Other nutritional; endocrine; and metabolic disorders (1 source) Overweight; Translations: [Overweight] Onset: 10-31-2024 Episodic Bela-; endo-; and myocarditis; cardiomyopathy (except that caused by tuberculosis or sexually transmitted disease) (8 sources) Cardiomyopathy; Translations: [Cardiomyopathy, unspecified] Onset: 11-29-2024 10-23-2024 Chronic Urinary tract infections (20 sources) Acute cystitis; Translations: [Acute cystitis with hematuria] Onset: 10-31-2024 10-09-2024 Episodic Results Test Name Value Interpretation Reference Range Facility Anion gap in Serum or Plasma Ordered By: Regla Morgan on 2024 Anion gap [Moles/Vol] 10 mmol/L - [facility] BUN/creatinine ratioOrdered By: Regla Morgan on 2024 Urea nitrogen/Creatinine [Mass ratio] 29.3 mg/mg High 03-05 [facility] Basic Metabolic Profile (BMP )on 2024 BUN/CRE 29.3 RATIO High 03-05 [facility] Comment on above: Performed By: #### L 100.0100, L500.4050 #### [facility] [address] [place], [address] Calcium [Mass/Vol] 9.6 mg/dL Normal 7.6-11.0 [facility] Comment on above: Performed By: #### L 100.0100, L500.4050 #### [facility] [address] [place], [address] Chloride [Moles/Vol] 106 mmol/L Normal 98-108 [facility] Comment on above: Performed By: #### L 100.0100, L500.4050 #### [facility] [address] [place], [address] CO2 [Moles/Vol] 24.2 mmol/L Normal 21.0-32.0 [facility] Comment on above: Performed By: #### L 100.0100, L500.4050 #### [facility] [address] [place], [address] Creatinine [Mass/Vol] 0.88 mg/dL Normal 0.70-1.20 [facility] Comment on above: Performed By: #### L 100.0100, L500.4050 #### [facility] [address] [place], [address] GAP 10 Normal 5-15 [facility] Comment on above: Performed By: #### L 100.0100, L500.4050 #### [facility] [address] [place], [address] GFR/1.73 sq M.predicted among non-blacks MDRD (S/P/Bld) [Vol rate/Area] 94 mL/min/{1.73_m2} Normal >60 [facility] Comment on above: Result Comment: mL/m in/1.73m2 CKD-EPI Creatinine Equation (2020) Performed By: #### L 100.0100, L500.4050 #### [facility] [address] [place], [address] Glucose [Mass/Vol] 86 mg/dL Normal 70-99 [facility] Comment on above: Performed By: #### L 100.0100, L500.4050 #### [facility] [address] [place], [address] Potassium [Moles/Vol] 5.3 mmol/L High 3.3-5.1 [facility] Comment on above: Performed By: #### L 100.0100, L500.4050 #### [facility] [address] [place], [address] Sodium [Moles/Vol] 140 mmol/L Normal 133-145 [facility] Comment on above: Performed By: #### L 100.0100, L500.4050 #### [facility] [address] [place], [address] Urea nitrogen [Mass/Vol] 26 mg/dL High 4-19 [facility] Comment on above: Performed By: #### L 100.0100, L500.4050 #### [facility] [address] [place], [place], [address] Carbon dioxide, total [Moles /volume] in Central venous bloodOrdered By: Regla Morgan on 2024 CO2 [Moles/Vol] 24.2 mmol/L 21.0-32.0 [facility] Chloride assayOrdered By: Ghazal Morgan on 2024 Chloride [Moles/Vol] 106 mmol/L 98-108 [facility] Glomerular filtration rate ( GFR) estimation/1.73 sq m using serum, plasma, or whole bOrdered By: Regla Morgan on 2024 GFR/1.73 sq M.predicted among non-blacks MDRD (S/P/Bld) [Vol rate/Area] 94 mL/min/{1.73_m2} >60 [facility] Comment on above: mL/min/1.73m2 CKD-EP I Creatinine Equation (2020) Potassium measurement (mass/ volume)Ordered By: Regla Morgan on 2024 Potassium (Unsp spec) [Mass/Vol] 5.3 mmol/L High 3.3-5.1 [facility] Serum creatinine measurement (mass/volume)Ordered By: Regla Morgan on 2024 Creatinine [Mass/Vol] 0.88 mg/dL 0.70-1.20 [facility] Serum glucose measurement (m ass/volume)Ordered By: Regla Morgan on 2024 Glucose [Mass/Vol] 86 mg/dL 70-99 [facility] Serum or plasma calcium shyann urement (mass/volume)Ordered By: Regla Morgan on 2024 Calcium [Mass/Vol] 9.6 mg/dL 7.6-11.0 [facility] Serum or plasma urea nitroge n measurement (mass/volume)Ordered By: Regla Morgan on 2024 Urea nitrogen [Mass/Vol] 26 mg/dL High 4-19 [facility] Sodium levelOrdered By: Kyle adames Cathy on 2024 Sodium [Moles/Vol] 140 mmol/L 133-145 [facility] Echo Completeon 11-29-2024 Echo Complete [facility] [address] [place] [address] Echo Complete 11/29/24 1449 MR#: [id number] Acct: [id number] Name: STACIE BARRAZA Rep #: [id number] : 1955 68 From: Bhavesh Song MD Attending Dr: Trisha Colmenares PROTOTYPE MACHINIST-C Status: CARRIE BONE Ordering Dr: Trisha Colmenares PROTOTYPE MACHINIST PROTOTYPE MACHINIST-C Date: 11/29/24 Location: [facility] Sex: M C Admitted: Reason For Study Reason For Study: CARDIOMYOPATHY Procedure This was a 2D Doppler, Color Flow transthoracic echocardiogram. Exam performed in department. Left Ventricle Normal LV size. The left ventricular ejection fraction is 35 %. No regional wall motion abnormalities noted. There is moderate global hypokinesis of the left ventricle. Right Ventricle Normal RV size. Normal systolic function. Atria Normal left atrium. Normal right atrium. Mitral Valve Normal mitral valve. Tricuspid Valve Normal tricuspid valve. Mild tricuspid valve insufficiency. Pulmonary artery systolic pressure is 16 mmHg. Aortic Valve Trisinus/trileaflet aortic valve. Mild focal aortic valve calcification. Pulmonic Valve Normal pulmonic valve. Great Vessels Normal aortic root. The pulmonary artery is normal size. Inferior vena cava collapse with respiration. Pericardium/Pleural No pericardial effusion. MMode/2D Measurements Calculations LVIDd: 4.7 cm IVSd: 1.1 cm LVOT diam: 2.0 cm LVIDs: 3.3 cm LVPWd: 1.1 cm LVOT area: 3.3 cm2 RVDd: 3.4 cm FS: 29.6 % asc Aorta Diam: 3.7 cm LAV(MOD-bp): 76.8 ml LVAd ap4: 21.3 cm2 LAV(MOD-bp) Indexed: 42.5 ml/m2 LVLd ap4: 7.3 cm LAV(MOD-sp2): 83.0 ml EDV(MOD-sp4): 52.7 ml LAV(MOD-sp4): 72.3 ml EDV(sp4-el): 52.9 ml LVAs ap4: 16.5 cm2 LVLs ap4: 6.8 cm ESV(MOD-sp4): 34.6 ml ESV(sp4-el): 33.8 ml EF(MOD-sp4): 34.4 % EF(sp4-el): 36.2 % LVAd ap2: 18.8 cm2 SV(MOD-sp4): 18.1 ml SV(MOD-sp2): 16.7 ml LVLd ap2: 7.2 cm SI(MOD-sp4): 10.0 ml/m2 SI(MOD-sp2): 9.3 ml/m2 EDV(MOD-sp2): 43.7 ml EDV(sp2-el): 41.6 ml LVAs ap2: 14.1 cm2 LVLs ap2: 6.5 cm ESV(MOD-sp2): 26.9 ml ESV(sp2-el): 26.2 ml EF(MOD-sp2): 38.3 % SV(sp4-el): 19.1 ml Ao sinus diam: 3.[address] Junction: 3.2 cm LA dimension(2D): 4.8 cm LA A4 area: 24.0 cm2 RA A4 area: 19.5 cm2 TAPSE: 2.4 cm Doppler Measurements Calculations Lat Peak E' Jovita: 7.8 cm/sec Med Peak E' Jovita: 9.8 cm/sec Ao V2 max: 172.2 cm/sec Ao max P.9 mmHg Ao V2 mean: 122.0 cm/sec Ao mean P.8 mmHg Ao V2 VTI: 28.2 cm AV (velocity ratio): 0.80 YEMI(I,D): 2.6 cm2 YEMI(V,D): 2.7 cm2 LV V1 max: 145.4 cm/sec SV(LVOT): 73.4 ml PA V2 max: 76.1 cm/sec LV V1 max P.5 mmHg LV V1 mean P.0 mmHg LV V1 mean: 119.8 cm/sec LV V1 VTI: 22.6 cm TR max jovita: 185.1 cm/sec TR max P.7 mmHg ECHO/Echo Complete Interpretation Summary Normal LV size. The left ventricular ejection fraction is 35 %. No regional wall motion abnormalities noted. There is moderate global hypokinesis of the left ventricle. Compared to previous study, the left ventricular systolic function has improved.. Ordering Physician: Trisha Colmenares Referring Physician: iKlo Lewis MD Performed By: Alexa Razo RDCS 11/29/241647 Date Bhavesh Song MD CC: FIDE Colmenares; Dr. Kilo Lewis MD Date Dictated: 11/29/241448 Date Transcribed: 11/29/241647 Sharepoint Net Developer: Signed Normal [facility] Echocardiogram study reportO rdered By: Bhavesh Song on 11-29-2024 Study report [facility] [address] [place] [address] Echo Complete 11/29/24 1449 MR#: [id number] Acct: [id number] Name: STACIE BARRAZA Rep #:[id number] : 1955 68 From: Bhavesh Prabhakar Attending Dr: FIDE Gao tatus: CARRIE CLI Ordering Dr: Trisha Colmenares NP Janes e: 11/29/24 Location: [facility] Sex: M C Admitted: Reason For Study Reason For Study: CARDIOMYOPATHY Procedure This was a 2D Doppler, Color Flow transthoracic echocardiogram. Exam performed in department. Left Ventricle Normal LV size. The left ventricular ejection fraction is 35 %. No regional wallmotion abnormalities noted. There is moderate global hypokinesis of the left ventricle. Right Ventricle Normal RV size. Normal systolic function. Atria Normal left atrium. Normal right atrium. Mitral Valve Normal mitral valve. Tricuspid Valve Normal tricuspid valve. Mild tricuspid valve insufficiency. Pulmonary artery systolic pressure is 16 mmHg. Aortic Valve Trisinus/trileaflet aortic valve. Mild focal aortic valve calcification. Pulmonic Valve Normal pulmonic valve. Great Vessels Normal aortic root. The pulmonary artery is normal size. Inferior vena cava collapse with respiration. Pericardium/Pleural No pericardial effusion. MMode/2D Measurements & Calculations LVIDd: 4.7 cm IVSd: 1.1 cm LVOT diam: 2.0 cm LVIDs: 3.3 cm LVPWd: 1.1 cm LVOT area: 3.3 cm2 RVDd: 3.4 cm FS: 29.6 % asc Aorta Diam: 3.7 cm LAV(MOD-bp): 76.8 ml LVAd ap4: 21.3 cm2 LAV(MOD-bp) Indexed: 42.5 ml/m2 LVLd ap4: 7.3 cm LAV(MOD-sp2): 83.0 ml EDV(MOD-sp4): 52.7 ml LAV(MOD-sp4): 72.3 ml EDV(sp4-el): 52.9 ml LVAs ap4: 16.5 cm2 LVLs ap4: 6.8 cm ESV(MOD-sp4): 34.6 ml ESV(sp4-el): 33.8 ml EF(MOD-sp4): 34.4 % EF(sp4-el): 36.2 % LVAd ap2: 18.8 cm2 SV(MOD-sp4): 18.1 ml SV(MOD-sp2): 16.7 ml LVLd ap2: 7.2 cm SI(MOD-sp4): 10.0 ml/m2 SI(MOD-sp2): 9.3 ml/m2 EDV(MOD-sp2): 43.7 ml EDV(sp2-el): 41.6 ml LVAs ap2: 14.1 cm2 LVLs ap2: 6.5 cm ESV(MOD-sp2): 26.9 ml ESV(sp2-el): 26.2 ml EF(MOD-sp2): 38.3 % SV(sp4-el): 19.1 ml Ao sinus diam: 3.[address] Junction: 3.2 cm LA dimension(2D): 4.8 cm LA A4 area: 24.0 cm2 RA A4 area: 19.5 cm2 TAPSE: 2.4 cm Doppler Measurements & Calculations Lat Peak E' Jovita: 7.8 cm/sec Med Peak E' Jovita: 9.8 cm/sec Ao V2 max: 172.2 cm/sec Ao max P.9 mmHg Ao V2 mean: 122.0 cm/sec Ao mean P.8 mmHg Ao V2 VTI: 28.2 cm AV (velocity ratio): 0.80 YEMI(I,D): 2.6 cm2 YEMI(V,D): 2.7 cm2 LV V1 max: 145.4 cm/sec SV(LVOT): 73.4 ml PA V2 max: 76.1 cm/sec LV V1 max P.5 mmHg LV V1 mean P.0 mmHg LV V1 mean: 119.8 cm/sec LV V1 VTI: 22.6 cm TR max jovita: 185.1 cm/sec TR max P.7 mmHg ECHO/Echo Complete Interpretation Summary Normal LV size. The left ventricular ejection fraction is 35 %. No regional wall motion abnormalities noted. There is moderate global hypokinesis of the left ventricle. Compared to previous study, the left ventricular systolic function has improved.. Ordering Physician: Trisha Colmenares Referring Physician: Kilo Lewis MD Performed By: Alexa Razo RDCS 11/29/241647 Date _ Bhavesh Song MD CC: FIDE Colmenares; Dr. Kilo Lewis MD ~ Date Dictated: 11/29/24 1449 Date Transcribed: 11/29/241647 Sharepoint Net Developer: Signed [facility] Work Phone: Cardiology Visit Reporton Cardiology Visit Report [facility] [address] [place] [address] OFFICE VISIT Date of Service: 10/23/24 MR#: [id number] Acct: [id number] Name: STACIE BARRAZA Rep #: [id number] : 1955 Provider: FIDE casas Age/Sex: 68/M [place] [facility] [place] Status: Signed HPI HPI History of Present Illness Details: This is a 68-year-old male, who presents to the office today for cardiovascular hospital visit presented to the emergency room on 10/08/2024 with complaints of flank pain his EKG at that time demonstrated atrial flutter at a heart rate of 115 bpm. Patient was admitted to the hospital for epididymitis, and atrial flutter. He was started on Eliquis 5 mg twice daily, and metoprolol 25 mg twice daily. During his hospitalization, he underwent echocardiogram on 10/09/2024 which demonstrated ejection fraction of 10 to 15%, moderately enlarged left atrium, and mildly enlarged right atrium. He was discharged home on antibiotics, Eliquis, and metoprolol. It was recommended to follow-up with cardiology for further evaluation, and possible cardiac catheterization on an outpatient basis. From a cardiac standpoint, the patient is doing well. He denies any palpitations, chest pain, pressure or heaviness. He denies SOB, Orthopnea, and PND. He does not have bleeding issues; no blood in urine, stool, or nosebleeds. He denies any decrease in energy level, myalgias, or claudication. He does not have edema, or sudden weight gain. He denies lightheadedness, dizziness, syncopal or near syncopal episodes, and headaches. Intake Vital Signs 10/17/24 14:45 10/23/24 07:03 Height 5 ft 8 in 5 ft 8 in Weight: 159 lb BMI 24.1 BP 104/63 Blood Pressure Location Lt brachial Position Sitting Respiration 18 Pulse 84 Pulse Source Monitor Pulse Oximetry (%) 99 Intake Visit Reasons: S/P [facility] 10/19 Admitting Interviewer Required: No Is patient in pain?: No Allergies Sulfa (Sulfonamide Antibiotics) Allergy (Verified 10/23/24 14:08) Unknown Medications ???Medication ???Instructions ???Recorded ???Confirmed ???Type multivitamin with folic acid 400 1 tab PO DAILY supplement 03/05/15 10/23/24 History mcg tablet (Thera) amiodarone 200 mg tablet 200 mg PO QDAY #90 tabs 10/23/24 0 10/23/24 Rx apixaban 5 mg tablet (Eliquis) 5 mg PO BID #180 tabs 10/23/2402/08 Rx furosemide 20 mg tablet 20 mg PO DAILY #90 tabs 10/23/24 0 10/23/24 Rx metoprolol tartrate 25 mg tablet 25 mg PO BID #180 tabs 10/23/24 Rx sacubitril 24 mg-valsartan 26 mg 1 tab PO BID #180 tabs 10/23/24 Rx tablet (Entresto) spironolactone 25 mg tablet 25 mg PO DAILY #90 tabs 10/23/24 0 10/23/24 Rx Have you fallen in the past year?: No REPLACED BY [facility] Medical History (Updated 10/26/24 @ 16:35 by Trisha Colmenares PROTOTYPE MACHINIST, PROTOTYPE MACHINIST-C) Severe left ventricular systolic dysfunction (LVSD) Hernia Surgical History S/P hernia surgery Family History Father CAD (coronary artery disease) Grandfather CAD (coronary artery disease) Social History Smoking Status: Never smoker ROS Const Const: Negative for fatigue, weakness, headache(s) or frequent falls Eyes Eyes: Negative for blurry vision ENT ENT: Negative for headache(s), dizziness or Nosebleed/epistaxis Cardio Chest Pain: No Palpitations: No Edema: None Muscle aches with walking: None Resp Respiratory: Negative for SOB with activity, SOB at rest or SOB orthopnea SOB lying down GI GI: Negative nausea, vomiting, heartburn, bright, red blood in stools or black,tarry stools : Negative for hematuria Neuro Neuro: Negative for dizziness, lightheadedness, near syncope, syncope, frequent falls, headache(s), weakness or blurry vision Endo Endo: Negative for fatigue Cardiology Exam Const Appearance: cooperative, healthy appearing and no acute distress Nutritional Appearance: average body habitus Orientation: alert and oriented x3 Head Head: normal to inspection Ears: hearing grossly normal bilaterally Nose: external nose normal Face and Sinus: face symmetric Eyes General: appearance normal, both eyes and all related structures Eyelids: eyelids normal Conjunctivae: conjunctivae normal Pupils: PERRL and pupil size EOM: EOM intact bilaterally Neck Neck: normal visual inspection Carotids: Negative bruit Chest Chest inspection: normal inspection of the chest and normal respiratory effort Auscultation: Bilateral: Clear to Auscultation Cardio Palpation: normal PMI Rate: regular rate Rhythm: regular rhythm Heart sounds: S1 normal and S2 normal; Negative rub, gallop or murmur GI GI: normal to inspecti (more content not included)... Normal [facility] Absolute lymphocyte countOrd ered By: Madison Lemus on 10-17-2024 Lymphocytes Auto (Unsp spec) [#/Vol] 2.26 10*3/uL 0.83-4.51 [facility] Absolute neutrophil countOrd ered By: [facility]24 Neutrophils (Bld) [#/Vol] 7.5 10*3/uL 2.0-7.7 [facility] Anion gap in Serum or Plasma Ordered By: Madison Lemus on 10-17-2024 Anion gap [Moles/Vol] 13 mmol/L 5-15 [facility] Automated lymphocyte count a s percentage of total leukocytesOrdered By: Madison Lemus on 10-17-2024 Lymphocytes/100 WBC Auto (Unsp spec) 20.2 % 19-41 [facility] BUN/creatinine ratioOrdered By: [facility] on 10-17-2024 Urea nitrogen/Creatinine [Mass ratio] 21.2 mg/mg High 10-20 [facility] Basic Metabolic Profile (BMP )on 10-17-2024 BUN/CRE 21.2 RATIO High 10-20 [facility] Comment on above: Performed By: #### L 100.0100, L500.4050 #### [facility] [address] [place], [address] Calcium [Mass/Vol] 8.6 mg/dL Normal 7.6-11.0 [facility] Comment on above: Performed By: #### L 100.0100, L500.4050 #### [facility] [address] [place], [address] Chloride [Moles/Vol] 109 mmol/L High 98-108 [facility] Comment on above: Performed By: #### L 100.0100, L500.4050 #### [facility] [address] [place], [address] CO2 [Moles/Vol] 18.6 mmol/L Low 21.0-32.0 [facility] Comment on above: Performed By: #### L 100.0100, L500.4050 #### [facility] [address] [place], [address] Creatinine [Mass/Vol] 0.71 mg/dL Normal 0.70-1.20 [facility] Comment on above: Performed By: #### L 100.0100, L500.4050 #### [facility] [address] [place], [address] ECRCL 87.88 ml/min Normal 50-250 [facility] Comment on above: Performed By: #### L 100.0100, L500.4050 #### [facility] [address] [place], [address] GAP 13 Normal 5-15 [facility] Comment on above: Performed By: #### L 100.0100, L500.4050 #### [facility] [address] [place], [address] GFR/1.73 sq M.predicted among non-blacks MDRD (S/P/Bld) [Vol rate/Area] 101 mL/min/{1.73_m2} Normal >60 [facility] Comment on above: Result Comment: mL/m in/1.73m2 CKD-EPI Creatinine Equation (2020) Performed By: #### L 100.0100, L500.4050 #### [facility] [address] [place], [address] Glucose [Mass/Vol] 83 mg/dL Normal 70-99 [facility] Comment on above: Performed By: #### L 100.0100, L500.4050 #### [facility] [address] [place], [address] Potassium [Moles/Vol] 3.6 mmol/L Normal 3.3-5.1 [facility] Comment on above: Performed By: #### L 100.0100, L500.4050 #### [facility] [address] [place], [address] Sodium [Moles/Vol] 140 mmol/L Normal 133-145 [facility] Comment on above: Performed By: #### L 100.0100, L500.4050 #### [facility] [address] [place], [address] Urea nitrogen [Mass/Vol] 15 mg/dL Normal 4-19 [facility] Comment on above: Performed By: #### L 100.0100, L500.4050 #### [facility] [address] [place], [address] Basophil percentageOrdered B y: Madison Lemus on 10-17-2024 Basophils/100 WBC (Bld) 0.7 % 0-1 [facility] CBC W/Diff, Automatedon Absolute Lymph 2.26 X10 3/uL Normal 0.83-4.51 [facility] Comment on above: Performed By: #### L 100.0100, L500.4050 #### [facility] [address] [place], [address] Absolute Neut 7.5 X10 3/uL Normal 2.0-7.7 [facility] Comment on above: Performed By: #### L 100.0100, L500.4050 #### [facility] [address] [place], [address] Basophils/100 WBC (Bld) 0.7 % Normal 0-1 [facility] Comment on above: Performed By: #### L 100.0100, L500.4050 #### [facility] [address] [place], [address] Eosinophils/100 WBC (Bld) 2.0 % Normal 0-5 [facility] Comment on above: Performed By: #### L 100.0100, L500.4050 #### [facility] [address] [place], [address] Erythrocyte distribution width (RBC) [Ratio] 13.4 % Normal 11.6-14.6 [facility] Comment on above: Performed By: #### L 100.0100, L500.4050 #### [facility] [address] [place], [address] Hematocrit (Bld) [Volume fraction] 46.5 % Normal 40-54 [facility] Comment on above: Performed By: #### L 100.0100, L500.4050 #### [facility] [address] [place], [address] Hemoglobin (Bld) [Mass/Vol] 15.7 g/dL Normal 13.0-16.5 [facility] Comment on above: Performed By: #### L 100.0100, L500.4050 #### [facility] [address] [place], [address] IG% 1.800 High 0.0-0.9 [facility] Comment on above: Result Comment: IG% - Immature Granulocytes (promyelocytes, myelocytes and metamyelocytes) > 1% indicates that a LEFT SHIFT is Present. Performed By: #### L 100.0100, L500.4050 #### [facility] [address] [place], [address] Lymphocytes/100 WBC (Bld) 20.2 % Normal 19-41 [facility] Comment on above: Performed By: #### L 100.0100, L500.4050 #### [facility] [address] [place], [address] MCH (RBC) [Entitic mass] 30.0 pg Normal 27.0-32.0 [facility] Comment on above: Performed By: #### L 100.0100, L500.4050 #### [facility] [address] [place], [address] MCHC (RBC) [Mass/Vol] 33.8 g/dL Normal 32-36 [facility] Comment on above: Performed By: #### L 100.0100, L500.4050 #### [facility] [address] [place], [address] MCV (RBC) [Entitic vol] 88.7 fL Normal 80-94 [facility] Comment on above: Performed By: #### L 100.0100, L500.4050 #### [facility] [address] [place], [address] Monocytes/100 WBC (Bld) 8.1 % Normal 0-10 [facility] Comment on above: Performed By: #### L 100.0100, L500.4050 #### [facility] [address] [place], [address] Neutrophils/100 WBC (Bld) 67.2 % Normal 47-70 [facility] Comment on above: Performed By: #### L 100.0100, L500.4050 #### [facility] [address] [place], [address] Nucleated RBC (Bld) [#/Vol] 0 10*3/uL Normal 0-5 [facility] Comment on above: Performed By: #### L 100.0100, L500.4050 #### [facility] [address] [place], [address] Platelet mean volume (Bld) [Entitic vol] 11.9 fL Normal 6.2-12.0 [facility] Comment on above: Performed By: #### L 100.0100, L500.4050 #### [facility] [address] [place], [address] Platelets (Bld) [#/Vol] 343 10*3/uL Normal 150-450 [facility] Comment on above: Performed By: #### L 100.0100, L500.4050 #### [facility] [address] [place], [address] RBC (Bld) [#/Vol] 5.24 10*6/uL Normal 4.6-6.2 [facility] Comment on above: Performed By: #### L 100.0100, L500.4050 #### [facility] [address] [place], [address] RDW SD 43.3 fl Normal 35.1-43.9 [facility] Comment on above: Performed By: #### L 100.0100, L500.4050 #### [facility] [address] [place], [address] WBC (Bld) [#/Vol] 11.2 10*3/uL High 4.4-11.0 [facility] Comment on above: Performed By: #### L 100.0100, L500.4050 #### [facility] [address] [place], [address] Carbon dioxide, total [Moles /volume] in Central venous bloodOrdered By: Madison Lemus on 10-17-2024 CO2 [Moles/Vol] 18.6 mmol/L Low 21.0-32.0 [facility] Chloride assayOrdered By: Elza Lemus on 10-17-2024 Chloride [Moles/Vol] 109 mmol/L High 98-108 [facility] Eosinophil percentageOrdered By: Madison Lemus on 10-17-2024 Eosinophils/100 WBC (Bld) 2.0 % 0-5 [facility] Erythrocyte distribution wid th ratioOrdered By: Madison Lemus on 10-17-2024 Erythrocyte distribution width (RBC) [Ratio] 13.4 % 11.6-14.6 [facility] Erythrocyte distribution wid th standard deviationOrdered By: Madison Lemus on 10-17-2024 Erythrocyte distribution width (RBC) [Ratio] 43.3 fl 35.1-43.9 [facility] Glomerular filtration rate ( GFR) estimation/1.73 sq m using serum, plasma, or whole bOrdered By: Madison Lemus on 10-17-2024 GFR/1.73 sq M.predicted among non-blacks MDRD (S/P/Bld) [Vol rate/Area] 101 mL/min/{1.73_m2} >60 [facility] Comment on above: mL/min/1.73m2 CKD-EP I Creatinine Equation (2020) Hematocrit Auto (Bld) [Volum e fraction]Ordered By: Madison Lemus on 10-17-2024 Hematocrit (Bld) [Volume fraction] 46.5 % 40-54 [facility] Hemoglobin measurementOrdere d By: Madison Lemus on 10-17-2024 Hemoglobin (Bld) [Mass/Vol] 15.7 g/dL 13.0-16.5 [facility] Immature granulocytes/100 WB C Auto (Bld)Ordered By: Madison Lemus on 10-17-2024 Immature granulocytes/100 WBC (Bld) 1.800 % High 0.0-0.9 [facility] Comment on above: IG% - Immature Granu locytes (promyelocytes, myelocytes and metamyelocytes) > 1% indicates that a LEFT SHIFT is Present. MCV (mean corpuscular volume ) determinationOrdered By: Madison Lemus on 10-17-2024 MCV (RBC) [Entitic vol] 88.7 fL 80-94 [facility] Mean corpuscular hemoglobin (MCH) determinationOrdered By: Madison Lemus 10-17-2024 MCH (RBC) [Entitic mass] 30.0 pg 27.0-32.0 [facility] Mean corpuscular hemoglobin concentration (MCHC) determinationOrdered By: Madison Lemus 10-17-2024 MCHC (RBC) [Mass/Vol] 33.8 g/dL 32-36 [facility] Mean platelet volume determi nationOrdered By: Madison Lemus on 10-17-2024 Platelet mean volume (Bld) [Entitic vol] 11.9 fL 6.2-12.0 [facility] Monocyte percentageOrdered B y: Madison Lemus on 10-17-2024 Monocytes/100 WBC (Bld) 8.1 % 0-10 [facility] Neutrophil percentageOrdered By: Madison Lemus on 10-17-2024 Neutrophils/100 WBC (Bld) 67.2 % 47-70 [facility] Nucleated red blood cell per centageOrdered By: Madison Lemus on 10-17-2024 Nucleated RBC/100 WBC (Bld) [Ratio] 0 % 0-5 [facility] Platelet countOrdered By: Elza Lemus on 10-17-2024 Platelets (Bld) [#/Vol] 343 10*3/uL 150-450 [facility] Potassium measurement (mass/ volume)Ordered By: Madison Lemus on 10-17-2024 Potassium (Unsp spec) [Mass/Vol] 3.6 mmol/L 3.3-5.1 [facility] RBC Auto (Bld) [#/Vol]Ordere d By: Madison Lemus on 10-17-2024 RBC (Bld) [#/Vol] 5.24 10*6/uL 4.6-6.2 [facility] Serum creatinine measurement (mass/volume)Ordered By: Madison Lemus on 10-17-2024 Creatinine [Mass/Vol] 0.71 mg/dL 0.70-1.20 [facility] Serum glucose measurement (m ass/volume)Ordered By: Madison Lemus on 10-17-2024 Glucose [Mass/Vol] 83 mg/dL 70-99 [facility] Serum or plasma calcium shyann urement (mass/volume)Ordered By: Madison Lemus on 10-17-2024 Calcium [Mass/Vol] 8.6 mg/dL 7.6-11.0 [facility] Serum or plasma urea nitroge n measurement (mass/volume)Ordered By: Madison Lemus on 10-17-2024 Urea nitrogen [Mass/Vol] 15 mg/dL 4-19 [facility] Sodium levelOrdered By: Madison Lemus on 10-17-2024 Sodium [Moles/Vol] 140 mmol/L 133-145 [facility] White blood cell (WBC) count Ordered By: Madison Lemus on 10-17-2024 WBC (Bld) [#/Vol] 11.2 10*3/uL High 4.4-11.0 [facility] Basic Metabolic Profile (BMP )on 10-16-2024 BUN/CRE 23.2 RATIO High 10-20 [facility] Comment on above: Performed By: #### L 500.2500, L100.0100 #### [facility] [address] [place], [address] Calcium [Mass/Vol] 8.9 mg/dL Normal 7.6-11.0 [facility] Comment on above: Performed By: #### L 500.2500, L100.0100 #### [facility] [address] [place], [address] Chloride [Moles/Vol] 109 mmol/L High 98-108 [facility] Comment on above: Performed By: #### L 500.2500, L100.0100 #### [facility] [address] [place], [address] CO2 [Moles/Vol] 20.7 mmol/L Low 21.0-32.0 [facility] Comment on above: Performed By: #### L 500.2500, L100.0100 #### [facility] [address] [place], [address] Creatinine [Mass/Vol] 0.72 mg/dL Normal 0.70-1.20 [facility] Comment on above: Performed By: #### L 500.2500, L100.0100 #### [facility] [address] [place], [address] ECRCL 87.88 ml/min Normal 50-250 [facility] Comment on above: Performed By: #### L 500.2500, L100.0100 #### [facility] [address] [place], [address] GAP 12 Normal 5-15 [facility] Comment on above: Performed By: #### L 500.2500, L100.0100 #### [facility] [address] [place], [address] GFR/1.73 sq M.predicted among non-blacks MDRD (S/P/Bld) [Vol rate/Area] 101 mL/min/{1.73_m2} Normal >60 [facility] Comment on above: Result Comment: mL/m in/1.73m2 CKD-EPI Creatinine Equation (2020) Performed By: #### L 500.2500, L100.0100 #### [facility] [address] [place], [address] Glucose [Mass/Vol] 91 mg/dL Normal 70-99 [facility] Comment on above: Performed By: #### L 500.2500, L100.0100 #### [facility] [address] [place], [address] Potassium [Moles/Vol] 3.4 mmol/L Normal 3.3-5.1 [facility] Comment on above: Performed By: #### L 500.2500, L100.0100 #### [facility] [address] [place], [address] Sodium [Moles/Vol] 141 mmol/L Normal 133-145 [facility] Comment on above: Performed By: #### L 500.2500, L100.0100 #### [facility] [address] [place], [address] Urea nitrogen [Mass/Vol] 17 mg/dL Normal 4-19 [facility] Comment on above: Performed By: #### L 500.2500, L100.0100 #### [facility] [address] [place], [address] CBC W/Diff, Automatedon 06-0 Absolute Lymph 2.17 X10 3/uL Normal 0.83-4.51 [facility] Comment on above: Performed By: #### L 500.2500, L100.0100 #### [facility] [address] [place], [address] Absolute Neut 7.7 X10 3/uL Normal 2.0-7.7 [facility] Comment on above: Performed By: #### L 500.2500, L100.0100 #### [facility] [address] [place], [address] Basophils/100 WBC (Bld) 0.8 % Normal 0-1 [facility] Comment on above: Performed By: #### L 500.2500, L100.0100 #### [facility] [address] [place], [address] Eosinophils/100 WBC (Bld) 1.8 % Normal 0-5 [facility] Comment on above: Performed By: #### L 500.2500, L100.0100 #### [facility] [address] [place], [address] Erythrocyte distribution width (RBC) [Ratio] 13.4 % Normal 11.6-14.6 [facility] Comment on above: Performed By: #### L 500.2500, L100.0100 #### [facility] [address] [place], [address] Hematocrit (Bld) [Volume fraction] 46.4 % Normal 40-54 [facility] Comment on above: Performed By: #### L 500.2500, L100.0100 #### [facility] [address] [place], [address] Hemoglobin (Bld) [Mass/Vol] 15.6 g/dL Normal 13.0-16.5 [facility] Comment on above: Performed By: #### L 500.2500, L100.0100 #### [facility] [address] [place], [address] IG% 2.100 High 0.0-0.9 [facility] Comment on above: Result Comment: IG% - Immature Granulocytes (promyelocytes, myelocytes and metamyelocytes) > 1% indicates that a LEFT SHIFT is Present. Performed By: #### L 500.2500, L100.0100 #### [facility] [address] [place], [address] Lymphocytes/100 WBC (Bld) 19.2 % Normal 19-41 [facility] Comment on above: Performed By: #### L 500.2500, L100.0100 #### [facility] [address] [place], [address] MCH (RBC) [Entitic mass] 29.9 pg Normal 27.0-32.0 [facility] Comment on above: Performed By: #### L 500.2500, L100.0100 #### [facility] [address] [place], [address] MCHC (RBC) [Mass/Vol] 33.6 g/dL Normal 32-36 [facility] Comment on above: Performed By: #### L 500.2500, L100.0100 #### [facility] [address] [place], [address] MCV (RBC) [Entitic vol] 88.9 fL Normal 80-94 [facility] Comment on above: Performed By: #### L 500.2500, L100.0100 #### [facility] [address] [place], [address] Monocytes/100 WBC (Bld) 8.2 % Normal 0-10 [facility] Comment on above: Performed By: #### L 500.2500, L100.0100 #### [facility] [address] [place], [address] Neutrophils/100 WBC (Bld) 67.9 % Normal 47-70 [facility] Comment on above: Performed By: #### L 500.2500, L100.0100 #### [facility] [address] [place], [address] Nucleated RBC (Bld) [#/Vol] 0 10*3/uL Normal 0-5 [facility] Comment on above: Performed By: #### L 500.2500, L100.0100 #### [facility] [address] [place], [address] Platelet mean volume (Bld) [Entitic vol] 11.7 fL Normal 6.2-12.0 [facility] Comment on above: Performed By: #### L 500.2500, L100.0100 #### [facility] [address] [place], [address] Platelets (Bld) [#/Vol] 316 10*3/uL Normal 150-450 [facility] Comment on above: Performed By: #### L 500.2500, L100.0100 #### [facility] [address] [place], [address] RBC (Bld) [#/Vol] 5.22 10*6/uL Normal 4.6-6.2 [facility] Comment on above: Performed By: #### L 500.2500, L100.0100 #### [facility] [address] [place], [address] RDW SD 43.9 fl Normal 35.1-43.9 [facility] Comment on above: Performed By: #### L 500.2500, L100.0100 #### [facility] [address] [place], [address] WBC (Bld) [#/Vol] 11.3 10*3/uL High 4.4-11.0 [facility] Comment on above: Performed By: #### L 500.2500, L100.0100 #### [facility] [address] [place], [address] Electrocardiogram reportOrde red By: Michael Heard on 10-16-2024 EKG study [facility] [address] [place] [address] 12 Lead EKG 10/09/24 1657 MR#: [id number] Acct: [id number] Name: STACIE BARRAZA Rep #:[id number] : 1955 68 From: Michael hilliard MD Attending Dr: Dr. Chaitanya Saucedo DO Status: ADM IN Ordering Dr: Jonas Cedeno MD Date: Location: [facility] Sex: M C Admitted: 10/08/24 Test Reason : AF Blood Pressure : */* mmHG Vent. Rate : 109 BPM Atrial Rate : 271 BPM P-R Int : * ms QRS Dur : 96 ms QT Int : 386 ms P-R-T Axes : * 51 262 degrees QTcB Int : 519 ms Atrial flutter with variable A-V block Minimal voltage criteria for LVH, may be normal variant ( Currie product ) ST & T wave abnormality, consider anterolateral ischemia Abnormal ECG When compared with ECG of 08-Oct-2024 19:01, MANUAL COMPARISON REQUIRED DATA IS UNCONFIRMED Confirmed by Michael Heard ([id number]), marketing editor INDIO SOLOMON ([id number]) on 10/16/2024 1:25:21 PM Referred By: Confirmed By: Michael Heard 10/16/24 1325 Date _ Michael Heard MD CC: Dr. Kilo Lewis MD; Dr. Chaitanya Saucedo DO; Dr. Jonas Cedeno MD ~ Signed [facility] Work Phone: EKG study [facility] [address] [place] [address] 12 Lead EKG 10/08/24 1901 MR#: [id number] Acct: [id number] Name: STACIE BARRAZA Rep #:[id number] : 1955 68 From: Michael hilliard MD Attending Dr: Dr. Chaitanya Saucedo DO Status: ADM IN Ordering Dr: Janessa De La Torre DO Date: 10/08/24 Location: [facility] Sex: M C Admitted: 10/08/24 Test Reason : PAIN Blood Pressure : */* mmHG Vent. Rate : 115 BPM Atrial Rate : 278 BPM P-R Int : * ms QRS Dur : 90 ms QT Int : 274 ms P-R-T Axes : * -6 163 degrees QTcB Int : 379 ms Atrial flutter with variable A-V block Minimal voltage criteria for LVH, may be normal variant ( Alex product ) ST & T wave abnormality, consider lateral ischemia Abnormal ECG Confirmed by Michael Heard ([id number]), marketing editor INDIO SOLOMON ([id number]) on 10/16/2024 1:07:36 PM Referred By: Confirmed By: Michael Heard 10/16/24 1307 Date _ Michael Heard MD CC: Dr. Kilo Lewis MD; Dr. Janessa De La Torre DO; Dr. Chaitanya Saucedo DO ~ Signed [facility] Work Phone: Basic Metabolic Profile (BMP )on 10-15-2024 BUN/CRE 17.8 RATIO Normal 10-20 [facility] Comment on above: Performed By: #### L 500.2500, L100.0100 #### [facility] [address] [place], [address] Calcium [Mass/Vol] 9.2 mg/dL Normal 7.6-11.0 [facility] Comment on above: Performed By: #### L 500.2500, L100.0100 #### [facility] [address] [place], [address] Chloride [Moles/Vol] 108 mmol/L Normal 98-108 [facility] Comment on above: Performed By: #### L 500.2500, L100.0100 #### [facility] [address] [place], [address] CO2 [Moles/Vol] 19.9 mmol/L Low 21.0-32.0 [facility] Comment on above: Performed By: #### L 500.2500, L100.0100 #### [facility] [address] [place], [address] Creatinine [Mass/Vol] 0.77 mg/dL Normal 0.70-1.20 [facility] Comment on above: Performed By: #### L 500.2500, L100.0100 #### [facility] [address] [place], [address] ECRCL 87.88 ml/min Normal 50-250 [facility] Comment on above: Performed By: #### L 500.2500, L100.0100 #### [facility] [address] [place], [address] GAP 13 Normal 5-15 [facility] Comment on above: Performed By: #### L 500.2500, L100.0100 #### [facility] [address] [place], [address] GFR/1.73 sq M.predicted among non-blacks MDRD (S/P/Bld) [Vol rate/Area] 99 mL/min/{1.73_m2} Normal >60 [facility] Comment on above: Result Comment: mL/m in/1.73m2 CKD-EPI Creatinine Equation (2020) Performed By: #### L 500.2500, L100.0100 #### [facility] [address] [place], [address] Glucose [Mass/Vol] 100 mg/dL High 70-99 [facility] Comment on above: Performed By: #### L 500.2500, L100.0100 #### [facility] [address] [place], [address] Potassium [Moles/Vol] 3.3 mmol/L Normal 3.3-5.1 [facility] Comment on above: Performed By: #### L 500.2500, L100.0100 #### [facility] [address] [place], [address] Sodium [Moles/Vol] 140 mmol/L Normal 133-145 [facility] Comment on above: Performed By: #### L 500.2500, L100.0100 #### [facility] [address] [place], [address] Urea nitrogen [Mass/Vol] 14 mg/dL Normal 4-19 [facility] Comment on above: Performed By: #### L 500.2500, L100.0100 #### [facility] [address] [place], [address] CBC W/Diff, Automatedon 06-0 1-2025 Absolute Lymph 2.45 X10 3/uL Normal 0.83-4.51 [facility] Comment on above: Performed By: #### L 500.2500, L100.0100 #### [facility] [address] [place], [address] Absolute Neut 9.7 X10 3/uL High 2.0-7.7 [facility] Comment on above: Performed By: #### L 500.2500, L100.0100 #### [facility] [address] [place], [address] Basophils/100 WBC (Bld) 0.4 % Normal 0-1 [facility] Comment on above: Performed By: #### L 500.2500, L100.0100 #### [facility] [address] [place], [address] Eosinophils/100 WBC (Bld) 1.2 % Normal 0-5 [facility] Comment on above: Performed By: #### L 500.2500, L100.0100 #### [facility] [address] [place], [address] Erythrocyte distribution width (RBC) [Ratio] 13.4 % Normal 11.6-14.6 [facility] Comment on above: Performed By: #### L 500.2500, L100.0100 #### [facility] [address] [place], [address] Hematocrit (Bld) [Volume fraction] 48.6 % Normal 40-54 [facility] Comment on above: Performed By: #### L 500.2500, L100.0100 #### [facility] [address] [place], [address] Hemoglobin (Bld) [Mass/Vol] 16.3 g/dL Normal 13.0-16.5 [facility] Comment on above: Performed By: #### L 500.2500, L100.0100 #### [facility] [address] [place], [address] IG% 1.800 High 0.0-0.9 [facility] Comment on above: Result Comment: IG% - Immature Granulocytes (promyelocytes, myelocytes and metamyelocytes) > 1% indicates that a LEFT SHIFT is Present. Performed By: #### L 500.2500, L100.0100 #### [facility] [address] [place], [address] Lymphocytes/100 WBC (Bld) 17.9 % Low 19-41 [facility] [facility] Comment on above: Performed By: #### L 500.2500, L100.0100 #### [facility] [address] [place], [address] MCH (RBC) [Entitic mass] 29.6 pg Normal 27.0-32.0 [facility] Comment on above: Performed By: #### L 500.2500, L100.0100 #### [facility] [address] [place], [address] MCHC (RBC) [Mass/Vol] 33.5 g/dL Normal 32-36 [facility] Comment on above: Performed By: #### L 500.2500, L100.0100 #### [facility] [address] [place], [address] MCV (RBC) [Entitic vol] 88.4 fL Normal 80-94 [facility] Comment on above: Performed By: #### L 500.2500, L100.0100 #### [facility] [address] [place], [address] Monocytes/100 WBC (Bld) 7.5 % Normal 0-10 [facility] Comment on above: Performed By: #### L 500.2500, L100.0100 #### [facility] [address] [place], [address] Neutrophils/100 WBC (Bld) 71.2 % High 47-70 [facility] Comment on above: Performed By: #### L 500.2500, L100.0100 #### [facility] [address] [place], [address] Nucleated RBC (Bld) [#/Vol] 0 10*3/uL Normal 0-5 [facility] Comment on above: Performed By: #### L 500.2500, L100.0100 #### [facility] [address] [place], [address] Platelet mean volume (Bld) [Entitic vol] 12.0 fL Normal 6.2-12.0 [facility] Comment on above: Performed By: #### L 500.2500, L100.0100 #### [facility] [address] [place], [address] Platelets (Bld) [#/Vol] 341 10*3/uL Normal 150-450 [facility] Comment on above: Performed By: #### L 500.2500, L100.0100 #### [facility] [address] [place], [address] RBC (Bld) [#/Vol] 5.50 10*6/uL Normal 4.6-6.2 [facility] Comment on above: Performed By: #### L 500.2500, L100.0100 #### [facility] [address] [place], [address] RDW SD 43.2 fl Normal 35.1-43.9 [facility] Comment on above: Performed By: #### L 500.2500, L100.0100 #### [facility] [address] [place], [address] WBC (Bld) [#/Vol] 13.7 10*3/uL High 4.4-11.0 [facility] Comment on above: Performed By: #### L 500.2500, L100.0100 #### [facility] [address] [place], [address] Culture, Blood (WB)on 2024 CUB No growth in 5 days. Normal [facility] Comment on above: Performed By: #### L 100.0100, L500.4050 #### [facility] [address] [place], [address] Basic Metabolic Profile (BMP )on 10-14-2024 BUN/CRE 17.5 RATIO Normal 10-20 [facility] Comment on above: Performed By: #### L 100.0100, L500.4050 #### [facility] [address] [place], [address] Calcium [Mass/Vol] 8.5 mg/dL Normal 7.6-11.0 [facility] Comment on above: Performed By: #### L 100.0100, L500.4050 #### [facility] [address] [place], [address] Chloride [Moles/Vol] 108 mmol/L Normal 98-108 [facility] Comment on above: Performed By: #### L 100.0100, L500.4050 #### [facility] [address] [place], [address] CO2 [Moles/Vol] 20.0 mmol/L Low 21.0-32.0 [facility] Comment on above: Performed By: #### L 100.0100, L500.4050 #### [facility] [address] [place], [address] Creatinine [Mass/Vol] 0.74 mg/dL Normal 0.70-1.20 [facility] Comment on above: Performed By: #### L 100.0100, L500.4050 #### [facility] [address] [place], [address] ECRCL 87.88 ml/min Normal 50-250 [facility] Comment on above: Performed By: #### L 100.0100, L500.4050 #### [facility] [address] [place], [address] GAP 11 Normal 5-15 [facility] Comment on above: Performed By: #### L 100.0100, L500.4050 #### [facility] [address] [place], [address] GFR/1.73 sq M.predicted among non-blacks MDRD (S/P/Bld) [Vol rate/Area] 100 mL/min/{1.73_m2} Normal >60 [facility] Comment on above: Result Comment: mL/m in/1.73m2 CKD-EPI Creatinine Equation (2020) Performed By: #### L 100.0100, L500.4050 #### [facility] [address] [place], [address] Glucose [Mass/Vol] 106 mg/dL High 70-99 [facility] Comment on above: Performed By: #### L 100.0100, L500.4050 #### [facility] [address] [place], [address] Potassium [Moles/Vol] 3.4 mmol/L Normal 3.3-5.1 [facility] Comment on above: Performed By: #### L 100.0100, L500.4050 #### [facility] [address] [place], [address] Sodium [Moles/Vol] 139 mmol/L Normal 133-145 [facility] Comment on above: Performed By: #### L 100.0100, L500.4050 #### [facility] [address] [place], [address] Urea nitrogen [Mass/Vol] 13 mg/dL Normal 4-19 [facility] Comment on above: Performed By: #### L 100.0100, L500.4050 #### [facility] [address] [place], [address] CBC W/Diff, Automatedon 05-3 -2024 Absolute Lymph 2.20 X10 3/uL Normal 0.83-4.51 [facility] Comment on above: Performed By: #### L 100.0100, L500.4050 #### [facility] [address] [place], [address] Absolute Neut 10.5 X10 3/uL High 2.0-7.7 [facility] Comment on above: Performed By: #### L 100.0100, L500.4050 #### [facility] [address] [place], [address] Basophils/100 WBC (Bld) 0.4 % Normal 0-1 [facility] Comment on above: Performed By: #### L 100.0100, L500.4050 #### [facility] [address] [place], [address] Eosinophils/100 WBC (Bld) 1.1 % Normal 0-5 [facility] Comment on above: Performed By: #### L 100.0100, L500.4050 #### [facility] [address] [place], [address] Erythrocyte distribution width (RBC) [Ratio] 13.5 % Normal 11.6-14.6 [facility] Comment on above: Performed By: #### L 100.0100, L500.4050 #### [facility] [address] [place], [address] Hematocrit (Bld) [Volume fraction] 46.5 % Normal 40-54 [facility] Comment on above: Performed By: #### L 100.0100, L500.4050 #### [facility] [address] [place], [address] Hemoglobin (Bld) [Mass/Vol] 15.9 g/dL Normal 13.0-16.5 [facility] Comment on above: Performed By: #### L 100.0100, L500.4050 #### [facility] [address] [place], [address] IG% 1.300 High 0.0-0.9 [facility] Comment on above: Result Comment: IG% - Immature Granulocytes (promyelocytes, myelocytes and metamyelocytes) > 1% indicates that a LEFT SHIFT is Present. Performed By: #### L 100.0100, L500.4050 #### [facility] [address] [place], [address] Lymphocytes/100 WBC (Bld) 15.4 % Low 19-41 [facility] Comment on above: Performed By: #### L 100.0100, L500.4050 #### [facility] [address] [place], [address] MCH (RBC) [Entitic mass] 30.4 pg Normal 27.0-32.0 [facility] Comment on above: Performed By: #### L 100.0100, L500.4050 #### [facility] [address] [place], [address] MCHC (RBC) [Mass/Vol] 34.2 g/dL Normal 32-36 [facility] Comment on above: Performed By: #### L 100.0100, L500.4050 #### [facility] [address] [place], [address] MCV (RBC) [Entitic vol] 88.9 fL Normal 80-94 [facility] Comment on above: Performed By: #### L 100.0100, L500.4050 #### [facility] [address] [place], [address] Monocytes/100 WBC (Bld) 8.2 % Normal 0-10 [facility] Comment on above: Performed By: #### L 100.0100, L500.4050 #### [facility] [address] [place], [address] Neutrophils/100 WBC (Bld) 73.6 % High 47-70 [facility] Comment on above: Performed By: #### L 100.0100, L500.4050 #### [facility] [address] [place], [address] Nucleated RBC (Bld) [#/Vol] 0 10*3/uL Normal 0-5 [facility] Comment on above: Performed By: #### L 100.0100, L500.4050 #### [facility] [address] [place], [address] Platelet mean volume (Bld) [Entitic vol] 11.6 fL Normal 6.2-12.0 [facility] Comment on above: Performed By: #### L 100.0100, L500.4050 #### [facility] [address] [place], [address] Platelets (Bld) [#/Vol] 282 10*3/uL Normal 150-450 [facility] Comment on above: Performed By: #### L 100.0100, L500.4050 #### [facility] [address] [place], [address] RBC (Bld) [#/Vol] 5.23 10*6/uL Normal 4.6-6.2 [facility] Comment on above: Performed By: #### L 100.0100, L500.4050 #### [facility] [address] [place], [address] RDW SD 43.5 fl Normal 35.1-43.9 [facility] Comment on above: Performed By: #### L 100.0100, L500.4050 #### [facility] [address] [place], [address] WBC (Bld) [#/Vol] 14.3 10*3/uL High 4.4-11.0 [facility] Comment on above: Performed By: #### L 100.0100, L500.4050 #### [facility] [address] [place], [address] Vancomycin, Trough Levelon 0 - VANCO, TROUGH 10.4 ug/mL Normal 5.0-15.0 [facility] Comment on above: Order Comment: Comme nts: DRAW 30 MIN PRIOR TO [id number] Result Comment: Jose C mmended goal trough ranges are generally 10-15 mcg/ml for less severe/complicated infections such as cellulitis or UTI and 15-20 mcg/ml for more severe/complicated infections such as bacteremia/sepsis, osteomyelitis, pneumonia or meningitis. Goal trough ranges should take into account indication, patient-specific factors and organism LETICIA. VANCOMYCIN STANDARED DRUG THERAPY TROUGH LEVEL: 5.0 - 15.0 mg/L VANCOMYCIN HIGH INTENSITY THERAPY TROUGH LEVEL: 15.0 - 20.0 mg/L High Intensity therapy recommended for serious life threatening infections include: - Meningitis -Endocarditis -Pneumonia (Ventilator/Healtcare Associated) -Sepsis PLEASE CONTACT PHARMACY SERVICES (#[id number]) FOR INTERPRETATION OF RESULTS. Performed By: #### L 500.2500, L100.0100 #### [facility] [address] [place], [address] Basic Metabolic Profile (BMP )on 10-13-2024 BUN/CRE 19.9 RATIO Normal 10-20 [facility] Comment on above: Performed By: #### L 100.0100, L500.4050 #### [facility] [address] [place], [address] Calcium [Mass/Vol] 8.6 mg/dL Normal 7.6-11.0 [facility] Comment on above: Performed By: #### L 100.0100, L500.4050 #### [facility] [address] [place], [address] Chloride [Moles/Vol] 104 mmol/L Normal 98-108 [facility] Comment on above: Performed By: #### L 100.0100, L500.4050 #### [facility] [address] [place], [address] CO2 [Moles/Vol] 22.1 mmol/L Normal 21.0-32.0 [facility] Comment on above: Performed By: #### L 100.0100, L500.4050 #### [facility] [address] [place], [address] Creatinine [Mass/Vol] 0.70 mg/dL Normal 0.70-1.20 [facility] Comment on above: Performed By: #### L 100.0100, L500.4050 #### [facility] [address] [place], [address] ECRCL 87.88 ml/min Normal 50-250 [facility] Comment on above: Performed By: #### L 100.0100, L500.4050 #### [facility] [address] [place], [address] GAP 12 Normal 5-15 [facility] Comment on above: Performed By: #### L 100.0100, L500.4050 #### [facility] [address] [place], [address] GFR/1.73 sq M.predicted among non-blacks MDRD (S/P/Bld) [Vol rate/Area] 101 mL/min/{1.73_m2} Normal >60 [facility] Comment on above: Result Comment: mL/m in/1.73m2 CKD-EPI Creatinine Equation (2020) Performed By: #### L 100.0100, L500.4050 #### [facility] [address] [place], [address] Glucose [Mass/Vol] 102 mg/dL High 70-99 [facility] Comment on above: Performed By: #### L 100.0100, L500.4050 #### [facility] [address] [place], [address] Potassium [Moles/Vol] 3.1 mmol/L Low 3.3-5.1 [facility] Comment on above: Performed By: #### L 100.0100, L500.4050 #### [facility] [address] [place], [address] Sodium [Moles/Vol] 138 mmol/L Normal 133-145 [facility] Comment on above: Performed By: #### L 100.0100, L500.4050 #### [facility] [address] [place], [address] Urea nitrogen [Mass/Vol] 14 mg/dL Normal 4-19 [facility] Comment on above: Performed By: #### L 100.0100, L500.4050 #### [facility] [address] [place], [address] CBC W/Diff, Automatedon 05-3 0-2025 Absolute Lymph 1.97 X10 3/uL Normal 0.83-4.51 [facility] Comment on above: Performed By: #### L 100.0100, L500.4050 #### [facility] [address] [place], [address] Absolute Neut 12.4 X10 3/uL High 2.0-7.7 [facility] Comment on above: Performed By: #### L 100.0100, L500.4050 #### [facility] [address] [place], [address] Basophils/100 WBC (Bld) 0.6 % Normal 0-1 [facility] Comment on above: Performed By: #### L 100.0100, L500.4050 #### [facility] [address] [place], [address] Eosinophils/100 WBC (Bld) 0.5 % Normal 0-5 [facility] Comment on above: Performed By: #### L 100.0100, L500.4050 #### [facility] [address] [place], [address] Erythrocyte distribution width (RBC) [Ratio] 13.5 % Normal 11.6-14.6 [facility] Comment on above: Performed By: #### L 100.0100, L500.4050 #### [facility] [address] [place], [address] Hematocrit (Bld) [Volume fraction] 46.7 % Normal 40-54 [facility] Comment on above: Performed By: #### L 100.0100, L500.4050 #### [facility] [address] [place], [address] Hemoglobin (Bld) [Mass/Vol] 16.0 g/dL Normal 13.0-16.5 [facility] Comment on above: Performed By: #### L 100.0100, L500.4050 #### [facility] [address] [place], [address] IG% 1.000 High 0.0-0.9 [facility] Comment on above: Result Comment: IG% - Immature Granulocytes (promyelocytes, myelocytes and metamyelocytes) > 1% indicates that a LEFT SHIFT is Present. Performed By: #### L 100.0100, L500.4050 #### [facility] [address] [place], [address] Lymphocytes/100 WBC (Bld) 12.2 % Low 19-41 [facility] Comment on above: Performed By: #### L 100.0100, L500.4050 #### [facility] [address] [place], [address] MCH (RBC) [Entitic mass] 30.2 pg Normal 27.0-32.0 [facility] Comment on above: Performed By: #### L 100.0100, L500.4050 #### [facility] [address] [place], [address] MCHC (RBC) [Mass/Vol] 34.3 g/dL Normal 32-36 [facility] Comment on above: Performed By: #### L 100.0100, L500.4050 #### [facility] [address] [place], [address] MCV (RBC) [Entitic vol] 88.3 fL Normal 80-94 [facility] Comment on above: Performed By: #### L 100.0100, L500.4050 #### [facility] [address] [place], [address] Monocytes/100 WBC (Bld) 8.6 % Normal 0-10 [facility] Comment on above: Performed By: #### L 100.0100, L500.4050 #### [facility] [address] [place], [address] Neutrophils/100 WBC (Bld) 77.1 % High 47-70 [facility] Comment on above: Performed By: #### L 100.0100, L500.4050 #### [facility] [address] [place], [address] Nucleated RBC (Bld) [#/Vol] 0 10*3/uL Normal 0-5 [facility] Comment on above: Performed By: #### L 100.0100, L500.4050 #### [facility] [address] [place], [address] Platelet mean volume (Bld) [Entitic vol] 12.1 fL High 6.2-12.0 [facility] Comment on above: Performed By: #### L 100.0100, L500.4050 #### [facility] [address] [place], [address] Platelets (Bld) [#/Vol] 278 10*3/uL Normal 150-450 [facility] Comment on above: Performed By: #### L 100.0100, L500.4050 #### [facility] [address] [place], [address] RBC (Bld) [#/Vol] 5.29 10*6/uL Normal 4.6-6.2 [facility] Comment on above: Performed By: #### L 100.0100, L500.4050 #### [facility] [address] [place], [address] RDW SD 43.6 fl Normal 35.1-43.9 [facility] Comment on above: Performed By: #### L 100.0100, L500.4050 #### [facility] [address] [place], [address] WBC (Bld) [#/Vol] 16.1 10*3/uL High 4.4-11.0 [facility] Comment on above: Performed By: #### L 100.0100, L500.4050 #### [facility] [address] [place], [address] Trough vancomycin levelOrder ed By: Madison Lemus on 10-13-2024 Vancomycin trough [Mass/Vol] 10.4 ug/mL 5.0-15.0 [facility] Comment on above: Recommended goal tro ugh ranges are generally 10-15 mcg/ml for less severe/complicated infections such as cellulitis or UTI and 15-20 mcg/ml for more severe/complicated infections such as bacteremia/sepsis, osteomyelitis, pneumonia or meningitis. Goal trough ranges should take into account indication, patient-specific factors and organism LETICIA.VANCOMYCIN STANDARED DRUG THERAPY TROUGH LEVEL: 5.0 - 15.0 mg/L VANCOMYCIN HIGH INTENSITY THERAPY TROUGH LEVEL: 15.0 - 20.0 mg/L High Intensity therapy recommended for serious lifethreatening infections include:- Ycieiuwran-Vdbbruhodcpx-Lwzgmtqso (Ventilator/Healtcare Associated)-Sepsis PLEASE CONTACT PHARMACY SERVICES (#6282) FOR INTERPRETATIONOF RESULTS. Basic Metabolic Profile (BMP )on 10-12-2024 BUN/CRE 18.4 RATIO Normal 10-20 [facility] Comment on above: Performed By: #### L 500.2500, L100.0100 #### [facility] [address] [place], [address] Calcium [Mass/Vol] 8.5 mg/dL Normal 7.6-11.0 [facility] Comment on above: Performed By: #### L 500.2500, L100.0100 #### [facility] [address] [place], [address] Chloride [Moles/Vol] 104 mmol/L Normal 98-108 [facility] Comment on above: Performed By: #### L 500.2500, L100.0100 #### [facility] [address] [place], [address] CO2 [Moles/Vol] 25.8 mmol/L Normal 21.0-32.0 [facility] Comment on above: Performed By: #### L 500.2500, L100.0100 #### [facility] [address] [place], [address] Creatinine [Mass/Vol] 0.76 mg/dL Normal 0.70-1.20 [facility] Comment on above: Performed By: #### L 500.2500, L100.0100 #### [facility] [address] [place], [address] ECRCL 87.88 ml/min Normal 50-250 [facility] Comment on above: Performed By: #### L 500.2500, L100.0100 #### [facility] [address] [place], [address] GAP 10 Normal 5-15 [facility] Comment on above: Performed By: #### L 500.2500, L100.0100 #### [facility] [address] [place], [address] GFR/1.73 sq M.predicted among non-blacks MDRD (S/P/Bld) [Vol rate/Area] 99 mL/min/{1.73_m2} Normal >60 [facility] Comment on above: Result Comment: mL/m in/1.73m2 CKD-EPI Creatinine Equation (2020) Performed By: #### L 500.2500, L100.0100 #### [facility] [address] [place], [address] Glucose [Mass/Vol] 106 mg/dL High 70-99 [facility] Comment on above: Performed By: #### L 500.2500, L100.0100 #### [facility] [address] [place], [address] Potassium [Moles/Vol] 3.2 mmol/L Low 3.3-5.1 [facility] Comment on above: Performed By: #### L 500.2500, L100.0100 #### [facility] [address] [place], [address] Sodium [Moles/Vol] 140 mmol/L Normal 133-145 [facility] Comment on above: Performed By: #### L 500.2500, L100.0100 #### [facility] [address] [place], [address] Urea nitrogen [Mass/Vol] 14 mg/dL Normal 4-19 [facility] Comment on above: Performed By: #### L 500.2500, L100.0100 #### [facility] [address] [place], [address] Blood manual differential co mment interpretation (narrative result)Ordered By: Madison Lemus on 10-12-2024 Manual differential comment Karlo (Bld) [Interp] COMMENT [facility] Comment on above: MONOCYTOSIS. CBC W/Diff, Automatedon 09-15 SMEAR COMMENT COMMENT Normal [facility] Comment on above: Result Comment: MONO CYTOSIS. Performed By: #### L 500.2500, L100.0100 #### [facility] [address] [place], [address] Urine Cultureon 10-12-2024 [facility] Urine Culture Staphylococcus aureus Dale Count 11,000-25,000 Staphylococcus aureus: REACTION cefOXitin Susc Islt Doxycycline Islt LETICIA <=0.5 S Clindamycin.induced Susc Islt NEG Gentamicin Islt LETICIA <=0.5 S Linezolid Islt LETICIA 2 S Moxifloxacin Islt LETICIA <=0.25 S Nitrofurantoin Islt LETICIA <=16 S Oxacillin Susc Islt <=0.25 S Tetracycline Islt LETICIA <=1 S TMP SMX Islt LETICIA <=10 S Vancomycin Islt LETICIA 1 S Normal [facility] Comment on above: Performed By: #### L 500.2500, L100.0100 #### [facility] [address] [place], [address] Basic Metabolic Profile (BMP )on 10-11-2024 BUN/CRE 18.4 RATIO Normal 10-20 [facility] Comment on above: Performed By: #### L 500.2500, L100.0100 #### [facility] [address] [place], [address] Calcium [Mass/Vol] 8.5 mg/dL Normal 7.6-11.0 [facility] Comment on above: Performed By: #### L 500.2500, L100.0100 #### [facility] [address] [place], [address] Chloride [Moles/Vol] 105 mmol/L Normal 98-108 [facility] Comment on above: Performed By: #### L 500.2500, L100.0100 #### [facility] [address] [place], [address] CO2 [Moles/Vol] 22.7 mmol/L Normal 21.0-32.0 [facility] Comment on above: Performed By: #### L 500.2500, L100.0100 #### [facility] [address] [place], [address] Creatinine [Mass/Vol] 0.73 mg/dL Normal 0.70-1.20 [facility] Comment on above: Performed By: #### L 500.2500, L100.0100 #### [facility] [address] [place], [address] ECRCL 87.88 ml/min Normal 50-250 [facility] Comment on above: Performed By: #### L 500.2500, L100.0100 #### [facility] [address] [place], [address] GAP 11 Normal 5-15 [facility] Comment on above: Performed By: #### L 500.2500, L100.0100 #### [facility] [address] [place], [address] GFR/1.73 sq M.predicted among non-blacks MDRD (S/P/Bld) [Vol rate/Area] 100 mL/min/{1.73_m2} Normal >60 [facility] Comment on above: Result Comment: mL/m in/1.73m2 CKD-EPI Creatinine Equation (2020) Performed By: #### L 500.2500, L100.0100 #### [facility] [address] [place], [address] Glucose [Mass/Vol] 103 mg/dL High 70-99 [facility] Comment on above: Performed By: #### L 500.2500, L100.0100 #### [facility] [address] [place], [address] Potassium [Moles/Vol] 3.5 mmol/L Normal 3.3-5.1 [facility] Comment on above: Result Comment: Hemo lysis present, Results??could be affected. ?? Performed By: #### L 500.2500, L100.0100 #### [facility] [address] [place], [address] Sodium [Moles/Vol] 138 mmol/L Normal 133-145 [facility] Comment on above: Performed By: #### L 500.2500, L100.0100 #### [facility] [address] [place], [address] Urea nitrogen [Mass/Vol] 14 mg/dL Normal 4-19 [facility] Comment on above: Performed By: #### L 500.2500, L100.0100 #### [facility] [address] [place], [address] CBC W/Diff, Automatedon 09-15 SMEAR COMMENT SCANNED Normal [facility] Comment on above: Performed By: #### L 500.2500, L100.0100 #### [facility] [address] [place], [address] Basic Metabolic Profile (BMP )on 10-10-2024 BUN/CRE 31.5 RATIO High 10-20 [facility] Comment on above: Performed By: #### L 500.2500, L100.0100 #### [facility] [address] [place], [address] Calcium [Mass/Vol] 8.7 mg/dL Normal 7.6-11.0 [facility] Comment on above: Performed By: #### L 500.2500, L100.0100 #### [facility] [address] [place], [address] Chloride [Moles/Vol] 108 mmol/L Normal 98-108 [facility] Comment on above: Performed By: #### L 500.2500, L100.0100 #### [facility] [address] [place], [address] CO2 [Moles/Vol] 19.6 mmol/L Low 21.0-32.0 [facility] Comment on above: Performed By: #### L 500.2500, L100.0100 #### [facility] [address] [place], [address] Creatinine [Mass/Vol] 0.65 mg/dL Low 0.70-1.20 [facility] Comment on above: Performed By: #### L 500.2500, L100.0100 #### [facility] [address] [place], [address] ECRCL 87.88 ml/min Normal 50-250 [facility] Comment on above: Performed By: #### L 500.2500, L100.0100 #### [facility] [address] [place], [address] GAP 10 Normal 5-15 [facility] Comment on above: Performed By: #### L 500.2500, L100.0100 #### [facility] [address] [place], [address] GFR/1.73 sq M.predicted among non-blacks MDRD (S/P/Bld) [Vol rate/Area] 104 mL/min/{1.73_m2} Normal >60 [facility] Comment on above: Result Comment: mL/m in/1.73m2 CKD-EPI Creatinine Equation (2020) Performed By: #### L 500.2500, L100.0100 #### [facility] [address] [place], [address] Glucose [Mass/Vol] 122 mg/dL High 70-99 [facility] Comment on above: Performed By: #### L 500.2500, L100.0100 #### [facility] [address] [place], [address] Potassium [Moles/Vol] 3.8 mmol/L Normal 3.3-5.1 [facility] Comment on above: Performed By: #### L 500.2500, L100.0100 #### [facility] [address] [place], [address] Sodium [Moles/Vol] 138 mmol/L Normal 133-145 [facility] Comment on above: Performed By: #### L 500.2500, L100.0100 #### [facility] [address] [place], [address] Urea nitrogen [Mass/Vol] 21 mg/dL High 4-19 [facility] Comment on above: Performed By: #### L 500.2500, L100.0100 #### [facility] [address] [place], [address] Blood cultureOrdered By: Gayla Lemus on 10-10-2024 Bacteria identified Cx Nom (Bld) No growth in 5 days. [facility] Bacteria identified Cx Nom (Bld) No growth in 5 days. [facility] CBC W/Diff, Automatedon 09-15 PLT EST A Normal [facility] Comment on above: Performed By: #### L 500.2500, L100.0100 #### [facility] [address] [place], [address] PLT MORPH GIANT Normal [facility] Comment on above: Performed By: #### L 500.2500, L100.0100 #### [facility] [address] [place], [address] Platelet estimateOrdered By: Madison Lemus on 10-10-2024 Platelets LM Ql (Bld) A ADEQ [facility] Platelet morphologyOrdered B y: Madison Lemus on 10-10-2024 Platelet morphology finding Nom (Bld) GIANT [facility] Urine cultureOrdered By: Gayla Lemus on 10-10-2024 Bacteria identified Cx Nom (U) Staphylococcus aureus Abnormal [facility] 12 Lead EKGon 10-09-2024 12 Lead EKG [facility] Cardiovascular Services [address] [place] [address] 12 Lead EKG 10/09/24 1657 MR#: [id number] Acct: [id number] Name: STACIE BARRAZA Rep #: [id number] : 1955 68 From: Michael Heard MD Attending Dr: Dr. Chaitanya Saucedo, Status: ADM IN Ordering Dr: Jonas Cedeno MD Date: 10/09/24 Location: U Sex: M C Admitted: 10/08/24 Test Reason : AF Blood Pressure : */* mmHG Vent. Rate : 109 BPM Atrial Rate : 271 BPM P-R Int : * ms QRS Dur : 96 ms QT Int : 386 ms P-R-T Axes : * 51 262 degrees QTcB Int : 519 ms Atrial flutter with variable A-V block Minimal voltage criteria for LVH, may be normal variant ( Currie product ) ST T wave abnormality, consider anterolateral ischemia Abnormal ECG When compared with ECG of 08-Oct-2024 19:01, MANUAL COMPARISON REQUIRED DATA IS UNCONFIRMED Confirmed by Michael Heard ([id number]), marketing editor INDIO SOLOMON ([id number]) on 10/16/2024 1:25:21 PM Referred By: Confirmed By: Michael Heard 10/16/24 1325 Date Michael Heard MD CC: Dr. Kilo Lewis MD; Dr. Chaitanya Saucedo DO; Dr. Jonas Cedeno MD Signed Normal [facility] Bilirubin, totalOrdered By: Michael Herrera on 10-09-2024 Bilirubin [Mass/Vol] 1.17 mg/dL 0.00-1.30 [facility] CBC W/Diff, Automatedon 09-15 Absolute Lymph 1.35 X10 3/uL Normal 0.83-4.51 [facility] Comment on above: Performed By: #### L 100.0100, L501.2300, L500.4050 #### [facility] [address] [place], [address] Absolute Neut 14.9 X10 3/uL High 2.0-7.7 [facility] Comment on above: Performed By: #### L 100.0100, L501.2300, L500.4050 #### [facility] [address] [place], [address] Basophils/100 WBC (Bld) 0.2 % Normal 0-1 [facility] Comment on above: Performed By: #### L 100.0100, L501.2300, L500.4050 #### [facility] [address] [place], [address] Eosinophils/100 WBC (Bld) 0.1 % Normal 0-5 [facility] Comment on above: Performed By: #### L 100.0100, L501.2300, L500.4050 #### [facility] [address] [place], [address] Erythrocyte distribution width (RBC) [Ratio] 14.2 % Normal 11.6-14.6 [facility] Comment on above: Performed By: #### L 100.0100, L501.2300, L500.4050 #### [facility] [address] [place], [address] Hematocrit (Bld) [Volume fraction] 44.5 % Normal 40-54 [facility] Comment on above: Performed By: #### L 100.0100, L501.2300, L500.4050 #### [facility] [address] [place], [address] Hemoglobin (Bld) [Mass/Vol] 14.7 g/dL Normal 13.0-16.5 [facility] Comment on above: Performed By: #### L 100.0100, L501.2300, L500.4050 #### [facility] [address] [place], [address] IG% 0.600 Normal 0.0-0.9 [facility] Comment on above: Result Comment: IG% - Immature Granulocytes (promyelocytes, myelocytes and metamyelocytes) > 1% indicates that a LEFT SHIFT is Present. Performed By: #### L 100.0100, L501.2300, L500.4050 #### [facility] [address] [place], [address] Lymphocytes/100 WBC (Bld) 7.6 % Low 19-41 [facility] Comment on above: Performed By: #### L 100.0100, L501.2300, L500.4050 #### [facility] [address] [place], [address] MCH (RBC) [Entitic mass] 29.8 pg Normal 27.0-32.0 [facility] Comment on above: Performed By: #### L 100.0100, L501.2300, L500.4050 #### [facility] [address] [place], [address] MCHC (RBC) [Mass/Vol] 33.0 g/dL Normal 32-36 [facility] Comment on above: Performed By: #### L 100.0100, L501.2300, L500.4050 #### [facility] [address] [place], [address] MCV (RBC) [Entitic vol] 90.1 fL Normal 80-94 [facility] Comment on above: Performed By: #### L 100.0100, L501.2300, L500.4050 #### [facility] [address] [place], [address] Monocytes/100 WBC (Bld) 7.7 % Normal 0-10 [facility] Comment on above: Performed By: #### L 100.0100, L501.2300, L500.4050 #### [facility] [address] [place], [address] Neutrophils/100 WBC (Bld) 83.8 % High 47-70 [facility] Comment on above: Performed By: #### L 100.0100, L501.2300, L500.4050 #### [facility] [address] [place], [address] Nucleated RBC (Bld) [#/Vol] 0 10*3/uL Normal 0-5 [facility] Comment on above: Performed By: #### L 100.0100, L501.2300, L500.4050 #### [facility] [address] [place], [address] Platelet mean volume (Bld) [Entitic vol] 12.5 fL High 6.2-12.0 [facility] Comment on above: Performed By: #### L 100.0100, L501.2300, L500.4050 #### [facility] [address] [place], [address] Platelets (Bld) [#/Vol] 225 10*3/uL Normal 150-450 [facility] Comment on above: Performed By: #### L 100.0100, L501.2300, L500.4050 #### [facility] [address] [place], [address] RBC (Bld) [#/Vol] 4.94 10*6/uL Normal 4.6-6.2 [facility] Comment on above: Performed By: #### L 100.0100, L501.2300, L500.4050 #### [facility] [address] [place], [address] RDW SD 46.5 fl High 35.1-43.9 [facility] Comment on above: Performed By: #### L 100.0100, L501.2300, L500.4050 #### [facility] [address] [place], [address] WBC (Bld) [#/Vol] 17.8 10*3/uL High 4.4-11.0 [facility] Comment on above: Performed By: #### L 100.0100, L501.2300, L500.4050 #### [facility] [address] [place], [address] Comprehensive Metabolic Prof nmon 10-09-2024 Albumin [Mass/Vol] 3.5 g/dL Normal 3.4-4.8 [facility] Comment on above: Performed By: #### L 100.0100, L500.4050 #### [facility] [address] [place], [address] Albumin/Globulin [Mass ratio] 1.3 {ratio} Normal 0.9-2.4 [facility] Comment on above: Performed By: #### L 100.0100, L500.4050 #### [facility] [address] [place], [address] ALK PHOS 80 U/L Normal 40-129 [facility] Comment on above: Performed By: #### L 100.0100, L500.4050 #### [facility] [address] [place], [address] ALT [Catalytic activity/Vol] 18 U/L Normal <=46 [facility] Comment on above: Performed By: #### L 100.0100, L500.4050 #### [facility] [address] [place], [address] AST [Catalytic activity/Vol] 16 U/L Normal <=37 [facility] Comment on above: Performed By: #### L 100.0100, L500.4050 #### [facility] [address] [place], [address] Bilirubin [Mass/Vol] 1.17 mg/dL Normal 0.00-1.30 [facility] Comment on above: Performed By: #### L 100.0100, L500.4050 #### [facility] [address] [place], [address] BUN/CRE 28.6 RATIO High 10-20 [facility] Comment on above: Performed By: #### L 100.0100, L500.4050 #### [facility] [address] [place], [address] Calcium [Mass/Vol] 8.9 mg/dL Normal 7.6-11.0 [facility] Comment on above: Performed By: #### L 100.0100, L500.4050 #### [facility] [address] [place], [address] Chloride [Moles/Vol] 108 mmol/L Normal 98-108 [facility] Comment on above: Performed By: #### L 100.0100, L500.4050 #### [facility] [address] [place], [address] CO2 [Moles/Vol] 18.5 mmol/L Low 21.0-32.0 [facility] Comment on above: Performed By: #### L 100.0100, L500.4050 #### [facility] [address] [place], [address] Creatinine [Mass/Vol] 0.67 mg/dL Low 0.70-1.20 [facility] Comment on above: Performed By: #### L 100.0100, L500.4050 #### [facility] [address] [place], [address] ECRCL 87.88 ml/min Normal 50-250 [facility] Comment on above: Performed By: #### L 100.0100, L500.4050 #### [facility] [address] [place], [address] GAP 11 Normal 5-15 [facility] Comment on above: Performed By: #### L 100.0100, L500.4050 #### [facility] [address] [place], [address] GFR/1.73 sq M.predicted among non-blacks MDRD (S/P/Bld) [Vol rate/Area] 103 mL/min/{1.73_m2} Normal >60 [facility] Comment on above: Result Comment: mL/m in/1.73m2 CKD-EPI Creatinine Equation (2020) Performed By: #### L 100.0100, L500.4050 #### [facility] [address] [place], [address] Globulin (S) [Mass/Vol] 2.8 g/dL Normal 2.2-4.2 [facility] Comment on above: Performed By: #### L 100.0100, L500.4050 #### [facility] [address] [place], [address] Glucose [Mass/Vol] 146 mg/dL High 70-99 [facility] Comment on above: Performed By: #### L 100.0100, L500.4050 #### [facility] [address] [place], [address] Potassium [Moles/Vol] 4.2 mmol/L Normal 3.3-5.1 [facility] Comment on above: Performed By: #### L 100.0100, L500.4050 #### [facility] [address] [place], [address] Sodium [Moles/Vol] 138 mmol/L Normal 133-145 [facility] Comment on above: Performed By: #### L 100.0100, L500.4050 #### [facility] [address] [place], [address] T PROT 6.3 g/dL Normal 5.9-8.4 [facility] Comment on above: Performed By: #### L 100.0100, L500.4050 #### [facility] [address] [place], [address] Urea nitrogen [Mass/Vol] 19 mg/dL Normal 4-19 [facility] Comment on above: Performed By: #### L 100.0100, L500.4050 #### [facility] [address] [place], [address] Consultation - Cardiologyon 10-09-2024 Consultation - Cardiology [facility] Medical Records Department [address] [place] [address] Consultation - Cardiology 10/09/24 1544 MR#: [id number] Acct: [id number] Name: STACIE BARRAZA Rep #: [id number] : 1955 68 From: Jonas Cedeno MD PCP: Dr. Kilo Lewis MD Status:ADM IN Location: [place] [address] Assessment Plan Assessment/Plan (1) Atrial flutter with rapid ventricular response: (2) Epididymitis: (3) Leukocytosis: QUALIFIERS: Leukocytosis type: unspecified Qualified Code(s): D72.829 - Elevated white blood cell count, unspecified (4) Acute cystitis with hematuria: PLAN: Cardiac care plan; 68-year-old patient seen and evaluated today along with the nursing staff Cardiac consult patient requested as patient has a new onset A-fib/atrial flutter with RVR in addition to severe LV dysfunction by echocardiogram. Patient has hernia repair presented with, right testicular pain. He also had symptoms of shortness of breath. 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 Patient has severe LV systolic dysfunction on echocardiogram Ejection fraction calculated 10-15%. With global LV hypokinesia I reviewed all his current medication Patient has been on beta-chucky metoprolol for rate control Calcium channel chucky has been discontinued Will continue on CHF protocol. And diuresis with Lasix Other medical problem patient has leukocytosis with acute cystitis with microscopic hematuria Epididymitis And has been on antibiotic treatment. Adding Entresto to his current treatment High risk patient will require further cardiac workup which will include a LifeVest prior to discharge possible And follow-up with the cardiology team and evaluate further. With possible Lexiscan sestamibi versus cardiac catheterization. Will continue to monitor during this admission and will follow-up clinically. Jonas Cedeno MD,[facility] HPI Consult Data Date of Consult: 10/09/24 HPI Narrative Reason for Consultation: Severe LV systolic dysfunction, EF 10-15%/A-fib HPI Narrative: STACIE BARRAZA, is a 68 M who presents REPLACED BY [facility] Medical History Hernia Home Medications ???Medication ???Instructions ???Recorded ???Last Taken ???Type multivitamin with folic acid 400 1 tab PO DAILY supplement 03/05/15 Unknown History mcg tablet (Thera) Allergy/AdvReac Type Severity Reaction Status Date / Time Sulfa (Sulfonamide Allergy Unknown Verified 10/08/24 18:49 Antibiotics) Surgical History S/P hernia surgery Social History Smoking Status: Never smoker Physical Exam Cardio Cardio Narrative: Patient seen and evaluated today along with the nursing staff Reviewed his school childcare attendant which showed A-fib with controlled ventricular rate. I distended abdomen as well as discomfort in his swollen testicles. Cardiac exam regular venous pressure elevated S1-S2 is regular Chest exam mildly diminished air entry bilateral. Mild, bilateral lower extremity edema Risk Stratification Risk Stratification Applicable: No Objective Data Vital Signs: Vital Signs Temp Pulse Resp BP Pulse Ox O2 Del Method O2 Flow Rate 97.9 F 79 20 H 94/72 97 Room Air 2 10/09/24 12:00 10/09/24 12:00 10/09/24 12:00 10/09/24 12:00 10/09/24 12:00 10/09/24 12:00 10/09/24 09:10 Oxygen Flow Rate (L/min) 2 Oxygen Delivery Method Room Air Weight: 165 lb 2.02 oz Body Mass Index (BMI) 25.1 Intake Output: Intake and Output for Last 24 Hours 10/07/24 10/08/24 10/09/24 23:59 23:59 23:59 Intake Total 1050 / 1050 1421.83 / 1421.83 Output Total 300 / 300 Balance 1050 / 1050 1121.83 / 1121.83 Lab / Micro Data 10/09/24 05:17 10/09/24 05:17 Labs: Laboratory Results - last 24 hr 10/08/24 18:55: WBC 16.9 H, RBC 5.52, Hgb 16.5, Hct 49.6, MCV 89.9, MCH 29.9, MCHC 33.3, RDW Std Deviation 45.5 H, RDW Coeff of Natty 13.8, Plt Count 280, MPV 11.3, Immature Gran % (Auto) 0.400, Neut % (Auto) 81.9 H, Lymph % (Auto) 9.0 L, [place] % (Auto) 8.0, Eos % (Auto) 0.5, Baso % (Auto) 0.2, A bsolute Neuts (auto) 13.8 H, Absolute Lymphs (auto) 1.53, Nucleated RBC % 0, Sodium 143, Potassium 4.3, Chloride 107, Carbon Dioxide 24.8, Anion Gap 11, BUN 20 H, Creatinine 0.80, Estim Creat Clear Calc 81.97, Est GFR (MDRD) Non-Af 98, BUN/Creatinine Ratio 25.1 H, Glucose 118 H, Calcium 9.4, Total Bilirubin 1.08, AST 24, ALT 25, Alkaline Phosphatase 99, Troponin T High Sens 12, Total Protein 7.3, Albumin 4.1, Globulin 3.1, Albumin/Globulin Ratio 1.3, TSH 2.930 10/08/24 19:25: Urine Color Yellow, (more content not included)... Normal [facility] Echocardiogram study reportO rdered By: Jonas Cedeno on 10-09-2024 Study report [facility] [address] [place] [address] ONC Echo Complete W/ Contrast 10/09/24 1000 MR#: [id number] Acct: [id number] Name: STACIE BARRAZA Rep #:[id number] : 1955 68 From: Jonas Cedeno MD Attending Dr: Dr. Madison Lemus MD Status: ADM IN Ordering Dr: Michael Reyna DO Date: 10/09/24 Location: U Sex: M C Admitted: 10/08/24 Reason For Study Reason For Study: Afib, Aflutter Procedure This was a 2D Doppler, Color Flow transthoracic echocardiogram. Contrast injection was performed. Exam performed portable in patient room. Left Ventricle Moderately dilated left ventricle. The estimated ejection fraction is 10-15 %. Right Ventricle Mildly dilated right ventricle. Mild to moderate global right ventricular systolic dysfunction. Atria The left atrium is moderately enlarged. The right atrium is mildly enlarged. Mitral Valve The mitral valve is structurally normal. No prolapse or stenosis seen. Mild (1+)anteriorly directed mitral valve insufficiency. Tricuspid Valve Normal tricuspid valve. Mild (1+) tricuspid valve insufficiency. Aortic Valve Mild diffuse aortic valve calcification. Pulmonic Valve The pulmonic valve is not well visualized. Great Vessels The aortic root is not well visualized. Pericardium/Pleural No pericardial effusion. Medication Diluted definity 2ml given slow IV push to enhance endocardial definition. MMode/2D Measurements & Calculations LVIDd: 5.3 cm IVSd: 1.0 cm Ao root diam: 3.4 cm LVIDs: 4.6 cm LVPWd: 0.89 cm RVDd: 4.5 cm FS: 14.2 % LAV(MOD-bp): 89.9 ml LVAd ap4: 31.6 cm2 SV(MOD-sp4): 11.2 ml LAV(MOD-bp) Indexed: 48.5 ml/m2 LVLd ap4: 7.5 cm SI(MOD-sp4): 6.0 ml/m2 LAV(MOD-sp2): 88.9 ml EDV(MOD-sp4): 108.5 ml LAV(MOD-sp4): 84.6 ml EDV(sp4-el): 113.2 ml LVAs ap4: 28.6 cm2 LVLs ap4: 7.1 cm ESV(MOD-sp4): 97.3 ml ESV(sp4-el): 98.3 ml EF(MOD-sp4): 10.3 % EF(sp4-el): 13.2 % SV(sp4-el): 14.9 ml LA A4 area: 26.6 cm2 LA dimension(2D): 5.0 cm RA A4 area: 26.4 cm2 TAPSE: 1.2 cm Doppler Measurements & Calculations MV E max jovita: 59.9 cm/sec Lat Peak E' Jovita: 12.2 cm/sec Med Peak E' Jovita: 8.6 cm/sec E/E' lat: 4.9 E/E' med: 7.0 Ao V2 max: 163.6 cm/sec LV V1 max: 96.2 cm/sec PA V2 max: 57.3 cm/sec Ao max P.1 mmHg LV V1 max P.9 mmHg Ao V2 mean: 121.9 cm/sec Ao mean P.7 mmHg Ao V2 VTI: 21.9 cm TR max jovita: 254.2 cm/sec TR max P.8 mmHg ECHO/ONC Echo Complete W/ Contrast Interpretation Summary The estimated ejection fraction is 10-15 %. Severe global LV hypokinesia Severe LV systolic dysfunction Definity/contrast echo used No prior study to compare Ordering Physician: Michael Reyna Referring Physician: Kilo Lewis Performed By: Tere Castorena, MARTÍN, RVT 10/09/24 1312 Date _ Jonas Cedeno MD CC: Dr. Kilo Lewis MD; Dr. Michael Reyna DO; Dr. Madison Lemus MD ~ Date Dictated: 10/09/24 1000 Date Transcribed: 10/09/241311 [employer] Developer: Signed [facility] Work Phone: [phone] 10-09-2024 Trop T High Sen 14 ng/L Normal <=22 [facility] Comment on above: Performed By: #### L 500.2500, L100.0100 #### [facility] [address] [place], [address] Laboratory - Chemistry and C hemistry - challengeOrdered By: Michael Herrera on 10-09-2024 AST [Catalytic activity/Vol] 16 U/L <38 [facility] Magnesiumon 10-09-2024 Magnesium [Mass/Vol] 1.8 mg/dL Normal 1.5-2.2 [facility] Comment on above: Performed By: #### L 501.5200 #### [facility] [address] [place], [address] Magnesium measurement (mass/ volume)Ordered By: Michael Herrera on 10-09-2024 Magnesium (Unsp spec) [Mass/Vol] 1.8 mg/dL 1.5-2.2 [facility] ONC Echo Complete W/ Contras ton 10-09-2024 ONC Echo Complete W/ Contrast [facility] [address] [place] [address] ONC Echo Complete W/ Contrast 10/09/24 1000 MR#: [id number] Acct: [id number] Name: STACIE BARRAZA Rep #: [id number] : 1955 68 From: Jonas Cedeno MD Attending Dr: Dr. Madison Lemus MD Status: AD M IN Ordering Dr: Michael Reyna DO Date: 10/09/24 Location: [facility] Sex: M C Admitted: 10/08/24 Reason For Study Reason For Study: Afib, Aflutter Procedure This was a 2D Doppler, Color Flow transthoracic echocardiogram. Contrast injection was performed. Exam performed portable in patient room. Left Ventricle Moderately dilated left ventricle. The estimated ejection fraction is 10-15 %. Right Ventricle Mildly dilated right ventricle. Mild to moderate global right ventricular systolic dysfunction. Atria The left atrium is moderately enlarged. The right atrium is mildly enlarged. Mitral Valve The mitral valve is structurally normal. No prolapse or stenosis seen. Mild (1+) anteriorly directed mitral valve insufficiency. Tricuspid Valve Normal tricuspid valve. Mild (1+) tricuspid valve insufficiency. Aortic Valve Mild diffuse aortic valve calcification. Pulmonic Valve The pulmonic valve is not well visualized. Great Vessels The aortic root is not well visualized. Pericardium/Pleural No pericardial effusion. Medication Diluted definity 2ml given slow IV push to enhance endocardial definition. MMode/2D Measurements Calculations LVIDd: 5.3 cm IVSd: 1.0 cm Ao root diam: 3.4 cm LVIDs: 4.6 cm LVPWd: 0.89 cm RVDd: 4.5 cm FS: 14.2 % LAV(MOD-bp): 89.9 ml LVAd ap4: 31.6 cm2 SV(MOD-sp4): 11.2 ml LAV(MOD-bp) Indexed: 48.5 ml/m2 LVLd ap4: 7.5 cm SI(MOD-sp4): 6.0 ml/m2 LAV(MOD-sp2): 88.9 ml EDV(MOD-sp4): 108.5 ml LAV(MOD-sp4): 84.6 ml EDV(sp4-el): 113.2 ml LVAs ap4: 28.6 cm2 LVLs ap4: 7.1 cm ESV(MOD-sp4): 97.3 ml ESV(sp4-el): 98.3 ml EF(MOD-sp4): 10.3 % EF(sp4-el): 13.2 % SV(sp4-el): 14.9 ml LA A4 area: 26.6 cm2 LA dimension(2D): 5.0 cm RA A4 area: 26.4 cm2 TAPSE: 1.2 cm Doppler Measurements Calculations MV E max jovita: 59.9 cm/sec Lat Peak E' Jovita: 12.2 cm/sec Med Peak E' Jovita: 8.6 cm/sec E/E' lat: 4.9 E/E' med: 7.0 Ao V2 max: 163.6 cm/sec LV V1 max: 96.2 cm/sec PA V2 max: 57.3 cm/sec Ao max P.1 mmHg LV V1 max P.9 mmHg Ao V2 mean: 121.9 cm/sec Ao mean P.7 mmHg Ao V2 VTI: 21.9 cm TR max jovita: 254.2 cm/sec TR max P.8 mmHg ECHO/ONC Echo Complete W/ Contrast Interpretation Summary The estimated ejection fraction is 10-15 %. Severe global LV hypokinesia Severe LV systolic dysfunction Definity/contrast echo used No prior study to compare Ordering Physician: Michael Reyna Referring Physician: Kilo Lewis Performed By: Tere Castorena RDCS, RVT 10/09/24 1312 Date Jonas Cedeno MD CC: Dr. Kilo Lewis MD; Dr. Michael Reyna DO; Dr. Madison Lemus MD Date Dictated: 10/09/24 1000 Date Transcribed: 10/09/241311 Sharepoint Net Developer: Signed Normal [facility] Phosphoruson 10-09-2024 Phosphate [Mass/Vol] 3.0 mg/dL Normal 2.7-4.5 [facility] Comment on above: Performed By: #### L 100.0100, L500.4050 #### [facility] [address] [place], [address] Serum globulin measurementOr dered By: Michael Herrera on 10-09-2024 Globulin (S) [Mass/Vol] 2.8 g/dL 2.2-4.2 [facility] Serum or plasma alanine mccormack otransferase (ALT) measurementOrdered By: Michael Herrera on 10-09-2024 ALT [Catalytic activity/Vol] 18 U/L <47 [facility] Serum or plasma albumin shyann urement (mass/volume)Ordered By: Michael Herrera on 10-09-2024 Albumin [Mass/Vol] 3.5 g/dL 3.4-4.8 [facility] Serum or plasma albumin/glob ulin mass ratioOrdered By: Michael Herrera on 10-09-2024 Albumin/Globulin [Mass ratio] 1.3 {ratio} 0.9-2.4 [facility] Serum or plasma alkaline nicolas sphatase measurementOrdered By: Michael Herrera on 10-09-2024 ALP [Catalytic activity/Vol] 80 U/L 40-129 [facility] TSH DL <= 0.005 mIU/L QnOrde red By: Michael Herrera on 10-09-2024 TSH Qn 2.440 uIU/mL 0.300-4.200 [facility] Thyroid Stim Hormone (TSH)on 10-09-2024 TSH 2.440 uIU/mL Normal 0.300-4.200 [facility] Comment on above: Performed By: #### L 500.2500, L100.0100 #### [facility] [address] [place], [address] Total proteinOrdered By: Gopal Herrera on 10-09-2024 Protein [Mass/Vol] 6.3 g/dL 5.9-8.4 [facility] Troponin T.cardiac [Mass/vol ume] in Serum or Plasma by High sensitivity methodOrdered By: Janessa De La Torre on 10-09-2024 Troponin T.cardiac High sensitivity method [Mass/Vol] 14 ng/L <22 [facility] 12 Lead EKGon 10-08-2024 12 Lead EKG [facility] [address] [place] [address] 12 Lead EKG 10/08/24 1901 MR#: [id number] Acct: [id number] Name: STACIE BARRAZA Rep #: [id number] : 1955 68 From: Michael Heard MD Attending Dr: Dr. Chaitanya Saucedo DO Status: ADM IN Ordering Dr: Janessa De La Torre DO Date: 10/08/24 Location: [facility] Sex: M C Admitted: 10/08/24 Test Reason : PAIN Blood Pressure : */* mmHG Vent. Rate : 115 BPM Atrial Rate : 278 BPM P-R Int : * ms QRS Dur : 90 ms QT Int : 274 ms P-R-T Axes : * -6 163 degrees QTcB Int : 379 ms Atrial flutter with variable A-V block Minimal voltage criteria for LVH, may be normal variant ( Currie product ) ST T wave abnormality, consider lateral ischemia Abnormal ECG Confirmed by Michael Heard ([id number]), marketing editor INDIO SOLOMON ([id number]) on 10/16/2024 1:07:36 PM Referred By: Confirmed By: Michael Heard 10/16/24 7781 Date Michael Heard MD CC: Dr. Kilo Lewis MD; Dr. Janessa De La Torre, DO; Dr. Chaitanya Saucedo DO Signed Normal [facility] Absolute lymphocyte countOrd ered By: ED PROVIDER on 10-08-2024 Lymphocytes Auto (Unsp spec) [#/Vol] 1.53 10*3/uL 0.83-4.51 [facility] Absolute neutrophil countOrd ered By: ED PROVIDER on 10-08-2024 Neutrophils (Bld) [#/Vol] 13.8 10*3/uL High 2.0-7.7 [facility] Anion gap in Serum or Plasma Ordered By: Janessa De La Torre on 10-08-2024 Anion gap [Moles/Vol] 11 mmol/L 5-15 [facility] Automated lymphocyte count a s percentage of total leukocytesOrdered By: ED PROVIDER on 10-08-2024 Lymphocytes/100 WBC Auto (Unsp spec) 9.0 % Low 19-41 [facility] BUN/creatinine ratioOrdered By: Janessa De La Torre on 10-08-2024 Urea nitrogen/Creatinine [Mass ratio] 25.1 mg/mg High 10-20 [facility] Basophil percentageOrdered B y: ED PROVIDER on 10-08-2024 Basophils/100 WBC (Bld) 0.2 % 0-1 [facility] Bilirubin Test strip Ql (U)O rdered By: ED PROVIDER on 10-08-2024 Bilirubin Ql (U) Negative Negative [facility] Bilirubin, totalOrdered By: Janessa De La Torre on 10-08-2024 Bilirubin [Mass/Vol] 1.08 mg/dL 0.00-1.30 [facility] CBC W/Diff, Automatedon 09-15 Absolute Lymph 1.53 X10 3/uL Normal 0.83-4.51 [facility] Comment on above: Performed By: #### L 100.0100, L500.4050 #### [facility] [address] [place], [address] Absolute Neut 13.8 X10 3/uL High 2.0-7.7 [facility] Comment on above: Performed By: #### L 100.0100, L500.4050 #### [facility] [address] [place], [address] Basophils/100 WBC (Bld) 0.2 % Normal 0-1 [facility] Comment on above: Performed By: #### L 100.0100, L500.4050 #### [facility] [address] [place], [address] Eosinophils/100 WBC (Bld) 0.5 % Normal 0-5 [facility] Comment on above: Performed By: #### L 100.0100, L500.4050 #### [facility] [address] [place], [address] Erythrocyte distribution width (RBC) [Ratio] 13.8 % Normal 11.6-14.6 [facility] Comment on above: Performed By: #### L 100.0100, L500.4050 #### [facility] [address] [place], [address] Hematocrit (Bld) [Volume fraction] 49.6 % Normal 40-54 [facility] Comment on above: Performed By: #### L 100.0100, L500.4050 #### [facility] [address] [place], [address] Hemoglobin (Bld) [Mass/Vol] 16.5 g/dL Normal 13.0-16.5 [facility] Comment on above: Performed By: #### L 100.0100, L500.4050 #### [facility] [address] [place], [address] IG% 0.400 Normal 0.0-0.9 [facility] Comment on above: Result Comment: IG% - Immature Granulocytes (promyelocytes, myelocytes and metamyelocytes) > 1% indicates that a LEFT SHIFT is Present. Performed By: #### L 100.0100, L500.4050 #### [facility] [address] [place], [address] Lymphocytes/100 WBC (Bld) 9.0 % Low 19-41 [facility] Comment on above: Performed By: #### L 100.0100, L500.4050 #### [facility] [address] [place], [address] MCH (RBC) [Entitic mass] 29.9 pg Normal 27.0-32.0 [facility] Comment on above: Performed By: #### L 100.0100, L500.4050 #### [facility] [address] [place], [address] MCHC (RBC) [Mass/Vol] 33.3 g/dL Normal 32-36 [facility] Comment on above: Performed By: #### L 100.0100, L500.4050 #### [facility] [address] [place], [address] MCV (RBC) [Entitic vol] 89.9 fL Normal 80-94 [facility] Comment on above: Performed By: #### L 100.0100, L500.4050 #### [facility] [address] [place], [address] Monocytes/100 WBC (Bld) 8.0 % Normal 0-10 [facility] Comment on above: Performed By: #### L 100.0100, L500.4050 #### [facility] [address] [place], [address] Neutrophils/100 WBC (Bld) 81.9 % High 47-70 [facility] Comment on above: Performed By: #### L 100.0100, L500.4050 #### [facility] [address] [place], [address] Nucleated RBC (Bld) [#/Vol] 0 10*3/uL Normal 0-5 [facility] Comment on above: Performed By: #### L 100.0100, L500.4050 #### [facility] [address] [place], [address] Platelet mean volume (Bld) [Entitic vol] 11.3 fL Normal 6.2-12.0 [facility] Comment on above: Performed By: #### L 100.0100, L500.4050 #### [facility] [address] [place], [address] Platelets (Bld) [#/Vol] 280 10*3/uL Normal 150-450 [facility] Comment on above: Performed By: #### L 100.0100, L500.4050 #### [facility] [address] [place], [address] RBC (Bld) [#/Vol] 5.52 10*6/uL Normal 4.6-6.2 [facility] Comment on above: Performed By: #### L 100.0100, L500.4050 #### [facility] [address] [place], [address] RDW SD 45.5 fl High 35.1-43.9 [facility] Comment on above: Performed By: #### L 100.0100, L500.4050 #### [facility] [address] [place], [address] WBC (Bld) [#/Vol] 16.9 10*3/uL High 4.4-11.0 [facility] Comment on above: Performed By: #### L 100.0100, L500.4050 #### [facility] [address] [place], [address] Carbon dioxide, total [Moles /volume] in Central venous bloodOrdered By: Janessa De La Torre on 10-08-2024 CO2 [Moles/Vol] 24.8 mmol/L 21.0-32.0 [facility] Chloride assayOrdered By: Kurt De La Torre on 10-08-2024 Chloride [Moles/Vol] 107 mmol/L 98-108 [facility] Comprehensive Metabolic Prof ilon 10-08-2024 Albumin [Mass/Vol] 4.1 g/dL Normal 3.4-4.8 [facility] Comment on above: Performed By: #### L 100.0100, L500.4050 #### [facility] [address] [place], [address] Albumin/Globulin [Mass ratio] 1.3 {ratio} Normal 0.9-2.4 [facility] Comment on above: Performed By: #### L 100.0100, L500.4050 #### [facility] [address] [place], [address] ALK PHOS 99 U/L Normal 40-129 [facility] Comment on above: Performed By: #### L 100.0100, L500.4050 #### [facility] [address] [place], [address] ALT [Catalytic activity/Vol] 25 U/L Normal <=46 [facility] Comment on above: Performed By: #### L 100.0100, L500.4050 #### [facility] [address] [place], [address] AST [Catalytic activity/Vol] 24 U/L Normal <=37 [facility] Comment on above: Performed By: #### L 100.0100, L500.4050 #### [facility] [address] [place], [address] Bilirubin [Mass/Vol] 1.08 mg/dL Normal 0.00-1.30 [facility] Comment on above: Performed By: #### L 100.0100, L500.4050 #### [facility] [address] [place], [address] BUN/CRE 25.1 RATIO High 10-20 [facility] Comment on above: Performed By: #### L 100.0100, L500.4050 #### [facility] [address] [place], [address] Calcium [Mass/Vol] 9.4 mg/dL Normal 7.6-11.0 [facility] Comment on above: Performed By: #### L 100.0100, L500.4050 #### [facility] [address] [place], [address] Chloride [Moles/Vol] 107 mmol/L Normal 98-108 [facility] Comment on above: Performed By: #### L 100.0100, L500.4050 #### [facility] [address] [place], [address] CO2 [Moles/Vol] 24.8 mmol/L Normal 21.0-32.0 [facility] Comment on above: Performed By: #### L 100.0100, L500.4050 #### [facility] [address] [place], [address] Creatinine [Mass/Vol] 0.80 mg/dL Normal 0.70-1.20 [facility] Comment on above: Performed By: #### L 100.0100, L500.4050 #### [facility] [address] [place], [address] ECRCL 81.97 ml/min Normal 50-250 [facility] Comment on above: Performed By: #### L 100.0100, L500.4050 #### [facility] [address] [place], [address] GAP 11 Normal 5-15 [facility] Comment on above: Performed By: #### L 100.0100, L500.4050 #### [facility] [address] [place], [address] GFR/1.73 sq M.predicted among non-blacks MDRD (S/P/Bld) [Vol rate/Area] 98 mL/min/{1.73_m2} Normal >60 [facility] Comment on above: Result Comment: mL/m in/1.73m2 CKD-EPI Creatinine Equation (2020) Performed By: #### L 100.0100, L500.4050 #### [facility] [address] [place], [address] Globulin (S) [Mass/Vol] 3.1 g/dL Normal 2.2-4.2 [facility] Comment on above: Performed By: #### L 100.0100, L500.4050 #### [facility] [address] [place], [address] Glucose [Mass/Vol] 118 mg/dL High 70-99 [facility] Comment on above: Performed By: #### L 100.0100, L500.4050 #### [facility] [address] [place], [address] Potassium [Moles/Vol] 4.3 mmol/L Normal 3.3-5.1 [facility] Comment on above: Performed By: #### L 100.0100, L500.4050 #### [facility] [address] [place], [address] Sodium [Moles/Vol] 143 mmol/L Normal 133-145 [facility] Comment on above: Performed By: #### L 100.0100, L500.4050 #### [facility] [address] [place], [address] T PROT 7.3 g/dL Normal 5.9-8.4 [facility] Comment on above: Performed By: #### L 100.0100, L500.4050 #### [facility] [address] [place], [address] Urea nitrogen [Mass/Vol] 20 mg/dL High 4-19 [facility] Comment on above: Performed By: #### L 100.0100, L500.4050 #### [facility] [address] [place], [address] Emergency Department Summary on 10-08-2024 Emergency Department Summary [facility] Medical Records Department [address] [place] [address] Emergency Department Summary 10/08/24 MR#: [id number] Acct: [id number] Name: STACIE BARRAZA Rep #: [id number] : 1955 68 From: Stacey DURAND PCP: Dr. Kilo Lewis MD Status:ADM [place] Location: [address] History of Present Illness Chief Complaint: Flank Pain Narrative Narrative: Patient presenting today with right testicular pain that somewhat radiates to his right groin and right flank that started yesterday evening. He reports that the pain has progressively gotten worse. He denies any trauma to his testicle, abnormal penile discharge, dysuria, hematuria, and history of kidney stones. He has not been to a PCP in several years, he is unaware of any chronic medical conditions he may have. [facility] Medical History Hernia Home Medications ???Medication ???Instructions ???Recorded ???Last Taken ???Type multivitamin with folic acid 400 1 tab PO DAILY 03/05/15 Unknown Hi story mcg tablet (Thera) Allergy/AdvReac Type Severity Reaction Status Date / Time Sulfa (Sulfonamide Allergy Unknown Verified 10/08/24 18:49 Antibiotics) Surgical History S/P hernia surgery Social History Smoking Status: Never smoker ROS ROS ED Constitutional Constitutional ED: Denies chills or fever(s) Cardiovascular Cardiovascular: Denies chest pain Respiratory/Chest Respiratory/Chest: Denies dyspnea Gastrointestinal Gastrointestinal: Denies abdominal pain, nausea or vomiting Genitourinary Genitourinary ED: Denies dysuria, hematuria or urinary urgency Musculoskeletal Musculoskeletal: Denies back pain Integumentary Denies rash EXAM Physical Exam Const Vital Signs: 10/08/24 18:47 10/08/24 19:16 10/08/24 20:04 Temperature 97.9 F Temperature Source Oral Pulse Rate 140 H 137 H 140 H Respiratory Rate 18 15 13 Blood Pressure 123/87 H 119/90 H 113/80 Blood Pressure Mean 99 99 91 Pulse Ox 98 100 97 Oxygen Delivery Method Room Air Room Air 10/08/24 21:00 10/08/24 22:00 10/08/24 23:00 Temperature Temperature Source Pulse Rate 135 H 115 H 115 H Respiratory Rate 21 H 20 H 15 Blood Pressure 111/84 H 104/80 113/79 Blood Pressure Mean 93 88 90 Pulse Ox 98 96 99 Oxygen Delivery Method Room Air Room Air Room Air Positive well nourished, well developed and no apparent distress General Appearance ED: well developed HEENT Reports normocephalic and head/scalp atraumatic Mouth ED: Yes moist mucous membranes normal Eyes PERRL and EOMs intact bilaterally Neck full ROM and supple Chest Wall inspection of chest normal Resp normal respiratory effort and clear to auscultation bilaterally Cardio regular rate and regular rhythm GI soft to palpation, non-tender, non-distended and no masses Narrative: Right testicular tenderness to palpation with edema and abnormal lie, absent cremasteric reflex on the right Back/Spine normal ROM and normal to inspection General Back: Negative for CVA tenderness Extremity normal to inspection and full ROM Neuro oriented x3, CN's II-XII intact bilaterally, moves all extremities, no focal motor deficits and no sensory deficits noted Sensorium / Orientation: awake and alert Psych mental status grossly normal and thought process normal Skin no rashes or lesions noted and no wounds Physical Exam Const Vital Signs: 10/08/24 18:47 10/08/24 19:16 10/08/24 20:04 Temperature 97.9 F Temperature Source Oral Pulse Rate 140 H 137 H 140 H Respiratory Rate 18 15 13 Blood Pressure 123/87 H 119/90 H 113/80 Blood Pressure Mean 99 99 91 Pulse Ox 98 100 97 Oxygen Delivery Method Room Air Room Air 10/08/24 21:00 10/08/24 22:00 10/08/24 23:00 Temperature Temperature Source Pulse Rate 135 H 115 H 115 H Respiratory Rate 21 H 20 H 15 Blood Pressure 111/84 H 104/80 113/79 Blood Pressure Mean 93 88 90 Pulse Ox 98 96 99 Oxygen Delivery Method Room Air Room Air Room Air MDM MDM MDM Narrative Medical decision making narrative: Presenting today with pain to the right testicle that started yesterday, the pain somewhat radiates to his groin and flank. His right testicle is very tender to palpation, exam is somewhat limited due to his pain. I do have concerns for testicular torsion, testicular ultrasound will be obtained. Labs obtained. He does have a leukocytosis at 16.9, his CMP is largely unremarkable. UA shows 500 leukocytes, 25-50 WBCs, and 4+ bacteria, this will be cultured an (more content not included)... Normal [facility] Eosinophil percentageOrdered By: ED PROVIDER on 10-08-2024 Eosinophils/100 WBC (Bld) 0.5 % 0-5 [facility] Erythrocyte distribution wid th ratioOrdered By: ED PROVIDER on 10-08-2024 Erythrocyte distribution width (RBC) [Ratio] 13.8 % 11.6-14.6 [facility] Erythrocyte distribution wid th standard deviationOrdered By: ED PROVIDER on 10-08-2024 Erythrocyte distribution width (RBC) [Ratio] 45.5 fl High 35.1-43.9 [facility] Glomerular filtration rate ( GFR) estimation/1.73 sq m using serum, plasma, or whole bOrdered By: Janessa De La Torre on 10-08-2024 GFR/1.73 sq M.predicted among non-blacks MDRD (S/P/Bld) [Vol rate/Area] 98 mL/min/{1.73_m2} >60 [facility] Comment on above: mL/min/1.73m2 CKD-EP I Creatinine Equation (2020) H AND P Exam - [facility] 10-08-2024 H&P Exam - Hospitalist [facility] Medical Records Department [address] [place] [address] H P Exam - Hospitalist 10/08/242326 MR#: [id number] Acct: [id number] Name: STACIE BARRAZA Rep #: [id number] : 1955 68 From: Michael Reyna DO PCP: Dr. Kilo Lewis MD Status:ADM IN Location: [id number] HPI - General General Date of Admission: 10/08/24 Date of Service: 10/08/24 Chief Complaint: Right Testicular Pain. HPI Narrative STACIE BARRAZA, is a 68 M with a past medical history of being overweight; with BMI of 27.1 this admission and history of hernia; s/p repair who presents to [facility] complaining of Right testicular pain. Mr. Barraza reports his symptoms began yesterday evening with the abrupt-onset of Right flank pain radiating in to his Right groin that has progressively worsened since that time so he finally decided to come n for further evaluation and treatment. He denies recent trauma to his testicle, penile discharge, dysuria, hematuria, history of renal calculi or similar previous episodes. He states he has not seen a physician to several years and he is unaware if he has any chronic medical conditions. He denies associated fever, chills, nausea, vomiting, diarrhea, constipations, dysuria, hematuria, chest pain, palpitations, headache or rash. In the ER he was noted to have UA positive for Acute Cystitis; with microscopic hematuria with Leukocytosis of 16.9K present on admission and a corresponding testicular ultrasounds that revealed Right testicle 4.1 cm x 3.3 cm x 2.3 cm with homogenous echotexture, no intratesticular mass and Right epididymis mild asymmetric enlargement with increased vascularity with normal Left testicle consistent with Epididymitis complicated by EKG evidence of apparently New-onset Atrial Flutter with RVR at 140 bpm and he was then admitted to the PCU for ongoing care for stay that is expected to extend beyond 2 midnights. REPLACED BY [facility] Medical History Hernia Home Medications ???Medication ???Instructions ???Recorded ???Last Taken ???Type multivitamin with folic acid 400 1 tab PO DAILY supplement 03/05/15 Unknown History mcg tablet (Thera) Allergy/AdvReac Type Severity Reaction Status Date / Time Sulfa (Sulfonamide Allergy Unknown Verified 10/08/24 18:49 Antibiotics) Surgical History S/P hernia surgery Social History Smoking Status: Never smoker ROS ROS Narrative Review of Systems: Constitutional: Patient denies fever or chills. Eyes: Patient denies changes in vision or discharge from eyes. ENT: Patient denies runny nose, sore throat or ear pain. Resp: Patient denies shortness of breath or cough. GI: Patient denies abdominal pain, nausea, vomiting, diarrhea or constipation. : Patient admits to Right flank pain radiating to groin as per HPI. MSK: Patient denies arthralgias or myalgias. Skin: Patient denies rash, abscess, wounds or jaundice. Psych: Patient denies symptoms of uncontrolled depression or anxiety. Neuro: Patient denies headache, paresthesias or focal neurologic deficits. Allergy: Patient denies lip swelling, tongue swelling or urticaria. Hematology: Patient denies easy bleeding or easy bruisability. Endocrinology: Patient denies polyuria, polydipsia, polyphagia or heat/cold intolerance. 14 point ROS otherwise negative except for positives noted above in HPI. Vital Signs Vital Signs Vital Signs: 10/08/24 18:47 10/08/24 19:16 10/08/24 20:04 Temperature 97.9 F Temperature Source Oral Pulse Rate 140 H 137 H 140 H Respiratory Rate 18 15 13 Blood Pressure 123/87 H 119/90 H 113/80 Blood Pressure Mean 99 99 91 Pulse Ox 98 100 97 Oxygen Delivery Method Room Air Room Air 10/08/24 21:00 10/08/24 22:00 10/08/24 23:00 Temperature Temperature Source Pulse Rate 135 H 115 H 115 H Respiratory Rate 21 H 20 H 15 Blood Pressure 111/84 H 104/80 113/79 Blood Pressure Mean 93 88 90 Pulse Ox 98 96 99 Oxygen Delivery Method Room Air Room Air Room Air Weight Weight: 167 lb 12.8 oz Body Mass Index (BMI) 27.1 Physical Exam Const alert, oriented x3 and average body habitus Constitutional Narrative: Moderate distress noted. General Appearance: cooperative HEENT normocephalic, head/scalp atraumatic, hearing grossly normal bilaterally and moist oral mucous membranes Eyes PERRL, EOMs intact bilaterally and conjunctivae normal Neck no lymphadenopathy, supple and no JVD Resp normal respiratory effort, no retractions, no use of accessory muscles and clear to auscultation bilaterally Cardio regular rate and regular rhythm Cardio Narrative: (more content not included)... Normal [facility] Hematocrit Auto (Bld) [Volum e fraction]Ordered By: ED PROVIDER on 10-08-2024 Hematocrit (Bld) [Volume fraction] 49.6 % 40-54 [facility] Hemoglobin measurementOrdere d By: ED PROVIDER on 10-08-2024 Hemoglobin (Bld) [Mass/Vol] 16.5 g/dL 13.0-16.5 [facility] Immature granulocytes/100 WB C Auto (Bld)Ordered By: ED PROVIDER on 10-08-2024 Immature granulocytes/100 WBC (Bld) 0.400 % 0.0-0.9 [facility] Comment on above: IG% - Immature Granu locytes (promyelocytes, myelocytes and metamyelocytes) > 1% indicates that a LEFT SHIFT is Present. Ketones Test strip Ql (U)Ord ered By: ED PROVIDER on 10-08-2024 Ketones Ql (U) 5 mg/dl High Negative [facility] L499.0042on 10-08-2024 Trop T High Sen 13 ng/L Normal <=22 [facility] Comment on above: Performed By: #### L 499.0042 #### [facility] [address] [place], [address] L501.4021on 10-08-2024 Trop T High Sen 12 ng/L Normal <=22 [facility] Comment on above: Performed By: #### L 501.9520, L501.4021 #### [facility] [address] [place], [address] Laboratory - Chemistry and C hemistry - challengeOrdered By: Janessa De La Torre on 10-08-2024 AST [Catalytic activity/Vol] 24 U/L <38 [facility] Lactic acid measurementOrder ed By: Janessa De La Torre on 10-08-2024 Lactate [Moles/Vol] 1.3 mmol/L 0.0-2.0 [facility] Comment on above: Order Comment: Y Performed By: #### L 503.6005 #### [facility] [address] [place], [address] MCV (mean corpuscular volume ) determinationOrdered By: ED PROVIDER on 10-08-2024 MCV (RBC) [Entitic vol] 89.9 fL 80-94 [facility] Mean corpuscular hemoglobin (MCH) determinationOrdered By: ED PROVIDER on 10-08-2024 MCH (RBC) [Entitic mass] 29.9 pg 27.0-32.0 [facility] Mean corpuscular hemoglobin concentration (MCHC) determinationOrdered By: ED PROVIDER on 10-08-2024 MCHC (RBC) [Mass/Vol] 33.3 g/dL 32-36 [facility] Mean platelet volume determi nationOrdered By: ED PROVIDER on 10-08-2024 Platelet mean volume (Bld) [Entitic vol] 11.3 fL 6.2-12.0 [facility] Microscopic analysis of urin e for red blood cells (RBC)Ordered By: ED PROVIDER on 10-08-2024 Microscopic analysis of urine for red blood cells (RBC) 5-10 SEEN /hpf 0-5 [facility] Monocyte percentageOrdered B y: ED PROVIDER on 10-08-2024 Monocytes/100 WBC (Bld) 8.0 % 0-10 [facility] Mucus LM Ql (Urine sed)Order ed By: ED PROVIDER on 10-08-2024 Mucus Ql (Urine sed) 0 SEEN /hpf [facility] Neutrophil percentageOrdered By: ED PROVIDER on 10-08-2024 Neutrophils/100 WBC (Bld) 81.9 % High 47-70 [facility] Nitrite Test strip Ql (U)Ord ered By: ED PROVIDER on 10-08-2024 Nitrite Ql (U) Negative Negative [facility] Nucleated red blood cell per centageOrdered By: ED PROVIDER on 10-08-2024 Nucleated RBC/100 WBC (Bld) [Ratio] 0 % 0-5 [facility] Platelet countOrdered By: ED PROVIDER on 10-08-2024 Platelets (Bld) [#/Vol] 280 10*3/uL 150-450 [facility] Potassium measurement (mass/ volume)Ordered By: Janessa De La Torre on 10-08-2024 Potassium (Unsp spec) [Mass/Vol] 4.3 mmol/L 3.3-5.1 [facility] Protein Test strip Ql (U)Ord ered By: ED PROVIDER on 10-08-2024 Protein Ql (U) 30 mg/dl High Negative [facility] RBC Auto (Bld) [#/Vol]Ordere d By: ED PROVIDER on 10-08-2024 RBC (Bld) [#/Vol] 5.52 10*6/uL 4.6-6.2 [facility] Serum creatinine measurement (mass/volume)Ordered By: Janessa De La Torre on 10-08-2024 Creatinine [Mass/Vol] 0.80 mg/dL 0.70-1.20 [facility] Serum globulin measurementOr dered By: Janessa De La Torre on 10-08-2024 Globulin (S) [Mass/Vol] 3.1 g/dL 2.2-4.2 [facility] Serum glucose measurement (m ass/volume)Ordered By: Janessa De La Torre on 10-08-2024 Glucose [Mass/Vol] 118 mg/dL High 70-99 [facility] Serum or plasma alanine mccormack otransferase (ALT) measurementOrdered By: Janessa De La Torre on 10-08-2024 ALT [Catalytic activity/Vol] 25 U/L <47 [facility] Serum or plasma albumin shyann urement (mass/volume)Ordered By: Janessa De La Torre on 10-08-2024 Albumin [Mass/Vol] 4.1 g/dL 3.4-4.8 [facility] Serum or plasma albumin/glob ulin mass ratioOrdered By: Janessa De La Torre on 10-08-2024 Albumin/Globulin [Mass ratio] 1.3 {ratio} 0.9-2.4 [facility] Serum or plasma alkaline nicolas sphatase measurementOrdered By: Janessa De La Torre on 10-08-2024 ALP [Catalytic activity/Vol] 99 U/L 40-129 [facility] Serum or plasma calcium shyann urement (mass/volume)Ordered By: Janessa De La Torre on 10-08-2024 Calcium [Mass/Vol] 9.4 mg/dL 7.6-11.0 [facility] Serum or plasma urea nitroge n measurement (mass/volume)Ordered By: Janessa De La Torre on 10-08-2024 Urea nitrogen [Mass/Vol] 20 mg/dL High 4-19 [facility] Sodium levelOrdered By: Paul De La Torre on 10-08-2024 Sodium [Moles/Vol] 143 mmol/L 133-145 [facility] Squamous epithelial cells de tection in urine sediment by light microscopyOrdered By: ED PROVIDER on 10-08-2024 Epithelial cells.squamous LM Ql (Urine sed) 0-5 SEEN /hpf 0-5 [facility] TSH DL <= 0.005 mIU/L QnOrde red By: Janessa De La Torre on 10-08-2024 TSH Qn 2.930 uIU/mL 0.300-4.200 [facility] Testicular with Arterial Max won 10-08-2024 Testicular with Arterial Flow [facility] [address] [place], [place] [address] Testicular with Arterial Flow MR#: [id number] Acct: [id number] Name: STACIE BARRAZA Rep #: [id number] : 1955 M 68 From: Sharifa Jaimes nd, MD PCP: Dr. Kilo Lewis MD Status: REG ER Study: Testicular with Arterial Flow Date of Exam: Exam# [id number] Ordering Dr: Stacey Devine PROCEDURE: TESTICULAR WITH ARTERIAL FLOW 10/08/2024 REASON FOR EXAM: R TESTICULAR PAIN TECHNIQUE: Roberts scale imaging and color and spectral Doppler analysis of the scrotal contents. COMPARISON: None. FINDINGS: RIGHT testicle: 4.1 x 3.3 x 2.3 cm Homogeneous echotexture. No intratesticular mass. Right epididymis: Mild asymmetric enlargement of the right epididymis with increased vascularity. LEFT testicle: 4 point x 3.3 x 2.4 cm Homogeneous echotexture. No intratesticular mass. Left epididymis: Unremarkable Other findings: No hydrocele or large varicocele. DOPPLER FINDINGS: Symmetric color doppler blood flow signal at both testes. Normal arterial inflow and venous outflow waveforms at both testes. US/Testicular with Arterial Flow IMPRESSION: No evidence of testicular torsion. Asymmetric enlargement of the right epididymis with hypervascularity, which may represent epididymitis. Clinical and laboratory correlation recommended. Reading Location: [id number] CC: Dr. Kilo Lewis MD; KIZZY Amos [employer] Net Developer: Signed Normal [facility] Thyroid Stim Hormone (TSH)on 10-08-2024 TSH 2.930 uIU/mL Normal 0.300-4.200 [facility] Comment on above: Performed By: #### L 501.9520, L501.4021 #### [facility] [address] [facility] [address] Total proteinOrdered By: Lottie De La Torre on 10-08-2024 Protein [Mass/Vol] 7.3 g/dL 5.9-8.4 [facility] Troponin T.cardiac [Mass/vol ume] in Serum or Plasma by High sensitivity methodOrdered By: Janessa De La Torre on 10-08-2024 Troponin T.cardiac High sensitivity method [Mass/Vol] 13 ng/L <22 [facility] Troponin T.cardiac High sensitivity method [Mass/Vol] 12 ng/L <22 [facility] Urinalysis, Completeon 10-08 BACTERIA 4+ /hpf Normal None Seen [facility] Comment on above: Order Comment: CLEAN CATCH Performed By: #### L 500.2500, L100.0100 #### [facility] [address] [place], [address] EPI,RENAL 0-5 SEEN Normal 0-5 [facility] Comment on above: Order Comment: CLEAN CATCH Performed By: #### L 500.2500, L100.0100 #### [facility] [address] [place], [address] EPI,SQUAMOUS 0-5 SEEN Normal 0-5 [facility] Comment on above: Order Comment: CLEAN CATCH Performed By: #### L 500.2500, L100.0100 #### [facility] [address] [place], [address] RBC 5-10 SEEN Normal 0-5 [facility] Comment on above: Order Comment: CLEAN CATCH Performed By: #### L 500.2500, L100.0100 #### [facility] [address] [place], [address] WBC 25-50 SEEN Normal 0-5 [facility] Comment on above: Order Comment: CLEAN CATCH Performed By: #### L 500.2500, L100.0100 #### [facility] [address] [place], [address] Mucus Ql (Urine sed) 0 SEEN Normal [facility] Comment on above: Order Comment: CLEAN CATCH Performed By: #### L 500.2500, L100.0100 #### [facility] [address] [place], [address] Urine clarityOrdered By: ED PROVIDER on 10-08-2024 Clarity (U) Sl. Cloudy Clear [facility] Urine color determinationOrd ered By: ED PROVIDER on 10-08-2024 Color (U) Yellow Yellow [facility] Urine glucose detectionOrder ed By: ED PROVIDER on 10-08-2024 Glucose Ql (U) Normal mg/dl Normal [facility] Urine leukocyte esterase det ection by dipstickOrdered By: ED PROVIDER on 10-08-2024 Leukocyte esterase Test strip Ql (U) 500 /ul High Negative [facility] Urine pHOrdered By: ED PROVI ROSY on 10-08-2024 pH (U) 6.0 [pH] 5.0 - 8.0 [facility] Urine sediment bacteria coun t by microscopy (number/high power field)Ordered By: ED PROVIDER on 10-08-2024 Bacteria LM.HPF (Urine sed) [#/Area] 4 /[HPF] None Seen [facility] Urine sediment renal epithel ial cell count by microscopy (number/high power field)Ordered By: ED PROVIDER on 10-08-2024 Epithelial cells.renal LM.HPF (Urine sed) [#/Area] 0 /[HPF] 0-5 [facility] Urine specific gravity measu rementOrdered By: ED PROVIDER on 10-08-2024 Specific gravity (U) [Rel density] 1.020 1.002-1.030 [facility] Urine urobilinogen measureme ntOrdered By: ED PROVIDER on 10-08-2024 Urobilinogen Ql (U) Normal mg/dl Normal [facility] White blood cell (WBC) count Ordered By: ED PROVIDER on 10-08-2024 WBC (Bld) [#/Vol] 16.9 10*3/uL High 4.4-11.0 [facility] White blood cell countOrdere d By: ED PROVIDER on 10-08-2024 White blood cell count 25-50 SEEN /hpf 0-5 [facility] Basophil percentageOrdered B y: Reinier Lewis on 11-16-2022 Chloride [Moles/Vol] 108 mmol/L 98-107 [facility] Cholesterol [Mass/Vol] 171 mg/dL <200 [facility] Comment on above: <200 mg/dL Desirable 200-240 mg/dL Borderline >240 mg/dL High Risk Glucose [Mass/Vol] 98 mg/dL 74-106 [facility] Potassium [Moles/Vol] 4.2 mmol/L 3.5-5.1 [facility] Sodium [Moles/Vol] 139 mmol/L 136-145 [facility] Triglyceride [Mass/Vol] 101 mg/dL <199 [facility] Comment on above: The drugs N-Acetylcy steine and Metamizole may falsely depress this assay.Serum Triglycerides Reference Interval Normal <150 mg/dL Borderline high 150 - 199 mg/dL High 200 - 499 mg/dL Very High > or = 500 mg/dL Laboratory - Chemistry and C hemistry - challengeOrdered By: Reinier Lewis on 11-16-2022 CO2 [Moles/Vol] 27.0 mmol/L 21.0-32.0 [facility] Urea nitrogen/Creatinine [Mass ratio] 33.0 mg/mg 10-20 [facility] No Panel InformationOrdered By: Reinier Lewis on 11-16-2022 Estimated GFR (MDRD) Amer 162 mL/min >60 [facility] Comment on above: GFR Calc Estimated GFR (MDRD) Non-Af Amer 134 mL/min >60 [facility] Comment on above: Non- GFR Calc Prostate Specific Antigen Screen 2.53 ng/mL 0.00-4.00 [facility] Comment on above: This test was perfor med using the TPSA assay method for theEventVue chemistry system. Values obtained with differentassay methods cannot be used interchangably.When changing PSA assays in the course of monitoring apatient, additional sequential testing should be carriedout to confirm baseline values. Serum or plasma calcium shyann urement (mass/volume)Ordered By: Reinier Lewis on 11-16-2022 Calcium [Mass/Vol] 9.5 mg/dL 8.5-10.1 [facility] Serum or plasma cholesterol in HDL measurement (mass/volume)Ordered By: Reinier Lewis on 11-16-2022 Cholesterol in HDL [Mass/Vol] 38 mg/dL >40 [facility] Comment on above: The drugs N-Acetylcy steine and Metamizole may falsely depress this assay. Reference Range HDL <40 mg/dL Low HDL Cholesterol HDL >or= 60 mg/dL High HDL Cholesterol Serum or plasma cholesterol in VLDL measurement (mass/volume)Ordered By: Reinier Lewis on 11-16-2022 Cholesterol in VLDL [Mass/Vol] 20 mg/dL 5-40 [facility] Serum or plasma creatinine m easurement (mass/volume)Ordered By: Reinier Lewis on 11-16-2022 Creatinine [Mass/Vol] 0.64 mg/dL 0.70-1.30 [facility] Comment on above: The validity of the calculated GFR & GFRAA in patients over 70 years has not been determined. Clinical correlation is essential. Serum or plasma low density lipoprotein (LDL) cholesterol measurement (mass/volume)Ordered By: Reinier Lewis on 11-16-2022 Cholesterol in LDL [Mass/Vol] 113 mg/dL 0-130 [facility] Serum or plasma urea nitroge n measurement (mass/volume)Ordered By: Reinier Lewis on 11-16-2022 Urea nitrogen [Mass/Vol] 21 mg/dL 7-18 [facility] Thin prep Papanicolaou smear with manual screeningOrdered By: Reinier Lewis on 11-16-2022 Thin prep Papanicolaou smear with manual screening 4 5-15 [facility] Vital Signs Date Time Vital Sign Value Performing Clinician Brittanii jamiey 2024 06:47-0400 Body mass index (BMI) [Ratio] 24.5 kg/m2 Dr. Kilo Lewis MD Work Phone: [facility] 2024 06:47-0400 Body weight 73.[address] Kilo Lewis MD Work Phone: [facility] 2024 06:47-0400 Diastolic blood pressure 69 mm[Hg] Dr. Kilo Lewis MD Work Phone: [facility] 2024 06:47-0400 Heart rate 79 /min Dr. Kilo Lewis MD Work Phone: [facility] 2024 06:47-0400 Respiratory rate 18 /min Dr. Kilo Lewis MD Work Phone: [facility] 2024 06:47-0400 SaO2% (BldA) [Mass fraction] 99 % Dr. Kilo Lewis MD Work Phone: [facility] 2024 06:47-0400 Systolic blood pressure 104 mm[Hg] Dr. Kilo Lewis MD Work Phone: [facility] 10-23-2024 07:03-0400 Body height 172.[address] Kilo Lewis MD Work Phone: [facility] 10-23-2024 07:03-0400 Body mass index (BMI) [Ratio] 24.1 kg/m2 Dr. Kilo Lewis MD Work Phone: [facility] 10-23-2024 07:03-0400 Body weight 72.[address] Kilo Lewis MD Work Phone: [facility] 10-23-2024 07:03-0400 Diastolic blood pressure 63 mm[Hg] Dr. Kilo Lewis MD Work Phone: [facility] 10-23-2024 07:03-0400 Heart rate 84 /min Dr. Kilo Lewis MD Work Phone: 8(400)657-055853 [place] [address] 10-23-2024 07:03-0400 Respiratory rate 18 /min Dr. Kilo Lewis MD Work Phone: 4(673)829-718767 [place] [address] 10-23-2024 07:03-0400 SaO2% (BldA) [Mass fraction] 99 % Dr. Kilo Lewis MD Work Phone: 0(725)750-549353 [place] [address] 10-23-2024 07:03-0400 Systolic blood pressure 104 mm[Hg] Dr. Kilo Lewis MD Work Phone: 9(554)342-026767 [place] [address] 10-18-2024 13:30-0400 Body temperature 97.7 [degF] Dr. Kilo Lewis MD Work Phone: 3(050)754-023567 [place] [address] 10-18-2024 13:30-0400 Diastolic blood pressure 85 mm[Hg] Dr. Kilo Lewis MD Work Phone: 3(112)060-588667 [place] [address] 10-18-2024 13:30-0400 Heart rate 69 /min Dr. Kilo Lewis MD Work Phone: 2(242)114-529567 [place] [address] 10-18-2024 13:30-0400 Respiratory rate 16 /min Dr. Kilo Lewis MD Work Phone: 6(988)655-468467 [place] [address] 10-18-2024 13:30-0400 SaO2% (BldA) [Mass fraction] 96 % Dr. Kilo Lewis MD Work Phone: 5(851)079-063553 [place] [address] 10-18-2024 13:30-0400 Systolic blood pressure 116 mm[Hg] Dr. Kilo Lewis MD Work Phone: 3(433)001-823867 [place] [address] 10-18-2024 06:00-0400 Body mass index (BMI) [Ratio] 23.4 kg/m2 Dr. Kilo Lewis MD Work Phone: 7(318)300-442367 [place] [address] 10-18-2024 06:00-0400 Body weight 69.[address] Kilo Lewis MD Work Phone: 1(385)891-195853 [place] [address] 10-17-2024 14:45-0400 Body height 172.[address] Kilo Lewis MD Work Phone: 3(338)813-950153 [place] [address] 10-09-2024 09:10-0400 Inhaled oxygen flow rate 2 L/min Dr. Kilo Lewis MD Work Phone: 2(931)063-042135 [address] 10-09-2024 01:00-0400 Diastolic blood pressure 75 mm[Hg] Dr. Kilo Lewis MD Work Phone: 6(049)636-358467 [place] [address] 10-09-2024 01:00-0400 Heart rate 91 /min Dr. Kilo Lewis MD Work Phone: 6(030)767-285667 [place] [address] 10-09-2024 01:00-0400 Respiratory rate 14 /min Dr. Kilo Lewis MD Work Phone: 9(636)149-475967 [place] [address] 10-09-2024 01:00-0400 SaO2% (BldA) [Mass fraction] 97 % Dr. Kilo Lewis MD Work Phone: 5(280)178-921867 [place] [address] 10-09-2024 01:00-0400 Systolic blood pressure 99 mm[Hg] Dr. Kilo Lewis MD Work Phone: 7(927)697-441967 [place] [address] 10-08-2024 23:49-0400 Body temperature 98 [degF] Dr. Kilo Lewis MD Work Phone: 2(037)628-128453 [place] [address] 10-08-2024 18:47-0400 Body height 167.[address] Kilo Lewis MD Work Phone: 9(167)971-550267 [place] [address] 10-08-2024 18:47-0400 Body mass index (BMI) [Ratio] 27.1 kg/m2 Dr. Kilo Lewis MD Work Phone: 4(184)685-017267 [place] [address] 10-08-2024 18:47-0400 Body weight 76.[address] Kilo Lewis MD Work Phone: 4(878)349-280053 [place] [address] Encounters Encounter Date Encounter Type Care Provider Facility Start: 2024 Patient encounter procedure Regla Morgan PA -Laboratory Work Phone: Start: 2024 ambulatory Regla DURAND Facility:[facility] Start: 2024 End: 2024 Patient encounter procedure Regla DURAND -[facility] Work Phone: Start: 2024 End: [address] Kilo Lewis MD Work Phone: [facility] Start: 11-29-2024 Non-patient / Non-visit Dr. Jayden LOBO -[facility] Start: 11-29-2024 End: 11-29-2024 Patient encounter procedure Trisha Colmenares PROTOTYPE MACHINIST-C -Cardiovascular Services Work Phone: Start: 11-29-2024 End: 11-29-2024 ambulatory Bhavesh Song Facility:[facility] Start: 10-23-2024 End: 10-23-2024 Patient encounter procedure Trisha Colmenares PROTOTYPE MACHINIST-C -[facility] Work Phone: Start: 10-23-2024 End: 10-23-[address] Kilo Lewis MD Work Phone: [facility] Work Phone: Start: 10-18-2024 Non-patient / Non-visit Dr. Chaitanya Kasper [facility] Work Phone: Start: 10-18-2024 Non-patient / Non-visit Dr. Michael Heard MD -[facility] Start: 10-17-2024 Non-patient / Non-visit Dr. Chaitanya Kasper [facility] Work Phone: Start: 10-16-2024 Non-patient / Non-visit Dr. Chaitanya Kasper [facility] Work Phone: Start: 10-15-2024 Non-patient / Non-visit Dr. Garrison Viveros MD -[facility] Work Phone: Start: 10-15-2024 Non-patient / Non-visit Dr. Jonas hauser MD [facility] Start: 10-14-2024 Non-patient / [facility] Start: 10-14-2024 Non-patient / Non-visit Dr. Garrison Viveros MD [facility] Work Phone: Start: 10-13-2024 Non-patient / Non-visit Dr. Jonas hauser MD [facility] Start: 10-13-2024 Non-patient / Non-visit Dr. Madison Lemus MD [facility] Work Phone: Start: 10-12-2024 Non-patient / Non-visit Dr. Madison Lemus MD [facility] Work Phone: Start: 10-11-2024 Non-patient / Non-visit Dr. Madison Lemus MD [facility] Work Phone: Start: 10-10-2024 Non-patient / Non-visit Dr. Jonas hauser MD [facility] Start: 10-09-2024 ambulatory [facility] Facility:[facility] Start: 10-09-2024 Non-patient / Non-visit Dr. Madison Lemus MD [facility] Work Phone: Start: 10-08-2024 ambulatory Michael Dixon ty:[facility] Start: 10-08-2024 End: 10-18-2024 Evaluation and management of inpatient Dr. Michael Reyna DO -Progressive Care Unit Work Phone: Start: 10-08-[address] Armando Lewis MD Work Phone: [facility] Work Phone: Start: 11-16-2022 End: 11-16-2022 ambulatory [facility] Work Phone: Start: 11-16-2022 End: 11-16-2022 Patient encounter procedure [facility]-Laboratory, [place] [facility] Procedures Date Procedure Procedure Detail Performing Clinician Start: 10-17-[address] Kilo Lewis MD Work Phone: Start: 10-10-[address] Otis Lewis MD Work Phone: Start: 10-10-[address] Otis Lewis MD Work Phone: Start: 10-09-2024 Serum inorganic phos phate measurement Dr. Kilo Lewis MD Work Phone: Start: 10-08-2024 Ultrasound of scrotu m with Doppler and color flow imaging Dr. Kilo Lewis MD Work Phone: Start: 10-08-2024 Urnls dip stick/tabl et reagent auto microscopy Dr. Kilo Lewis MD Work Phone: Start: 10-08-[address] Kilo Lewis MD Work Phone: Plan of Treatment Date Care Activity Detail Author Start: 2024 Evaluation of diagno stic study results [facility] Start: 10-23-2024 Evaluation of diagno the medical center study results [facility] Start: 10-18-2024 Patient discharge [facility] Start: 10-16-2024 [facility] Start: 10-14-2024 Care planning and pr oblem solving actions [facility] Start: 10-14-2024 [facility] Start: 10-13-2024 [facility] Start: 10-12-2024 [facility] Start: 10-10-2024 Care planning and pr oblem solving actions [facility] Start: 10-10-2024 Following clinical p athway protocol [facility] Start: 10-10-2024 Care planning and pr oblem solving actions [facility] Start: 10-10-2024 Care planning and pr oblem solving actions [facility] Start: 10-10-2024 [facility] Start: 10-09-2024 Referral to service [facility] Start: 10-09-2024 Referral to thread roller [facility] Start: 10-09-2024 Care planning and pr oblem solving actions [facility] Start: 10-09-2024 Care planning and pr oblem solving actions [facility] Start: 10-09-2024 Assessment of risk o f venous thromboembolism [facility] Start: 10-09-2024 Insertion of cathete r into peripheral vein [facility] Start: 10-09-2024 Measuring intake and output [facility] Start: 10-09-2024 Providing care accor ding to standard [facility] Start: 10-09-2024 Provision of activity privileges [facility] Start: 10-09-2024 Referral to service [facility] Start: 10-09-2024 [facility] Start: 10-09-2024 Following clinical p athway protocol [facility] Start: 10-08-2024 Admission procedure [facility] Start: 10-08-2024 Verification routine [facility] Start: 10-08-2024 Hospital admission, emergency, from emergency room, medical nature [facility] Start: 10-08-2024 [facility] Basic metabolic 2008 panel with ionized calcium - Serum or Plasma [facility] Patient referral [facility] Work Phone: [facility] Payers Date Payer Category Payer Medicare [id number] 2024 Self-pay 2024 Unknown [id number] Unknown ANTHEM [id number] Unknown [id number] Unknown [id number] 2.16.8 40.1.060031.3.579.2.462 Unknown [id number] 2.16.8 40.1.989724.3.579.2.462 Unknown [id number] 2.16.8 40.1.858466.3.579.2.462 Unknown [id number] 2.16.8 40.1.429168.3.579.2.462 Unknown [id number] 2.16.8 40.1.951089.3.579.2.462 Unknown [id number] 2.16.8 40.1.647418.3.579.2.462 Unknown [id number] 2.16.8 40.1.534205.3.579.2.462 Unknown [id number] 2.16.8 40.1.396038.3.579.2.462 Unknown [id number] 2.16.8 40.1.018015.3.579.2.462 Unknown [id number] 2.16.8 40.1.835586.3.579.2.462 Unknown [id number] 2.16.8 40.1.186131.3.579.2.462 Unknown [id number] 2.16.8 40.1.323311.3.579.2.462 Unknown [id number] 2.16.8 40.1.166119.3.579.2.462 Unknown [id number] 2.16.8 40.1.555887.3.579.2.462 Unknown [id number] 2.16.8 40.1.674190.3.579.2.462 Unknown [id number] 2.16.8 40.1.607799.3.579.2.462 Unknown [id number] 2.16.8 40.1.029055.3.579.2.462 Unknown [id number] 2.16.8 40.1.435343.3.579.2.462 Unknown [id number] 2.16.8 40.1.014318.3.579.2.462 Unknown [id number] 2.16.8 40.1.277086.3.579.2.462 Unknown [id number] 2.16.8 40.1.974374.3.579.2.462 Unknown [id number] 2.16.8 40.1.500070.3.579.2.462 Unknown [id number] 2.16.8 40.1.461851.3.579.2.462 Unknown [id number] 2.16.8 40.1.712648.3.579.2.462 Unknown [id number] 2.16.8 40.1.835835.3.579.2.462 Social History Date Type Detail Facility Start: 03-05-2015 Tobacco smoking stat [facility] Unknown if ever smoked [facility] Start: 1955 Sex Assigned At Male [facility] Start: 10-09-2024 Tobacco smoking stat [facility] Never smoked tobacco (finding) [facility] Goals Date Patient Goal Desired Activity /State Functional Status Date Assessment Result Facility 10-18-2024 Functional status Stand with Urinal [facility] Work Phone: Mental Status Date Assessment Result Facility 10-18-2024 Cognitive function Voice/Name [facility] Work Phone: Clinical Notes 10-08-2024 to 10-18-2024 Note Date & Type Note Facility 10-18-2024 Discharge summary Note Date/Time October 18, 2024 12:50pm [facility] Medical Records Department [address] [place] [address] Discharge Summary 10/18/24 1240 MR#: [id number] Acct: [id number] Name: STACIE BARRAZA Rep #:[id number] : 1955 68 From: Chaitanya Saucedo DO PCP: Dr. Kilo Lewis MD Status :ADM IN Location: [place] [id number] Providers Date of Admission: 10/08/24 Primary Care Physician: Dr. Kilo Lewis MD Consultations 10/09/24 15:42 Consult: Cardiology Routine Consulting Provider: Jonas Cedeno Reason for Consult: reduced EF EMERGENT Consult: No MD Notified: Yes Date Notified: 10/09/24 Time Notified: 15:42 Method of Notification: Verbal Reason For Visit: UTI, RIGHT EPIDIDYMITIS AND NEW-ONSET ATRIAL Diagnosis Discharge Diagnosis (1) Severe left ventricular systolic dysfunction (LVSD): Status: Acute Code(s): I51.89 - Other ill-defined heart diseases Plan: EF 10-15 % on echo on metoprolol, furosemide, spironolactone, sacubitril/valsartan Cardiology not recommending LifeVest at this time given his Aflutter and risk for inappropriate shocks. (2) Atrial flutter with rapid ventricular response: Status: Acute Code(s): I48.92 - Unspecified atrial flutter Plan: metoprolol tartrate, amiodarone 400 BID (started today) for 5 days, then 200 BID. anticoagulated on apixaban DW osbaldo Ness for discharge. Further cardiac recommedations: At discharge the patient should follow-up with the [facility] in 7 to 10 days with an ECG in the office. Should then be evaluated by advanced practitioner in 4 weeks and at that time scheduled for limited echocardiogram. We would then plantentatively on a direct-current cardioversion in the ambulatory setting at 6 to 7 weeks if he remains in atrial flutter after clearing his infectious process. Plan Epididymitis: overall improving. DC with Augmentin. Medications at Discharge Home Medications multivitamin with folic acid 400 mcg tablet (Thera) 1 tab PO DAILY supplement 03/05/15 amiodarone 200 mg tablet 200 mg PO BID #60 tabs 10/18/24 amoxicillin 875 mg-potassium clavulanate 125 mg tablet 1 tab PO Q12H #10 tabs 10/18/24 apixaban 5 mg tablet (Eliquis) 5 mg PO BID #60 tabs 10/18/24 furosemide 20 mg tablet 20 mg PO DAILY #30 tabs 10/18/24 metoprolol tartrate 25 mg tablet 25 mg PO BID #60 tabs 10/18/24 sacubitril 24 mg-valsartan 26 mg tablet (Entresto) 1 tab PO BID #60 tabs 10/18/24 spironolactone 25 mg tablet 25 mg PO DAILY #30 tabs 10/18/24 Hospital Course Operations None Procedures 2-D Echocardiogram Summary of Care Provided Minutes Spent on Discharge: 35 Weight / BMI Weight Weight: 69.882 kg Body Mass Index (BMI) 23.4 ABG / Lab / Microbiology Data 10/17/24 04:46 10/17/24 04:46 Microbiology: Microbiology 10/10/24 08:40 Blood Culture (Wb) - Right Forearm Blood Culture - Final No growth in 5 days. 10/10/24 08:33 Blood Culture (Wb) - Anticubital Right Blood Culture - Final No growth in 5 days. 10/10/24 09:48 Urine, Clean Catch Urine Culture - Final Staphylococcus aureus D/C Instructions Discharge Diet: 2000 mg Sodium Diet and - (1.5 liters fluid per day maximum. ) DC O2, CPAP, BIPAP Needs Home O2 Discharge instructions: No Meaningful Use Info Meaningful Use Meaningful Use Diagnoses (Choose all that apply): CHF CHF BECCA/ARB ordered at discharge?: Yes Documented LVEF (%): 20 Ischemic Stroke Statin Dosing Therapy Reference: STATIN DOSE THERAPY REFERENCE: * Patients > 75 years receive moderate or high dose statin therapy. * Patients 75 years or YOUNGER should receive HIGH intensity statin dose unless contraindicated. You will be required to document reason for non-treatment if statin daily dose does not meet guidelines. HIGH DOSE STATIN THERAPY DAILY Atorvastatin > than or = to 40 mg Rosuvastatin > than or = to 20 mg Amlodipine + Atorvastatin > than or = to 2.5/40 mg Ezetimibe + Simvastatin 10/80 mg Simvastatin 80mg Discharge Plan Admission Admit Date/Time: 10/08/24 23:59 Primary Reason for Your Visit: epididymitis. Aflutter. Attending Provider: Chaitanya Saucedo Primary Care Provider: Kilo Lewis Consulting Providers: Michael Reyna; Jonas Cedeno; Madison Lemus; Garrison Viveros Instructions Additional Instructions / Restrictions: You developed epididymitis (the scrotal infection). Be sure to compete you antibioitcs (Augmentin [amoxicillin/clavulonic acid]) as instructed. Addditionally, you developed Atrial flutter. You will be on metoprolol and amiodarone and blood thinners with Eliquis (apixaban) to prevent a stroke. Please follow up with cardiology in 7-10 days and again in 1 month. If redness and pain of your scrotum gets worse, notify your physician or return to the emergency room. Discharge Orders/Prescriptions Prescriptions: New amiodarone 200 mg Tablet 200 mg PO BID Qty: 60 0RF spironolactone 25 mg Tablet 25 mg PO DAILY Qty: 30 0RF furosemide 20 mg Tablet 20 mg PO DAILY Qty: 30 0RF metoprolol tartrate 25 mg Tablet 25 mg PO BID Qty: 60 0RF Eliquis 5 mg Tablet 5 mg PO BID Qty: 60 0RF Entresto 24-26 mg Tablet 1 tab PO BID Qty: 60 0RF amoxicillin-pot clavulanate 875-125 mg tablet 1 tab PO Q12H Qty: 10 0RF Continued multivitamin with folic acid [Thera] 1 TABLET tablet 1 tab PO DAILY Referrals / Follow Up: [facility] [Provider Group] - Within 1 Week Kilo Lewis MD [Primary Care Provider] - Within 2 Weeks Disposition Disposition (needs filled in before D/C Order can be placed): Home, Self Care Charges/Coding Visit Charges Inpatient E&M: 98811 Disch Hosp >30min 10/18/24 1250 <Electronically signed by Chaitanya Saucedo DO> Cosigner Signature (if applicable): CC: Dr. Kilo Lewis MD; Dr. Chaitanya Saucedo DO~ Signed [facility] Work Phone: 1(183) 621-609206-04-2025 Discharge summary [facility] Medical Records Department [address] [place] [address] Discharge Summary 10/18/24 1240 MR#: [id number] Acct: [id number] Name: STACIE BARRAZA Rep #:[id number] : 1955 68 From: Chaitanya Saucedo DO PCP: Dr. Kilo Lewis MD Status :ADM IN [facility] Providers Date of Admission: 10/08/24 Primary Care Physician: Dr. Kilo Lewis MD Consultations 10/09/24 15:42 Consult: Cardiology Routine Consulting Provider: Jonas Cedeno Reason for Consult: reduced EF EMERGENT Consult: No MD Notified: Yes Date Notified: 10/09/24 Time Notified: 15:42 Method of Notification: Verbal Reason For Visit: UTI, RIGHT EPIDIDYMITIS AND NEW-ONSET ATRIAL Diagnosis Discharge Diagnosis (1) Severe left ventricular systolic dysfunction (LVSD): Status: Acute Code(s): I51.89 - Other ill-defined heart diseases Plan: EF 10-15 % on echo on metoprolol, furosemide, spironolactone, sacubitril/valsartan Cardiology not recommending LifeVest at this time given his Aflutter and risk for inappropriate shocks. (2) Atrial flutter with rapid ventricular response: Status: Acute Code(s): I48.92 - Unspecified atrial flutter Plan: metoprolol tartrate, amiodarone 400 BID (started today) for 5 days, then 200 BID. anticoagulated on apixaban DW osbaldo Ness for discharge. Further cardiac recommedations: At discharge the patient should follow-up with the [facility] in 7 to 10 days with an ECG in the office. Should then be evaluated by advanced practitioner in 4 weeks and at that time scheduled for limited echocardiogram. We would then plantentatively on a direct-current cardioversion in the ambulatory setting at 6 to 7 weeks if he remains in atrial flutter after clearing his infectious process. Plan Epididymitis: overall improving. DC with Augmentin. Medications at Discharge Home Medications multivitamin with folic acid 400 mcg tablet (Thera) 1 tab PO DAILY supplement 03/05/15 amiodarone 200 mg tablet 200 mg PO BID #60 tabs 10/18/24 amoxicillin 875 mg-potassium clavulanate 125 mg tablet 1 tab PO Q12H #10 tabs 10/18/24 apixaban 5 mg tablet (Eliquis) 5 mg PO BID #60 tabs 10/18/24 furosemide 20 mg tablet 20 mg PO DAILY #30 tabs 10/18/24 metoprolol tartrate 25 mg tablet 25 mg PO BID #60 tabs 10/18/24 sacubitril 24 mg-valsartan 26 mg tablet (Entresto) 1 tab PO BID #60 tabs 10/18/24 spironolactone 25 mg tablet 25 mg PO DAILY #30 tabs 10/18/24 Hospital Course Operations None Procedures 2-D Echocardiogram Summary of Care Provided Minutes Spent on Discharge: 35 Weight / BMI Weight Weight: 69.882 kg Body Mass Index (BMI) 23.4 ABG / Lab / Microbiology Data 10/17/24 04:46 10/17/24 04:46 Microbiology: Microbiology 10/10/24 08:40 Blood Culture (Wb) - Right Forearm Blood Culture - Final No growth in 5 days. 10/10/24 08:33 Blood Culture (Wb) - Anticubital Right Blood Culture - Final No growth in 5 days. 10/10/24 09:48 Urine, Clean Catch Urine Culture - Final Staphylococcus aureus D/C Instructions Discharge Diet: 2000 mg Sodium Diet and - (1.5 liters fluid per day maximum. ) DC O2, CPAP, BIPAP Needs Home O2 Discharge instructions: No Meaningful Use Info Meaningful Use Meaningful Use Diagnoses (Choose all that apply): CHF CHF BECCA/ARB ordered at discharge?: Yes Documented LVEF (%): 20 Ischemic Stroke Statin Dosing Therapy Reference: STATIN DOSE THERAPY REFERENCE: * Patients > 75 years receive moderate or high dose statin therapy. * Patients 75 years or YOUNGER should receive HIGH intensity statin dose unless contraindicated. You will be required to document reason for non-treatment if statin daily dose does not meet guidelines. HIGH DOSE STATIN THERAPY DAILY Atorvastatin > than or = to 40 mg Rosuvastatin > than or = to 20 mg Amlodipine + Atorvastatin > than or = to 2.5/40 mg Ezetimibe + Simvastatin 10/80 mg Simvastatin 80mg Discharge Plan Admission Admit Date/Time: 10/08/24 23:59 Primary Reason for Your Visit: epididymitis. Aflutter. Attending Provider: Chaitanya Saucedo Primary Care Provider: Kilo Lewis Consulting Providers: Michael Reyna; Jonas Cedeno; Madison Lemus; Garrison Viveros Instructions Additional Instructions / Restrictions: You developed epididymitis (the scrotal infection). Be sure to compete you antibioitcs (Augmentin [amoxicillin/clavulonic acid]) as instructed. Addditionally, you developed Atrial flutter. You will be on metoprolol and amiodarone and blood thinners with Eliquis (apixaban) to prevent a stroke. Please follow up with cardiology in 7-10 days and again in 1 month. If redness and pain of your scrotum gets worse, notify your physician or return to the emergency room. Discharge Orders/Prescriptions Prescriptions: New amiodarone 200 mg Tablet 200 mg PO BID Qty: 60 0RF spironolactone 25 mg Tablet 25 mg PO DAILY Qty: 30 0RF furosemide 20 mg Tablet 20 mg PO DAILY Qty: 30 0RF metoprolol tartrate 25 mg Tablet 25 mg PO BID Qty: 60 0RF Eliquis 5 mg Tablet 5 mg PO BID Qty: 60 0RF Entresto 24-26 mg Tablet 1 tab PO BID Qty: 60 0RF amoxicillin-pot clavulanate 875-125 mg tablet 1 tab PO Q12H Qty: 10 0RF Continued multivitamin with folic acid [Thera] 1 TABLET tablet 1 tab PO DAILY Referrals / Follow Up: [facility] [Provider Group] - Within 1 Week Kilo Lewis MD [Primary Care Provider] - Within 2 Weeks Disposition Disposition (needs filled in before D/C Order can be placed): Home, Self Care Charges/Coding Visit Charges Inpatient E&M: 07898 Disch Hosp >30min 10/18/24 1250 Cosigner Signature (if applicable): CC: Dr. Kilo Lewis MD; Dr. Chaitanya Saucedo DO~ Signed [facility]06-04-2025 [facility] Medical Records Department [address] [place] [address] Discharge Summary 10/18/24 1240 MR#: [id number] Acct: [id number] Name: STACIE BARRAZA Rep #: [id number] : 1955 68 From: Chaitanya Saucedo DO PCP: Dr. Kilo Lewis MD Status:ADM IN Location: [place] [id number] Providers Date of Admission: 10/08/24 Primary Care Physician: Dr. Kilo Lewis MD Consultations 10/09/24 15:42 Consult: Cardiology Routine Consulting Provider: Jonas Cedeno Reason for Consult: reduced EF EMERGENT Consult: No MD Notified: Yes Date Notified: 10/09/24 Time Notified: 15:42 Method of Notification: Verbal Reason For Visit: UTI, RIGHT EPIDIDYMITIS AND NEW-ONSET ATRIAL Diagnosis Discharge Diagnosis (1) Severe left ventricular systolic dysfunction (LVSD): Status: Acute Code(s): I51.89 - Other ill-defined heart diseases Plan: EF 10-15 % on echo on metoprolol, furosemide, spironolactone, sacubitril/valsartan Cardiology not recommending LifeVest at this time given his Aflutter and risk for inappropriate shocks. (2) Atrial flutter with rapid ventricular response: Status: Acute Code(s): I48.92 - Unspecified atrial flutter Plan: metoprolol tartrate, amiodarone 400 BID (started today) for 5 days, then 200 BID. anticoagulated on apixaban DW osbaldo Ness for discharge. Further cardiac recommedations: At discharge the patient should follow-up with the [facility] in 7 to 10 days with an ECG in the office. Should then be evaluated by advanced practitioner in 4 weeks and at that time scheduled for limited echocardiogram. We would then plan tentatively on a direct-current cardioversion in the ambulatory setting at 6 to 7 weeks if he remains in atrial flutter after clearing his infectious process. Plan Epididymitis: overall improving. DC with Augmentin. Medications at Discharge Home Medications multivitamin with folic acid 400 mcg tablet (Thera) 1 tab PO DAILY supplement 03/05/15 amiodarone 200 mg tablet 200 mg PO BID #60 tabs 10/18/24 amoxicillin 875 mg-potassium clavulanate 125 mg tablet 1 tab PO Q12H #10 tabs 10/18/24 apixaban 5 mg tablet (Eliquis) 5 mg PO BID #60 tabs 10/18/24 furosemide 20 mg tablet 20 mg PO DAILY #30 tabs 10/18/24 metoprolol tartrate 25 mg tablet 25 mg PO BID #60 tabs 10/18/24 sacubitril 24 mg-valsartan 26 mg tablet (Entresto) 1 tab PO BID #60 tabs 10/18/24 spironolactone 25 mg tablet 25 mg PO DAILY #30 tabs 10/18/24 Hospital Course Operations None Procedures 2-D Echocardiogram Summary of Care Provided Minutes Spent on Discharge: 35 Weight / BMI Weight Weight: 69.882 kg Body Mass Index (BMI) 23.4 ABG / Lab / Microbiology Data 10/17/24 04:46 10/17/24 04:46 Microbiology: Microbiology 10/10/24 08:40 Blood Culture (Wb) - Right Forearm Blood Culture - Final No growth in 5 days. 10/10/24 08:33 Blood Culture (Wb) - Anticubital Right Blood Culture - Final No growth in 5 days. 10/10/24 09:48 Urine, Clean Catch Urine Culture - Final Staphylococcus aureus D/C Instructions Discharge Diet: 2000 mg Sodium Diet and - (1.5 liters fluid per day maximum. ) DC O2, CPAP, BIPAP Needs Home O2 Discharge instructions: No Meaningful Use Info Meaningful Use Meaningful Use Diagnoses (Choose all that apply): CHF CHF BECCA/ARB ordered at discharge?: Yes Documented LVEF (%): 20 Ischemic Stroke Statin Dosing Therapy Reference: STATIN DOSE THERAPY REFERENCE: * Patients > 75 years receive moderate or high dose statin therapy. * Patients 75 years or YOUNGER should receive HIGH intensity statin dose unless contraindicated. You will be required to document reason for non-treatment if statin daily dose does not meet guidelines. HIGH DOSE STATIN THERAPY DAILY Atorvastatin > than or = to 40 mg Rosuvastatin > than or = to 20 mg Amlodipine + Atorvastatin > than or = to 2.5/40 mg Ezetimibe + Simvastatin 10/80 mg Simvastatin 80mg Discharge Plan Admission Admit Date/Time: 10/08/24 23:59 Primary Reason for Your Visit: epididymitis. Aflutter. Attending Provider: Chaitanya Saucedo Primary Care Provider: Kilo Lewis Consulting Providers: Michael Reyna; Jonas Cedeno; Madison Lemus; Garrison Viveros Instructions Additional Instructions / Restrictions: You developed epididymitis (the scrotal infection). Be sure to compete you antibioitcs (Augmentin [amoxicillin/clavulonic acid]) as instructed. Addditionally, you developed Atrial flutter. You will be on metoprolol and amiodarone and blood thinners with Eliquis (apixaban) to prevent a stroke. Please follow up with cardiology in 7-10 days and again in 1 month. If redness and pain of your scrotum gets worse, notify your physician or return to the emergency room. Discharge Orders/Prescriptio (more content not included)...[facility]06-04-2025 Progress note Author Michael Heard [facility] Note Date/Time October 18, 2024 9:14a m [facility] Medical Records Department [address] [place] [address] Progress Note - Cardiology 10/18/24907 MR#: [id number] Acct: [id number] Name: STACIE BARRAZA Rep #:[id number] : 1955 68 From: Michael Heard MD PCP: Dr. Kilo Lewis MD Status :ADM IN [facility] Subjective Subjective Patient reports that he is doing fairly well. He has been up in his room but has not been out in the halls walking. He denies any significant shortness of breath denies any PND orthopnea. Objective Data Vital Signs: Vital Signs Temp Pulse Resp BP Pulse Ox O2 Del Method O2 Flow Rate 97.5 F L 76 16 105/72 98 Room Air 2 10/18/24 03:00 10/18/24 03:00 10/18/24 03:00 10/18/24 03:00 10/18/24 03:00 10/18/24 03:00 10/09/24 09:10 Oxygen Flow Rate (L/min) 2 Oxygen Delivery Method Room Air Weight: 154 lb 1 oz Body Mass Index (BMI) 23.4 Intake & Output: Intake and Output for Last 24 Hours 10/16/24 10/17/24 10/18/24 23:59 23:59 23:59 Intake Total 50 / 250 1500 / 1500 200 / 200 Output Total 450 / 850 1100 / 1100 400 / 400 Balance -400 / -600 400 / 400 -200 / -200 Lab / Micro Data Attestation: I reviewed the patient's lab results. 10/17/24 04:46 10/17/24 04:46 Rhythm Strip Rhythm Strip: A.Flutter Rate: 65 Cardiology Labs/Tests Rhythm: EKG: ECHO: Stress Test: Cardiac Cath: PCI: CT Surgery: Holter monitor: EPS: PPM: CXR: Chest CT Scan: Physical Exam Const alert and oriented x3 HEENT normocephalic Eyes EOMs intact bilaterally Neck no JVD Resp normal respiratory effort and clear to auscultation bilaterally Cardio Rate: regular rate Rhythm: regular rhythm Heart Sounds: S1 normal and S2 normal; Negative for click, gallop or murmur Extremity no pedal edema Psych mental status grossly normal Assessment & Plan Assessment/Plan (1) Severe left ventricular systolic dysfunction (LVSD): PLAN: EF was initially estimated at 10 to 15% on his echo this admission. He has now been titrated on guideline directed medical therapy. He does remain in atrial flutter with a controlled ventricular response. Patient is tolerating Eliquis without incident. He remains on amiodarone 40 mg twice daily. This will be decreased to 200 mg twice daily at discharge. The patient is on furosemide 20 mg daily metoprolol tartrate 25 mg twice daily Entresto and spironolactone 25 mg daily. The patient be followed up in the [facility] office in 7 to 10 days with an ECG and will have repeat metabolic panel done at that time. After an additional 4 weeks of medical therapy the patient will see the advancedpractitioner in 6 weeks after that have a limited echocardiogram to reevaluate the LV function. This should give time for complete clearing of his infectious process with his epididymitis. (2) Atrial flutter with rapid ventricular response: PLAN: Patient's heart rate is well-controlled on his current medical therapy. He will be continued on the amiodarone 400 mg twice daily until discharge. At discharge this will be decreased to 200 mg twice daily. He will then be reevaluated in the office with an ECG in 7 to 10 days and again in 4 weeks. If he remains in atrial flutter we will set up for direct-current cardioversion at 6 to 7 weeks after echocardiogram is repeated. PLAN: Plan 1. At discharge the patient should follow-up with the [facility] in 7 to 10 days with an ECG in the office. Should then be evaluated by advanced practitioner in 4 weeks and at that time scheduled for limited echocardiogram. We would then plan tentatively on a direct-current cardioversion in the ambulatory setting at 6 to 7 weeks if he remains in atrial flutter after clearing his infectious process. 2. From a cardiovascular standpoint should be able to be discharged to home if able to ambulate in the halls and feels able to do self-care in his home environment. 3. If further assistance is needed please call. 4. Please reinstruct the patient on follow-up directions as I gave him these this morning and room but I want a make sure that he follows through. Charges/Coding Visit Charges Inpatient E&M: 86339 Subs Hosp L3 10/18/24913 <Electronically signed by Michael Heard MD> Famer Signature (if applicable): CC: ~ Signed [facility] Work Phone: 1(263) 409-652006-04-2025 Progress note [facility] Medical Records Department [facility] [place] [address] Progress Note - Cardiology 10/18/24907 MR#: [id number] Acct: [id number] Name: STACIE BARRAZA Rep #:[id number] : 1955 68 From: Michael Heard MD PCP: Dr. Kilo Lewis MD Status :ADM IN Location: [place] [address]- Subjective Subjective Patient reports that he is doing fairly well. He has been up in his room but has not been out in the halls walking. He denies any significant shortness of breath denies any PND orthopnea. Objective Data Vital Signs: Vital Signs Temp Pulse Resp BP Pulse Ox O2 Del Method O2 Flow Rate 97.5 F L 76 16 105/72 98 Room Air 2 10/18/24 03:00 10/18/24 03:00 10/18/24 03:00 10/18/24 03:00 10/18/24 03:00 10/18/24 03:00 10/09/24 09:10 Oxygen Flow Rate (L/min) 2 Oxygen Delivery Method Room Air Weight: 154 lb 1 oz Body Mass Index (BMI) 23.4 Intake & Output: Intake and Output for Last 24 Hours 10/16/24 10/17/24 10/18/24 23:59 23:59 23:59 Intake Total 50 / 250 1500 / 1500 200 / 200 Output Total 450 / 850 1100 / 1100 400 / 400 Balance -400 / -600 400 / 400 -200 / -200 Lab / Micro Data Attestation: I reviewed the patient's lab results. 10/17/24 04:46 10/17/24 04:46 Rhythm Strip Rhythm Strip: A.Flutter Rate: 65 Cardiology Labs/Tests Rhythm: EKG: ECHO: Stress Test: Cardiac Cath: PCI: CT Surgery: Holter monitor: EPS: PPM: CXR: Chest CT Scan: Physical Exam Const alert and oriented x3 HEENT normocephalic Eyes EOMs intact bilaterally Neck no JVD Resp normal respiratory effort and clear to auscultation bilaterally Cardio Rate: regular rate Rhythm: regular rhythm Heart Sounds: S1 normal and S2 normal; Negative for click, gallop or murmur Extremity no pedal edema Psych mental status grossly normal Assessment & Plan Assessment/Plan (1) Severe left ventricular systolic dysfunction (LVSD): PLAN: EF was initially estimated at 10 to 15% on his echo this admission. He has now been titrated on guideline directed medical therapy. He does remain in atrial flutter with a controlled ventricular response. Patient is tolerating Eliquis without incident. He remains on amiodarone 40 mg twice daily. This will be decreased to 200 mg twice daily at discharge. The patient is on furosemide 20 mg daily metoprolol tartrate 25 mg twice daily Entresto and spironolactone 25 mg daily. The patient be followed up in the [facility] office in 7 to 10 days with an ECG and will have repeat metabolic panel done at that time. After an additional 4 weeks of medical therapy the patient will see the advancedpractitioner in 6 weeks after that have a limited echocardiogram to reevaluate the LV function. This should give time for complete clearing of his infectious process with his epididymitis. (2) Atrial flutter with rapid ventricular response: PLAN: Patient's heart rate is well-controlled on his current medical therapy. He will be continued on the amiodarone 400 mg twice daily until discharge. At discharge this will be decreased to 200 mg twice daily. He will then be reevaluated in the office with an ECG in 7 to 10 days and again in 4 weeks. If he remains in atrial flutter we will set up for direct-current cardioversion at 6 to 7 weeksafter echocardiogram is repeated. PLAN: Plan 1. At discharge the patient should follow-up with the [facility] in 7 to 10 days with an ECG in the office. Should then be evaluated by advanced practitioner in 4 weeks and at that time scheduled for limited echocardiogram. We would then plan tentatively on a direct-current cardioversion in the ambulatory setting at 6 to 7 weeks if he remains in atrial flutter after clearing his infectious process. 2. From a cardiovascular standpoint should be able to be discharged to home if able to ambulate in the halls and feels able to do self-care in his home environment. 3. If further assistance is needed please call. 4. Please reinstruct the patient on follow-up directions as I gave him these this morning and room but I want a make sure that he follows through. Charges/Coding Visit Charges Inpatient E&M: 62641 Subs Hosp L3 10/18/24 0914 Cosigner Signature (if applicable): CC: ~ Signed [facility]06-03-2025 Progress note Author Chaitanya Saucedo [facility] Note Date/Time October 17, 2024 12:48 pm [facility] Medical Records Department [address] [place] [address] Progress Note - Hospitalist 10/17/24811 MR#: [id number] Acct: [id number] Name: STACIE BARRAZA Rep #:[id number] : 1955 68 From: Chaitanya Saucedo DO PCP: Dr. Kilo Lewis MD Status :ADM IN Location: [place] [address] Reason for Visit Reason for Visit: Diagnoses Elevated white blood cell count, unspecified (10/08/24) Overweight (10/08/24) Unspecified atrial flutter (10/08/24) Other ill-defined heart diseases (10/08/24) Acute cystitis with hematuria (10/08/24) Urinary tract infection, site not specified (10/08/24) Epididymitis (10/08/24) Subjective Subjective Feeling well. Right scrotal induration improving. Objective Data Objective Data Vital Signs: Vital Signs Temp Pulse Resp BP Pulse Ox O2 Del Method O2 Flow Rate 36.4 C L 78 16 117/82 H 98 Room Air 2 10/17/24 03:00 10/17/24 03:00 10/17/24 03:00 10/17/24 03:00 10/17/24 03:00 10/17/24 03:00 10/09/24 09:10 Oxygen Flow Rate (L/min) 2 Oxygen Delivery Method Room Air Weight: 70.8 kg Body Mass Index (BMI) 23.7 Intake & Output: Intake and Output for Last 24 Hours 10/15/24 10/16/24 10/17/24 23:59 23:59 23:59 Intake Total 850 / 850 50 / 250 400 / 400 Output Total 2100 / 2250 450 / 850 800 / 800 Balance -1250 / -1400 -400 / -600 -400 / -400 Lab / Micro Data 10/17/24 04:46 10/17/24 04:46 Labs: Laboratory Results - last 24 hr 10/17/24 04:46: WBC 11.2 H, RBC 5.24, Hgb 15.7, Hct 46.5, MCV 88.7, MCH 30.0, MCHC 33.8, RDW Std Deviation 43.3, RDW Coeff of Natty 13.4, Plt Count 343, MPV 11.9, Immature Gran % (Auto) 1.800 H, Neut % (Auto) 67.2, Lymph % (Auto) 20.2, [place] % (Auto) 8.1, Eos % (Auto) 2.0, Baso % (Auto) 0.7, Absolute Neuts (auto) 7.5, Absolute Lymphs (auto) 2.26, Nucleated RBC % 0, Sodium 140, Potassium 3.6, Chloride 109 H, Carbon Dioxide 18.6 L, Anion Gap 13, BUN 15, Creatinine 0.71, Estim Creat Clear Calc 87.88, Est GFR (MDRD) Non-Af 101, BUN/Creatinine Ratio 21.2 H, Glucose 83, Calcium 8.6 Micro: Microbiology 10/10/24 08:40 Blood Culture (Wb) - Right Forearm Blood Culture - Final No growth in 5 days. 10/10/24 08:33 Blood Culture (Wb) - Anticubital Right Blood Culture - Final No growth in 5 days. 10/10/24 09:48 Urine, Clean Catch Urine Culture - Final Staphylococcus aureus Rhythm Strip Rhythm Strip: A.Flutter Rate: 70 Physical Exam Narrative induration over right scrotum. Const alert and no apparent distress Assessment & Plan Assessment/Plan (1) Epididymitis: PLAN: Noted asymmetric enlargement of the right epididymis w hypervascularity. Doxycycline and CTX (2) UTI (urinary tract infection): PLAN: Cx positive for MSSA, but only 11-25k. Doubt true infection. (3) Severe left ventricular systolic dysfunction (LVSD): PLAN: EF 10-15 % on echo on metoprolol, furosemide, spironolactone, sacubitril/valsartan Cardiology not recommending LifeVest at this time given his Aflutter and risk for inappropriate shocks. (4) Atrial flutter with rapid ventricular response: PLAN: metoprolol tartrate, amiodarone 400 BID (started today) for 5 days, then 200 BID. anticoagulated on apixaban PLAN: Plan VTE prophylaxis: not indicated as already anticoagulated. Disposition: hopefully home in 1-2 days depending on HR. 10/17/24 1215 <Electronically signed by Chaitanya Jopperi DO> Cosigner Signature (if applicable): CC: ~ Signed ADDENDUM by Dr. Chaitanya Saucedo, DO on 10/17/24 at [address] Heard, he wants to watch him overnight, and if he continues to do well, then should be ready for discharge on 10/18 Visit Charges Inpatient E&M: 05690 Subs Hosp L1 10/17/24 1248<Electronically signed by Chaitanya Saucedo DO> Cosigner Signature (if applicable): cc: ~* Signed [facility] Work Phone: 1(271) 412-627606-03-2025 Progress note [facility] Medical Records Department [address] [place] [address] Progress Note - Hospitalist 10/17/24811 MR#: [id number] Acct: [id number] Name: STACIE BARRAZA Rep #:[id number] : 1955 68 From: Chaitanya Saucedo DO PCP: Dr. Kilo Lewis MD Status :ADM IN Location: [place] [address] Reason for Visit Reason for Visit: Diagnoses Elevated white blood cell count, unspecified (10/08/24) Overweight (10/08/24) Unspecified atrial flutter (10/08/24) Other ill-defined heart diseases (10/08/24) Acute cystitis with hematuria (10/08/24) Urinary tract infection, site not specified (10/08/24) Epididymitis (10/08/24) Subjective Subjective Feeling well. Right scrotal induration improving. Objective Data Objective Data Vital Signs: Vital Signs Temp Pulse Resp BP Pulse Ox O2 Del Method O2 Flow Rate 36.4 C L 78 16 117/82 H 98 Room Air 2 10/17/24 03:00 10/17/24 03:00 10/17/24 03:00 10/17/24 03:00 10/17/24 03:00 10/17/24 03:00 10/09/24 09:10 Oxygen Flow Rate (L/min) 2 Oxygen Delivery Method Room Air Weight: 70.8 kg Body Mass Index (BMI) 23.7 Intake & Output: Intake and Output for Last 24 Hours 10/15/24 10/16/24 10/17/24 23:59 23:59 23:59 Intake Total 850 / 850 50 / 250 400 / 400 Output Total 2100 / 2250 450 / 850 800 / 800 Balance -1250 / -1400 -400 / -600 -400 / -400 Lab / Micro Data 10/17/24 04:46 10/17/24 04:46 Labs: Laboratory Results - last 24 hr 10/17/24 04:46: WBC 11.2 H, RBC 5.24, Hgb 15.7, Hct 46.5, MCV 88.7, MCH 30.0, MCHC 33.8, RDW Std Deviation 43.3, RDW Coeff of Natty 13.4, Plt Count 343, MPV 11.9, Immature Gran % (Auto) 1.800 H, Neut %(Auto) 67.2, Lymph % (Auto) 20.2, [place] % (Auto) 8.1, Eos % (Auto) 2.0, Baso % (Auto) 0.7, Absolute Neuts (auto) 7.5, Absolute Lymphs (auto) 2.26, Nucleated RBC % 0, Sodium 140, Potassium 3.6, Chloride 109 H, Carbon Dioxide 18.6 L, Anion Gap 13, BUN 15, Creatinine 0.71, Estim Creat Clear Calc 87.88,Est GFR (MDRD) Non-Af 101, BUN/Creatinine Ratio 21.2 H, Glucose 83, Calcium 8.6 Micro: Microbiology 10/10/24 08:40 Blood Culture (Wb) - Right Forearm Blood Culture - Final No growth in 5 days. 10/10/24 08:33 Blood Culture (Wb) - Anticubital Right Blood Culture - Final No growth in 5 days. 10/10/24 09:48 Urine, Clean Catch Urine Culture - Final Staphylococcus aureus Rhythm Strip Rhythm Strip: A.Flutter Rate: 70 Physical Exam Narrative induration over right scrotum. Const alert and no apparent distress Assessment & Plan Assessment/Plan (1) Epididymitis: PLAN: Noted asymmetric enlargement of the right epididymis w hypervascularity. Doxycycline and CTX (2) UTI (urinary tract infection): PLAN: Cx positive for MSSA, but only 11-25k. Doubt true infection. (3) Severe left ventricular systolic dysfunction (LVSD): PLAN: EF 10-15 % on echo on metoprolol, furosemide, spironolactone, sacubitril/valsartan Cardiology not recommending LifeVest at this time given his Aflutter and risk for inappropriate shocks. (4) Atrial flutter with rapid ventricular response: PLAN: metoprolol tartrate, amiodarone 400 BID (started today) for 5 days, then 200 BID. anticoagulated on apixaban PLAN: Plan VTE prophylaxis: not indicated as already anticoagulated. Disposition: hopefully home in 1-2 days depending on HR. 10/17/24 1215 Cosigner Signature (if applicable): CC: ~ Signed ADDENDUM by Dr. Chaitanya Saucedo, DO on 10/17/24 at [address] Heard, he wants to watch him overnight, and if he continues to do well, then should be ready for discharge on 10/18 Visit Charges Inpatient E&M: 73418 [facility] Hosp 10/17/24 1248 Cosigner Signature (if applicable): cc: ~* Signed [facility]06-03-2025 Progress note Author Michael Heard [facility] Note Date/Time October 17, 2024 8:10a m [facility] Medical Records Department [address] [place] [address] Progress Note - Cardiology 10/17/24 0803 MR#: [id number] Acct: [id number] Name: STACIE BARRAZA Rep #:[id number] : 1955 68 From: Michael Heard MD PCP: Dr. Kilo Lewis MD Status :ADM IN Location: [place] [address] Subjective Subjective Patient resting comfortably in recumbent position in bed. He denies any recurrent fevers or chills. His heart rate has come under much better control he remains in atrial flutter on telemetry heart rate is 45-80 bpm. Objective Data Vital Signs: Vital Signs Temp Pulse Resp BP Pulse Ox O2 Del Method O2 Flow Rate 97.6 F L 78 16 117/82 H 98 Room Air 2 10/17/24 03:00 10/17/24 03:00 10/17/24 03:00 10/17/24 03:00 10/17/24 03:00 10/17/24 03:00 10/09/24 09:10 Oxygen Flow Rate (L/min) 2 Oxygen Delivery Method Room Air Weight: 156 lb 1.396 oz Body Mass Index (BMI) 23.7 Intake & Output: Intake and Output for Last 24 Hours 10/15/24 10/16/24 10/17/24 23:59 23:59 23:59 Intake Total 850 / 850 50 / 250 400 / 400 Output Total 2100 / 2250 450 / 850 800 / 800 Balance -1250 / -1400 -400 / -600 -400 / -400 Lab / Micro Data Attestation: I reviewed the patient's lab results. 10/17/24 04:46 10/17/24 04:46 Labs: Laboratory Results - last 24 hr 10/17/24 04:46: WBC 11.2 H, RBC 5.24, Hgb 15.7, Hct 46.5, MCV 88.7, MCH 30.0, MCHC 33.8, RDW Std Deviation 43.3, RDW Coeff of Natty 13.4, Plt Count 343, MPV 11.9, Immature Gran % (Auto) 1.800 H, Neut % (Auto) 67.2, Lymph % (Auto) 20.2, [place] % (Auto) 8.1, Eos % (Auto) 2.0, Baso % (Auto) 0.7, Absolute Neuts (auto) 7.5, Absolute Lymphs (auto) 2.26, Nucleated RBC % 0, Sodium 140, Potassium 3.6, Chloride 109 H, Carbon Dioxide 18.6 L, Anion Gap 13, BUN 15, Creatinine 0.71, Estim Creat Clear Calc 87.88, Est GFR (MDRD) Non-Af 101, BUN/Creatinine Ratio 21.2 H, Glucose 83, Calcium 8.6 Rhythm Strip Rhythm Strip: A.Flutter Rate: 70 Cardiology Labs/Tests 10/17/24 04:46: WBC 11.2 H, RBC 5.24, Hgb 15.7, Hct 46.5, MCV 88.7, MCH 30.0, MCHC 33.8, Plt Count 343, MPV 11.9, Immature Gran % (Auto) 1.800 H, Neut % (Auto) 67.2, Lymph % (Auto) 20.2, [place] % (Auto) 8.1, Eos % (Auto) 2.0, Baso % (Auto) 0.7, Absolute Neuts (auto) 7.5, Nucleated RBC % 0, Sodium 140, Potassium 3.6, Chloride 109 H, Carbon Dioxide 18.6 L, Anion Gap 13, BUN 15, Creatinine 0.71, Est GFR (MDRD) Non-Af 101, BUN/Creatinine Ratio 21.2 H, Glucose 83, Calcium 8.6 Rhythm: EKG: ECHO: Stress Test: Cardiac Cath: PCI: CT Surgery: Holter monitor: EPS: PPM: CXR: Chest CT Scan: Physical Exam Const alert and oriented x3 HEENT normocephalic Eyes EOMs intact bilaterally Neck no JVD Resp normal respiratory effort and clear to auscultation bilaterally Cardio Rate: regular rate Rhythm: regular rhythm Heart Sounds: S1 normal and S2 normal; Negative for click, gallop or murmur GI non-tender Extremity no pedal edema Neuro Neuro Narrative: Alert and oriented x 3 Psych mental status grossly normal Assessment & Plan Assessment/Plan (1) Atrial flutter with rapid ventricular response: PLAN: Patient remains in atrial flutter on telemetry with heart rates running 45-80 bpm. His heart rate is much better controlled on the combination of the amiodarone 400 mg twice daily and metoprolol 25 mg twice daily. The patient is tolerating Eliquis 5 mg twice daily without incident. Plan would be to keep the patient on amiodarone 400 mg twice daily until day of discharge. At that time I would decrease it to 200 mg twice daily, continue hismetoprolol at 25 mg twice daily along with his Entresto spironolactone and his home Lasix dose. The patient should be reevaluated in the [place] [facility] office in 7 to 10 days with an ECG. He should follow-up with one of our advanced practitioners in4 weeks in preparation for direct-current cardioversion to be done as an outpatient in 6 weeks. I went over this in detail with the patient today. (2) Severe left ventricular systolic dysfunction (LVSD): PLAN: Patient has a history of significant LV dysfunction EF was 10-15%. This will be reevaluated with a limited echocardiogram at 4 weeks prior to his direct-current cardioversion. He should continue his current Entresto, metoprolol, spironolactone, and home Lasix doses at discharge. (3) Epididymitis: PLAN: Treatment per the primary service. PLAN: Plan 1. From a cardiovascular standpoint the patient's heart rate remains controlledover the next 24 hours he should be able to be discharged to home. 2. At discharge the patient should follow-up with the [place] [facility] in 7 to 10 days with an ECG in the office. Should then be evaluated by advanced practitioner in 4 weeks and at that time scheduled for limited echocardiogram. We would then plan tentatively on a direct-current cardioversion in the ambulatory setting at 6 to 7 weeks if he remains in atrial flutter after clearing his infectious process. Charges/Coding Visit Charges Inpatient E&M: 43889 Subs Hosp L2 10/17/24 0810 <Electronically signed by Michael Heard MD> Cosigner Signature (if applicable): CC: ~ Signed [facility] Work Phone: 1(529) 725-200406-03-2025 Progress note [facility] Medical Records Department [address] [place] [address] Progress Note - Cardiology 10/17/24 0803 MR#: [id number] Acct: [id number] Name: STACIE BARRAZA Rep #:[id number] : 1955 68 From: Michael Heard MD PCP: Dr. Kilo Lewis MD Status :ADM IN Location: [place] [address] Subjective Subjective Patient resting comfortably in recumbent position in bed. He denies any recurrent fevers or chills.His heart rate has come under much better control he remains in atrial flutter on telemetry heart rate is 45-80 bpm. Objective Data Vital Signs: Vital Signs Temp Pulse Resp BP Pulse Ox O2 Del Method O2 Flow Rate 97.6 F L 78 16 117/82 H 98 Room Air 2 10/17/24 03:00 10/17/24 03:00 10/17/24 03:00 10/17/24 03:00 10/17/24 03:00 10/17/24 03:00 10/09/24 09:10 Oxygen Flow Rate (L/min) 2 Oxygen Delivery Method Room Air Weight: 156 lb 1.396 oz Body Mass Index (BMI) 23.7 Intake & Output: Intake and Output for Last 24 Hours 10/15/24 10/16/24 10/17/24 23:59 23:59 23:59 Intake Total 850 / 850 50 / 250 400 / 400 Output Total 2100 / 2250 450 / 850 800 / 800 Balance -1250 / -1400 -400 / -600 -400 / -400 Lab / Micro Data Attestation: I reviewed the patient's lab results. 10/17/24 04:46 10/17/24 04:46 Labs: Laboratory Results - last 24 hr 10/17/24 04:46: WBC 11.2 H, RBC 5.24, Hgb 15.7, Hct 46.5, MCV 88.7, MCH 30.0, MCHC 33.8, RDW Std Deviation 43.3, RDW Coeff of Natty 13.4, Plt Count 343, MPV 11.9, Immature Gran % (Auto) 1.800 H, Neut %(Auto) 67.2, Lymph % (Auto) 20.2, [place] % (Auto) 8.1, Eos % (Auto) 2.0, Baso % (Auto) 0.7, Absolute Neuts (auto) 7.5, Absolute Lymphs (auto) 2.26, Nucleated RBC % 0, Sodium 140, Potassium 3.6, Chloride 109 H, Carbon Dioxide 18.6 L, Anion Gap 13, BUN 15, Creatinine 0.71, Estim Creat Clear Calc 87.88,Est GFR (MDRD) Non-Af 101, BUN/Creatinine Ratio 21.2 H, Glucose 83, Calcium 8.6 Rhythm Strip Rhythm Strip: A.Flutter Rate: 70 Cardiology Labs/Tests 10/17/24 04:46: WBC 11.2 H, RBC 5.24, Hgb 15.7, Hct 46.5, MCV 88.7, MCH 30.0, MCHC 33.8, Plt Count 343, MPV 11.9, Immature Gran % (Auto) 1.800 H, Neut % (Auto) 67.2, Lymph % (Auto) 20.2, [place] % (Auto) 8.1, Eos % (Auto) 2.0, Baso % (Auto) 0.7, Absolute Neuts (auto) 7.5, Nucleated RBC % 0, Sodium 140, Potassium 3.6, Chloride 109 H, Carbon Dioxide 18.6 L, Anion Gap 13, BUN 15, Creatinine 0.71, Est GFR (MDRD) Non-Af 101, BUN/Creatinine Ratio 21.2 H, Glucose 83, Calcium 8.6 Rhythm: EKG: ECHO: Stress Test: Cardiac Cath: PCI: CT Surgery: Holter monitor: EPS: PPM: CXR: Chest CT Scan: Physical Exam Const alert and oriented x3 HEENT normocephalic Eyes EOMs intact bilaterally Neck no JVD Resp normal respiratory effort and clear to auscultation bilaterally Cardio Rate: regular rate Rhythm: regular rhythm Heart Sounds: S1 normal and S2 normal; Negative for click, gallop or murmur GI non-tender Extremity no pedal edema Neuro Neuro Narrative: Alert and oriented x 3 Psych mental status grossly normal Assessment & Plan Assessment/Plan (1) Atrial flutter with rapid ventricular response: PLAN: Patient remains in atrial flutter on telemetry with heart rates running 45-80 bpm. His heart rate is much better controlled on the combination of the amiodarone 400 mg twice daily and metoprolol 25 mg twice daily. The patient is tolerating Eliquis 5 mg twice daily without incident. Plan would be to keep the patient on amiodarone 400 mg twice daily until day of discharge. At that time I would decrease it to 200 mg twice daily, continue hismetoprolol at 25 mg twice daily along with his Entresto spironolactone and his home Lasix dose. The patient should be reevaluated in the [facility] [facility] office in 7 to 10 days with an ECG. Heshould follow-up with one of our advanced practitioners in4 weeks in preparation for direct-currentcardioversion to be done as an outpatient in 6 weeks. I went over this in detail with the patient today. (2) Severe left ventricular systolic dysfunction (LVSD): PLAN: Patient has a history of significant LV dysfunction EF was 10-15%. This will be reevaluated with a limited echocardiogram at 4 weeks prior to his direct-current cardioversion. He should continue his current Entresto, metoprolol, spironolactone, and home Lasix doses at discharge. (3) Epididymitis: PLAN: Treatment per the primary service. PLAN: Plan 1. From a cardiovascular standpoint the patient's heart rate remains controlledover the next 24 hours he should be able to be discharged to home. 2. At discharge the patient should follow-up with the [place] [facility] in 7 to 10 days with an ECG in the office. Should then be evaluated by advanced practitioner in 4 weeks and at that time scheduled for limited echocardiogram. We would then plan tentatively on a direct-current cardioversion in the ambulatory setting at 6 to 7 weeks if he remains in atrial flutter after clearing his infectious process. Charges/Coding Visit Charges Inpatient E&M: 60568 Subs Hosp L2 10/17/24 0810 Cosigner Signature (if applicable): CC: ~ Signed [facility]06-02-2025 Consult note Author Princess Gorman [facility] Note Date/Time October 16, 2024 4:40p [facility] Medical Records Department [address] [place] [address] Pharmacokinetic/Renal -Consult 10/14/24 0024 MR#: [id number] Acct: [id number] Name: STACIE BARRAZA Rep #:[id number] : 1955 68 From: Princess Gorman PCP: Dr. Kilo Lewis MD Status :ADM IN Location: [place] [address] Consult Antibiotic Management Pharmacy has been consulted to manage selected antibiotic: Vancomycin Type of Intervention Type of Consult: Follow-up Labs Labs: Sodium 138 mmol/L (133-145) 10/13/24 05:41 Potassium 3.1 mmol/L (3.3-5.1) L 10/13/24 05:41 Chloride 104 mmol/L (98-108) 10/13/24 05:41 Carbon Dioxide 22.1 mmol/L (21.0-32.0) 10/13/24 05:41 Anion Gap 12 (5-15) 10/13/24 05:41 BUN 14 mg/dL (4-19) 10/13/24 05:41 Creatinine 0.70 mg/dL (0.70-1.20) 10/13/24 05:41 Est GFR (MDRD) Non-Af 101 (>60) 10/13/24 05:41 BUN/Creatinine Ratio 19.9 RATIO (10-20) 10/13/24 05:41 Glucose 102 mg/dL (70-99) H 10/13/24 05:41 Vancomycin Trough 10.4 ug/mL (5.0-15.0) 10/13/24 23:30 Microbiology Microbiology: Microbiology 10/10/24 09:48 Urine, Clean Catch Urine Culture - Final Staphylococcus aureus 10/10/24 08:40 Blood Culture (Wb) - Right Forearm Blood Culture - Preliminary No growth in 48 hours. 10/10/24 08:33 Blood Culture (Wb) - Anticubital Right Blood Culture - Preliminary No growth in 48 hours. Pharmacy Plan for Drug Dosing Pharmacy Plan for Drug Dosing: VANCOMYCIN LEVEL RECEIVED Current Vancomycin Dose: 1250MG Q12 Number of Doses Received: 3 Vancomycin Level: 10.4 MG/DL Hours Since Last Dose: 11.5 Renal Function: SCr 0.7 mg/dL, CrCl 87 mL/min Renal Function Trend: stable Lab/Micro: MSSA in wound cx Vancomycin Plan/Comments: 11.5 hour trough is subtherapeutic at 10.4 mg/dL ([id number]). Will increase dose to 1750mg Q12 and get a trough prior to 4th dose of new regimen. Pending Level: 10/15/24 @ 1200 Pharmacy Service will continue to monitor and adjust dosing as required. 10/14/24 0025 <Electronically signed by Princess Gorman> Date _ Princess Gorman 10/16/24 1640 <Electronically signed by Madison caceres MD> Cosigner Signature (if applicable): Date Madison Lemus MD CC: ~ Signed [facility] Work Phone: 1(639) 122-206606-02-2025 Consult note [facility] Medical Records Department [address] [place] [address] Pharmacokinetic/Renal -Consult 10/14/24 0024 MR#: [id number] Acct: [id number] Name: STACIE BARRAZA Rep #:[id number] : 1955 68 From: Princess Gorman PCP: Dr. Kilo Lewis MD Status :ADM IN Location: [place] [address] Consult Antibiotic Management Pharmacy has been consulted to manage selected antibiotic: Vancomycin Type of Intervention Type of Consult: Follow-up Labs Labs: Sodium 138 mmol/L (133-145) 10/13/24 05:41 Potassium 3.1 mmol/L (3.3-5.1) L 10/13/24 05:41 Chloride 104 mmol/L (98-108) 10/13/24 05:41 Carbon Dioxide 22.1 mmol/L (21.0-32.0) 10/13/24 05:41 Anion Gap 12 (5-15) 10/13/24 05:41 BUN 14 mg/dL (4-19) 10/13/24 05:41 Creatinine 0.70 mg/dL (0.70-1.20) 10/13/24 05:41 Est GFR (MDRD) Non-Af 101 (>60) 10/13/24 05:41 BUN/Creatinine Ratio 19.9 RATIO (10-20) 10/13/24 05:41 Glucose 102 mg/dL (70-99) H 10/13/24 05:41 Vancomycin Trough 10.4 ug/mL (5.0-15.0) 10/13/24 23:30 Microbiology Microbiology: Microbiology 10/10/24 09:48 Urine, Clean Catch Urine Culture - Final Staphylococcus aureus 10/10/24 08:40 Blood Culture (Wb) - Right Forearm Blood Culture - Preliminary No growth in 48 hours. 10/10/24 08:33 Blood Culture (Wb) - Anticubital Right Blood Culture - Preliminary No growth in 48 hours. Pharmacy Plan for Drug Dosing Pharmacy Plan for Drug Dosing: VANCOMYCIN LEVEL RECEIVED Current Vancomycin Dose: 1250MG Q12 Number of Doses Received: 3 Vancomycin Level: 10.4 MG/DL Hours Since Last Dose: 11.5 Renal Function: SCr 0.7 mg/dL, CrCl 87 mL/min Renal Function Trend: stable Lab/Micro: MSSA in wound cx Vancomycin Plan/Comments: 11.5 hour trough is subtherapeutic at 10.4 mg/dL ([id number]). Will increase dose to 1750mg Q12 and get a trough prior to 4th dose of new regimen. Pending Level: 10/15/24 @ 1200 Pharmacy Service will continue to monitor and adjust dosing as required. 10/14/24 0025 Date _ Princess Gorman 10/16/24 1640 m > Lyssa Signature (if applicable): Date Madison Lemus MD CC: ~ Signed [facility]06-02-2025 Progress note Author Chaitanya Saucedo [facility] Note Date/Time October 16, 2024 2:14p m [facility] Medical Records Department [address] [place] [address] Progress Note - Hospitalist 10/16/24 0856 MR#: [id number] Acct: [id number] Name: STACIE BARRAZA Rep #:[id number] : 1955 68 From: Chaitanya Saucedo DO PCP: Dr. Kilo Lewis MD Status :ADM IN Location: [place] [address] Reason for Visit Reason for Visit: Diagnoses Elevated white blood cell count, unspecified (10/08/24) Overweight (10/08/24) Unspecified atrial flutter (10/08/24) Other ill-defined heart diseases (10/08/24) Acute cystitis with hematuria (10/08/24) Epididymitis (10/08/24) Subjective Subjective still with some scrotal pain Objective Data Objective Data Vital Signs: Vital Signs Temp Pulse Resp BP Pulse Ox O2 Del Method O2 Flow Rate 36.6 C 82 18 124/83 H 96 Room Air 2 10/16/24 03:10 10/16/24 03:10 10/16/24 03:10 10/16/24 03:10 10/16/24 03:10 10/16/24 03:10 10/09/24 09:10 Oxygen Flow Rate (L/min) 2 Oxygen Delivery Method Room Air Weight: 70.2 kg Body Mass Index (BMI) 23.5 Intake & Output: Intake and Output for Last 24 Hours 10/14/24 10/15/24 10/16/24 23:59 23:59 23:59 Intake Total 2808.63 / 2808.63 850 / 850 Output Total 2350 / 3150 2100 / 2250 450 / 450 Balance 458.63 / -341.37 -1250 / -1400 -450 / -450 Lab / Micro Data 10/16/24 05:07 10/16/24 05:07 Labs: Laboratory Results - last 24 hr 10/16/24 05:07: WBC 11.3 H, RBC 5.22, Hgb 15.6, Hct 46.4, MCV 88.9, MCH 29.9, MCHC 33.6, RDW Std Deviation 43.9, RDW Coeff of Natty 13.4, Plt Count 316, MPV 11.7, Immature Gran % (Auto) 2.100 H, Neut % (Auto) 67.9, Lymph % (Auto) 19.2, [place] % (Auto) 8.2, Eos % (Auto) 1.8, Baso % (Auto) 0.8, Absolute Neuts (auto) 7.7, Absolute Lymphs (auto) 2.17, Nucleated RBC % 0, Sodium 141, Potassium 3.4, Chloride 109 H, Carbon Dioxide 20.7 L, Anion Gap 12, BUN 17, Creatinine 0.72, Estim Creat Clear Calc 87.88, Est GFR (MDRD) Non-Af 101, BUN/Creatinine Ratio 23.2 H, Glucose 91, Calcium 8.9 Micro: Microbiology 10/10/24 08:40 Blood Culture (Wb) - Right Forearm Blood Culture - Final No growth in 5 days. 10/10/24 08:33 Blood Culture (Wb) - Anticubital Right Blood Culture - Final No growth in 5 days. 10/10/24 09:48 Urine, Clean Catch Urine Culture - Final Staphylococcus aureus Rhythm Strip Rhythm Strip: A.Flutter Rate: 120 Physical Exam Const alert and no apparent distress HEENT head/scalp atraumatic and moist oral mucous membranes Resp normal respiratory effort, no retractions, no use of accessory muscles and clearto auscultation bilaterally Cardio regular rate, regular rhythm, S1 normal heart sound and S2 normal heart sound GI normal to inspection, nondistended, normoactive bowel sounds, soft to palpation,non-tender and non-distended Extremity Extremity Narrative: infiltrated IV in LUE. Neuro Sensorium / Orientation: awake and alert Assessment & Plan Assessment/Plan (1) Epididymitis: PLAN: Noted asymmetric enlargement of the right epididymis w hypervascularity. Doxycycline and CTX (2) UTI (urinary tract infection): PLAN: Cx positive for MSSA, but only 11-25k. Doubt true infection. (3) Severe left ventricular systolic dysfunction (LVSD): PLAN: EF 10-15 % on echo on metoprolol, furosemide, spironolactone, sacubitril/valsartan Cardiology not recommending LifeVest at this time given his Aflutter and risk for inappropriate shocks. (4) Atrial flutter with rapid ventricular response: PLAN: metoprolol tartrate, amiodarone 400 BID (started today) for 5 days, then 200 BID. anticoagulated on apixaban PLAN: Plan VTE prophylaxis: not indicated as already anticoagulated. Disposition: hopefully home in 1-2 days depending on HR. Charges/Coding Visit Charges Inpatient E&M: 47407 Subs Hosp L2 10/16/24 1419 <Electronically signed by Chaitanya Saucedo DO> Cosigner Signature (if applicable): CC: ~ Signed [facility] Work Phone: 1(371) 612-196906-02-2025 Progress note [facility] Medical Records Department [address] [place] [address] Progress Note - Hospitalist 10/16/24 0856 MR#: [id number] Acct: [id number] Name: STACIE BARRAZA Rep #:[id number] : 1955 68 From: Chaitanya Saucedo DO PCP: Dr. Kilo Lewis MD Status :ADM IN Location: [place] [address] Reason for Visit Reason for Visit: Diagnoses Elevated white blood cell count, unspecified (10/08/24) Overweight (10/08/24) Unspecified atrial flutter (10/08/24) Other ill-defined heart diseases (10/08/24) Acute cystitis with hematuria (10/08/24) Epididymitis (10/08/24) Subjective Subjective still with some scrotal pain Objective Data Objective Data Vital Signs: Vital Signs Temp Pulse Resp BP Pulse Ox O2 Del Method O2 Flow Rate 36.6 C 82 18 124/83 H 96 Room Air 2 10/16/24 03:10 10/16/24 03:10 10/16/24 03:10 10/16/24 03:10 10/16/24 03:10 10/16/24 03:10 10/09/24 09:10 Oxygen Flow Rate (L/min) 2 Oxygen Delivery Method Room Air Weight: 70.2 kg Body Mass Index (BMI) 23.5 Intake & Output: Intake and Output for Last 24 Hours 10/14/24 10/15/24 10/16/24 23:59 23:59 23:59 Intake Total 2808.63 / 2808.63 850 / 850 Output Total 2350 / 3150 2100 / 2250 450 / 450 Balance 458.63 / -341.37 -1250 / -1400 -450 / -450 Lab / Micro Data 10/16/24 05:07 10/16/24 05:07 Labs: Laboratory Results - last 24 hr 10/16/24 05:07: WBC 11.3 H, RBC 5.22, Hgb 15.6, Hct 46.4, MCV 88.9, MCH 29.9, MCHC 33.6, RDW Std Deviation 43.9, RDW Coeff of Natty 13.4, Plt Count 316, MPV 11.7, Immature Gran % (Auto) 2.100 H, Neut %(Auto) 67.9, Lymph % (Auto) 19.2, [place] % (Auto) 8.2, Eos % (Auto) 1.8, Baso % (Auto) 0.8, Absolute Neuts (auto) 7.7, Absolute Lymphs (auto) 2.17, Nucleated RBC % 0, Sodium 141, Potassium 3.4, Chloride 109 H, Carbon Dioxide 20.7 L, Anion Gap 12, BUN 17, Creatinine 0.72, Estim Creat Clear Calc 87.88,Est GFR (MDRD) Non-Af 101, BUN/Creatinine Ratio 23.2 H, Glucose 91, Calcium 8.9 Micro: Microbiology 10/10/24 08:40 Blood Culture (Wb) - Right Forearm Blood Culture - Final No growth in 5 days. 10/10/24 08:33 Blood Culture (Wb) - Anticubital Right Blood Culture - Final No growth in 5 days. 10/10/24 09:48 Urine, Clean Catch Urine Culture - Final Staphylococcus aureus Rhythm Strip Rhythm Strip: A.Flutter Rate: 120 Physical Exam Const alert and no apparent distress HEENT head/scalp atraumatic and moist oral mucous membranes Resp normal respiratory effort, no retractions, no use of accessory muscles and clearto auscultation bilaterally Cardio regular rate, regular rhythm, S1 normal heart sound and S2 normal heart sound GI normal to inspection, nondistended, normoactive bowel sounds, soft to palpation,non-tender and non-distended Extremity Extremity Narrative: infiltrated IV in LUE. Neuro Sensorium / Orientation: awake and alert Assessment & Plan Assessment/Plan (1) Epididymitis: PLAN: Noted asymmetric enlargement of the right epididymis w hypervascularity. Doxycycline and CTX (2) UTI (urinary tract infection): PLAN: Cx positive for MSSA, but only 11-25k. Doubt true infection. (3) Severe left ventricular systolic dysfunction (LVSD): PLAN: EF 10-15 % on echo on metoprolol, furosemide, spironolactone, sacubitril/valsartan Cardiology not recommending LifeVest at this time given his Aflutter and risk for inappropriate shocks. (4) Atrial flutter with rapid ventricular response: PLAN: metoprolol tartrate, amiodarone 400 BID (started today) for 5 days, then 200 BID. anticoagulated on apixaban PLAN: Plan VTE prophylaxis: not indicated as already anticoagulated. Disposition: hopefully home in 1-2 days depending on HR. Charges/Coding Visit Charges Inpatient E&M: 64680 Subs Hosp L2 10/16/24 1414 Cosigner Signature (if applicable): CC: ~ Signed [facility]06-02-2025 Progress note Author Michael Heard [facility] Note Date/Time October 16, 2024 8:54a m [facility] Medical Records Department [address] [place] [address] Progress Note - Cardiology 10/16/24 0847 MR#: [id number] Acct: [id number] Name: STACIE BARRAZA Rep #:[id number] : 1955 68 From: Michael Heard MD PCP: Dr. Kilo Lewis MD Status :ADM IN Location: [place] [id number] Subjective Subjective Patient was resting flat in the bed in no apparent distress. Reports his pain in his testicles is markedly improved. He has been up in the room and walk the pitts. Objective Data Vital Signs: Vital Signs Temp Pulse Resp BP Pulse Ox O2 Del Method O2 Flow Rate 97.8 F 82 18 124/83 H 96 Room Air 2 10/16/24 03:10 10/16/24 03:10 10/16/24 03:10 10/16/24 03:10 10/16/24 03:10 10/16/24 03:10 10/09/24 09:10 Oxygen Flow Rate (L/min) 2 Oxygen Delivery Method Room Air Weight: 154 lb 12.232 oz Body Mass Index (BMI) 23.5 Intake & Output: Intake and Output for Last 24 Hours 10/14/24 10/15/24 10/16/24 23:59 23:59 23:59 Intake Total 2808.63 / 2808.63 850 / 850 Output Total 2350 / 3150 2100 / 2250 450 / 450 Balance 458.63 / -341.37 -1250 / -1400 -450 / -450 Lab / Micro Data Attestation: I reviewed the patient's lab results. 10/16/24 05:07 10/16/24 05:07 Labs: Laboratory Results - last 24 hr 10/16/24 05:07: WBC 11.3 H, RBC 5.22, Hgb 15.6, Hct 46.4, MCV 88.9, MCH 29.9, MCHC 33.6, RDW Std Deviation 43.9, RDW Coeff of Natty 13.4, Plt Count 316, MPV 11.7, Immature Gran % (Auto) 2.100 H, Neut % (Auto) 67.9, Lymph % (Auto) 19.2, [place] % (Auto) 8.2, Eos % (Auto) 1.8, Baso % (Auto) 0.8, Absolute Neuts (auto) 7.7, Absolute Lymphs (auto) 2.17, Nucleated RBC % 0, Sodium 141, Potassium 3.4, Chloride 109 H, Carbon Dioxide 20.7 L, Anion Gap 12, BUN 17, Creatinine 0.72, Estim Creat Clear Calc 87.88, Est GFR (MDRD) Non-Af 101, BUN/Creatinine Ratio 23.2 H, Glucose 91, Calcium 8.9 Micro: Microbiology 10/10/24 08:40 Blood Culture (Wb) - Right Forearm Blood Culture - Final No growth in 5 days. 10/10/24 08:33 Blood Culture (Wb) - Anticubital Right Blood Culture - Final No growth in 5 days. Rhythm Strip Rhythm Strip: A.Flutter Rate: 120 Cardiology Labs/Tests 10/16/24 05:07: WBC 11.3 H, RBC 5.22, Hgb 15.6, Hct 46.4, MCV 88.9, MCH 29.9, MCHC 33.6, Plt Count 316, MPV 11.7, Immature Gran % (Auto) 2.100 H, Neut % (Auto) 67.9, Lymph % (Auto) 19.2, [place] % (Auto) 8.2, Eos % (Auto) 1.8, Baso % (Auto) 0.8, Absolute Neuts (auto) 7.7, Nucleated RBC % 0, Sodium 141, Potassium 3.4, Chloride 109 H, Carbon Dioxide 20.7 L, Anion Gap 12, BUN 17, Creatinine 0.72, Est GFR (MDRD) Non-Af 101, BUN/Creatinine Ratio 23.2 H, Glucose 91, Calcium 8.9 Rhythm: EKG: ECHO: Stress Test: Cardiac Cath: PCI: CT Surgery: Holter monitor: EPS: PPM: CXR: Chest CT Scan: Physical Exam Const alert and oriented x3 HEENT normocephalic Eyes EOMs intact bilaterally Neck no JVD Chest inspection of chest normal Resp normal respiratory effort and clear to auscultation bilaterally Cardio Rate: tachycardic Rhythm: other Other Details: Atrial flutter by telemetry with variable AV conduction 2-1 versus 3-1. Heart Sounds: S1 normal and S2 normal; Negative for click, gallop or murmur GI soft to palpation Extremity no pedal edema Neuro Neuro Narrative: Alert and oriented x 3 Psych mental status grossly normal Assessment & Plan Assessment/Plan (1) Severe left ventricular systolic dysfunction (LVSD): PLAN: Patient's LVEF was documented 10-15% on echocardiogram. The patient has no prior history of progressive dyspnea on exertion shortness of breath lower extremity edema or drop-off in exercise tolerance prior to the week that he presented here with epididymitis. The patient specifically denies any history of chest pains tightness squeezing no PND orthopnea no lower extremity edema. 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 Currently the patient is tolerating his guideline directed medical therapy he darby metoprolol, Entresto, spironolactone, and Lasix. His atrial arrhythmias being treated with amiodarone 200 mg twice daily. His heart rate remains elevated. At this point, do not feel the patient will require LifeVest as given his current atrial arrhythmia he would probably be more apt obtain inappropriate shocks due to the tachycardia. (2) Atrial flutter with rapid ventricular response: PLAN: Telemetry shows the patient is in atrial flutter with 2-1 AV conduction at120 bpm. Would recommend increasing his amiodarone to 400 mg twice daily. The patient is also on Eliquis. At this point in time would recommend the patient be maintained on Eliquis and amiodarone 400 g twice daily for 5 days. The amiodarone will then be decreased to 200 mg twice daily when he is discharged to home. And the plan would be to bring the patient back to the office in 3-4 weeks for a repeat ECG and determination of timing of an attempt at direct-current cardioversion. PLAN: Plan 1. Will increase amiodarone to 400 mg twice daily to increase loading. 2. Continue Entresto, spironolactone, and metoprolol, and Lasix. 3. Continue Eliquis 5 mg twice daily. Charges/Coding Visit Charges Inpatient E&M: 20878 Subs Hosp L3 10/16/24 0854 <Electronically signed by Michael Heard MD> Cosigner Signature (if applicable): CC: ~ Signed [facility] Work Phone: 1(659) 687-224106-02-2025 Progress note [facility] Medical Records Department [address] [place] [address] Progress Note - Cardiology 10/16/24 0847 MR#: [id number] Acct: [id number] Name: STACIE BARRAZA Rep #:[id number] : 1955 68 From: Michael Heard MD PCP: Dr. Kilo Lewis MD Status :ADM IN Location: [place] [address] Subjective Subjective Patient was resting flat in the bed in no apparent distress. Reports his pain in his testicles is markedly improved. He has been up in the room and walk the pitts. Objective Data Vital Signs: Vital Signs Temp Pulse Resp BP Pulse Ox O2 Del Method O2 Flow Rate 97.8 F 82 18 124/83 H 96 Room Air 2 10/16/24 03:10 10/16/24 03:10 10/16/24 03:10 10/16/24 03:10 10/16/24 03:10 10/16/24 03:10 10/09/24 09:10 Oxygen Flow Rate (L/min) 2 Oxygen Delivery Method Room Air Weight: 154 lb 12.232 oz Body Mass Index (BMI) 23.5 Intake & Output: Intake and Output for Last 24 Hours 10/14/24 10/15/24 10/16/24 23:59 23:59 23:59 Intake Total 2808.63 / 2808.63 850 / 850 Output Total 2350 / 3150 2100 / 2250 450 / 450 Balance 458.63 / -341.37 -1250 / -1400 -450 / -450 Lab / Micro Data Attestation: I reviewed the patient's lab results. 10/16/24 05:07 10/16/24 05:07 Labs: Laboratory Results - last 24 hr 10/16/24 05:07: WBC 11.3 H, RBC 5.22, Hgb 15.6, Hct 46.4, MCV 88.9, MCH 29.9, MCHC 33.6, RDW Std Deviation 43.9, RDW Coeff of Natty 13.4, Plt Count 316, MPV 11.7, Immature Gran % (Auto) 2.100 H, Neut %(Auto) 67.9, Lymph % (Auto) 19.2, [place] % (Auto) 8.2, Eos % (Auto) 1.8, Baso % (Auto) 0.8, Absolute Neuts (auto) 7.7, Absolute Lymphs (auto) 2.17, Nucleated RBC % 0, Sodium 141, Potassium 3.4, Chloride 109 H, Carbon Dioxide 20.7 L, Anion Gap 12, BUN 17, Creatinine 0.72, Estim Creat Clear Calc 87.88,Est GFR (MDRD) Non-Af 101, BUN/Creatinine Ratio 23.2 H, Glucose 91, Calcium 8.9 Micro: Microbiology 10/10/24 08:40 Blood Culture (Wb) - Right Forearm Blood Culture - Final No growth in 5 days. 10/10/24 08:33 Blood Culture (Wb) - Anticubital Right Blood Culture - Final No growth in 5 days. Rhythm Strip Rhythm Strip: A.Flutter Rate: 120 Cardiology Labs/Tests 10/16/24 05:07: WBC 11.3 H, RBC 5.22, Hgb 15.6, Hct 46.4, MCV 88.9, MCH 29.9, MCHC 33.6, Plt Count 316, MPV 11.7, Immature Gran % (Auto) 2.100 H, Neut % (Auto) 67.9, Lymph % (Auto) 19.2, [place] % (Auto) 8.2, Eos % (Auto) 1.8, Baso % (Auto) 0.8, Absolute Neuts (auto) 7.7, Nucleated RBC % 0, Sodium 141, Potassium 3.4, Chloride 109 H, Carbon Dioxide 20.7 L, Anion Gap 12, BUN 17, Creatinine 0.72, Est GFR (MDRD) Non-Af 101, BUN/Creatinine Ratio 23.2 H, Glucose 91, Calcium 8.9 Rhythm: EKG: ECHO: Stress Test: Cardiac Cath: PCI: CT Surgery: Holter monitor: EPS: PPM: CXR: Chest CT Scan: Physical Exam Const alert and oriented x3 HEENT normocephalic Eyes EOMs intact bilaterally Neck no JVD Chest inspection of chest normal Resp normal respiratory effort and clear to auscultation bilaterally Cardio Rate: tachycardic Rhythm: other Other Details: Atrial flutter by telemetry with variable AV conduction 2-1 versus 3-1. Heart Sounds: S1 normal and S2 normal; Negative for click, gallop or murmur GI soft to palpation Extremity no pedal edema Neuro Neuro Narrative: Alert and oriented x 3 Psych mental status grossly normal Assessment & Plan Assessment/Plan (1) Severe left ventricular systolic dysfunction (LVSD): PLAN: Patient's LVEF was documented 10-15% on echocardiogram. The patient has no prior history of progressive dyspnea on exertion shortness of breath lower extremity edema or drop-off in exercise tolerance prior to the week that he presented here with epididymitis. The patient specifically denies any history of chest pains tightness squeezing no PND orthopnea no lower extremity edema. 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 Currently the patient is tolerating his guideline directed medical therapy he darby metoprolol, Entresto, spironolactone, and Lasix. His atrial arrhythmias being treated with amiodarone 200 mg twice daily. His heart rate remains elevated. At this point, do not feel the patient will require LifeVest as given his current atrial arrhythmiahe would probably be more apt obtain inappropriate shocks due to the tachycardia. (2) Atrial flutter with rapid ventricular response: PLAN: Telemetry shows the patient is in atrial flutter with 2-1 AV conduction at120 bpm. Would recommend increasing his amiodarone to 400 mg twice daily. The patient is also on Eliquis. At this point in time would recommend the patient be maintained on Eliquis and amiodarone 400 g twice daily for 5 days. The amiodarone will then be decreased to 200 mg twice daily when he is discharged to home. And the plan would be to bring the patient back to the office in 3-4 weeks for a repeat ECG and determination of timing of an attempt at direct-current cardioversion. PLAN: Plan 1. Will increase amiodarone to 400 mg twice daily to increase loading. 2. Continue Entresto, spironolactone, and metoprolol, and Lasix. 3. Continue Eliquis 5 mg twice daily. Charges/Coding Visit Charges Inpatient E&M: 99611 [facility] Hosp L3 10/16/24 0854 Cosigner Signature (if applicable): CC: ~ Signed [facility]06-01-2025 Progress note Author Garrison Viveros [facility] Note Date/Time October 15, 2024 1:55p nicki [facility] Medical Records Department [address] [place] [address] Progress Note - Hospitalist 10/15/24 1351 MR#: [id number] Acct: [id number] Name: STACIE BARRAZA Rep #:[id number] : 1955 68 From: Garrison Prabhakar PCP: Dr. Kilo Lewis MD Status :ADM IN Location: [place] [address] Reason for Visit Reason for Visit: Diagnoses Elevated white blood cell count, unspecified (10/08/24) Overweight (10/08/24) Unspecified atrial flutter (10/08/24) Other ill-defined heart diseases (10/08/24) Acute cystitis with hematuria (10/08/24) Epididymitis (10/08/24) Objective Data Objective Data Vital Signs: Vital Signs Temp Pulse Resp BP Pulse Ox O2 Del Method O2 Flow Rate 98.3 F 103 H 14 131/101 H 100 Room Air 2 10/15/24 07:49 10/15/24 07:53 10/15/24 07:49 10/15/24 07:49 10/15/24 07:49 10/15/24 07:49 10/09/24 09:10 Oxygen Flow Rate (L/min) 2 Oxygen Delivery Method Room Air Weight: 156 lb 11.979 oz Body Mass Index (BMI) 23.8 Intake & Output: Intake and Output for Last 24 Hours 10/13/24 10/14/24 10/15/24 23:59 23:59 23:59 Intake Total 2288.36 / 2305.06 2808.63 / 2808.63 50 / 50 Output Total 2400 / 2400 2350 / 3150 1300 / 1300 Balance -111.64 / -94.94 458.63 / -341.37 -1250 / -1250 Lab / Micro Data 10/15/24 05:15 10/15/24 05:15 Labs: Laboratory Results - last 24 hr 10/15/24 05:15: WBC 13.7 H, RBC 5.50, Hgb 16.3, Hct 48.6, MCV 88.4, MCH 29.6, MCHC 33.5, RDW Std Deviation 43.2, RDW Coeff of Natty 13.4, Plt Count 341, MPV 12.0, Immature Gran % (Auto) 1.800 H, Neut % (Auto) 71.2 H, Lymph % (Auto) 17.9 L, [place] % (Auto) 7.5, Eos % (Auto) 1.2, Baso % (Auto) 0.4, Absolute Neuts (auto)9.7 H, Absolute Lymphs (auto) 2.45, Nucleated RBC % 0, Sodium 140, Potassium 3.3, Chloride 108, Carbon Dioxide 19.9 L, Anion Gap 13, BUN 14, Creatinine 0.77,Estim Creat Clear Calc 87.88, Est GFR (MDRD) Non-Af 99, BUN/Creatinine Ratio 17.8, Glucose 100 H, Calcium 9.2 Micro: Microbiology 10/10/24 09:48 Urine, Clean Catch Urine Culture - Final Staphylococcus aureus 10/10/24 08:40 Blood Culture (Wb) - Right Forearm Blood Culture - Preliminary No growth in 48 hours. 10/10/24 08:33 Blood Culture (Wb) - Anticubital Right Blood Culture - Preliminary No growth in 48 hours. Physical Exam Narrative Seen and examined. Patient does not have chest pain shortness of breath or palpitation. Heart rateis controlled, A-fib on the monitor. Afebrile. Patient have soft Dilaudid 0.5mg for moderate pain and 1 mg for severe pain respectively bowel movement Physical exam General: Alert, Oriented x3, Cooperative HEENT: Atraumatic, PERRLA, EOMI, Normocephalic. Oral: No Gingival or Mucosal Lesions/ Ulcerations Neck: Supple, No JVD, Negative Carotid Bruits Chest wall/Lungs: Air entry diminished in bilateral lung bases. No crepitation/rhonchi Cardiovascular: Irregular rate and rhythm, A-fib, No M/G/R Abdomen: Bowel Sounds Present, Soft, Non Tender, Non-Distended : No dysuria. No renal angle tenderness. No suprapubic tenderness. Extremities: No edema, Capillary Refill Less than 3 Seconds Skin: No rashes, No breakdown Musculoskeletal: No Tenderness to Palpation of Joints or Extremities Neurological: Cranial nerves II-XII grossly intact, DTR 2+/4. No acute focal neurological deficit. Psych/Mental Status: Normal Affect, Appropriate. Assessment & Plan Assessment/Plan (1) Atrial flutter with rapid ventricular response: (2) Epididymitis: (3) Acute cystitis with hematuria: PLAN: Plan #Acute right epididymitis * ultrasound of the scrotum showed evidence of epididymitis, with no torsion. * wbc is 16 today. Cotninue IV zosyn * PO tylenol, PO oxycodone and IV morphine prn for pain. * blood cultures negative so far. * on IV vancomycin and zosyn. 10/14: Urine culture shows MSSA 11,000-25,000 colonies, not in pathology range. IV antibiotic changed to doxycycline and ceftriaxone #UTI * Urinalysis showed evidence of UTI with 4+ bacteria and WBC was also elevated. * urine cultures * On IV Zofran as needed for nausea and vomiting. * Urine cultures growing staph aureus 10/15: As mentioned above #Persistent afib with RVR, severe systolic heart failure, exact etiology unclearand classification * went back in into afib with RVR. * remains on amiodarone drip * 2D echo is 10-15% with severe global LV hypokinesia and severe LV systolic dysfunction. * I did see the patient with Dr Leo today; he says patient is not a candidate for LAMONT cardioversion as he is worried that with his EF of 10% he may arrest in the [employer]. He wants to keep patient on amiodarone for now and add on loading dose of digoxin IV 250 mcg every 6 hours. * cardiology does not think this is an ischemic cardiomyopathy, so Dr Leo wants to hold off on doing a cardiac cath for now. * TSH WNL. Now on eliquis * management as per cardiology 10/14: On amiodarone drip being changed to oral 20 mg twice daily. Metoprolol dose decreased to 25 mg twice daily. Recommend LifeVest prior to discharge. 10/15: Cardiology note reviewed. Guideline directed medical therapy Entresto, Aldactone beta-chucky metoprolol. LifeVest prior to discharge. Further evaluation as an outpatient, stress test versus cardiac cath to ascertain possible etiology either ischemic or nonischemic cardiomyopathy. On oral amiodarone 200 mg twice daily #DVT prophylaxis: on eliquis Anticipate discharge tomorrow Charges/Coding Visit Charges Inpatient E&M: 48270 Subs Hosp L2 10/15/24 1355 <Electronically signed by Garrison Viveros MD> Cosigner Signature (if applicable): CC: ~ Signed [facility] Work Phone: [phone] 322-774306-01-2025 Progress note Author Jonas Cedeno [facility] Note Date/Time October 15, 2024 1:34p m [facility] Medical Records Department [address] [place] [address] Progress Note - Cardiology 10/15/24 1229 MR#: [id number] Acct: [id number] Name: STACIE BARRAZA Rep #:[id number] : 1955 68 From: Jonas Cedeno MD PCP: Dr. Kilo Lewis MD Status :ADM IN Location: [place] [address] Subjective Subjective Patient seen and evaluated today along with the nursing staff Comfortable in bed no symptoms reported. Objective Data Vital Signs: Vital Signs Temp Pulse Resp BP Pulse Ox O2 Del Method O2 Flow Rate 98.3 F 103 H 14 131/101 H 100 Room Air 2 10/15/24 07:49 10/15/24 07:53 10/15/24 07:49 10/15/24 07:49 10/15/24 07:49 10/15/24 07:49 10/09/24 09:10 Oxygen Flow Rate (L/min) 2 Oxygen Delivery Method Room Air Weight: 156 lb 11.979 oz Body Mass Index (BMI) 23.8 Intake & Output: Intake and Output for Last 24 Hours 10/13/24 10/14/24 10/15/24 23:59 23:59 23:59 Intake Total 2288.36 / 2305.06 2808.63 / 2808.63 50 / 50 Output Total 2400 / 2400 2350 / 3150 1300 / 1300 Balance -111.64 / -94.94 458.63 / -341.37 -1250 / -1250 Lab / Micro Data 10/15/24 05:15 10/15/24 05:15 Labs: Laboratory Results - last 24 hr 10/15/24 05:15: WBC 13.7 H, RBC 5.50, Hgb 16.3, Hct 48.6, MCV 88.4, MCH 29.6, MCHC 33.5, RDW Std Deviation 43.2, RDW Coeff of Natty 13.4, Plt Count 341, MPV 12.0, Immature Gran % (Auto) 1.800 H, Neut % (Auto) 71.2 H, Lymph % (Auto) 17.9 L, [place] % (Auto) 7.5, Eos % (Auto) 1.2, Baso % (Auto) 0.4, Absolute Neuts (auto)9.7 H, Absolute Lymphs (auto) 2.45, Nucleated RBC % 0, Sodium 140, Potassium 3.3, Chloride 108, Carbon Dioxide 19.9 L, Anion Gap 13, BUN 14, Creatinine 0.77,Estim Creat Clear Calc 87.88, Est GFR (MDRD) Non-Af 99, BUN/Creatinine Ratio 17.8, Glucose 100 H, Calcium 9.2 Cardiology Labs/Tests 10/15/24 05:15: WBC 13.7 H, RBC 5.50, Hgb 16.3, Hct 48.6, MCV 88.4, MCH 29.6, MCHC 33.5, Plt Count 341, MPV 12.0, Immature Gran % (Auto) 1.800 H, Neut % (Auto) 71.2 H, Lymph % (Auto) 17.9 L, [place] % (Auto) 7.5, Eos % (Auto) 1.2, Baso % (Auto) 0.4, Absolute Neuts (auto) 9.7 H, Nucleated RBC % 0, Sodium 140, Potassium 3.3, Chloride 108, Carbon Dioxide 19.9 L, Anion Gap 13, BUN 14, Creatinine 0.77, Est GFR (MDRD) Non-Af 99, BUN/Creatinine Ratio 17.8, Glucose 100 H, Calcium 9.2 Rhythm: EKG: ECHO: Stress Test: Cardiac Cath: PCI: CT Surgery: Holter monitor: EPS: PPM: CXR: Chest CT Scan: Physical Exam Cardio Cardio Narrative: supervisor smoke control reviewed revealed evidence of A- flutter with controlled ventricular rate Cardiac exam S1-S2 is irregular Chest exam, mildly reduced air entry bilateral Examination lower extremity no lower extremity edema noted. Assessment & Plan Assessment/Plan (1) Severe left ventricular systolic dysfunction (LVSD): (2) Atrial flutter with rapid ventricular response: (3) Epididymitis: (4) Leukocytosis: QUALIFIERS: Leukocytosis type: unspecified Qualified Code(s): D72.829 - Elevated white blood cell count, unspecified PLAN: Cardiac care plan recommendation 68-year-old patient admitted with scrotal swelling and pain And diagnosed with epididymitis acute and treated with antibiotic improving Has cardiac evaluation which revealed severe LV systolic dysfunction on echocardiogram EF in the range of 10-15% Patient had atrial flutter with rapid ventricular response Started on treatment with amiodarone beta-chucky digoxin Responded well now he is underlying cardiac rhythm is atrial flutter with controlled ventricular rate Discontinued digoxin and will continue on a low-dose beta-chucky metoprolol 25 g twice daily in addition to amiodarone 200 mg twice a day. Cardiac care plan; 1. I discussed the cardiac medication which include guideline directed medical therapy in the form of Entresto, Aldactone, beta-chucky metoprolol. Patient will require LifeVest prior to discharge. He also would require evaluation further by the cardiac team possible cardiac catheterization versus Lexiscan sestamibi The underlying etiology of his severe LV systolic dysfunction may represent multivessel CAD versus nonischemic cardiomyopathy. I discussed the cardiac care plan in detail to the patient to the as well as to the nursing staff and patient can be discharged from cardiac standpoint tofollow-up with the, cardiology team at [facility]. 10/15/24 1334 <Electronically signed by Jonas Cedeno MD> Cosigner Signature (if applicable): CC: ~ Signed [facility] Work Phone: [phone] 445-738506-01-2025 Progress note [facility] Medical Records Department [address] [place] [address] Progress Note - Hospitalist 10/15/24 1351 MR#: [id number] Acct: [id number] Name: STACIE BARRAZA Rep #:[id number] : 1955 68 From: Garrison Prabhakar PCP: Dr. Kilo Lewis MD Status :ADM IN Location: [place] [address] Reason for Visit Reason for Visit: Diagnoses Elevated white blood cell count, unspecified (10/08/24) Overweight (10/08/24) Unspecified atrial flutter (10/08/24) Other ill-defined heart diseases (10/08/24) Acute cystitis with hematuria (10/08/24) Epididymitis (10/08/24) Objective Data Objective Data Vital Signs: Vital Signs Temp Pulse Resp BP Pulse Ox O2 Del Method O2 Flow Rate 98.3 F 103 H 14 131/101 H 100 Room Air 2 10/15/24 07:49 10/15/24 07:53 10/15/24 07:49 10/15/24 07:49 10/15/24 07:49 10/15/24 07:49 10/09/24 09:10 Oxygen Flow Rate (L/min) 2 Oxygen Delivery Method Room Air Weight: 156 lb 11.979 oz Body Mass Index (BMI) 23.8 Intake & Output: Intake and Output for Last 24 Hours 10/13/24 10/14/24 10/15/24 23:59 23:59 23:59 Intake Total 2288.36 / 2305.06 2808.63 / 2808.63 50 / 50 Output Total 2400 / 2400 2350 / 3150 1300 / 1300 Balance -111.64 / -94.94 458.63 / -341.37 -1250 / -1250 Lab / Micro Data 10/15/24 05:15 10/15/24 05:15 Labs: Laboratory Results - last 24 hr 10/15/24 05:15: WBC 13.7 H, RBC 5.50, Hgb 16.3, Hct 48.6, MCV 88.4, MCH 29.6, MCHC 33.5, RDW Std Deviation 43.2, RDW Coeff of Natty 13.4, Plt Count 341, MPV 12.0, Immature Gran % (Auto) 1.800 H, Neut %(Auto) 71.2 H, Lymph % (Auto) 17.9 L, [place] % (Auto) 7.5, Eos % (Auto) 1.2, Baso % (Auto) 0.4, Absolute Neuts (auto)9.7 H, Absolute Lymphs (auto) 2.45, Nucleated RBC % 0, Sodium 140, Potassium 3.3, Chloride 108, Carbon Dioxide 19.9 L, Anion Gap 13, BUN 14, Creatinine 0.77,Estim Creat Clear Calc 87.88, Est GFR (MDRD) Non-Af 99, BUN/Creatinine Ratio 17.8, Glucose 100 H, Calcium 9.2 Micro: Microbiology 10/10/24 09:48 Urine, Clean Catch Urine Culture - Final Staphylococcus aureus 10/10/24 08:40 Blood Culture (Wb) - Right Forearm Blood Culture - Preliminary No growth in 48 hours. 10/10/24 08:33 Blood Culture (Wb) - Anticubital Right Blood Culture - Preliminary No growth in 48 hours. Physical Exam Narrative Seen and examined. Patient does not have chest pain shortness of breath or palpitation. Heart rateis controlled, A-fibon the monitor. Afebrile. Patient have soft Dilaudid 0.5mg for moderate pain and 1 mg for severe pain respectively bowel movement Physical exam General: Alert, Oriented x3, Cooperative HEENT: Atraumatic, PERRLA, EOMI, Normocephalic. Oral: No Gingival or Mucosal Lesions/ Ulcerations Neck: Supple, No JVD, Negative Carotid Bruits Chest wall/Lungs: Air entry diminished in bilateral lung bases. No crepitation/rhonchi Cardiovascular: Irregular rate and rhythm, A-fib, No M/G/R Abdomen: Bowel Sounds Present, Soft, Non Tender, Non-Distended : No dysuria. No renal angle tenderness. No suprapubic tenderness. Extremities: No edema, Capillary Refill Less than 3 Seconds Skin: No rashes, No breakdown Musculoskeletal: No Tenderness to Palpation of Joints or Extremities Neurological: Cranial nerves II-XII grossly intact, DTR 2+/4. No acute focal neurological deficit. Psych/Mental Status: Normal Affect, Appropriate. Assessment & Plan Assessment/Plan (1) Atrial flutter with rapid ventricular response: (2) Epididymitis: (3) Acute cystitis with hematuria: PLAN: Plan #Acute right epididymitis * ultrasound of the scrotum showed evidence of epididymitis, with no torsion. * wbc is 16 today. Cotninue IV zosyn * PO tylenol, PO oxycodone and IV morphine prn for pain. * blood cultures negative so far. * on IV vancomycin and zosyn. 10/14: Urine culture shows MSSA 11,000-25,000 colonies, not in pathology range. IV antibiotic changed to doxycycline and ceftriaxone #UTI * Urinalysis showed evidence of UTI with 4+ bacteria and WBC was also elevated. * urine cultures * On IV Zofran as needed for nausea and vomiting. * Urine cultures growing staph aureus 10/15: As mentioned above #Persistent afib with RVR, severe systolic heart failure, exact etiology unclearand classification * went back in into afib with RVR. * remains on amiodarone drip * 2D echo is 10-15% with severe global LV hypokinesia and severe LV systolic dysfunction. * I did see the patient with Dr Leo today; he says patient is not a candidate for LAMONT cardioversion as he is worried that with his EF of 10% he may arrest in the [employer]. He wants to keep patient on amiodarone for now and add on loading dose of digoxin IV 250 mcg every 6 hours. * cardiology does not think this is an ischemic cardiomyopathy, so Dr Leo wants to hold off on doing a cardiac cath for now. * TSH WNL. Now on eliquis * management as per cardiology 10/14: On amiodarone drip being changed to oral 20 mg twice daily. Metoprolol dose decreased to 25 mg twice daily. Recommend LifeVest prior to discharge. 10/15: Cardiology note reviewed. Guideline directed medical therapy Entresto, Aldactone beta-chucky metoprolol. LifeVest prior to discharge. Further evaluation as an outpatient, stress test versus cardiac cath to ascertain possible etiology either ischemic or nonischemic cardiomyopathy. On oral amiod arone 200 mg twice daily #DVT prophylaxis: on eliquis Anticipate discharge tomorrow Charges/Coding Visit Charges Inpatient E&M: 04445 Subs Hosp L2 10/15/24 8245 Cosigner Signature (if applicable): CC: ~ Signed [facility]2025 Progress note [facility] Medical Records Department [address] [place] [address] Progress Note - Cardiology 10/15/24 1229 MR#: [id number] Acct: [id number] Name: STACIE BARRAZA Rep #:[id number] : 1955 68 From: Jonas Cedeno MD PCP: Dr. Kilo Lewis MD Status :ADM IN Location: [place] [address] Subjective Subjective Patient seen and evaluated today along with the nursing staff Comfortable in bed no symptoms reported. Objective Data Vital Signs: Vital Signs Temp Pulse Resp BP Pulse Ox O2 Del Method O2 Flow Rate 98.3 F 103 H 14 131/101 H 100 Room Air 2 10/15/24 07:49 10/15/24 07:53 10/15/24 07:49 10/15/24 07:49 10/15/24 07:49 10/15/24 07:49 10/09/24 09:10 Oxygen Flow Rate (L/min) 2 Oxygen Delivery Method Room Air Weight: 156 lb 11.979 oz Body Mass Index (BMI) 23.8 Intake & Output: Intake and Output for Last 24 Hours 10/13/24 10/14/24 10/15/24 23:59 23:59 23:59 Intake Total 2288.36 / 2305.06 2808.63 / 2808.63 50 / 50 Output Total 2400 / 2400 2350 / 3150 1300 / 1300 Balance -111.64 / -94.94 458.63 / -341.37 -1250 / -1250 Lab / Micro Data 10/15/24 05:15 10/15/24 05:15 Labs: Laboratory Results - last 24 hr 10/15/24 05:15: WBC 13.7 H, RBC 5.50, Hgb 16.3, Hct 48.6, MCV 88.4, MCH 29.6, MCHC 33.5, RDW Std Deviation 43.2, RDW Coeff of Antty 13.4, Plt Count 341, MPV 12.0, Immature Gran % (Auto) 1.800 H, Neut %(Auto) 71.2 H, Lymph % (Auto) 17.9 L, [place] % (Auto) 7.5, Eos % (Auto) 1.2, Baso % (Auto) 0.4, Absolute Neuts (auto)9.7 H, Absolute Lymphs (auto) 2.45, Nucleated RBC % 0, Sodium 140, Potassium 3.3, Chloride 108, Carbon Dioxide 19.9 L, Anion Gap 13, BUN 14, Creatinine 0.77,Estim Creat Clear Calc 87.88, Est GFR (MDRD) Non-Af 99, BUN/Creatinine Ratio 17.8, Glucose 100 H, Calcium 9.2 Cardiology Labs/Tests 10/15/24 05:15: WBC 13.7 H, RBC 5.50, Hgb 16.3, Hct 48.6, MCV 88.4, MCH 29.6, MCHC 33.5, Plt Count 341, MPV 12.0, Immature Gran % (Auto) 1.800 H, Neut % (Auto) 71.2 H, Lymph % (Auto) 17.9 L, [place] % (Auto) 7.5, Eos % (Auto) 1.2, Baso % (Auto) 0.4, Absolute Neuts (auto) 9.7 H, Nucleated RBC % 0, Sodium 140, Potassium 3.3, Chloride 108, Carbon Dioxide 19.9 L, Anion Gap 13, BUN 14, Creatinine 0.77, Est GFR (MDRD) Non-Af 99, BUN/Creatinine Ratio 17.8, Glucose 100 H, Calcium 9.2 Rhythm: EKG: ECHO: Stress Test: Cardiac Cath: PCI: CT Surgery: Holter monitor: EPS: PPM: CXR: Chest CT Scan: Physical Exam Cardio Cardio Narrative: supervisor smoke control reviewed revealed evidence of A- flutter with controlled ventricular rate Cardiac exam S1-S2 is irregular Chest exam, mildly reduced air entry bilateral Examination lower extremity no lower extremity edema noted. Assessment & Plan Assessment/Plan (1) Severe left ventricular systolic dysfunction (LVSD): (2) Atrial flutter with rapid ventricular response: (3) Epididymitis: (4) Leukocytosis: QUALIFIERS: Leukocytosis type: unspecified Qualified Code(s): D72.829 - Elevated white blood cell count, unspecified PLAN: Cardiac care plan recommendation 68-year-old patient admitted with scrotal swelling and pain And diagnosed with epididymitis acute and treated with antibiotic improving Has cardiac evaluation which revealed severe LV systolic dysfunction on echocardiogram EF in the range of 10-15% Patient had atrial flutter with rapid ventricular response Started on treatment with amiodarone beta-chucky digoxin Responded well now he is underlying cardiac rhythm is atrial flutter with controlled ventricular rate Discontinued digoxin and will continue on a low-dose beta-chucky metoprolol 25 g twice daily in addition to amiodarone 200 mg twice a day. Cardiac care plan; 1. I discussed the cardiac medication which include guideline directed medical therapy in the form of Entresto, Aldactone, beta-chucky metoprolol. Patient will require LifeVest prior to discharge. He also would require evaluation further by the cardiac team possible cardiac catheterization versus Lexiscan sestamibi The underlying etiology of his severe LV systolic dysfunction may represent multivessel CAD versus nonischemic cardiomyopathy. I discussed the cardiac care plan in detail to the patient to the as well as to the nursing staff and patient can be discharged from cardiac standpoint tofollow-up with the, cardiology team at [facility]. 10/15/24 1334 Cosigner Signature (if applicable): CC: ~ Signed [facility]05-31-2025 Progress note Author Garrison Viveros [facility] Note Date/Time October 14, 2024 4:24p m [facility] Medical Records Department [address] [place] [address] Progress Note - Hospitalist 10/14/24 1201 MR#: [id number] Acct: [id number] Name: STACIE BARRAZA Rep #:[id number] : 1955 68 From: Garrison Prabhakar PCP: Dr. Kilo Lewis MD Status :ADM IN Location: [place] [address] 1 Reason for Visit Reason for Visit: Diagnoses Elevated white blood cell count, unspecified (10/08/24) Overweight (10/08/24) Unspecified atrial flutter (10/08/24) Acute cystitis with hematuria (10/08/24) Epididymitis (10/08/24) Objective Data Objective Data Vital Signs: Vital Signs Temp Pulse Resp BP Pulse Ox O2 Del Method O2 Flow Rate 98.7 F 88 19 H 105/69 99 Room Air 2 10/14/24 09:44 10/14/24 11:00 10/14/24 11:00 10/14/24 11:00 10/14/24 11:00 10/14/24 11:00 10/09/24 09:10 Oxygen Flow Rate (L/min) 2 Oxygen Delivery Method Room Air Weight: 158 lb 11.725 oz Body Mass Index (BMI) 24.1 Intake & Output: Intake and Output for Last 24 Hours 10/12/24 10/13/24 10/14/24 23:59 23:59 23:59 Intake Total 1661.19 / 2077.89 2288.36 / 2305.06 1467.75 / 1467.75 Output Total 1550 / 2250 2400 / 2400 700 / 700 Balance 111.19 / -172.11 -111.64 / -94.94 767.75 / 767.75 Lab / Micro Data 10/14/24 05:00 10/14/24 05:00 Labs: Laboratory Results - last 24 hr 10/13/24 23:30: Vancomycin Trough 10.4 10/14/24 05:00: WBC 14.3 H, RBC 5.23, Hgb 15.9, Hct 46.5, MCV 88.9, MCH 30.4, MCHC 34.2, RDW Std Deviation 43.5, RDW Coeff of Natty 13.5, Plt Count 282, MPV 11.6, Immature Gran % (Auto) 1.300 H, Neut % (Auto) 73.6 H, Lymph % (Auto) 15.4 L, [place] % (Auto) 8.2, Eos % (Auto) 1.1, Baso % (Auto) 0.4, Absolute Neuts (auto)10.5 H, Absolute Lymphs (auto) 2.20, Nucleated RBC % 0, Sodium 139, Potassium 3.4, Chloride 108, Carbon Dioxide 20.0 L, Anion Gap 11, BUN 13, Creatinine 0.74,Estim Creat Clear Calc 87.88, Est GFR (MDRD) Non-Af 100, BUN/Creatinine Ratio 17.5, Glucose 106 H, Calcium 8.5 Micro: Microbiology 10/10/24 09:48 Urine, Clean Catch Urine Culture - Final Staphylococcus aureus 10/10/24 08:40 Blood Culture (Wb) - Right Forearm Blood Culture - Preliminary No growth in 48 hours. 10/10/24 08:33 Blood Culture (Wb) - Anticubital Right Blood Culture - Preliminary No growth in 48 hours. Physical Exam Narrative Seen and examined. Patient does not have chest pain shortness of breath or palpitation. Heart rateis controlled. Afebrile. Patient on amnio drip. Denies burning micturition. Patient said he had a soft loose bowel movement Physical exam General: Alert, Oriented x3, Cooperative HEENT: Atraumatic, PERRLA, EOMI, Normocephalic. Oral: No Gingival or Mucosal Lesions/ Ulcerations Neck: Supple, No JVD, Negative Carotid Bruits Chest wall/Lungs: Air entry diminished in bilateral lung bases. No crepitation/rhonchi Cardiovascular: Irregular rate and rhythm, A-fib, Normal S1,S2, No M/G/R Abdomen: Bowel Sounds Present, Soft, Non Tender, Non-Distended : No dysuria. No renal angle tenderness. No suprapubic tenderness. Extremities: No edema, Capillary Refill Less than 3 Seconds Skin: No rashes, No breakdown Musculoskeletal: No Tenderness to Palpation of Joints or Extremities Neurological: Cranial nerves II-XII grossly intact, DTR 2+/4. No acute focal neurological deficit. Psych/Mental Status: Normal Affect, Appropriate. Assessment & Plan Assessment/Plan (1) Atrial flutter with rapid ventricular response: (2) Epididymitis: (3) Acute cystitis with hematuria: PLAN: Plan #Acute right epididymitis * ultrasound of the scrotum showed evidence of epididymitis, with no torsion. * wbc is 16 today. Cotninue IV zosyn * PO tylenol, PO oxycodone and IV morphine prn for pain. * blood cultures negative so far. * on IV vancomycin and zosyn. 10/14: Urine culture shows MSSA 11,000-25,000 colonies, not in pathology range. IV antibiotic changed to doxycycline and ceftriaxone #UTI * Urinalysis showed evidence of UTI with 4+ bacteria and WBC was also elevated. * urine cultures * On IV Zofran as needed for nausea and vomiting. * Urine cultures growing staph aureus * on IV vancomycin and zosyn * #Persistent afib with RVR * went back in into afib with RVR. * remains on amiodarone drip * 2D echo is 10-15% with severe global LV hypokinesia and severe LV systolic dysfunction. * I did see the patient with Dr Leo today; he says patient is not a candidate for LAMONT cardioversion as he is worried that with his EF of 10% he may arrest in the [employer]. He wants to keep patient on amiodarone for now and add on loading dose of digoxin IV 250 mcg every 6 hours. * cardiology does not think this is an ischemic cardiomyopathy, so Dr Leo wants to hold off on doing a cardiac cath for now. * TSH WNL. Now on eliquis * management as per cardiology 10/14: On amiodarone drip being changed to oral 20 mg twice daily. Metoprolol dose decreased to 25 mg twice daily. Recommend LifeVest prior to discharge. #DVT prophylaxis: on eliquis Charges/Coding Visit Charges Inpatient E&M: 23315 Subs Hosp L2 10/14/24 1624 <Electronically signed by Garrison Viveros MD> Cosigner Signature (if applicable): CC: ~ Signed [facility] Work Phone: [phone]) 317-537205-31-2025 Progress note Author Jonas Cedeno [facility] Note Date/Time October 14, 2024 2:35p m [facility] Medical Records Department [address] [place] [address] Progress Note - Cardiology 10/14/24 1431 MR#: [id number] Acct: [id number] Name: STACIE BARRAZAE Rep #:[id number] : 1955 68 From: Jonas Cedeno MD PCP: Dr. Kilo Lewis MD Status :ADM IN Location: [place] [address] 1 Subjective Subjective Seen and evaluated today at bedside and examined and family were at bedside Discussed with the nursing staff patient is comfortable not in apparent distress. And no symptoms reported. Objective Data Vital Signs: Vital Signs Temp Pulse Resp BP Pulse Ox O2 Del Method O2 Flow Rate 98.7 F 76 21 H 113/87 H 100 Room Air 2 10/14/24 09:44 10/14/24 13:00 10/14/24 13:00 10/14/24 13:00 10/14/24 13:00 10/14/24 13:00 10/09/24 09:10 Oxygen Flow Rate (L/min) 2 Oxygen Delivery Method Room Air Weight: 158 lb 11.725 oz Body Mass Index (BMI) 24.1 Intake & Output: Intake and Output for Last 24 Hours 10/12/24 10/13/24 10/14/24 23:59 23:59 23:59 Intake Total 1661.19 / 2077.89 2288.36 / 2305.06 2336.15 / 2336.15 Output Total 1550 / 2250 2400 / 2400 1450 / 1450 Balance 111.19 / -172.11 -111.64 / -94.94 886.15 / 886.15 Lab / Micro Data 10/14/24 05:00 10/14/24 05:00 Labs: Laboratory Results - last 24 hr 10/13/24 23:30: Vancomycin Trough 10.4 10/14/24 05:00: WBC 14.3 H, RBC 5.23, Hgb 15.9, Hct 46.5, MCV 88.9, MCH 30.4, MCHC 34.2, RDW Std Deviation 43.5, RDW Coeff of Natty 13.5, Plt Count 282, MPV 11.6, Immature Gran % (Auto) 1.300 H, Neut % (Auto) 73.6 H, Lymph % (Auto) 15.4 L, [place] % (Auto) 8.2, Eos % (Auto) 1.1, Baso % (Auto) 0.4, Absolute Neuts (auto)10.5 H, Absolute Lymphs (auto) 2.20, Nucleated RBC % 0, Sodium 139, Potassium 3.4, Chloride 108, Carbon Dioxide 20.0 L, Anion Gap 11, BUN 13, Creatinine 0.74,Estim Creat Clear Calc 87.88, Est GFR (MDRD) Non-Af 100, BUN/Creatinine Ratio 17.5, Glucose 106 H, Calcium 8.5 Cardiology Labs/Tests 10/14/24 05:00: WBC 14.3 H, RBC 5.23, Hgb 15.9, Hct 46.5, MCV 88.9, MCH 30.4, MCHC 34.2, Plt Count 282, MPV 11.6, Immature Gran % (Auto) 1.300 H, Neut % (Auto) 73.6 H, Lymph % (Auto) 15.4 L, [place] % (Auto) 8.2, Eos % (Auto) 1.1, Baso % (Auto) 0.4, Absolute Neuts (auto) 10.5 H, Nucleated RBC % 0, Sodium 139, Potassium 3.4, Chloride 108, Carbon Dioxide 20.0 L, Anion Gap 11, BUN 13, Creatinine 0.74, Est GFR (MDRD) Non-Af 100, BUN/Creatinine Ratio 17.5, Glucose 106 H, Calcium 8.5 Rhythm: EKG: ECHO: Stress Test: Cardiac Cath: PCI: CT Surgery: Holter monitor: EPS: PPM: CXR: Chest CT Scan: Physical Exam Cardio Cardio Narrative: Cardiac rhythm A-fib with controlled ventricular rate Cardiac exam S1-S2 is irregular Chest exam mildly diminished air entry bilateral Examination lower extremity mild lower extremity edema. Assessment & Plan Assessment/Plan (1) Atrial flutter with rapid ventricular response: (2) Severe left ventricular systolic dysfunction (LVSD): (3) Epididymitis: (4) Leukocytosis: QUALIFIERS: Leukocytosis type: unspecified Qualified Code(s): D72.829 - Elevated white blood cell count, unspecified (5) Acute cystitis with hematuria: (6) Overweight (BMI 25.0-29.9): PLAN: 68-year-old patient admitted with symptoms of shortness of breath palpitation He had echocardiogram which showed severe LV systolic dysfunction Ejection fraction in the range of 10-15% does not have any active symptoms of chest pain His presentation also is swelling of the scrotum with pain and diagnosed with epididymitis and has been on antibiotic treatment I reviewed all the current cardiac evaluation as well as his medication Will start the patient on amiodarone, digoxin, beta-chucky Is a underlying atrial flutter improved with rate control. Cardiac care plan; 1. Will discontinue the digoxin On we will reduce the dose of beta-chucky to metoprolol tartrate 25 twice daily Will continue on amiodarone 200 mg twice daily. Patient will require LifeVest prior [facility] to [facility] he has mild bilateral inspiratory rales and diminished air entry bilateral. In addition we will start on guideline directed medical therapy in the form of Entresto, Farxiga, Aldactone as tolerated. Patient to have LifeVest and to follow-up with the cardiology team at [facility]. I discussed this in detail and including the cardiac care plan to the patient, to the as well as to the nursing staff. 10/14/24 1435 <Electronically signed by Jonas Cedeno MD> Cosigner Signature (if applicable): CC: ~ Signed [facility] Work Phone: [phone] Progress note [facility] Medical Records Department [address] [place] [address] Progress Note - Hospitalist 10/14/24 1201 MR#: [id number] Acct: [id number] Name: STACIE BARRAZA Rep #:[id number] : 1955 68 From: Garrison Prabhakar PCP: Dr. Kilo Lewis MD Status :ADM IN Location: [place] [address] Reason for Visit Reason for Visit: Diagnoses Elevated white blood cell count, unspecified (10/08/24) Overweight (10/08/24) Unspecified atrial flutter (10/08/24) Acute cystitis with hematuria (10/08/24) Epididymitis (10/08/24) Objective Data Objective Data Vital Signs: Vital Signs Temp Pulse Resp BP Pulse Ox O2 Del Method O2 Flow Rate 98.7 F 88 19 H 105/69 99 Room Air 2 10/14/24 09:44 10/14/24 11:00 10/14/24 11:00 10/14/24 11:00 10/14/24 11:00 10/14/24 11:00 10/09/24 09:10 Oxygen Flow Rate (L/min) 2 Oxygen Delivery Method Room Air Weight: 158 lb 11.725 oz Body Mass Index (BMI) 24.1 Intake & Output: Intake and Output for Last 24 Hours 10/12/24 10/13/24 10/14/24 23:59 23:59 23:59 Intake Total 1661.19 / 2077.89 2288.36 / 2305.06 1467.75 / 1467.75 Output Total 1550 / 2250 2400 / 2400 700 / 700 Balance 111.19 / -172.11 -111.64 / -94.94 767.75 / 767.75 Lab / Micro Data 10/14/24 05:00 10/14/24 05:00 Labs: Laboratory Results - last 24 hr 10/13/24 23:30: Vancomycin Trough 10.4 10/14/24 05:00: WBC 14.3 H, RBC 5.23, Hgb 15.9, Hct 46.5, MCV 88.9, MCH 30.4, MCHC 34.2, RDW Std Deviation 43.5, RDW Coeff of Natty 13.5, Plt Count 282, MPV 11.6, Immature Gran % (Auto) 1.300 H, Neut %(Auto) 73.6 H, Lymph % (Auto) 15.4 L, [place] % (Auto) 8.2, Eos % (Auto) 1.1, Baso % (Auto) 0.4, Absolute Neuts (auto)10.5 H, Absolute Lymphs (auto) 2.20, Nucleated RBC % 0, Sodium 139, Potassium 3.4, Chloride 108, Carbon Dioxide 20.0 L, Anion Gap 11, BUN 13, Creatinine 0.74,Estim Creat Clear Calc 87.88, Est GFR (MDRD) Non-Af 100, BUN/Creatinine Ratio 17.5, Glucose 106 H, Calcium 8.5 Micro: Microbiology 10/10/24 09:48 Urine, Clean Catch Urine Culture - Final Staphylococcus aureus 10/10/24 08:40 Blood Culture (Wb) - Right Forearm Blood Culture - Preliminary No growth in 48 hours. 10/10/24 08:33 Blood Culture (Wb) - Anticubital Right Blood Culture - Preliminary No growth in 48 hours. Physical Exam Narrative Seen and examined. Patient does not have chest pain shortness of breath or palpitation. Heart rateis controlled. Afebrile. Patient on amnio drip. Denies burning micturition. Patient said he had a soft loose bowel movement Physical exam General: Alert, Oriented x3, Cooperative HEENT: Atraumatic, PERRLA, EOMI, Normocephalic. Oral: No Gingival or Mucosal Lesions/ Ulcerations Neck: Supple, No JVD, Negative Carotid Bruits Chest wall/Lungs: Air entry diminished in bilateral lung bases. No crepitation/rhonchi Cardiovascular: Irregular rate and rhythm, A-fib, Normal S1,S2, No M/G/R Abdomen: Bowel Sounds Present, Soft, Non Tender, Non-Distended : No dysuria. No renal angle tenderness. No suprapubic tenderness. Extremities: No edema, Capillary Refill Less than 3 Seconds Skin: No rashes, No breakdown Musculoskeletal: No Tenderness to Palpation of Joints or Extremities Neurological: Cranial nerves II-XII grossly intact, DTR 2+/4. No acute focal neurological deficit. Psych/Mental Status: Normal Affect, Appropriate. Assessment & Plan Assessment/Plan (1) Atrial flutter with rapid ventricular response: (2) Epididymitis: (3) Acute cystitis with hematuria: PLAN: Plan #Acute right epididymitis * ultrasound of the scrotum showed evidence of epididymitis, with no torsion. * wbc is 16 today. Cotninue IV zosyn * PO tylenol, PO oxycodone and IV morphine prn for pain. * blood cultures negative so far. * on IV vancomycin and zosyn. 10/14: Urine culture shows MSSA 11,000-25,000 colonies, not in pathology range. IV antibiotic changed to doxycycline and ceftriaxone #UTI * Urinalysis showed evidence of UTI with 4+ bacteria and WBC was also elevated. * urine cultures * On IV Zofran as needed for nausea and vomiting. * Urine cultures growing staph aureus * on IV vancomycin and zosyn * #Persistent afib with RVR * went back in into afib with RVR. * remains on amiodarone drip * 2D echo is 10-15% with severe global LV hypokinesia and severe LV systolic dysfunction. * I did see the patient with Dr Leo today; he says patient is not a candidate for LAMONT cardioversion as he is worried that with his EF of 10% he may arrest in the [employer]. He wants to keep patient on amiodarone for now and add on loading dose of digoxin IV 250 mcg every 6 hours. * cardiology does not think this is an ischemic cardiomyopathy, so Dr Leo wants to hold off on doing a cardiac cath for now. * TSH WNL. Now on eliquis * management as per cardiology 10/14: On amiodarone drip being changed to oral 20 mg twice daily. Metoprolol dose decreased to 25 mg twice daily. Recommend LifeVest prior to discharge. #DVT prophylaxis: on eliquis Charges/Coding Visit Charges Inpatient E&M: 62654 Subs Hosp L2 10/14/24 1624 Cosigner Signature (if applicable): CC: ~ Signed [facility]05-31-2025 Progress note [facility] Medical Records Department [address] [facility] [place] [address] Progress Note - Cardiology 10/14/24 1431 MR#: [id number] Acct: [id number] Name: STACIE BARRAZA Rep #:[id number] : 1955 68 From: Jonas Cedeno MD PCP: Dr. Kilo Lewis MD Status :ADM IN Location: [place] [address] Subjective Subjective Seen and evaluated today at bedside and examined and family were at bedside Discussed with the nursing staff patient is comfortable not in apparent distress. And no symptoms reported. Objective Data Vital Signs: Vital Signs Temp Pulse Resp BP Pulse Ox O2 Del Method O2 Flow Rate 98.7 F 76 21 H 113/87 H 100 Room Air 2 10/14/24 09:44 10/14/24 13:00 10/14/24 13:00 10/14/24 13:00 10/14/24 13:00 10/14/24 13:00 10/09/24 09:10 Oxygen Flow Rate (L/min) 2 Oxygen Delivery Method Room Air Weight: 158 lb 11.725 oz Body Mass Index (BMI) 24.1 Intake & Output: Intake and Output for Last 24 Hours 10/12/24 10/13/24 10/14/24 23:59 23:59 23:59 Intake Total 1661.19 / 2077.89 2288.36 / 2305.06 2336.15 / 2336.15 Output Total 1550 / 2250 2400 / 2400 1450 / 1450 Balance 111.19 / -172.11 -111.64 / -94.94 886.15 / 886.15 Lab / Micro Data 10/14/24 05:00 10/14/24 05:00 Labs: Laboratory Results - last 24 hr 10/13/24 23:30: Vancomycin Trough 10.4 10/14/24 05:00: WBC 14.3 H, RBC 5.23, Hgb 15.9, Hct 46.5, MCV 88.9, MCH 30.4, MCHC 34.2, RDW Std Deviation 43.5, RDW Coeff of Natty 13.5, Plt Count 282, MPV 11.6, Immature Gran % (Auto) 1.300 H, Neut %(Auto) 73.6 H, Lymph % (Auto) 15.4 L, [place] % (Auto) 8.2, Eos % (Auto) 1.1, Baso % (Auto) 0.4, Absolute Neuts (auto)10.5 H, Absolute Lymphs (auto) 2.20, Nucleated RBC % 0, Sodium 139, Potassium 3.4, Chloride 108, Carbon Dioxide 20.0 L, Anion Gap 11, BUN 13, Creatinine 0.74,Estim Creat Clear Calc 87.88, Est GFR (MDRD) Non-Af 100, BUN/Creatinine Ratio 17.5, Glucose 106 H, Calcium 8.5 Cardiology Labs/Tests 10/14/24 05:00: WBC 14.3 H, RBC 5.23, Hgb 15.9, Hct 46.5, MCV 88.9, MCH 30.4, MCHC 34.2, Plt Count 282, MPV 11.6, Immature Gran % (Auto) 1.300 H, Neut % (Auto) 73.6 H, Lymph % (Auto) 15.4 L, [place] % (Auto) 8.2, Eos % (Auto) 1.1, Baso % (Auto) 0.4, Absolute Neuts (auto) 10.5 H, Nucleated RBC % 0, Sodium 139, Potassium 3.4, Chloride 108, Carbon Dioxide 20.0 L, Anion Gap 11, BUN 13, Creatinine 0.74, Est GFR (MDRD) Non-Af 100, BUN/Creatinine Ratio 17.5, Glucose 106 H, Calcium 8.5 Rhythm: EKG: ECHO: Stress Test: Cardiac Cath: PCI: CT Surgery: Holter monitor: EPS: PPM: CXR: Chest CT Scan: Physical Exam Cardio Cardio Narrative: Cardiac rhythm A-fib with controlled ventricular rate Cardiac exam S1-S2 is irregular Chest exam mildly diminished air entry bilateral Examination lower extremity mild lower extremity edema. Assessment & Plan Assessment/Plan (1) Atrial flutter with rapid ventricular response: (2) Severe left ventricular systolic dysfunction (LVSD): (3) Epididymitis: (4) Leukocytosis: QUALIFIERS: Leukocytosis type: unspecified Qualified Code(s): D72.829 - Elevated white blood cell count, unspecified (5) Acute cystitis with hematuria: (6) Overweight (BMI 25.0-29.9): PLAN: 68-year-old patient admitted with symptoms of shortness of breath palpitation He had echocardiogram which showed severe LV systolic dysfunction Ejection fraction in the range of 10-15% does not have any active symptoms of chest pain His presentation also is swelling of the scrotum with pain and diagnosed with epididymitis and has been on antibiotic treatment I reviewed all the current cardiac evaluation as well as his medication Will start the patient on amiodarone, digoxin, beta-chucky Is a underlying atrial flutter improved with rate control. Cardiac care plan; 1. Will discontinue the digoxin On we will reduce the dose of beta-chucky to metoprolol tartrate 25 twice daily Will continue on amiodarone 200 mg twice daily. Patient will require LifeVest prior to discharge To diurese as needed to offload he has mild bilateral inspiratory rales and diminished air entry bilateral. In addition we will start on guideline directed medical therapy in the form of Entresto, Farxiga, Aldactone as tolerated. Patient to have LifeVest and to follow-up with the cardiology team at [facility]. I discussed this in detail and including the cardiac care plan to the patient, to the as well as to the nursing staff. 10/14/24 1435 Cosigner Signature (if applicable): CC: ~ Signed [facility]05-30-2025 Progress note Author Madison Lemus [facility] Note Date/Time October 13, 2024 5:42p m [facility] Medical Records Department [address] [place] [address] Progress Note 10/13/24 1113 MR#: [id number] Acct: [id number] Name: STACIE BARRAZA Rep #:[id number] : 1955 68 From: Madison Lemus MD PCP: Dr. Kilo Lewis MD Status :ADM IN Location: [place] [address] Subjective Subjective Patient seen and examined. He has no active complaints. He still remains tachycardic, in afib with RVR. He remains on the amiodarone drip. His scrotal swellng has also improved. REview of systems is otherwise negative. Objective Data Objective Data Vital Signs: Vital Signs Temp Pulse Resp BP Pulse Ox O2 Del Method O2 Flow Rate 97.7 F L 123 H 17 126/97 H 99 Room Air 2 10/13/24 10:00 10/13/24 10:00 10/13/24 10:00 10/13/24 10:00 10/13/24 10:00 10/13/24 10:00 10/09/24 09:10 Oxygen Flow Rate (L/min) 2 Oxygen Delivery Method Room Air Weight: 161 lb 2.526 oz Body Mass Index (BMI) 24.5 Intake & Output: Intake and Output for Last 24 Hours 10/11/24 10/12/24 10/13/24 23:59 23:59 23:59 Intake Total 2055.93 / 2072.63 1661.19 / 2077.89 1302.73 / 1302.73 Output Total 5500 / 5500 1550 / 2250 1100 / 1100 Balance -3444.07 / -3427.37 111.19 / -172.11 202.73 / 202.73 Lab / Micro Data 10/13/24 05:41 10/13/24 05:41 Labs: Laboratory Results - last 24 hr 10/13/24 05:41: WBC 16.1 H, RBC 5.29, Hgb 16.0, Hct 46.7, MCV 88.3, MCH 30.2, MCHC 34.3, RDW Std Deviation 43.6, RDW Coeff of Natty 13.5, Plt Count 278, MPV 12.1 H, Immature Gran % (Auto) 1.000 H, Neut % (Auto) 77.1 H, Lymph % (Auto) 12.2 L, [place] % (Auto) 8.6, Eos % (Auto) 0.5, Baso % (Auto) 0.6, Absolute Neuts (auto) 12.4 H, Absolute Lymphs (auto) 1.97, Nucleated RBC % 0, Sodium 138, Potassium 3.1 L, Chloride 104, Carbon Dioxide 22.1, Anion Gap 12, BUN 14, Creatinine 0.70, Estim Creat Clear Calc 87.88, Est GFR (MDRD) Non-Af 101, BUN/Creatinine Ratio 19.9, Glucose 102 H, Calcium 8.6 Micro: Microbiology 10/10/24 09:48 Urine, Clean Catch Urine Culture - Final Staphylococcus aureus 10/10/24 08:40 Blood Culture (Wb) - Right Forearm Blood Culture - Preliminary No growth in 48 hours. 10/10/24 08:33 Blood Culture (Wb) - Anticubital Right Blood Culture - Preliminary No growth in 48 hours. Physical Exam Const alert, oriented x3, no apparent distress, average body habitus and well nourished Constitutional Narrative: General Appearance: cooperative and well developed HEENT normocephalic, head/scalp atraumatic, hearing grossly normal bilaterally, moist oral mucous membranes and oropharynx normal Eyes PERRL, EOMs intact bilaterally and conjunctivae normal Neck no lymphadenopathy, supple and no JVD Lymph Lymphatic: no lymphadenopathy noted and no lymphedema noted Resp normal respiratory effort, normal air movement, no retractions, no use of accessory muscles and clear to auscultation bilaterally Cardio S1 normal heart sound, S2 normal heart sound and no murmurs Cardio Narrative: afib,poor rate control, still in RVR GI normal to inspection, nondistended, normoactive bowel sounds, soft to palpation,non-tender and non-distended Extremity normal to inspection, full ROM, normal capillary refill, no clubbing, cyanosis or edema and no calf tenderness General Extremity: no tenderness to palpation of joints or extremities Skin Skin Narrative: scrotum erythema has improved, right testicle tenderness and erythema has improved significantly Neuro oriented x3, CN's II-XII intact bilaterally, moves all extremities, no focal motor deficits and no sensory deficits noted Sensorium / Orientation: awake, alert, oriented to person, oriented to place andoriented to time Speech: speech normal Motor Exam: strength 5/5 throughout and general weakness Psych thought process normal, cooperative and affect normal Appearance: appropriate Mood & Affect: anxious Assessment & Plan Assessment/Plan (1) Atrial flutter with rapid ventricular response: (2) Epididymitis: (3) Acute cystitis with hematuria: PLAN: Plan #Acute right epididymitis * ultrasound of the scrotum showed evidence of epididymitis, with no torsion. * wbc is 16 today. Cotninue IV zosyn * PO tylenol, PO oxycodone and IV morphine prn for pain. * blood cultures negative so far. * on IV vancomycin and zosyn. * #UTI * Urinalysis showed evidence of UTI with 4+ bacteria and WBC was also elevated. * urine cultures * On IV Zofran as needed for nausea and vomiting. * Urine cultures growing staph aureus * on IV vancomycin and zosyn * #Persistent afib with RVR * went back in into afib with RVR. * remains on amiodarone drip * 2D echo is 10-15% with severe global LV hypokinesia and severe LV systolic dysfunction. * I did see the patient with Dr Leo today; he says patient is not a candidate for LAMONT cardioversion as he is worried that with his EF of 10% he may arrest in the [employer]. He wants to keep patient on amiodarone for now and add on loading dose of digoxin IV 250 mcg every 6 hours. * cardiology does not think this is an ischemic cardiomyopathy, so Dr Leo wants to hold off on doing a cardiac cath for now. * TSH WNL. Now on eliquis * management as per cardiology * #DVT prophylaxis: on eliquis Charges/Coding Visit Charges Inpatient E&M: 33059 Subs Hosp L2 10/13/24 6292 <Electronically signed by Madison Lemus MD> Madison Lemus MD Cosigner Signature (if applicable): CC: ~ Signed [facility] Work Phone: [phone] Progress note Author Jonas Cedeno [facility] Note Date/Time October 13, 2024 3:57p m [facility] Medical Records Department [address] [place] [address] Progress Note - Cardiology 10/13/24 1552 MR#: [id number] Acct: [id number] Name: STACIE BARRAZA Rep #:[id number] : 1955 68 From: Jonas Cedeno MD PCP: Dr. Kilo Lewis MD Status :ADM IN Location: [place] [address] Subjective Subjective Seen and evaluated at bedside along with the medical team and the nursing staff Lying in bed no symptoms reported. Objective Data Vital Signs: Vital Signs Temp Pulse Resp BP Pulse Ox O2 Del Method O2 Flow Rate 97.7 F L 127 H 19 H 100/88 H 100 Room Air 2 10/13/24 10:00 10/13/24 15:00 10/13/24 15:00 10/13/24 15:00 10/13/24 15:00 10/13/24 15:00 10/09/24 09:10 Oxygen Flow Rate (L/min) 2 Oxygen Delivery Method Room Air Weight: 161 lb 2.526 oz Body Mass Index (BMI) 24.5 Intake & Output: Intake and Output for Last 24 Hours 10/11/24 10/12/24 10/13/24 23:59 23:59 23:59 Intake Total 2055.93 / 2072.63 1661.19 / 2077.89 1686.64 / 1686.64 Output Total 5500 / 5500 1550 / 2250 1400 / 1400 Balance -3444.07 / -3427.37 111.19 / -172.11 286.64 / 286.64 Lab / Micro Data 10/13/24 05:41 10/13/24 05:41 Labs: Laboratory Results - last 24 hr 10/13/24 05:41: WBC 16.1 H, RBC 5.29, Hgb 16.0, Hct 46.7, MCV 88.3, MCH 30.2, MCHC 34.3, RDW Std Deviation 43.6, RDW Coeff of Natty 13.5, Plt Count 278, MPV 12.1 H, Immature Gran % (Auto) 1.000 H, Neut % (Auto) 77.1 H, Lymph % (Auto) 12.2 L, [place] % (Auto) 8.6, Eos % (Auto) 0.5, Baso % (Auto) 0.6, Absolute Neuts (auto) 12.4 H, Absolute Lymphs (auto) 1.97, Nucleated RBC % 0, Sodium 138, Potassium 3.1 L, Chloride 104, Carbon Dioxide 22.1, Anion Gap 12, BUN 14, Creatinine 0.70, Estim Creat Clear Calc 87.88, Est GFR (MDRD) Non-Af 101, BUN/Creatinine Ratio 19.9, Glucose 102 H, Calcium 8.6 Cardiology Labs/Tests 10/13/24 05:41: WBC 16.1 H, RBC 5.29, Hgb 16.0, Hct 46.7, MCV 88.3, MCH 30.2, MCHC 34.3, Plt Count 278, MPV 12.1 H, Immature Gran % (Auto) 1.000 H, Neut % (Auto) 77.1 H, Lymph % (Auto) 12.2 L, [place] % (Auto) 8.6, Eos % (Auto) 0.5, Baso % (Auto) 0.6, Absolute Neuts (auto) 12.4 H, Nucleated RBC % 0, Sodium 138, Potassium 3.1 L, Chloride 104, Carbon Dioxide 22.1, Anion Gap 12, BUN 14, Creatinine 0.70, Est GFR (MDRD) Non-Af 101, BUN/Creatinine Ratio 19.9, Glucose 102 H, Calcium 8.6 Rhythm: EKG: ECHO: Stress Test: Cardiac Cath: PCI: CT Surgery: Holter monitor: EPS: PPM: CXR: Chest CT Scan: Assessment & Plan Assessment/Plan (1) Atrial flutter with rapid ventricular response: (2) Epididymitis: (3) Leukocytosis: QUALIFIERS: Leukocytosis type: unspecified Qualified Code(s): D72.829 - Elevated white blood cell count, unspecified PLAN: Plan 68-year-old patient Seen and evaluated today at bedside along with the medical team and the nursing staff. Review of the school childcare attendant showed A-fib with RVR. Cardiac exam S1-S2 is irregular This patient has severe LV systolic dysfunction with ejection fraction in the range of 10-15%. Cardiac medication and care plan discussed; 1. Amiodarone IV 2. Increase the dose of beta-chucky to metoprolol 50 twice daily 3. Load with digoxin 125 mcg every 6 hours then followed by 125 mcg daily His renal function is normal with a creatinine within normal. From cardiac standpoint once his ventricular rate is controlled and patient currently on anticoagulation/OAC with Eliquis With recommend to follow-up with cardiology team, at [facility] With a LifeVest prior to discharge due to high risk of sudden cardiac and severe LV dysfunction EF 10-15%. In addition as tolerated to start him on guideline directed medical therapy in the form of Entresto, Aldactone, Farxiga. Patient will require further evaluation as an outpatient and repeat echocardiogram possible in 3 months. He will require left heart cath as an elective outpatient to assess for coronaryartery disease and ischemic cardiomyopathy. Likely his presentation is nonischemic cardiomyopathy. Jonas Cedeno MD,[facility] 10/13/24 6409 <Electronically signed by Jonas Cedeno MD> Cosigner Signature (if applicable): CC: ~ Signed [facility] Work Phone: [phone] Progress note [facility] Medical Records Department [address] [place] [address] Progress Note 10/13/24 1113 MR#: [id number] Acct: [id number] Name: STACIE BARRAZA Rep #:[id number] : 1955 68 From: Madison Lemus MD PCP: Dr. Kilo Lewis MD Status :ADM IN Location: [place] [address] Subjective Subjective Patient seen and examined. He has no active complaints. He still remains tachycardic, in afib with RVR. He remains on the amiodarone drip. His scrotal swellng has also improved. REview of systems is otherwise negative. Objective Data Objective Data Vital Signs: Vital Signs Temp Pulse Resp BP Pulse Ox O2 Del Method O2 Flow Rate 97.7 F L 123 H 17 126/97 H 99 Room Air 2 10/13/24 10:10/13/24 10:10/13/24 10:10/13/24 10:10/13/24 10:10/13/24 10:10/09/24 09:10 Oxygen Flow Rate (L/min) 2 Oxygen Delivery Method Room Air Weight: 161 lb 2.526 oz Body Mass Index (BMI) 24.5 Intake & Output: Intake and Output for Last 24 Hours 10/11/24 10/12/24 10/13/24 23:59 23:59 23:59 Intake Total 2055.93 / 2072.63 1661.19 / 2077.89 1302.73 / 1302.73 Output Total 5500 / 5500 1550 / 2250 1100 / 1100 Balance -3444.07 / -3427.37 111.19 / -172.11 202.73 / 202.73 Lab / Micro Data 10/13/24 05:41 10/13/24 05:41 Labs: Laboratory Results - last 24 hr 10/13/24 05:41: WBC 16.1 H, RBC 5.29, Hgb 16.0, Hct 46.7, MCV 88.3, MCH 30.2, MCHC 34.3, RDW Std Deviation 43.6, RDW Coeff of Natty 13.5, Plt Count 278, MPV 12.1 H, Immature Gran % (Auto) 1.000 H, Neut% (Auto) 77.1 H, Lymph % (Auto) 12.2 L, [place] % (Auto) 8.6, Eos % (Auto) 0.5, Baso % (Auto) 0.6, Absolute Neuts (auto) 12.4 H, Absolute Lymphs (auto) 1.97, Nucleated RBC % 0, Sodium 138, Potassium 3.1L, Chloride 104, Carbon Dioxide 22.1, Anion Gap 12, BUN 14, Creatinine 0.70, Estim Creat Clear Calc87.88, Est GFR (MDRD) Non-Af 101, BUN/Creatinine Ratio 19.9, Glucose 102 H, Calcium 8.6 Micro: Microbiology 10/10/24 09:48 Urine, Clean Catch Urine Culture - Final Staphylococcus aureus 10/10/24 08:40 Blood Culture (Wb) - Right Forearm Blood Culture - Preliminary No growth in 48 hours. 10/10/24 08:33 Blood Culture (Wb) - Anticubital Right Blood Culture - Preliminary No growth in 48 hours. Physical Exam Const alert, oriented x3, no apparent distress, average body habitus and well nourished Constitutional Narrative: General Appearance: cooperative and well developed HEENT normocephalic, head/scalp atraumatic, hearing grossly normal bilaterally, moist oral mucous membranes and oropharynx normal Eyes PERRL, EOMs intact bilaterally and conjunctivae normal Neck no lymphadenopathy, supple and no JVD Lymph Lymphatic: no lymphadenopathy noted and no lymphedema noted Resp normal respiratory effort, normal air movement, no retractions, no use of accessory muscles and clear to auscultation bilaterally Cardio S1 normal heart sound, S2 normal heart sound and no murmurs Cardio Narrative: afib,poor rate control, still in RVR GI normal to inspection, nondistended, normoactive bowel sounds, soft to palpation,non-tender and non-distended Extremity normal to inspection, full ROM, normal capillary refill, no clubbing, cyanosis or edema and no calftenderness General Extremity: no tenderness to palpation of joints or extremities Skin Skin Narrative: scrotum erythema has improved, right testicle tenderness and erythema has improved significantly Neuro oriented x3, CN's II-XII intact bilaterally, moves all extremities, no focal motor deficits and no sensory deficits noted Sensorium / Orientation: awake, alert, oriented to person, oriented to place andoriented to time Speech: speech normal Motor Exam: strength 5/5 throughout and general weakness Psych thought process normal, cooperative and affect normal Appearance: appropriate Mood & Affect: anxious Assessment & Plan Assessment/Plan (1) Atrial flutter with rapid ventricular response: (2) Epididymitis: (3) Acute cystitis with hematuria: PLAN: Plan #Acute right epididymitis * ultrasound of the scrotum showed evidence of epididymitis, with no torsion. * wbc is 16 today. Cotninue IV zosyn * PO tylenol, PO oxycodone and IV morphine prn for pain. * blood cultures negative so far. * on IV vancomycin and zosyn. * #UTI * Urinalysis showed evidence of UTI with 4+ bacteria and WBC was also elevated. * urine cultures * On IV Zofran as needed for nausea and vomiting. * Urine cultures growing staph aureus * on IV vancomycin and zosyn * #Persistent afib with RVR * went back in into afib with RVR. * remains on amiodarone drip * 2D echo is 10-15% with severe global LV hypokinesia and severe LV systolic dysfunction. * I did see the patient with Dr Leo today; he says patient is not a candidate for LAMOTN cardioversion as he is worried that with his EF of 10% he may arrest in the [employer]. He wants to keep patient on amiodarone for now and add on loading dose of digoxin IV 250 mcg every 6 hours. * cardiology does not think this is an ischemic cardiomyopathy, so Dr Leo wants to hold off on doing a cardiac cath for now. * TSH WNL. Now on eliquis * management as per cardiology * #DVT prophylaxis: on eliquis Charges/Coding Visit Charges Inpatient E&M: 56972 Subs Hosp L2 10/13/24 1742 Madison Lemus MD Cosigner Signature (if applicable): CC: ~ Signed [facility]05-30-2025 Progress note [facility] Medical Records Department [address] [place] [address] Progress Note - Cardiology 10/13/24 1552 MR#: [id number] Acct: [id number] Name: STACIE BARRAZA Rep #:[id number] : 1955 68 From: Jonas Cedeno MD PCP: Dr. Kilo Lewis MD Status :ADM IN Location: [place] [address] Subjective Subjective Seen and evaluated at bedside along with the medical team and the nursing staff Lying in bed no symptoms reported. Objective Data Vital Signs: Vital Signs Temp Pulse Resp BP Pulse Ox O2 Del Method O2 Flow Rate 97.7 F L 127 H 19 H 100/88 H 100 Room Air 2 10/13/24 10:00 10/13/24 15:00 10/13/24 15:00 10/13/24 15:00 10/13/24 15:00 10/13/24 15:00 10/09/24 09:10 Oxygen Flow Rate (L/min) 2 Oxygen Delivery Method Room Air Weight: 161 lb 2.526 oz Body Mass Index (BMI) 24.5 Intake & Output: Intake and Output for Last 24 Hours 10/11/24 10/12/24 10/13/24 23:59 23:59 23:59 Intake Total 2055.93 / 2072.63 1661.19 / 2077.89 1686.64 / 1686.64 Output Total 5500 / 5500 1550 / 2250 1400 / 1400 Balance -3444.07 / -3427.37 111.19 / -172.11 286.64 / 286.64 Lab / Micro Data 10/13/24 05:41 10/13/24 05:41 Labs: Laboratory Results - last 24 hr 10/13/24 05:41: WBC 16.1 H, RBC 5.29, Hgb 16.0, Hct 46.7, MCV 88.3, MCH 30.2, MCHC 34.3, RDW Std Deviation 43.6, RDW Coeff of Natty 13.5, Plt Count 278, MPV 12.1 H, Immature Gran % (Auto) 1.000 H, Neut% (Auto) 77.1 H, Lymph % (Auto) 12.2 L, [place] % (Auto) 8.6, Eos % (Auto) 0.5, Baso % (Auto) 0.6, Absolute Neuts (auto) 12.4 H, Absolute Lymphs (auto) 1.97, Nucleated RBC % 0, Sodium 138, Potassium 3.1L, Chloride 104, Carbon Dioxide 22.1, Anion Gap 12, BUN 14, Creatinine 0.70, Estim Creat Clear Calc87.88, Est GFR (MDRD) Non-Af 101, BUN/Creatinine Ratio 19.9, Glucose 102 H, Calcium 8.6 Cardiology Labs/Tests 10/13/24 05:41: WBC 16.1 H, RBC 5.29, Hgb 16.0, Hct 46.7, MCV 88.3, MCH 30.2, MCHC 34.3, Plt Count 278, MPV 12.1 H, Immature Gran % (Auto) 1.000 H, Neut % (Auto) 77.1 H, Lymph % (Auto) 12.2 L, [place] %(Auto) 8.6, Eos % (Auto) 0.5, Baso % (Auto) 0.6, Absolute Neuts (auto) 12.4 H, Nucleated RBC % 0, Sodium 138, Potassium 3.1 L, Chloride 104, Carbon Dioxide 22.1, Anion Gap 12, BUN 14, Creatinine 0.70, Est GFR (MDRD) Non-Af 101, BUN/Creatinine Ratio 19.9, Glucose 102 H, Calcium 8.6 Rhythm: EKG: ECHO: Stress Test: Cardiac Cath: PCI: CT Surgery: Holter monitor: EPS: PPM: CXR: Chest CT Scan: Assessment & Plan Assessment/Plan (1) Atrial flutter with rapid ventricular response: (2) Epididymitis: (3) Leukocytosis: QUALIFIERS: Leukocytosis type: unspecified Qualified Code(s): D72.829 - Elevated white blood cell count, unspecified PLAN: Plan 68-year-old patient Seen and evaluated today at bedside along with the medical team and the nursing staff. Review of the school childcare attendant showed A-fib with RVR. Cardiac exam S1-S2 is irregular This patient has severe LV systolic dysfunction with ejection fraction in the range of 10-15%. Cardiac medication and care plan discussed; 1. Amiodarone IV 2. Increase the dose of beta-chucky to metoprolol 50 twice daily 3. Load with digoxin 125 mcg every 6 hours then followed by 125 mcg daily His renal function is normal with a creatinine within normal. From cardiac standpoint once his ventricular rate is controlled and patient currently on anticoagulation/OAC with Eliquis With recommend to follow-up with cardiology team, at [facility] With a LifeVest prior to discharge due to high risk of sudden cardiac and severe LV dysfunction EF 10-15%. In addition as tolerated to start him on guideline directed medical therapy in the form of Entresto, Aldactone, Farxiga. Patient will require further evaluation as an outpatient and repeat echocardiogram possible in 3 months. He will require left heart cath as an elective outpatient to assess for coronaryartery disease and ischemic cardiomyopathy. Likely his presentation is nonischemic cardiomyopathy. Jonas Cedeno MD,[facility] 10/13/24 1557 Cosigner Signature (if applicable): CC: ~ Signed [facility]05-29-2025 Consult note Author Luis Manuel Stahl [facility] Note Date/Time October 12, 2024 4:52p m [facility] Medical Records Department [address] [place] [address] Pharmacokinetic/Renal -Consult 10/12/24 1216 MR#: [id number] Acct: [id number] Name: STACIE BARRAZA Rep #:[id number] : 1955 68 From: Luis Manuel Stahl PCP: Dr. Kilo Lewis MD Status :ADM IN Y Location: [place] [address] Consult Antibiotic Management Pharmacy has been consulted to manage selected antibiotic: Vancomycin Type of Intervention Type of Consult: New start Suspected Infection Suspected Infection: Other (UTI) Prior Doses of Antibiotics Prior Doses of Antibiotics Received/Current Regimen: Vancomycin 1750 mg IV x 1 given 10/12/24 @ 1156 Labs Labs: Sodium 140 mmol/L (133-145) 10/12/24 06:00 Potassium 3.2 mmol/L (3.3-5.1) L 10/12/24 06:00 Chloride 104 mmol/L (98-108) 10/12/24 06:00 Carbon Dioxide 25.8 mmol/L (21.0-32.0) 10/12/24 06:00 Anion Gap 10 (5-15) 10/12/24 06:00 BUN 14 mg/dL (4-19) 10/12/24 06:00 Creatinine 0.76 mg/dL (0.70-1.20) 10/12/24 06:00 Est GFR (MDRD) Non-Af 99 (>60) 10/12/24 06:00 BUN/Creatinine Ratio 18.4 RATIO (10-20) 10/12/24 06:00 Glucose 106 mg/dL (70-99) H 10/12/24 06:00 Microbiology Microbiology: Microbiology 10/10/24 09:48 Urine, Clean Catch Urine Culture - Final Staphylococcus aureus 10/10/24 08:40 Blood Culture (Wb) - Right Forearm Blood Culture - Preliminary No growth in 48 hours. 10/10/24 08:33 Blood Culture (Wb) - Anticubital Right Blood Culture - Preliminary No growth in 48 hours. Dosing Weight Weight used for dosin kg Estimated Creatinine Clearance Estimated Creatinine Clearance: ~ 88 Goal Trough Goal Trough: 15-20 mcg/mL Pharmacy Plan for Drug Dosing Pharmacy Plan for Drug Dosing: Vancomycin 1750 mg IV x 1 followed by 1250 mg Q12H Pharmacy Service will continue to monitor and adjust dosing as required. Follow-Up Labs Follow-Up Labs: Trough: Vancomycin Date/Time Labs Ordered Labs to be done on [date and time ordered]: 10/13/24 @ 2330 10/12/24 1217 <Electronically signed by Luis Manuel huff> Date _ Luis Manuel Stahl 10/12/24 4537 <Electronically signed by Madison caceres MD> Cosigner Signature (if applicable): Date Madison Lemus MD CC: ~ Signed [facility] Work Phone: 1(704) 514-349805-29-2025 Progress [facility] Note Date/Time October 12, 2024 4:33p m [facility] Medical Records Department [address] [facility] [place] [address] Progress Note 10/12/24 1109 MR#: [id number] Acct: [id number] Name: STACIE BARRAZA Rep #:[id number] : 1955 68 From: Madison Lemus MD PCP: Dr. Kilo Lewis MD Status :ADM IN Location: [place] [address] Subjective Subjective Patient seen and examined. He still remains on the amiodarone drip and remains in afib with RVR. He had no active complaints today. He denied any chest pain, nausea or vomiting. He is still having palpitations though. Review of systems isotherwise negative. Objective Data Objective Data Vital Signs: Vital Signs Temp Pulse Resp BP Pulse Ox O2 Del Method O2 Flow Rate 97.6 F L 128 H 15 133/103 H 98 Room Air 2 10/12/24 09:00 10/12/24 10:10/12/24 10:10/12/24 10:10/12/24 10:10/12/24 10:00 10/09/24 09:10 Oxygen Flow Rate (L/min) 2 Oxygen Delivery Method Room Air Weight: 160 lb 7.944 oz Body Mass Index (BMI) 24.4 Intake & Output: Intake and Output for Last 24 Hours 10/10/24 10/11/24 10/12/24 23:59 23:59 23:59 Intake Total 480.00 / 912.19 2055.93 / 2072.63 283.70 / 283.70 Output Total 450 / 2250 5500 / 5500 400 / 400 Balance 30.00 / -1337.81 -3444.07 / -3427.37 -116.30 / -116.30 Lab / Micro Data 10/12/24 06:00 10/12/24 06:00 Labs: Laboratory Results - last 24 hr 10/12/24 06:00: WBC 17.0 H, RBC 5.24, Hgb 16.0, Hct 46.7, MCV 89.1, MCH 30.5, MCHC 34.3, RDW Std Deviation 44.4 H, RDW Coeff of Natty 13.7, Plt Count 283, MPV 11.7, Immature Gran % (Auto) 0.900, Neut % (Auto) 78.0 H, Lymph % (Auto) 11.5 L,[place] % (Auto) 8.9, Eos % (Auto) 0.2, Baso % (Auto) 0.5, Absolute Neuts (auto) 13.3 H, Absolute Lymphs (auto) 1.95, Nucleated RBC % 0, Differential Comment COMMENT, Sodium 140, Potassium 3.2 L, Chloride 104, Carbon Dioxide 25.8, Anion Gap 10, BUN 14, Creatinine 0.76, Estim Creat Clear Calc 87.88, Est GFR (MDRD) Non-Af 99, BUN/Creatinine Ratio 18.4, Glucose 106 H, Calcium 8.5 Micro: Microbiology 10/10/24 09:48 Urine, Clean Catch Urine Culture - Final Staphylococcus aureus 10/10/24 08:40 Blood Culture (Wb) - Right Forearm Blood Culture - Preliminary No growth in 48 hours. 10/10/24 08:33 Blood Culture (Wb) - Anticubital Right Blood Culture - Preliminary No growth in 48 hours. Physical Exam Const alert, oriented x3, no apparent distress and average body habitus General Appearance: cooperative and well developed HEENT normocephalic, head/scalp atraumatic, hearing grossly normal bilaterally, moist oral mucous membranes and oropharynx normal Eyes PERRL, EOMs intact bilaterally and conjunctivae normal Neck no lymphadenopathy, supple and no JVD Lymph Lymphatic: no lymphadenopathy noted and no lymphedema noted Resp normal respiratory effort, normal air movement, no retractions, no use of accessory muscles and clear to auscultation bilaterally Cardio S1 normal heart sound, S2 normal heart sound and no murmurs Cardio Narrative: afib,poor rate control, still in RVR GI normal to inspection, nondistended, normoactive bowel sounds, soft to palpation,non-tender and non-distended Extremity normal to inspection, full ROM, normal capillary refill, no clubbing, cyanosis or edema and no calf tenderness General Extremity: no tenderness to palpation of joints or extremities Skin Skin Narrative: scrotum erythema has improvecd, right testicle tenderness and erythema has improved significantly Neuro oriented x3, CN's II-XII intact bilaterally, moves all extremities, no focal motor deficits and no sensory deficits noted Sensorium / Orientation: awake, alert, oriented to person, oriented to place andoriented to time Speech: speech normal Motor Exam: strength 5/5 throughout and general weakness Psych thought process normal, cooperative and affect normal Appearance: appropriate Mood & Affect: anxious Assessment & Plan Assessment/Plan (1) Atrial flutter with rapid ventricular response: (2) Epididymitis: (3) Acute cystitis with hematuria: PLAN: Plan #Acute right epididymitis * ultrasound of the scrotum showed evidence of epididymitis, with no torsion. * wbc is down to 17.0 today. Cotninue IV zosyn * PO tylenol, PO oxycodone and IV morphine prn for pain. * blood cultures negative so far. * will add on IV vancomycin due to culture results and elevated wbc #UTI * Urinalysis showed evidence of UTI with 4+ bacteria and WBC was also elevated. * antibiotics broadened to IV zosyn. * On IV Zofran as needed for nausea and vomiting. * Urine cultures growing staph aureus * will dc bactrim and add on vancomycin * #Persistent afib with RVR * went back in into afib with RVR. * remains on amiodarone drip * 2D echo is 10-15% with severe global LV hypokinesia and severe LV systolic dysfunction. * discussed with Dr Leo of cardiology who was consulted yesterday; he thinks it is more of a nonischemic cardiomyopathy and does not think patient needs cardiac cath now; cardiac cath can be done on outpatient basis. * TSH WNL. Now on eliquis * management as per cardiology * #DVT prophylaxis: on eliquis Charges/Coding Visit Charges Inpatient E&M: 73155 Subs Hosp L2 10/12/24 1633 <Electronically signed by Madison Lemus MD> Madison Lemus MD Cosigner Signature (if applicable): CC: ~ Signed [facility] Work Phone: 1(650) 512-358005-29-2025 Consult note [facility] Medical Records Department [address] [place] [address] Pharmacokinetic/Renal -Consult 10/12/24 1216 MR#: [id number] Acct: [id number] Name: STACIE BARRAZA Rep #:[id number] : 1955 68 From: Luis Manuel Stahl PCP: Dr. Kilo Lewis MD Status :ADM IN Location: [place] [address] Consult Antibiotic Management Pharmacy has been consulted to manage selected antibiotic: Vancomycin Type of Intervention Type of Consult: New start Suspected Infection Suspected Infection: Other (UTI) Prior Doses of Antibiotics Prior Doses of Antibiotics Received/Current Regimen: Vancomycin 1750 mg IV x 1 given 10/12/24 @ 1156 Labs Labs: Sodium 140 mmol/L (133-145) 10/12/24 06:00 Potassium 3.2 mmol/L (3.3-5.1) L 10/12/24 06:00 Chloride 104 mmol/L (98-108) 10/12/24 06:00 Carbon Dioxide 25.8 mmol/L (21.0-32.0) 10/12/24 06:00 Anion Gap 10 (5-15) 10/12/24 06:00 BUN 14 mg/dL (4-19) 10/12/24 06:00 Creatinine 0.76 mg/dL (0.70-1.20) 10/12/24 06:00 Est GFR (MDRD) Non-Af 99 (>60) 10/12/24 06:00 BUN/Creatinine Ratio 18.4 RATIO (10-20) 10/12/24 06:00 Glucose 106 mg/dL (70-99) H 10/12/24 06:00 Microbiology Microbiology: Microbiology 10/10/24 09:48 Urine, Clean Catch Urine Culture - Final Staphylococcus aureus 10/10/24 08:40 Blood Culture (Wb) - Right Forearm Blood Culture - Preliminary No growth in 48 hours. 10/10/24 08:33 Blood Culture (Wb) - Anticubital Right Blood Culture - Preliminary No growth in 48 hours. Dosing Weight Weight used for dosin kg Estimated Creatinine Clearance Estimated Creatinine Clearance: ~ 88 Goal Trough Goal Trough: 15-20 mcg/mL Pharmacy Plan for Drug Dosing Pharmacy Plan for Drug Dosing: Vancomycin 1750 mg IV x 1 followed by 1250 mg Q12H Pharmacy Service will continue to monitor and adjust dosing as required. Follow-Up Labs Follow-Up Labs: Trough: Vancomycin Date/Time Labs Ordered Labs to be done on [date and time ordered]: 10/13/24 @ 2330 10/12/24 1217 r> Date _ Luis Manuel Favio 10/12/24 1652 m MD> Lyssa Signature (if applicable): Date Madiosn Lemus MD CC: ~ Signed [facility]05-29-2025 Progress note [facility] Medical Records Department [address] [facility] [place] [address] Progress Note 10/12/24 1109 MR#: [id number] Acct: [id number] Name: STACIE BARRAZA Rep #:[id number] : 1955 68 From: Madison Lemus MD PCP: Dr. Kilo Lewis MD Status :ADM IN Location: [place] [address] Subjective Subjective Patient seen and examined. He still remains on the amiodarone drip and remains in afib with RVR. Hehad no active complaints today. He denied any chest pain, nausea or vomiting. He is still having palpitations though. Review of systems isotherwise negative. Objective Data Objective Data Vital Signs: Vital Signs Temp Pulse Resp BP Pulse Ox O2 Del Method O2 Flow Rate 97.6 F L 128 H 15 133/103 H 98 Room Air 2 10/12/24 09:00 10/12/24 10:10/12/24 10:10/12/24 10:10/12/24 10:10/12/24 10:10/09/24 09:10 Oxygen Flow Rate (L/min) 2 Oxygen Delivery Method Room Air Weight: 160 lb 7.944 oz Body Mass Index (BMI) 24.4 Intake & Output: Intake and Output for Last 24 Hours 10/10/24 10/11/24 10/12/24 23:59 23:59 23:59 Intake Total 480.00 / 912.19 2055.93 / 2072.63 283.70 / 283.70 Output Total 450 / 2250 5500 / 5500 400 / 400 Balance 30.00 / -1337.81 -3444.07 / -3427.37 -116.30 / -116.30 Lab / Micro Data 10/12/24 06:00 10/12/24 06:00 Labs: Laboratory Results - last 24 hr 10/12/24 06:00: WBC 17.0 H, RBC 5.24, Hgb 16.0, Hct 46.7, MCV 89.1, MCH 30.5, MCHC 34.3, RDW Std Deviation 44.4 H, RDW Coeff of Natty 13.7, Plt Count 283, MPV 11.7, Immature Gran % (Auto) 0.900, Neut %(Auto) 78.0 H, Lymph % (Auto) 11.5 L,[place] % (Auto) 8.9, Eos % (Auto) 0.2, Baso % (Auto) 0.5, Absolute Neuts (auto) 13.3 H, Absolute Lymphs (auto) 1.95, Nucleated RBC % 0, Differential Comment COMMENT, Sodium 140, Potassium 3.2 L, Chloride 104, Carbon Dioxide 25.8, Anion Gap 10, BUN 14, Creatinine 0.76, Estim Creat Clear Calc 87.88, Est GFR (MDRD) Non-Af 99, BUN/Creatinine Ratio 18.4, Glucose 106 H, Calcium 8.5 Micro: Microbiology 10/10/24 09:48 Urine, Clean Catch Urine Culture - Final Staphylococcus aureus 10/10/24 08:40 Blood Culture (Wb) - Right Forearm Blood Culture - Preliminary No growth in 48 hours. 10/10/24 08:33 Blood Culture (Wb) - Anticubital Right Blood Culture - Preliminary No growth in 48 hours. Physical Exam Const alert, oriented x3, no apparent distress and average body habitus General Appearance: cooperative and well developed HEENT normocephalic, head/scalp atraumatic, hearing grossly normal bilaterally, moist oral mucous membranes and oropharynx normal Eyes PERRL, EOMs intact bilaterally and conjunctivae normal Neck no lymphadenopathy, supple and no JVD Lymph Lymphatic: no lymphadenopathy noted and no lymphedema noted Resp normal respiratory effort, normal air movement, no retractions, no use of accessory muscles and clear to auscultation bilaterally Cardio S1 normal heart sound, S2 normal heart sound and no murmurs Cardio Narrative: afib,poor rate control, still in RVR GI normal to inspection, nondistended, normoactive bowel sounds, soft to palpation,non-tender and non-distended Extremity normal to inspection, full ROM, normal capillary refill, no clubbing, cyanosis or edema and no calftenderness General Extremity: no tenderness to palpation of joints or extremities Skin Skin Narrative: scrotum erythema has improvecd, right testicle tenderness and erythema has improved significantly Neuro oriented x3, CN's II-XII intact bilaterally, moves all extremities, no focal motor deficits and no sensory deficits noted Sensorium / Orientation: awake, alert, oriented to person, oriented to place andoriented to time Speech: speech normal Motor Exam: strength 5/5 throughout and general weakness Psych thought process normal, cooperative and affect normal Appearance: appropriate Mood & Affect: anxious Assessment & Plan Assessment/Plan (1) Atrial flutter with rapid ventricular response: (2) Epididymitis: (3) Acute cystitis with hematuria: PLAN: Plan #Acute right epididymitis * ultrasound of the scrotum showed evidence of epididymitis, with no torsion. * wbc is down to 17.0 today. Cotninue IV zosyn * PO tylenol, PO oxycodone and IV morphine prn for pain. * blood cultures negative so far. * will add on IV vancomycin due to culture results and elevated wbc #UTI * Urinalysis showed evidence of UTI with 4+ bacteria and WBC was also elevated. * antibiotics broadened to IV zosyn. * On IV Zofran as needed for nausea and vomiting. * Urine cultures growing staph aureus * will dc bactrim and add on vancomycin * #Persistent afib with RVR * went back in into afib with RVR. * remains on amiodarone drip * 2D echo is 10-15% with severe global LV hypokinesia and severe LV systolic dysfunction. * discussed with Dr Leo of cardiology who was consulted yesterday; he thinks it is more of a nonischemic cardiomyopathy and does not think patient needs cardiac cath now; cardiac cath can be done on outpatient basis. * TSH WNL. Now on eliquis * management as per cardiology * #DVT prophylaxis: on eliquis Charges/Coding Visit Charges Inpatient E&M: 16863 Subs Hosp L2 10/12/24 1633 Madison Lemus MD Cosigner Signature (if applicable): CC: ~ Signed [facility]05-28-2025 Progress note Author Madison [facility] Note Date/Time October 11, 2024 6:01p m [facility] Medical Records Department [address] [place] [address] Progress Note 10/11/24 1212 MR#: [id number] Acct: [id number] Name: STACIE BARRAZA Rep #:[id number] : 1955 68 From: Madison Lemus MD PCP: Dr. Kilo Lewis MD Status :ADM IN Location: [place] [address] Subjective Subjective Patient seen and examined. HE had no active complaints. He went back into [facility] overnight, and was started on amiodarone drip. He remains on amiodaronedrip. He denies any chest pain, shortness of breath, palpitations, nausea, vomiting or any other symptoms. Review of systems is otherwise negative. Objective Data Objective Data Vital Signs: Vital Signs Temp Pulse Resp BP Pulse Ox O2 Del Method O2 Flow Rate 98.5 F 108 H 13 133/111 H 97 Room Air 2 10/11/24 03:00 10/11/24 10:16 10/11/24 07:02 10/11/24 07:02 10/11/24 07:02 10/11/24 08:20 10/09/24 09:10 Oxygen Flow Rate (L/min) 2 Oxygen Delivery Method Room Air Weight: 166 lb 0.129 oz Body Mass Index (BMI) 25.2 Intake & Output: Intake and Output for Last 24 Hours 10/09/24 10/10/24 10/11/24 23:59 23:59 23:59 Intake Total 2671.83 / 2671.83 480.00 / 912.19 1021.30 / 1021.30 Output Total 550 / 800 450 / 2250 2575 / 2575 Balance 2121.83 / 1871.83 30.00 / -1337.81 -1553.70 / -1553.70 Lab / Micro Data 10/11/24 05:48 10/11/24 05:48 Labs: Laboratory Results - last 24 hr 10/11/24 05:48: WBC 19.1 H, RBC 4.97, Hgb 14.9, Hct 44.6, MCV 89.7, MCH 30.0, MCHC 33.4, RDW Std Deviation 44.8 H, RDW Coeff of Natty 13.7, Plt Count 236, MPV 11.8, Immature Gran % (Auto) 0.700, Neut % (Auto) 80.6 H, Lymph % (Auto) 9.9 L, [place] % (Auto) 8.4, Eos % (Auto) 0.1, Baso % (Auto) 0.3, Absolute Neuts (auto) 15.4 H, Absolute Lymphs (auto) 1.89, Nucleated RBC % 0, Differential Comment SCANNED, Sodium 138, Potassium 3.5, Chloride 105, Carbon Dioxide 22.7, Anion Gap11, BUN 14, Creatinine 0.73, Estim Creat Clear Calc 87.88, Est GFR (MDRD) Non-Af100, BUN/Creatinine Ratio 18.4, Glucose 103 H, Calcium 8.5 Micro: Microbiology 10/10/24 09:48 Urine, Clean Catch Urine Culture - Preliminary Staphylococcus aureus Physical Exam Const alert, oriented x3, no apparent distress, average body habitus and well nourished General Appearance: cooperative and well developed HEENT normocephalic, head/scalp atraumatic, hearing grossly normal bilaterally, moist oral mucous membranes and oropharynx normal Eyes PERRL, EOMs intact bilaterally and conjunctivae normal Neck no lymphadenopathy, supple and no JVD Lymph Lymphatic: no lymphadenopathy noted and no lymphedema noted Resp normal respiratory effort, normal air movement, no retractions, no use of accessory muscles and clear to auscultation bilaterally Cardio S1 normal heart sound, S2 normal heart sound and no murmurs Cardio Narrative: afib,poor rate control GI normal to inspection, nondistended, normoactive bowel sounds, soft to palpation,non-tender and non-distended Extremity normal to inspection, full ROM, normal capillary refill, no clubbing, cyanosis or edema and no calf tenderness General Extremity: no tenderness to palpation of joints or extremities Skin Skin Narrative: scrotum erythema has improvecd, right testicle tenderness and erythema has improved significantly Neuro oriented x3, CN's II-XII intact bilaterally, moves all extremities, no focal motor deficits and no sensory deficits noted Sensorium / Orientation: awake, alert, oriented to person, oriented to place andoriented to time Speech: speech normal Motor Exam: strength 5/5 throughout and general weakness Psych thought process normal, cooperative and affect normal Appearance: appropriate Assessment & Plan Assessment/Plan (1) Atrial flutter with rapid ventricular response: (2) Epididymitis: (3) Acute cystitis with hematuria: PLAN: Plan #Acute right epididymitis * ultrasound of the scrotum showed evidence of epididymitis, with no torsion. * wbc is down to 19.1 today. Cotninue IV zosyn * PO tylenol, PO oxycodone and IV morphine prn for pain. * blood cultures pending * #UTI * Urinalysis showed evidence of UTI with 4+ bacteria and WBC was also elevated. * antibiotics broadened to IV zosyn. * On IV Zofran as needed for nausea and vomiting. * Urine cultures growing staph aureus * will add on PO bactrim * #New onset afib * went back in into afib with RVR. * now on amiodarone drip * 2D echo is 10-15% with severe global LV hypokinesia and severe LV systolic dysfunction. * discussed with Dr Leo of cardiology who was consulted yesterday; he thinks it is more of a nonischemic cardiomyopathy and does not think patient needs cardiac cath now; cardiac cath can be done on outpatient basis. * TSH WNL. Now on eliquis * will await cardiology evaluation today. * #DVT prophylaxis: on eliquis Charges/Coding Visit Charges Inpatient E&M: 09388 Subs Hosp L2 10/11/24 1801 <Electronically signed by Madison Lemus MD> Madison Lemus MD Cosigner Signature (if applicable): CC: ~ Signed [facility] Work Phone: [phone] 532-327305-28-2025 Progress note [facility] Medical Records Department [address] [place] [address] Progress Note 10/11/24 1212 MR#: [id number] Acct: [id number] Name: STACIE BARRAZA Rep #:[id number] : 1955 68 From: Madison Lemus MD PCP: Dr. Kilo Lewis MD Status :ADM IN Location: [place] [address] Subjective Subjective Patient seen and examined. HE had no active complaints. He went back into [facility] overnight, and was started on amiodarone drip. He remains on amiodaronedrip. He denies any chest pain, shortness of breath, palpitations, nausea, vomiting or any other symptoms. Review of systems is otherwise negative. Objective Data Objective Data Vital Signs: Vital Signs Temp Pulse Resp BP Pulse Ox O2 Del Method O2 Flow Rate 98.5 F 108 H 13 133/111 H 97 Room Air 2 10/11/24 03:00 10/11/24 10:16 10/11/24 07:02 10/11/24 07:02 10/11/24 07:02 10/11/24 08:20 10/09/24 09:10 Oxygen Flow Rate (L/min) 2 Oxygen Delivery Method Room Air Weight: 166 lb 0.129 oz Body Mass Index (BMI) 25.2 Intake & Output: Intake and Output for Last 24 Hours 10/09/24 10/10/24 10/11/24 23:59 23:59 23:59 Intake Total 2671.83 / 2671.83 480.00 / 912.19 1021.30 / 1021.30 Output Total 550 / 800 450 / 2250 2575 / 2575 Balance 2121.83 / 1871.83 30.00 / -1337.81 -1553.70 / -1553.70 Lab / Micro Data 10/11/24 05:48 10/11/24 05:48 Labs: Laboratory Results - last 24 hr 10/11/24 05:48: WBC 19.1 H, RBC 4.97, Hgb 14.9, Hct 44.6, MCV 89.7, MCH 30.0, MCHC 33.4, RDW Std Deviation 44.8 H, RDW Coeff of Natty 13.7, Plt Count 236, MPV 11.8, Immature Gran % (Auto) 0.700, Neut %(Auto) 80.6 H, Lymph % (Auto) 9.9 L, [place] % (Auto) 8.4, Eos % (Auto) 0.1, Baso % (Auto) 0.3, Absolute Neuts (auto) 15.4 H, Absolute Lymphs (auto) 1.89, Nucleated RBC % 0, Differential Comment SCANNED, Sodium 138, Potassium 3.5, Chloride 105, Carbon Dioxide 22.7, Anion Gap11, BUN 14, Creatinine 0.73, Estim Creat Clear Calc 87.88, Est GFR (MDRD) Non-Af100, BUN/Creatinine Ratio 18.4, Glucose 103 H, Calcium 8.5 Micro: Microbiology 10/10/24 09:48 Urine, Clean Catch Urine Culture - Preliminary Staphylococcus aureus Physical Exam Const alert, oriented x3, no apparent distress, average body habitus and well nourished General Appearance: cooperative and well developed HEENT normocephalic, head/scalp atraumatic, hearing grossly normal bilaterally, moist oral mucous membranes and oropharynx normal Eyes PERRL, EOMs intact bilaterally and conjunctivae normal Neck no lymphadenopathy, supple and no JVD Lymph Lymphatic: no lymphadenopathy noted and no lymphedema noted Resp normal respiratory effort, normal air movement, no retractions, no use of accessory muscles and clear to auscultation bilaterally Cardio S1 normal heart sound, S2 normal heart sound and no murmurs Cardio Narrative: afib,poor rate control GI normal to inspection, nondistended, normoactive bowel sounds, soft to palpation,non-tender and non-distended Extremity normal to inspection, full ROM, normal capillary refill, no clubbing, cyanosis or edema and no calftenderness General Extremity: no tenderness to palpation of joints or extremities Skin Skin Narrative: scrotum erythema has improvecd, right testicle tenderness and erythema has improved significantly Neuro oriented x3, CN's II-XII intact bilaterally, moves all extremities, no focal motor deficits and no sensory deficits noted Sensorium / Orientation: awake, alert, oriented to person, oriented to place andoriented to time Speech: speech normal Motor Exam: strength 5/5 throughout and general weakness Psych thought process normal, cooperative and affect normal Appearance: appropriate Assessment & Plan Assessment/Plan (1) Atrial flutter with rapid ventricular response: (2) Epididymitis: (3) Acute cystitis with hematuria: PLAN: Plan #Acute right epididymitis * ultrasound of the scrotum showed evidence of epididymitis, with no torsion. * wbc is down to 19.1 today. Cotninue IV zosyn * PO tylenol, PO oxycodone and IV morphine prn for pain. * blood cultures pending * #UTI * Urinalysis showed evidence of UTI with 4+ bacteria and WBC was also elevated. * antibiotics broadened to IV zosyn. * On IV Zofran as needed for nausea and vomiting. * Urine cultures growing staph aureus * will add on PO bactrim * #New onset afib * went back in into afib with RVR. * now on amiodarone drip * 2D echo is 10-15% with severe global LV hypokinesia and severe LV systolic dysfunction. * discussed with Dr Leo of cardiology who was consulted yesterday; he thinks it is more of a nonischemic cardiomyopathy and does not think patient needs cardiac cath now; cardiac cath can be done on outpatient basis. * TSH WNL. Now on eliquis * will await cardiology evaluation today. * #DVT prophylaxis: on eliquis Charges/Coding Visit Charges Inpatient E&M: 29310 Subs Hosp L2 10/11/24 1801 Madison Lemus MD Cosigner Signature (if applicable): CC: ~ Signed [facility]05-27-2025 Progress note Author Madison [facility] Note Date/Time October 10, 2024 4:12p m [facility] Medical Records Department [address] [place] [address] Progress Note 10/10/24 1019 MR#: [id number] Acct: [id number] Name: STACIE BARRAZA Rep #:[id number] : 1955 68 From: Madison Lemus MD PCP: Dr. Kilo Lewis MD Status :ADM IN Location: [place] [address] Subjective Subjective Patient seen and examined. He said he had an uneventful night. He was asking he could go home. Per his nurse he went into A-fib with RVR overnight again so he was placed back on the Cardizem drip. He was still in afib but rate controlled today. Objective Data Objective Data Vital Signs: Vital Signs Temp Pulse Resp BP Pulse Ox O2 Del Method O2 Flow Rate 98.4 F 73 18 107/83 H 98 Room Air 2 10/10/24 03:00 10/10/24 08:17 10/10/24 08:17 10/10/24 08:17 10/10/24 08:01 10/10/24 08:01 10/09/24 09:10 Oxygen Flow Rate (L/min) 2 Oxygen Delivery Method Room Air Weight: 168 lb 6.931 oz Body Mass Index (BMI) 25.6 Intake & Output: Intake and Output for Last 24 Hours 10/08/24 10/09/24 10/10/24 23:59 23:59 23:59 Intake Total 1050 / 1050 2671.83 / 2671.83 182.26 / 182.26 Output Total 550 / 800 250 / 250 Balance 1050 / 1050 2121.83 / 1871.83 -67.74 / -67.74 Lab / Micro Data 10/10/24 06:30 10/10/24 06:30 Labs: Laboratory Results - last 24 hr 10/10/24 06:30: WBC 22.9 H, RBC 4.66, Hgb 14.3, Hct 42.0, MCV 90.1, MCH 30.7, MCHC 34.0, RDW Std Deviation 46.9 H, RDW Coeff of Natty 14.3, Plt Count 216, MPV 12.0, Immature Gran % (Auto) 0.900, Neut % (Auto) 81.1 H, Lymph % (Auto) 8.6 L, [place] % (Auto) 9.2, Eos % (Auto) 0.0, Baso % (Auto) 0.2, Absolute Neuts (auto) 18.5 H, Absolute Lymphs (auto) 1.97, Nucleated RBC % 0, Platelet Estimate A, PltMorphology Comment GIANT, Sodium 138, Potassium 3.8, Chloride 108, Carbon Dioxide 19.6 L, Anion Gap 10, BUN 21 H, Creatinine 0.65 L, Estim Creat Clear Calc 87.88, Est GFR (MDRD) Non-Af 104, BUN/Creatinine Ratio 31.5 H, Glucose 122 H, Calcium 8.7 Radiography Diagnostic Testing: Radiology Impression Echocardiogram 10/09/24 01:40 Interpretation Summary The estimated ejection fraction is 10-15 %. Severe global LV hypokinesia Severe LV systolic dysfunction Definity/contrast echo used No prior study to compare Ordering Physician: Michael Reyna Referring Physician: Kilo Lewis Performed By: Tere Castorena, MARTÍN, RVT Physical Exam Const alert, oriented x3, no apparent distress, average body habitus and well nourished Constitutional Narrative: Moderate distress noted. General Appearance: cooperative and well developed HEENT normocephalic, head/scalp atraumatic, hearing grossly normal bilaterally, moist oral mucous membranes and oropharynx normal Eyes PERRL, EOMs intact bilaterally and conjunctivae normal Neck no lymphadenopathy, supple and no JVD Lymph Lymphatic: no lymphadenopathy noted and no lymphedema noted Resp normal respiratory effort, normal air movement, no retractions, no use of accessory muscles and clear to auscultation bilaterally Cardio regular rate, S1 normal heart sound, S2 normal heart sound and no murmurs Cardio Narrative: afib, rate controlled GI normal to inspection, nondistended, normoactive bowel sounds, soft to palpation,non-tender and non-distended Extremity normal to inspection, full ROM, normal capillary refill, no clubbing, cyanosis or edema and no calf tenderness General Extremity: no tenderness to palpation of joints or extremities Skin Skin Narrative: scrotum is erythematous, right testicle sanding machine tender Neuro oriented x3, CN's II-XII intact bilaterally, moves all extremities, no focal motor deficits and no sensory deficits noted Sensorium / Orientation: awake, alert, oriented to person, oriented to place andoriented to time Speech: speech normal Motor Exam: strength 5/5 throughout and general weakness Psych thought process normal, cooperative and affect normal Appearance: appropriate Assessment & Plan Assessment/Plan (1) Atrial flutter with rapid ventricular response: (2) Epididymitis: (3) Acute cystitis with hematuria: PLAN: Plan #Acute right epididymitis * ultrasound of the scrotum showed evidence of epididymitis, with no torsion. * wbc trended upwards today to 22.9, so antibiotics broadened to IV zosyn. * PO tylenol, PO oxycodone and IV morphine prn for pain. * blood cultures pending * #UTI * Urinalysis showed evidence of UTI with 4+ bacteria and WBC was also elevated. * antibiotics broadened to IV zosyn. * On IV Zofran as needed for nausea and vomiting. * Urine cultures pending * #New onset afib * went back in into afib with RVR. * had to be put back on cardizem drip again overnight. * wean off cardizem drip and put on PO metoprolol 25mg bid again. * 2D echo is 10-15% with severe global LV hypokinesia and severe LV systolic dysfunction. * discussed with Dr Leo of cardiology who was consulted yesterday; he thinks it is more of a nonischemic cardiomyopathy and does not think patient needs cardiac cath now; cardiac cath can be done on outpatient basis. * TSH WNL. Now on eliquis * per cardiology, if afib with RVR recurs, to place on amiodarone drip and not cardizem drip. * #DVT prophylaxis: on eliquis Charges/Coding Visit Charges Inpatient E&M: 37343 Subs Hosp L2 10/10/24 1612 <Electronically signed by Madison Lemus MD> Madison Lemus MD Cosigner Signature (if applicable): CC: ~ Signed [facility] Work Phone: [phone] 125-991105-27-2025 Progress note [facility] Medical Records Department [address] [place] [address] Progress Note 10/10/24 1019 MR#: [id number] Acct: [id number] Name: STACIE BARRAZA Rep #:[id number] : 1955 68 From: Madison Lemus MD PCP: Dr. Kilo Lewis MD Status :ADM IN Location: [place] [address] Subjective Subjective Patient seen and examined. He said he had an uneventful night. He was asking he could go home. Per his nurse he went into A-fib with RVR overnight again so he was placed back on the Cardizem drip. Hewas still in afib but rate controlled today. Objective Data Objective Data Vital Signs: Vital Signs Temp Pulse Resp BP Pulse Ox O2 Del Method O2 Flow Rate 98.4 F 73 18 107/83 H 98 Room Air 2 10/10/24 03:00 10/10/24 08:17 10/10/24 08:17 10/10/24 08:17 10/10/24 08:01 10/10/24 08:01 10/09/24 09:10 Oxygen Flow Rate (L/min) 2 Oxygen Delivery Method Room Air Weight: 168 lb 6.931 oz Body Mass Index (BMI) 25.6 Intake & Output: Intake and Output for Last 24 Hours 10/08/24 10/09/24 10/10/24 23:59 23:59 23:59 Intake Total 1050 / 1050 2671.83 / 2671.83 182.26 / 182.26 Output Total 550 / 800 250 / 250 Balance 1050 / 1050 2121.83 / 1871.83 -67.74 / -67.74 Lab / Micro Data 10/10/24 06:30 10/10/24 06:30 Labs: Laboratory Results - last 24 hr 10/10/24 06:30: WBC 22.9 H, RBC 4.66, Hgb 14.3, Hct 42.0, MCV 90.1, MCH 30.7, MCHC 34.0, RDW Std Deviation 46.9 H, RDW Coeff of Natty 14.3, Plt Count 216, MPV 12.0, Immature Gran % (Auto) 0.900, Neut %(Auto) 81.1 H, Lymph % (Auto) 8.6 L, [place] % (Auto) 9.2, Eos % (Auto) 0.0, Baso % (Auto) 0.2, Absolute Neuts (auto) 18.5 H, Absolute Lymphs (auto) 1.97, Nucleated RBC % 0, Platelet Estimate A, PltMorphology Comment GIANT, Sodium 138, Potassium 3.8, Chloride 108, Carbon Dioxide 19.6 L, Anion Gap 10, BUN 21 H, Creatinine 0.65 L, Estim Creat Clear Calc 87.88, Est GFR (MDRD) Non-Af 104, BUN/CreatinineRatio 31.5 H, Glucose 122 H, Calcium 8.7 Radiography Diagnostic Testing: Radiology Impression Echocardiogram 10/09/24 01:40 Interpretation Summary The estimated ejection fraction is 10-15 %. Severe global LV hypokinesia Severe LV systolic dysfunction Definity/contrast echo used No prior study to compare Ordering Physician: Michael Reyna Referring Physician: Kilo Lewis Performed By: Tere Castorena, MARTÍN, RVT Physical Exam Const alert, oriented x3, no apparent distress, average body habitus and well nourished Constitutional Narrative: Moderate distress noted. General Appearance: cooperative and well developed HEENT normocephalic, head/scalp atraumatic, hearing grossly normal bilaterally, moist oral mucous membranes and oropharynx normal Eyes PERRL, EOMs intact bilaterally and conjunctivae normal Neck no lymphadenopathy, supple and no JVD Lymph Lymphatic: no lymphadenopathy noted and no lymphedema noted Resp normal respiratory effort, normal air movement, no retractions, no use of accessory muscles and clear to auscultation bilaterally Cardio regular rate, S1 normal heart sound, S2 normal heart sound and no murmurs Cardio Narrative: afib, rate controlled GI normal to inspection, nondistended, normoactive bowel sounds, soft to palpation,non-tender and non-distended Extremity normal to inspection, full ROM, normal capillary refill, no clubbing, cyanosis or edema and no calftenderness General Extremity: no tenderness to palpation of joints or extremities Skin Skin Narrative: scrotum is erythematous, right testicle sanding machine tender Neuro oriented x3, CN's II-XII intact bilaterally, moves all extremities, no focal motor deficits and no sensory deficits noted Sensorium / Orientation: awake, alert, oriented to person, oriented to place andoriented to time Speech: speech normal Motor Exam: strength 5/5 throughout and general weakness Psych thought process normal, cooperative and affect normal Appearance: appropriate Assessment & Plan Assessment/Plan (1) Atrial flutter with rapid ventricular response: (2) Epididymitis: (3) Acute cystitis with hematuria: PLAN: Plan #Acute right epididymitis * ultrasound of the scrotum showed evidence of epididymitis, with no torsion. * wbc trended upwards today to 22.9, so antibiotics broadened to IV zosyn. * PO tylenol, PO oxycodone and IV morphine prn for pain. * blood cultures pending * #UTI * Urinalysis showed evidence of UTI with 4+ bacteria and WBC was also elevated. * antibiotics broadened to IV zosyn. * On IV Zofran as needed for nausea and vomiting. * Urine cultures pending * #New onset afib * went back in into afib with RVR. * had to be put back on cardizem drip again overnight. * wean off cardizem drip and put on PO metoprolol 25mg bid again. * 2D echo is 10-15% with severe global LV hypokinesia and severe LV systolic dysfunction. * discussed with Dr Leo of cardiology who was consulted yesterday; he thinks it is more of a nonischemic cardiomyopathy and does not think patient needs cardiac cath now; cardiac cath can be done on outpatient basis. * TSH WNL. Now on eliquis * per cardiology, if afib with RVR recurs, to place on amiodarone drip and not cardizem drip. * #DVT prophylaxis: on eliquis Charges/Coding Visit Charges Inpatient E&M: 85365 Subs Hosp L2 10/10/24 1612 Madison Lemus MD Cosigner Signature (if applicable): CC: ~ Signed [facility]05-27-2025 Progress note Author Jonas Cedeno [facility] Note Date/Time October 10, 2024 11:13 am [facility] Medical Records Department [address] [place] [address] Progress Note - Cardiology 10/10/24 1100 MR#: [id number] Acct: [id number] Name: STACIE BARRAZA Rep #:[id number] : 1955 68 From: Jonas Cedeno MD PCP: Dr. Kilo Lewis MD Status :ADM IN Location: [place] [address] Subjective Subjective Events of last night noted patient was in A-fib with RVR. Objective Data Vital Signs: Vital Signs Temp Pulse Resp BP Pulse Ox O2 Del Method O2 Flow Rate 97.7 F L 80 18 88/68 L 98 Room Air 2 10/10/24 09:00 10/10/24 10:32 10/10/24 10:32 10/10/24 10:32 10/10/24 10:32 10/10/24 10:32 10/09/24 09:10 Oxygen Flow Rate (L/min) 2 Oxygen Delivery Method Room Air Weight: 168 lb 6.931 oz Body Mass Index (BMI) 25.6 Intake & Output: Intake and Output for Last 24 Hours 10/08/24 10/09/24 10/10/24 23:59 23:59 23:59 Intake Total 1050 / 1050 2671.83 / 2671.83 190.84 / 190.84 Output Total 550 / 800 250 / 250 Balance 1050 / 1050 2121.83 / 1871.83 -59.16 / -59.16 Lab / Micro Data 10/10/24 06:30 10/10/24 06:30 Labs: Laboratory Results - last 24 hr 10/10/24 06:30: WBC 22.9 H, RBC 4.66, Hgb 14.3, Hct 42.0, MCV 90.1, MCH 30.7, MCHC 34.0, RDW Std Deviation 46.9 H, RDW Coeff of Natty 14.3, Plt Count 216, MPV 12.0, Immature Gran % (Auto) 0.900, Neut % (Auto) 81.1 H, Lymph % (Auto) 8.6 L, [place] % (Auto) 9.2, Eos % (Auto) 0.0, Baso % (Auto) 0.2, Absolute Neuts (auto) 18.5 H, Absolute Lymphs (auto) 1.97, Nucleated RBC % 0, Platelet Estimate A, PltMorphology Comment GIANT, Sodium 138, Potassium 3.8, Chloride 108, Carbon Dioxide 19.6 L, Anion Gap 10, BUN 21 H, Creatinine 0.65 L, Estim Creat Clear Calc 87.88, Est GFR (MDRD) Non-Af 104, BUN/Creatinine Ratio 31.5 H, Glucose 122 H, Calcium 8.7 Cardiology Labs/Tests 10/10/24 06:30: WBC 22.9 H, RBC 4.66, Hgb 14.3, Hct 42.0, MCV 90.1, MCH 30.7, MCHC 34.0, Plt Count 216, MPV 12.0, Immature Gran % (Auto) 0.900, Neut % (Auto) 81.1 H, Lymph % (Auto) 8.6 L, [place] % (Auto) 9.2, Eos % (Auto) 0.0, Baso % (Auto)0.2, Absolute Neuts (auto) 18.5 H, Nucleated RBC % 0, Sodium 138, Potassium 3.8,Chloride 108, Carbon Dioxide 19.6 L, Anion Gap 10, BUN 21 H, Creatinine 0.65 L, Est GFR (MDRD) Non-Af 104, BUN/Creatinine Ratio 31.5 H, Glucose 122 H, Calcium 8.7 Rhythm: EKG: ECHO: Stress Test: Cardiac Cath: PCI: CT Surgery: Holter monitor: EPS: PPM: CXR: Chest CT Scan: Radiography Diagnostic Testing: Radiology Impression Echocardiogram 10/09/24 01:40 Interpretation Summary The estimated ejection fraction is 10-15 %. Severe global LV hypokinesia Severe LV systolic dysfunction Definity/contrast echo used No prior study to compare Ordering Physician: Michael Reyna Referring Physician: Kilo Lewis Performed By: Tere Castorena, MARTÍN, RVT Assessment & Plan Assessment/Plan (1) Epididymitis: (2) Leukocytosis: QUALIFIERS: Leukocytosis type: unspecified Qualified Code(s): D72.829 - Elevated white blood cell count, unspecified (3) Acute cystitis with hematuria: (4) Overweight (BMI 25.0-29.9): (5) Atrial flutter with rapid ventricular response: PLAN: Cardiac care plan recommendations; 68-year-old patient with new onset severe LV dysfunction EF in the range of 10-15% Patient has atrial flutter with rapid ventricular rate In this admission patient has epididymitis with acute cystitis and hematuria/microscopic. I review all his current medication. Discontinue the calcium channel chucky diltiazem Will continue on beta-chucky metoprolol Added digoxin to 50 mcg start dose with the plan of follow-up with 125 mcg His renal function is normal with a normal serum creatinine. From cardiac standpoint patient plan will be to continue medical treatment with guideline directed medical therapy as tolerated which will include Entresto in addition to Aldactone possible Farxiga LifeVest prior to discharge for risk of sudden cardiac . Evaluate further as an outpatient with the cardiac team/possible left heart catheterization to assess for CAD Likely presentation is secondary to nonischemic cardiomyopathy/with atrial flutter and rapid ventricular response. He is ventricular rate is improving with the current treatment Will continue to monitor and follow-up clinically. Cardiac care plan explained in detail to the medical team, patient and nursing staff Jonas Cedeno MD,[facility] 10/10/24 1113 <Electronically signed by Jonas Cedeno MD> Cosigner Signature (if applicable): CC: ~ Signed [facility] Work Phone: [phone] 349-839005-27-2025 Progress note [facility] Medical Records Department [address] [place] [address] Progress Note - Cardiology 10/10/24 1100 MR#: [id number] Acct: [id number] Name: STACIE BARRAZA Rep #:[id number] : 1955 68 From: Jonas Cedeno MD PCP: Dr. iKlo Lewis MD Status :ADM IN Location: [place] [address]- Subjective Subjective Events of last night noted patient was in A-fib with RVR. Objective Data Vital Signs: Vital Signs Temp Pulse Resp BP Pulse Ox O2 Del Method O2 Flow Rate 97.7 F L 80 18 88/68 L 98 Room Air 2 10/10/24 09:00 10/10/24 10:32 10/10/24 10:32 10/10/24 10:32 10/10/24 10:32 10/10/24 10:32 10/09/24 09:10 Oxygen Flow Rate (L/min) 2 Oxygen Delivery Method Room Air Weight: 168 lb 6.931 oz Body Mass Index (BMI) 25.6 Intake & Output: Intake and Output for Last 24 Hours 10/08/24 10/09/24 10/10/24 23:59 23:59 23:59 Intake Total 1050 / 1050 2671.83 / 2671.83 190.84 / 190.84 Output Total 550 / 800 250 / 250 Balance 1050 / 1050 2121.83 / 1871.83 -59.16 / -59.16 Lab / Micro Data 10/10/24 06:30 10/10/24 06:30 Labs: Laboratory Results - last 24 hr 10/10/24 06:30: WBC 22.9 H, RBC 4.66, Hgb 14.3, Hct 42.0, MCV 90.1, MCH 30.7, MCHC 34.0, RDW Std Deviation 46.9 H, RDW Coeff of Natty 14.3, Plt Count 216, MPV 12.0, Immature Gran % (Auto) 0.900, Neut %(Auto) 81.1 H, Lymph % (Auto) 8.6 L, [place] % (Auto) 9.2, Eos % (Auto) 0.0, Baso % (Auto) 0.2, Absolute Neuts (auto) 18.5 H, Absolute Lymphs (auto) 1.97, Nucleated RBC % 0, Platelet Estimate A, PltMorphology Comment GIANT, Sodium 138, Potassium 3.8, Chloride 108, Carbon Dioxide 19.6 L, Anion Gap 10, BUN 21 H, Creatinine 0.65 L, Estim Creat Clear Calc 87.88, Est GFR (MDRD) Non-Af 104, BUN/CreatinineRatio 31.5 H, Glucose 122 H, Calcium 8.7 Cardiology Labs/Tests 10/10/24 06:30: WBC 22.9 H, RBC 4.66, Hgb 14.3, Hct 42.0, MCV 90.1, MCH 30.7, MCHC 34.0, Plt Count 216, MPV 12.0, Immature Gran % (Auto) 0.900, Neut % (Auto) 81.1 H, Lymph % (Auto) 8.6 L, [place] % (Auto) 9.2, Eos % (Auto) 0.0, Baso % (Auto)0.2, Absolute Neuts (auto) 18.5 H, Nucleated RBC % 0, Sodium 138, Potassium 3.8,Chloride 108, Carbon Dioxide 19.6 L, Anion Gap 10, BUN 21 H, Creatinine 0.65 L, Est GFR (MDRD) Non-Af 104, BUN/Creatinine Ratio 31.5 H, Glucose 122 H, Calcium 8.7 Rhythm: EKG: ECHO: Stress Test: Cardiac Cath: PCI: CT Surgery: Holter monitor: EPS: PPM: CXR: Chest CT Scan: Radiography Diagnostic Testing: Radiology Impression Echocardiogram 10/09/24 01:40 Interpretation Summary The estimated ejection fraction is 10-15 %. Severe global LV hypokinesia Severe LV systolic dysfunction Definity/contrast echo used No prior study to compare Ordering Physician: Michael Reyna Referring Physician: Kilo Lewis Performed By: Tere Castorena, MARTÍN, RVT Assessment & Plan Assessment/Plan (1) Epididymitis: (2) Leukocytosis: QUALIFIERS: Leukocytosis type: unspecified Qualified Code(s): D72.829 - Elevated white blood cell count, unspecified (3) Acute cystitis with hematuria: (4) Overweight (BMI 25.0-29.9): (5) Atrial flutter with rapid ventricular response: PLAN: Cardiac care plan recommendations; 68-year-old patient with new onset severe LV dysfunction EF in the range of 10-15% Patient has atrial flutter with rapid ventricular rate In this admission patient has epididymitis with acute cystitis and hematuria/microscopic. I review all his current medication. Discontinue the calcium channel chucky diltiazem Will continue on beta-chucky metoprolol Added digoxin to 50 mcg start dose with the plan of follow-up with 125 mcg His renal function is normal with a normal serum creatinine. From cardiac standpoint patient plan will be to continue medical treatment with guideline directed medical therapy as tolerated which will include Entresto in addition to Aldactone possible Farxiga LifeVest prior to discharge for risk of sudden cardiac . Evaluate further as an outpatient with the cardiac team/possible left heart catheterization to assess for CAD Likely presentation is secondary to nonischemic cardiomyopathy/with atrial flutter and rapid ventricular response. He is ventricular rate is improving with the current treatment Will continue to monitor and follow-up clinically. Cardiac care plan explained in detail to the medical team, patient and nursing staff Jonas Cedeno MD,[facility] 10/10/24 1113 Cosigner Signature (if applicable): CC: ~ Signed [facility]05-26-2025 Consult note Author Jonas Cedeno [facility] Note Date/Time October 09, 2024 3:55p m [facility] Medical Records Department [address] [place] [address] Consultation - Cardiology 10/09/24 1544 MR#: [id number] Acct: [id number] Name: STACIE BARRAZA Rep #:[id number] : 1955 68 From: Jonas Cedeno MD PCP: Dr. Kilo Lewis MD Status :ADM IN Location: [place] [address] Assessment & Plan Assessment/Plan (1) Atrial flutter with rapid ventricular response: (2) Epididymitis: (3) Leukocytosis: QUALIFIERS: Leukocytosis type: unspecified Qualified Code(s): D72.829 - Elevated white blood cell count, unspecified (4) Acute cystitis with hematuria: PLAN: Cardiac care plan; 68-year-old patient seen and evaluated today along with the nursing staff Cardiac consult patient requested as patient has a new onset A-fib/atrial flutter with RVR in addition to severe LV dysfunction by echocardiogram. Patient has hernia repair presented with, right testicular pain. He also had symptoms of shortness of breath. 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 Patient has severe LV systolic dysfunction on echocardiogram Ejection fraction calculated 10-15%. With global LV hypokinesia I reviewed all his current medication Patient has been on beta-chucky metoprolol for rate control Calcium channel chucky has been discontinued Will continue on CHF protocol. And diuresis with Lasix Other medical problem patient has leukocytosis with acute cystitis with microscopic hematuria Epididymitis And has been on antibiotic treatment. Adding Entresto to his current treatment High risk patient will require further cardiac workup which will include a LifeVest prior to discharge possible And follow-up with the cardiology team and evaluate further. With possible Lexiscan sestamibi versus cardiac catheterization. Will continue to monitor during this admission and will follow-up clinically. Jonas Cedeno MD,[facility] HPI Consult Data Date of Consult: 10/09/24 HPI Narrative Reason for Consultation: Severe LV systolic dysfunction, EF 10-15%/A-fib HPI Narrative: STACIE BARRAZA, is a 68 M who presents REPLACED BY [facility] Medical History Hernia Home Medications ?Medication ?Instructions ?Recorded ?Last Taken ?Type multivitamin with folic acid 400 1 tab PO DAILY supple ment 03/05/15 Unknown History mcg tablet (Thera) Allergy/AdvReac Type Severity Reaction Status Date / Time Sulfa (Sulfonamide Allergy Unknown Verified 10/08/24 18:49 Antibiotics) Surgical History S/P hernia surgery Social History Smoking Status: Never smoker Physical Exam Cardio Cardio Narrative: Patient seen and evaluated today along with the nursing staff Reviewed his school childcare attendant which showed A-fib with controlled ventricular rate. I distended abdomen as well as discomfort in his swollen testicles. Cardiac exam regular venous pressure elevated S1-S2 is regular Chest exam mildly diminished air entry bilateral. Mild, bilateral lower extremity edema Risk Stratification Risk Stratification Applicable: No Objective Data Vital Signs: Vital Signs Temp Pulse Resp BP Pulse Ox O2 Del Method O2 Flow Rate 97.9 F 79 20 H 94/72 97 Room Air 2 10/09/24 12:00 10/09/24 12:00 10/09/24 12:00 10/09/24 12:00 10/09/24 12:00 10/09/24 12:00 10/09/24 09:10 Oxygen Flow Rate (L/min) 2 Oxygen Delivery Method Room Air Weight: 165 lb 2.02 oz Body Mass Index (BMI) 25.1 Intake & Output: Intake and Output for Last 24 Hours 10/07/24 10/08/24 10/09/24 23:59 23:59 23:59 Intake Total 1050 / 1050 1421.83 / 1421.83 Output Total 300 / 300 Balance 1050 / 1050 1121.83 / 1121.83 Lab / Micro Data 10/09/24 05:17 10/09/24 05:17 Labs: Laboratory Results - last 24 hr 10/08/24 18:55: WBC 16.9 H, RBC 5.52, Hgb 16.5, Hct 49.6, MCV 89.9, MCH 29.9, MCHC 33.3, RDW Std Deviation 45.5 H, RDW Coeff of Natty 13.8, Plt Count 280, MPV 11.3, Immature Gran % (Auto) 0.400, Neut % (Auto) 81.9 H, Lymph % (Auto) 9.0 L, [place] % (Auto) 8.0, Eos % (Auto) 0.5, Baso % (Auto) 0.2, Absolute Neuts (auto) 13.8 H, Absolute Lymphs (auto) 1.53, Nucleated RBC % 0, Sodium 143, Potassium 4.3, Chloride 107, Carbon Dioxide 24.8, Anion Gap 11, BUN 20 H, Creatinine 0.80,Estim Creat Clear Calc 81.97, Est GFR (MDRD) Non-Af 98, BUN/Creatinine Ratio 25.1 H, Glucose 118 H, Calcium 9.4, Total Bilirubin 1.08, AST 24, ALT 25, Alkaline Phosphatase 99, Troponin T High Sens 12, Total Protein 7.3, Albumin 4.1, Globulin 3.1, Albumin/Globulin Ratio 1.3, TSH 2.930 10/08/24 19:25: Urine Color Yellow, Urine Clarity Sl. Cloudy, Urine pH 6.0, Ur Specific [place] 1.020, Urine Protein 30 H, Urine Glucose (UA) Normal, Urine Ketones 5 H, Urine Occult Blood 10 H, Urine Nitrite Negative, Urine Bilirubin Negative, Urine Urobilinogen Normal, Ur Leukocyte Esterase 500 H, Urine RBC 5-10SEEN, Urine WBC 25-50 SEEN, Ur Squamous Epith Cells 0-5 SEEN, Ur Renal Epithelial Cell 0-5 SEEN, Urine Bacteria 4+, Urine Mucus 0 SEEN 10/08/24 20:00: Lactic Acid 1.3 10/08/24 20:55: Troponin T Hi Sens 2 Hr 13 10/09/24 00:26: Magnesium 1.8, Troponin T Hi Sens 4Hr 14, TSH 2.440 10/09/24 05:17: WBC 17.8 H, RBC 4.94, Hgb 14.7, Hct 44.5, MCV 90.1, MCH 29.8, MCHC 33.0, RDW Std Deviation 46.5 H, RDW Coeff of Natty 14.2, Plt Count 225, MPV 12.5 H, Immature Gran % (Auto) 0.600, Neut % (Auto) 83.8 H, Lymph % (Auto) 7.6 L, [place] % (Auto) 7.7, Eos % (Auto) 0.1, Baso % (Auto) 0.2, Absolute Neuts (auto) 14.9 H, Absolute Lymphs (auto) 1.35, Nucleated RBC % 0, Sodium 138, Potassium 4.2, Chloride 108, Carbon Dioxide 18.5 L, Anion Gap 11, BUN 19, Creatinine 0.67 L, Estim Creat Clear Calc 87.88, Est GFR (MDRD) Non-Af 103, BUN/Creatinine Ratio28.6 H, Glucose 146 H, Calcium 8.9, Phosphorus 3.0, Total Bilirubin 1.17, AST 16, ALT 18, Alkaline Phosphatase 80, Total Protein 6.3, Albumin 3.5, Globulin 2.8, Albumin/Globulin Ratio 1.3 Cardiology Labs/Tests 10/08/24 18:55: WBC 16.9 H, RBC 5.52, Hgb 16.5, Hct 49.6, MCV 89.9, MCH 29.9, MCHC 33.3, Plt Count 280, MPV 11.3, Immature Gran % (Auto) 0.400, Neut % (Auto) 81.9 H, Lymph % (Auto) 9.0 L, [place] % (Auto) 8.0, Eos % (Auto) 0.5, Baso % (Auto)0.2, Absolute Neuts (auto) 13.8 H, Nucleated RBC % 0, Sodium 143, Potassium 4.3,Chloride 107, Carbon Dioxide 24.8, Anion Gap 11, BUN 20 H, Creatinine 0.80, Est GFR (MDRD) Non-Af 98, BUN/Creatinine Ratio 25.1 H, Glucose 118 H, Calcium 9.4, Total Bilirubin 1.08 10/08/24 19:25: Urine Color Yellow, Urine Clarity Sl. Cloudy, Urine pH 6.0, Ur Specific [place] 1.020, Urine Protein 30 H, Urine Glucose (UA) Normal, Urine Ketones 5 H, Urine Occult Blood 10 H, Urine Nitrite Negative, Urine Bilirubin Negative, Urine Urobilinogen Normal, Ur Leukocyte Esterase 500 H, Urine RBC 5-10SEEN, Urine WBC 25-50 SEEN 10/08/24 20:00: Lactic Acid 1.3 10/09/24 00:26: Magnesium 1.8 10/09/24 05:17: WBC 17.8 H, RBC 4.94, Hgb 14.7, Hct 44.5, MCV 90.1, MCH 29.8, MCHC 33.0, Plt Count 225, MPV 12.5 H, Immature Gran % (Auto) 0.600, Neut % (Auto) 83.8 H, Lymph % (Auto) 7.6 L, [place] % (Auto) 7.7, Eos % (Auto) 0.1, Baso %(Auto) 0.2, Absolute Neuts (auto) 14.9 H, Nucleated RBC % 0, Sodium 138, Potassium 4.2, Chloride 108, Carbon Dioxide 18.5 L, Anion Gap 11, BUN 19, Creatinine 0.67 L, Est GFR (MDRD) Non-Af 103, BUN/Creatinine Ratio 28.6 H, Glucose 146 H, Calcium 8.9, Phosphorus 3.0, Total Bilirubin 1.17 Rhythm: EKG: ECHO: Stress Test: Cardiac Cath: PCI: CT Surgery: Holter monitor: EPS: PPM: CXR: Chest CT Scan: Radiography Diagnostic Testing: Radiology Impression Testicular Ultrasound 10/08/24 19:53 IMPRESSION: No evidence of testicular torsion. Asymmetric enlargement of the right epididymis with hypervascularity, which may represent epididymitis. Clinical and laboratory correlation recommended. Reading Location: [id number] Echocardiogram 10/09/24 01:40 Interpretation Summary The estimated ejection fraction is 10-15 %. Severe global LV hypokinesia Severe LV systolic dysfunction Definity/contrast echo used No prior study to compare Ordering Physician: Michael Reyna Referring Physician: Kilo Lewis Performed By: Tere Castorena, MARTÍN, RVT 10/09/24 1555 <Electronically signed by Jonas eCdeno MD> Cosigner Signature (if applicable): CC: Dr. Kilo Lewis MD~ Signed [facility] Work Phone: 1(533) 429-776805-26-2025 Progress note Author [facility] Note Date/Time October 09, 2024 3:00p [facility] Medical Records Department [address] [place] [address] Progress Note 10/09/24 1145 MR#: [id number] Acct: [id number] Name: STACIE BARRAZA Rep #:[id number] : 1955 68 From: Madison Lemus MD PCP: Dr. Kilo Lewis MD Status :ADM IN Location: [place] [address] Subjective Subjective Patient seen and examined. He still complained of right scrotal pain. He denied any fever, chills, cough, palpitations, dizziness, nausea, vomiting or any othersymptoms. Review of systems is otherwise negative. He is still in afib though now rate controlled. Objective Data Objective Data Vital Signs: Vital Signs Temp Pulse Resp BP Pulse Ox O2 Del Method O2 Flow Rate 97.9 F 95 15 104/74 99 Nasal Cannula 2 10/09/24 09:10 10/09/24 11:01 10/09/24 09:10 10/09/24 09:10 10/09/24 09:10 10/09/24 09:10 10/09/24 09:10 Oxygen Flow Rate (L/min) 2 Oxygen Delivery Method Nasal Cannula Weight: 165 lb 2.02 oz Body Mass Index (BMI) 25.1 Intake & Output: Intake and Output for Last 24 Hours 10/07/24 10/08/24 10/09/24 23:59 23:59 23:59 Intake Total 1050 / 1050 1200.16 / 1200.16 Balance 1050 / 1050 1200.16 / 1200.16 Lab / Micro Data 10/09/24 05:17 10/09/24 05:17 Labs: Laboratory Results - last 24 hr 10/08/24 18:55: WBC 16.9 H, RBC 5.52, Hgb 16.5, Hct 49.6, MCV 89.9, MCH 29.9, MCHC 33.3, RDW Std Deviation 45.5 H, RDW Coeff of Natty 13.8, Plt Count 280, MPV 11.3, Immature Gran % (Auto) 0.400, Neut % (Auto) 81.9 H, Lymph % (Auto) 9.0 L, [place] % (Auto) 8.0, Eos % (Auto) 0.5, Baso % (Auto) 0.2, Absolute Neuts (auto) 13.8 H, Absolute Lymphs (auto) 1.53, Nucleated RBC % 0, Sodium 143, Potassium 4.3, Chloride 107, Carbon Dioxide 24.8, Anion Gap 11, BUN 20 H, Creatinine 0.80,Estim Creat Clear Calc 81.97, Est GFR (MDRD) Non-Af 98, BUN/Creatinine Ratio 25.1 H, Glucose 118 H, Calcium 9.4, Total Bilirubin 1.08, AST 24, ALT 25, Alkaline Phosphatase 99, Troponin T High Sens 12, Total Protein 7.3, Albumin 4.1, Globulin 3.1, Albumin/Globulin Ratio 1.3, TSH 2.930 10/08/24 19:25: Urine Color Yellow, Urine Clarity Sl. Cloudy, Urine pH 6.0, Ur Specific [place] 1.020, Urine Protein 30 H, Urine Glucose (UA) Normal, Urine Ketones 5 H, Urine Occult Blood 10 H, Urine Nitrite Negative, Urine Bilirubin Negative, Urine Urobilinogen Normal, Ur Leukocyte Esterase 500 H, Urine RBC 5-10SEEN, Urine WBC 25-50 SEEN, Ur Squamous Epith Cells 0-5 SEEN, Ur Renal Epithelial Cell 0-5 SEEN, Urine Bacteria 4+, Urine Mucus 0 SEEN 10/08/24 20:00: Lactic Acid 1.3 10/08/24 20:55: Troponin T Hi Sens 2 Hr 13 10/09/24 00:26: Magnesium 1.8, Troponin T Hi Sens 4Hr 14, TSH 2.440 10/09/24 05:17: WBC 17.8 H, RBC 4.94, Hgb 14.7, Hct 44.5, MCV 90.1, MCH 29.8, MCHC 33.0, RDW Std Deviation 46.5 H, RDW Coeff of Natty 14.2, Plt Count 225, MPV 12.5 H, Immature Gran % (Auto) 0.600, Neut % (Auto) 83.8 H, Lymph % (Auto) 7.6 L, [place] % (Auto) 7.7, Eos % (Auto) 0.1, Baso % (Auto) 0.2, Absolute Neuts (auto) 14.9 H, Absolute Lymphs (auto) 1.35, Nucleated RBC % 0, Sodium 138, Potassium 4.2, Chloride 108, Carbon Dioxide 18.5 L, Anion Gap 11, BUN 19, Creatinine 0.67 L, Estim Creat Clear Calc 87.88, Est GFR (MDRD) Non-Af 103, BUN/Creatinine Ratio28.6 H, Glucose 146 H, Calcium 8.9, Phosphorus 3.0, Total Bilirubin 1.17, AST 16, ALT 18, Alkaline Phosphatase 80, Total Protein 6.3, Albumin 3.5, Globulin 2.8, Albumin/Globulin Ratio 1.3 Radiography Diagnostic Testing: Radiology Impression Testicular Ultrasound 10/08/24 19:53 IMPRESSION: No evidence of testicular torsion. Asymmetric enlargement of the right epididymis with hypervascularity, which may represent epididymitis. Clinical and laboratory correlation recommended. Reading Location: [facility] Physical Exam Const alert, oriented x3, no apparent distress and well nourished General Appearance: cooperative and well developed HEENT normocephalic, head/scalp atraumatic, moist oral mucous membranes and oropharynxnormal Eyes PERRL and EOMs intact bilaterally Neck no lymphadenopathy, supple and no JVD Lymph Lymphatic: no lymphadenopathy noted and no lymphedema noted Resp normal respiratory effort, normal air movement and clear to auscultation bilaterally Cardio regular rate, S1 normal heart sound, S2 normal heart sound and no murmurs Cardio Narrative: afib, rate controlled GI normal to inspection, nondistended, normoactive bowel sounds, soft to palpation,non-tender and non-distended Extremity normal capillary refill, no clubbing, cyanosis or edema and no calf tenderness General Extremity: no tenderness to palpation of joints or extremities Skin Skin Narrative: scrotum is erythematous, right testicle very tender and warm to touch Neuro CN's II-XII intact bilaterally, no focal motor deficits and no sensory deficits noted Motor Exam: strength 5/5 throughout and general weakness Psych thought process normal, cooperative and affect normal Appearance: appropriate Assessment & Plan Assessment/Plan (1) Atrial flutter with rapid ventricular response: (2) Epididymitis: (3) Acute cystitis with hematuria: PLAN: Plan #Acute right epididymitis * ultrasound of the scrotum showed evidence of epididymitis, with no torsion. * on IV ceftriaxone * PO tylenol, PO oxycodone and IV morphine prn for pain. * #UTI * Urinalysis showed evidence of UTI with 4+ bacteriaand WBC was also elevated. * On IV ceftriaxone. * On IV Zofran as needed for nausea and vomiting. * Urine cultures ordered. * #New onset afib * patient now rate controlled. * on cardizem drip * will switch to PO metoprolol 25mg bid and wean off cardizem drip * on therapeutic lovenox * 2D echo ordered * TSH WNL * CHADVASC score is 1. * #DVT prophylaxis: on therapeutic lovenox for afib as above Charges/Coding Visit Charges Inpatient E&M: 17897 Subs Hosp L2 10/09/24 1500 <Electronically signed by Madison Lemus MD> Madison Lemus MD Cosigner Signature (if applicable): CC: ~ Signed [facility] Work Phone: [phone]) 439-306605-26-2025 Consult note [facility] Medical Records Department [address] [place] [address] Consultation - Cardiology 10/09/24 1544 MR#: [id number] Acct: [id number] Name: STACIE BARRAZA Rep #:[id number] : 1955 68 From: Jonas Cedeno MD PCP: Dr. Kilo Lewis MD Status :ADM IN Location: [place] [address] Assessment & Plan Assessment/Plan (1) Atrial flutter with rapid ventricular response: (2) Epididymitis: (3) Leukocytosis: QUALIFIERS: Leukocytosis type: unspecified Qualified Code(s): D72.829 - Elevated white blood cell count, unspecified (4) Acute cystitis with hematuria: PLAN: Cardiac care plan; 68-year-old patient seen and evaluated today along with the nursing staff Cardiac consult patient requested as patient has a new onset A-fib/atrial flutter with RVR in addition to severe LV dysfunction by echocardiogram. Patient has hernia repair presented with, right testicular pain. He also had symptoms of shortness of breath. 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 Patient has severe LV systolic dysfunction on echocardiogram Ejection fraction calculated 10-15%. With global LV hypokinesia I reviewed all his current medication Patient has been on beta-chucky metoprolol for rate control Calcium channel chucky has been discontinued Will continue on CHF protocol. And diuresis with Lasix Other medical problem patient has leukocytosis with acute cystitis with microscopic hematuria Epididymitis And has been on antibiotic treatment. Adding Entresto to his current treatment High risk patient will require further cardiac workup which will include a LifeVest prior to discharge possible And follow-up with the cardiology team and evaluate further. With possible Lexiscan sestamibi versus cardiac catheterization. Will continue to monitor during this admission and will follow-up clinically. Jonas Cedeno MD,[facility] HPI Consult Data Date of Consult: 10/09/24 HPI Narrative Reason for Consultation: Severe LV systolic dysfunction, EF 10-15%/A-fib HPI Narrative: STACIE BARRAZA, is a 68 M who presents REPLACED BY [facility] Medical History Hernia Home Medications ?Medication ?Instructions ?Recorded ?Last Taken ?Type multivitamin with folic acid 400 1 tab PO DAILY supple ment 03/05/15 Unknown History mcg tablet (Thera) Allergy/AdvReac Type Severity Reaction Status Date / Time Sulfa (Sulfonamide Allergy Unknown Verified 10/08/24 18:49 Antibiotics) Surgical History S/P hernia surgery Social History Smoking Status: Never smoker Physical Exam Cardio Cardio Narrative: Patient seen and evaluated today along with the nursing staff Reviewed his school childcare attendant which showed A-fib with controlled ventricular rate. I distended abdomen as well as discomfort in his swollen testicles. Cardiac exam regular venous pressure elevated S1-S2 is regular Chest exam mildly diminished air entry bilateral. Mild, bilateral lower extremity edema Risk Stratification Risk Stratification Applicable: No Objective Data Vital Signs: Vital Signs Temp Pulse Resp BP Pulse Ox O2 Del Method O2 Flow Rate 97.9 F 79 20 H 94/72 97 Room Air 2 10/09/24 12:00 10/09/24 12:00 10/09/24 12:00 10/09/24 12:00 10/09/24 12:00 10/09/24 12:00 10/09/24 09:10 Oxygen Flow Rate (L/min) 2 Oxygen Delivery Method Room Air Weight: 165 lb 2.02 oz Body Mass Index (BMI) 25.1 Intake & Output: Intake and Output for Last 24 Hours 10/07/24 10/08/24 10/09/24 23:59 23:59 23:59 Intake Total 1050 / 1050 1421.83 / 1421.83 Output Total 300 / 300 Balance 1050 / 1050 1121.83 / 1121.83 Lab / Micro Data 10/09/24 05:17 10/09/24 05:17 Labs: Laboratory Results - last 24 hr 10/08/24 18:55: WBC 16.9 H, RBC 5.52, Hgb 16.5, Hct 49.6, MCV 89.9, MCH 29.9, MCHC 33.3, RDW Std Deviation 45.5 H, RDW Coeff of Natty 13.8, Plt Count 280, MPV 11.3, Immature Gran % (Auto) 0.400, Neut %(Auto) 81.9 H, Lymph % (Auto) 9.0 L, [place] % (Auto) 8.0, Eos % (Auto) 0.5, Baso % (Auto) 0.2, Absolute Neuts (auto) 13.8 H, Absolute Lymphs (auto) 1.53, Nucleated RBC % 0, Sodium 143, Potassium 4.3, Chloride 107, Carbon Dioxide 24.8, Anion Gap 11, BUN 20 H, Creatinine 0.80,Estim Creat Clear Calc 81.97, Est GFR (MDRD) Non-Af 98, BUN/Creatinine Ratio 25.1 H, Glucose 118 H, Calcium 9.4, Total Bilirubin 1.08, AST 24, ALT 25, Alkaline Phosphatase 99, Troponin T High Sens 12, Total Protein 7.3, Albumin 4.1, Globulin 3.1, Albumin/Globulin Ratio 1.3, TSH 2.930 10/08/24 19:25: Urine Color Yellow, Urine Clarity Sl. Cloudy, Urine pH 6.0, Ur Specific [place] 1.020, Urine Protein 30 H, Urine Glucose (UA) Normal, Urine Ketones 5 H, Urine Occult Blood 10 H, UrineNitrite Negative, Urine Bilirubin Negative, Urine Urobilinogen Normal, Ur Leukocyte Esterase 500 H,Urine RBC 5- 10SEEN, Urine WBC 25-50 SEEN, Ur Squamous Epith Cells 0-5 SEEN, Ur Renal Epithelial Cell 0-5 SEEN, Urine Bacteria 4+, Urine Mucus 0 SEEN 10/08/24 20:00: Lactic Acid 1.3 10/08/24 20:55: Troponin T Hi Sens 2 Hr 13 10/09/24 00:26: Magnesium 1.8, Troponin T Hi Sens 4Hr 14, TSH 2.440 10/09/24 05:17: WBC 17.8 H, RBC 4.94, Hgb 14.7, Hct 44.5, MCV 90.1, MCH 29.8, MCHC 33.0, RDW Std Deviation 46.5 H, RDW Coeff of Natty 14.2, Plt Count 225, MPV 12.5 H, Immature Gran % (Auto) 0.600, Neut% (Auto) 83.8 H, Lymph % (Auto) 7.6 L, [place] % (Auto) 7.7, Eos % (Auto) 0.1, Baso % (Auto) 0.2, Absolute Neuts (auto) 14.9 H, Absolute Lymphs (auto) 1.35, Nucleated RBC % 0, Sodium 138, Potassium 4.2,Chloride 108, Carbon Dioxide 18.5 L, Anion Gap 11, BUN 19, Creatinine 0.67 L, Estim Creat Clear Calc 87.88, Est GFR (MDRD) Non-Af 103, BUN/Creatinine Ratio28.6 H, Glucose 146 H, Calcium 8.9, Phosphorus 3.0, Total Bilirubin 1.17, AST 16, ALT 18, Alkaline Phosphatase 80, Total Protein 6.3, Albumin 3.5, Globulin 2.8, Albumin/Globulin Ratio 1.3 Cardiology Labs/Tests 10/08/24 18:55: WBC 16.9 H, RBC 5.52, Hgb 16.5, Hct 49.6, MCV 89.9, MCH 29.9, MCHC 33.3, Plt Count 280, MPV 11.3, Immature Gran % (Auto) 0.400, Neut % (Auto) 81.9 H, Lymph % (Auto) 9.0 L, [place] % (Auto) 8.0, Eos % (Auto) 0.5, Baso % (Auto)0.2, Absolute Neuts (auto) 13.8 H, Nucleated RBC % 0, Sodium 143, Potassium 4.3,Chloride 107, Carbon Dioxide 24.8, Anion Gap 11, BUN 20 H, Creatinine 0.80, Est GFR (MDRD) Non-Af 98, BUN/Creatinine Ratio 25.1 H, Glucose 118 H, Calcium 9.4, Total Bilirubin 1.08 10/08/24 19:25: Urine Color Yellow, Urine Clarity Sl. Cloudy, Urine pH 6.0, Ur Specific [place] 1.020, Urine Protein 30 H, Urine Glucose (UA) Normal, Urine Ketones 5 H, Urine Occult Blood 10 H, UrineNitrite Negative, Urine Bilirubin Negative, Urine Urobilinogen Normal, Ur Leukocyte Esterase 500 H,Urine RBC 5- 10SEEN, Urine WBC 25-50 SEEN 10/08/24 20:00: Lactic Acid 1.3 10/09/24 00:26: Magnesium 1.8 10/09/24 05:17: WBC 17.8 H, RBC 4.94, Hgb 14.7, Hct 44.5, MCV 90.1, MCH 29.8, MCHC 33.0, Plt Count 225, MPV 12.5 H, Immature Gran % (Auto) 0.600, Neut % (Auto) 83.8 H, Lymph % (Auto) 7.6 L, [place] % (Auto) 7.7, Eos % (Auto) 0.1, Baso %(Auto) 0.2, Absolute Neuts (auto) 14.9 H, Nucleated RBC % 0, Sodium 138, Potassium 4.2, Chloride 108, Carbon Dioxide 18.5 L, Anion Gap 11, BUN 19, Creatinine 0.67 L, Est GFR (MDRD) Non-Af 103, BUN/Creatinine Ratio 28.6 H, Glucose 146 H, Calcium 8.9, Phosphorus 3.0, Total Bilirubin 1.17 Rhythm: EKG: ECHO: Stress Test: Cardiac Cath: PCI: CT Surgery: Holter monitor: EPS: PPM: CXR: Chest CT Scan: Radiography Diagnostic Testing: Radiology Impression Testicular Ultrasound 10/08/24 19:53 IMPRESSION: No evidence of testicular torsion. Asymmetric enlargement of the right epididymis with hypervascularity, which may represent epididymitis. Clinical and laboratory correlation recommended. Reading Location: [facility] Echocardiogram 10/09/24 01:40 Interpretation Summary The estimated ejection fraction is 10-15 %. Severe global LV hypokinesia Severe LV systolic dysfunction Definity/contrast echo used No prior study to compare Ordering Physician: Michael Reyna Referring Physician: Kilo Lewis Performed By: Tere Castorena, MARTÍN, RVT 10/09/24 8105 Cosigner Signature (if applicable): CC: Dr. Kilo Lewis MD~ Signed [facility]05-26-2025 Progress note [facility] Medical Records Department [address] [place] [address] Progress Note 10/09/24 1145 MR#: [id number] Acct: [id number] Name: SATCIE BARRAZA Rep #:[id number] : 1955 68 From: Madison Lemus MD PCP: Dr. Kilo Lewis MD Status :ADM IN Location: [place] [address] Subjective Subjective Patient seen and examined. He still complained of right scrotal pain. He denied any fever, chills, cough, palpitations, dizziness, nausea, vomiting or any othersymptoms. Review of systems is otherwise negative. He is still in afib though now rate controlled. Objective Data Objective Data Vital Signs: Vital Signs Temp Pulse Resp BP Pulse Ox O2 Del Method O2 Flow Rate 97.9 F 95 15 104/74 99 Nasal Cannula 2 10/09/24 09:10 10/09/24 11:01 10/09/24 09:10 10/09/24 09:10 10/09/24 09:10 10/09/24 09:10 10/09/24 09:10 Oxygen Flow Rate (L/min) 2 Oxygen Delivery Method Nasal Cannula Weight: 165 lb 2.02 oz Body Mass Index (BMI) 25.1 Intake & Output: Intake and Output for Last 24 Hours 10/07/24 10/08/24 10/09/24 23:59 23:59 23:59 Intake Total 1050 / 1050 1200.16 / 1200.16 Balance 1050 / 1050 1200.16 / 1200.16 Lab / Micro Data 10/09/24 05:17 10/09/24 05:17 Labs: Laboratory Results - last 24 hr 10/08/24 18:55: WBC 16.9 H, RBC 5.52, Hgb 16.5, Hct 49.6, MCV 89.9, MCH 29.9, MCHC 33.3, RDW Std Deviation 45.5 H, RDW Coeff of Natty 13.8, Plt Count 280, MPV 11.3, Immature Gran % (Auto) 0.400, Neut %(Auto) 81.9 H, Lymph % (Auto) 9.0 L, [place] % (Auto) 8.0, Eos % (Auto) 0.5, Baso % (Auto) 0.2, Absolute Neuts (auto) 13.8 H, Absolute Lymphs (auto) 1.53, Nucleated RBC % 0, Sodium 143, Potassium 4.3, Chloride 107, Carbon Dioxide 24.8, Anion Gap 11, BUN 20 H, Creatinine 0.80,Estim Creat Clear Calc 81.97, Est GFR (MDRD) Non-Af 98, BUN/Creatinine Ratio 25.1 H, Glucose 118 H, Calcium 9.4, Total Bilirubin 1.08, AST 24, ALT 25, Alkaline Phosphatase 99, Troponin T High Sens 12, Total Protein 7.3, Albumin 4.1, Globulin 3.1, Albumin/Globulin Ratio 1.3, TSH 2.930 10/08/24 19:25: Urine Color Yellow, Urine Clarity Sl. Cloudy, Urine pH 6.0, Ur Specific [place] 1.020, Urine Protein 30 H, Urine Glucose (UA) Normal, Urine Ketones 5 H, Urine Occult Blood 10 H, UrineNitrite Negative, Urine Bilirubin Negative, Urine Urobilinogen Normal, Ur Leukocyte Esterase 500 H,Urine RBC 5- 10SEEN, Urine WBC 25-50 SEEN, Ur Squamous Epith Cells 0-5 SEEN, Ur Renal Epithelial Cell 0-5 SEEN, Urine Bacteria 4+, Urine Mucus 0 SEEN 10/08/24 20:00: Lactic Acid 1.3 10/08/24 20:55: Troponin T Hi Sens 2 Hr 13 10/09/24 00:26: Magnesium 1.8, Troponin T Hi Sens 4Hr 14, TSH 2.440 10/09/24 05:17: WBC 17.8 H, RBC 4.94, Hgb 14.7, Hct 44.5, MCV 90.1, MCH 29.8, MCHC 33.0, RDW Std Deviation 46.5 H, RDW Coeff of Natty 14.2, Plt Count 225, MPV 12.5 H, Immature Gran % (Auto) 0.600, Neut% (Auto) 83.8 H, Lymph % (Auto) 7.6 L, [place] % (Auto) 7.7, Eos % (Auto) 0.1, Baso % (Auto) 0.2, Absolute Neuts (auto) 14.9 H, Absolute Lymphs (auto) 1.35, Nucleated RBC % 0, Sodium 138, Potassium 4.2,Chloride 108, Carbon Dioxide 18.5 L, Anion Gap 11, BUN 19, Creatinine 0.67 L, Estim Creat Clear Calc 87.88, Est GFR (MDRD) Non-Af 103, BUN/Creatinine Ratio28.6 H, Glucose 146 H, Calcium 8.9, Phosphorus 3.0, Total Bilirubin 1.17, AST 16, ALT 18, Alkaline Phosphatase 80, Total Protein 6.3, Albumin 3.5, Globulin 2.8, Albumin/Globulin Ratio 1.3 Radiography Diagnostic Testing: Radiology Impression Testicular Ultrasound 10/08/24 19:53 IMPRESSION: No evidence of testicular torsion. Asymmetric enlargement of the right epididymis with hypervascularity, which may represent epididymitis. Clinical and laboratory correlation recommended. Reading Location: [facility] Physical Exam Const alert, oriented x3, no apparent distress and well nourished General Appearance: cooperative and well developed HEENT normocephalic, head/scalp atraumatic, moist oral mucous membranes and oropharynxnormal Eyes PERRL and EOMs intact bilaterally Neck no lymphadenopathy, supple and no JVD Lymph Lymphatic: no lymphadenopathy noted and no lymphedema noted Resp normal respiratory effort, normal air movement and clear to auscultation bilaterally Cardio regular rate, S1 normal heart sound, S2 normal heart sound and no murmurs Cardio Narrative: afib, rate controlled GI normal to inspection, nondistended, normoactive bowel sounds, soft to palpation,non-tender and non-distended Extremity normal capillary refill, no clubbing, cyanosis or edema and no calf tenderness General Extremity: no tenderness to palpation of joints or extremities Skin Skin Narrative: scrotum is erythematous, right testicle very tender and warm to touch Neuro CN's II-XII intact bilaterally, no focal motor deficits and no sensory deficits noted Motor Exam: strength 5/5 throughout and general weakness Psych thought process normal, cooperative and affect normal Appearance: appropriate Assessment & Plan Assessment/Plan (1) Atrial flutter with rapid ventricular response: (2) Epididymitis: (3) Acute cystitis with hematuria: PLAN: Plan #Acute right epididymitis * ultrasound of the scrotum showed evidence of epididymitis, with no torsion. * on IV ceftriaxone * PO tylenol, PO oxycodone and IV morphine prn for pain. * #UTI * Urinalysis showed evidence of UTI with 4+ bacteriaand WBC was also elevated. * On IV ceftriaxone. * On IV Zofran as needed for nausea and vomiting. * Urine cultures ordered. * #New onset afib * patient now rate controlled. * on cardizem drip * will switch to PO metoprolol 25mg bid and wean off cardizem drip * on therapeutic lovenox * 2D echo ordered * TSH WNL * CHADVASC score is 1. * #DVT prophylaxis: on therapeutic lovenox for afib as above Charges/Coding Visit Charges Inpatient E&M: 48340 Subs Hosp L2 10/09/24 1500 Madison Lemus MD Cosigner Signature (if applicable): CC: ~ Signed [facility]05-26-2025 History and physical note Author Michael Herrera [facility] Note Date/Time October 09, 2024 6:54a m [facility] Medical Records Department [address] [facility] [place] [address] H&P Exam - Hospitalist 10/08/247 MR#: [id number] Acct: [id number] Name: STACIE BARRAZA Rep #:[id number] : 1955 68 From: Michael Hernandez DO PCP: Dr. Kilo Lewis MD Status :ADM IN Location: [place] [address] HPI - General General Date of Admission: 10/08/24 Date of Service: 10/08/24 Chief Complaint: Right Testicular Pain. HPI Narrative STACIE BARRAZA, is a 68 M with a past medical history of being overweight; with BMI of27.1 this admission and history of hernia; s/p repair who presents to [facility] complaining of Right testicular pain. Mr. Barraza reports his symptoms began yesterday evening with the abrupt-onset of Right flank pain radiating in to his Right groin that has progressively worsened since that time so he finally decided to come n for further evaluation and treatment. He deniesrecent trauma to his testicle, penile discharge, dysuria, hematuria, history of renal calculi or similar previous episodes. He states he has not seen a physician to several years and he is unaware if he has any chronic medical conditions. He denies associated fever, chills, nausea, vomiting, diarrhea, constipations, dysuria, hematuria, chest pain, palpitations, headache or rash. In the ER he was noted to have UA positive for Acute Cystitis; with microscopic hematuria with Leukocytosis of 16.9K present on admission and a corresponding testicular ultrasounds that revealed Right testicle ~4.1 cm x ~3.3 cm x ~2.3 cm with homogenous echotexture, no intratesticular mass and Right epididymis mild asymmetric enlargement with increased vascularity with normal Left testicle consistent with Epididymitis complicated by EKG evidence of apparently New-onset Atrial Flutter with RVR at ~140 bpm and he was then admitted to the PCU for ongoing care for stay that is expected to extend beyond 2 midnights. REPLACED BY [facility] Medical History Hernia Home Medications ?Medication ?Instructions ?Recorded ?Last Taken ?Type multivitamin with folic acid 400 1 tab PO DAILY supple ment 03/05/15 Unknown History mcg tablet (Thera) Allergy/AdvReac Type Severity Reaction Status Date / Time Sulfa (Sulfonamide Allergy Unknown Verified 10/08/24 18:49 Antibiotics) Surgical History S/P hernia surgery Social History Smoking Status: Never smoker ROS ROS Narrative Review of Systems: Constitutional: Patient denies fever or chills. Eyes: Patient denies changes in vision or discharge from eyes. ENT: Patient denies runny nose, sore throat or ear pain. Resp: Patient denies shortness of breath or cough. GI: Patient denies abdominal pain, nausea, vomiting, diarrhea or constipation. : Patient admits to Right flank pain radiating to groin as per HPI. MSK: Patient denies arthralgias or myalgias. Skin: Patient denies rash, abscess, wounds or jaundice. Psych: Patient denies symptoms of uncontrolled depression or anxiety. Neuro: Patient denies headache, paresthesias or focal neurologic deficits. Allergy: Patient denies lip swelling, tongue swelling or urticaria. Hematology: Patient denies easy bleeding or easy bruisability. Endocrinology: Patient denies polyuria, polydipsia, polyphagia or heat/cold intolerance. 14 point ROS otherwise negative except for positives noted above in HPI. Vital Signs Vital Signs Vital Signs: 10/08/24 18:47 10/08/24 19:16 10/08/24 20:04 Temperature 97.9 F Temperature Source Oral Pulse Rate 140 H 137 H 140 H Respiratory Rate 18 15 13 Blood Pressure 123/87 H 119/90 H 113/80 Blood Pressure Mean 99 99 91 Pulse Ox 98 100 97 Oxygen Delivery Method Room Air Room Air 10/08/24 21:00 10/08/24 22:00 10/08/24 23:00 Temperature Temperature Source Pulse Rate 135 H 115 H 115 H Respiratory Rate 21 H 20 H 15 Blood Pressure 111/84 H 104/80 113/79 Blood Pressure Mean 93 88 90 Pulse Ox 98 96 99 Oxygen Delivery Method Room Air Room Air Room Air Weight Weight: 167 lb 12.8 oz Body Mass Index (BMI) 27.1 Physical Exam Const alert, oriented x3 and average body habitus Constitutional Narrative: Moderate distress noted. General Appearance: cooperative HEENT normocephalic, head/scalp atraumatic, hearing grossly normal bilaterally and moist oral mucous membranes Eyes PERRL, EOMs intact bilaterally and conjunctivae normal Neck no lymphadenopathy, supple and no JVD Resp normal respiratory effort, no retractions, no use of accessory muscles and clearto auscultation bilaterally Cardio regular rate and regular rhythm Cardio Narrative: Tachycardia noted at ~115 bpm. GI normal to inspection, nondistended, normoactive bowel sounds, soft to palpation,non-tender and non-distended Extremity normal to inspection, full ROM and no clubbing, cyanosis or edema Skin Skin Narrative: Patient has evidence of rash, abscess, wounds or jaundice. Neuro oriented x3, CN's II-XII intact bilaterally, moves all extremities and no focal motor deficits Sensorium / Orientation: awake, alert, oriented to person, oriented to place andoriented to time Speech: speech normal Psych Mood & Affect: anxious Results Medical Records Data Attestation: I reviewed the patient's medical records Lab / Micro Data Attestation: I reviewed the patient's lab results. 10/08/24 18:55 10/08/24 18:55 Labs: Laboratory Results - last 24 hr 10/08/24 18:55: WBC 16.9 H, RBC 5.52, Hgb 16.5, Hct 49.6, MCV 89.9, MCH 29.9, MCHC 33.3, RDW Std Deviation 45.5 H, RDW Coeff of Natty 13.8, Plt Count 280, MPV 11.3, Immature Gran % (Auto) 0.400, Neut % (Auto) 81.9 H, Lymph % (Auto) 9.0 L, [place] % (Auto) 8.0, Eos % (Auto) 0.5, Baso % (Auto) 0.2, Absolute Neuts (auto) 13.8 H, Absolute Lymphs (auto) 1.53, Nucleated RBC % 0, Sodium 143, Potassium 4.3, Chloride 107, Carbon Dioxide 24.8, Anion Gap 11, BUN 20 H, Creatinine 0.80,Estim Creat Clear Calc 81.97, Est GFR (MDRD) Non-Af 98, BUN/Creatinine Ratio 25.1 H, Glucose 118 H, Calcium 9.4, Total Bilirubin 1.08, AST 24, ALT 25, Alkaline Phosphatase 99, Troponin T High Sens 12, Total Protein 7.3, Albumin 4.1, Globulin 3.1, Albumin/Globulin Ratio 1.3, TSH 2.930 10/08/24 19:25: Urine Color Yellow, Urine Clarity Sl. Cloudy, Urine pH 6.0, Ur Specific [place] 1.020, Urine Protein 30 H, Urine Glucose (UA) Normal, Urine Ketones 5 H, Urine Occult Blood 10 H, Urine Nitrite Negative, Urine Bilirubin Negative, Urine Urobilinogen Normal, Ur Leukocyte Esterase 500 H, Urine RBC 5-10SEEN, Urine WBC 25-50 SEEN, Ur Squamous Epith Cells 0-5 SEEN, Ur Renal Epithelial Cell 0-5 SEEN, Urine Bacteria 4+, Urine Mucus 0 SEEN 10/08/24 20:00: Lactic Acid 1.3 10/08/24 20:55: Troponin T Hi Sens 2 Hr 13 Imaging Radiology Impression Testicular Ultrasound 10/08/24 19:53 IMPRESSION: No evidence of testicular torsion. Asymmetric enlargement of the right epididymis with hypervascularity, which may represent epididymitis. Clinical and laboratory correlation recommended. Reading Location: [id number] Assessment & Plan Assessment/Plan (1) Acute cystitis with hematuria: (2) Leukocytosis: QUALIFIERS: Leukocytosis type: unspecified Qualified Code(s): D72.829 - Elevated white blood cell count, unspecified (3) Epididymitis: (4) Atrial flutter with rapid ventricular response: (5) Overweight (BMI 25.0-29.9): PLAN: Plan 1. UA positive for Acute Cystitis; with microscopic hematuria with Leukocytosisof 16.9K present on admission and patient who has deliberately not seen a physician in several years - Admit to PCU. Continue IV ceftriaxone begun in theER and await culture and sensitivity data. Give ondansetron IV prn nausea and vomiting. Give acetaminophen prn for [id number] (level 1-5/10) pain or fever. Give morphine IV prnf or severe (level 6-10/10) pain. 2. Right-sided Epididymitis evident on ultrasound this admission complicating #1 - Maintain IV antibiotics already started for #1. 3. New-onset Atrial Flutter with RVR at ~140 bpm compounding #1 & #2 - Start diltiazem IV drip with goal to keep heart rate < 100 bpm. Start full-dose enoxaparin. I will defer decision to [facility] hospital[facility]with help appreciated in advance. 4. Overweight; with BMI of 27.1 this admission adding to the burden of disease outlined from #1 - #3 - Weight loss will be recommended. Check TSH in light of #3. 5. History of hernia; s/p repair - Noted. 6. DVT prophylaxis - Patient on full-dose enoxaparin for #3. Total time: Approximately (but not less than) 75 minutes. Charges/Coding Visit Charges Inpatient E&M: 95356 Init Hosp L3 10/09/24 0654 <Electronically signed by Michael Reyna DO> Cosigner Signature (if applicable): CC: Dr. Kilo Lewis MD; Dr. Michael Reyna DO~ Signed [facility] Work Phone: [phone] 447-279105-26-2025 History and physical note [facility] Medical Records Department [address] [place] [address] H&P Exam - Hospitalist 10/08/242326 MR#: [id number] Acct: [id number] Name: STACIE BARRAZA Rep #:[id number] : 1955 68 From: Michael Hernandez DO PCP: Dr. Kilo Lewis MD Status :ADM IN Location: [id number] HPI - General General Date of Admission: 10/08/24 Date of Service: 10/08/24 Chief Complaint: Right Testicular Pain. HPI Narrative STACIE BARRAZA, is a 68 M with a past medical history of being overweight; with BMI of27.1 this admissionand history of hernia; s/p repair who presents to [facility] complaining of Right testicular pain. Mr. Barraza reports his symptoms began yesterday evening with the abrupt-onset of Rightflank pain radiating in to his Right groin that has progressively worsened since that time so he finally decided to come n for further evaluation and treatment. He deniesrecent trauma to his testicle, penile discharge, dysuria, hematuria, history of renal calculi or similar previous episodes. He states he has not seen a physician to several years and he is unaware if he has any chronic medical con ditions. He denies associated fever, chills, nausea, vomiting, diarrhea, constipations, dysuria, hematuria, chest pain, palpitations, headache or rash. In the ER he was noted to have UA positive for Acute Cystitis; with microscopic hematuria with Leukocytosis of 16.9K present on admission and a corresponding testicular ultrasounds that revealed Right testicle ~4.1 cm x ~3.3 cm x ~2.3 cm with homogenous echotexture, no intratesticular mass and Right epididymis mild asymmetric enlargement with increased vascularity with normal Left testicle consistent with Epididymitis complicated by EKG evidence of apparently New-onset Atrial Flutter with RVR at ~140 bpm and he was then admitted to the PCU for ongoing care for stay that is expected to extend beyond 2 midnights. REPLACED BY [facility] Medical History Hernia Home Medications ?Medication ?Instructions ?Recorded ?Last Taken ?Type multivitamin with folic acid 400 1 tab PO DAILY supple ment 03/05/15 Unknown History mcg tablet (Thera) Allergy/AdvReac Type Severity Reaction Status Date / Time Sulfa (Sulfonamide Allergy Unknown Verified 10/08/24 18:49 Antibiotics) Surgical History S/P hernia surgery Social History Smoking Status: Never smoker ROS ROS Narrative Review of Systems: Constitutional: Patient denies fever or chills. Eyes: Patient denies changes in vision or discharge from eyes. ENT: Patient denies runny nose, sore throat or ear pain. Resp: Patient denies shortness of breath or cough. GI: Patient denies abdominal pain, nausea, vomiting, diarrhea or constipation. : Patient admits to Right flank pain radiating to groin as per HPI. MSK: Patient denies arthralgias or myalgias. Skin: Patient denies rash, abscess, wounds or jaundice. Psych: Patient denies symptoms of uncontrolled depression or anxiety. Neuro: Patient denies headache, paresthesias or focal neurologic deficits. Allergy: Patient denies lip swelling, tongue swelling or urticaria. Hematology: Patient denies easy bleeding or easy bruisability. Endocrinology: Patient denies polyuria, polydipsia, polyphagia or heat/cold intolerance. 14 point ROS otherwise negative except for positives noted above in HPI. Vital Signs Vital Signs Vital Signs: 10/08/24 18:47 10/08/24 19:16 10/08/24 20:04 Temperature 97.9 F Temperature Source Oral Pulse Rate 140 H 137 H 140 H Respiratory Rate 18 15 13 Blood Pressure 123/87 H 119/90 H 113/80 Blood Pressure Mean 99 99 91 Pulse Ox 98 100 97 Oxygen Delivery Method Room Air Room Air 10/08/24 21:00 10/08/24 22:00 10/08/24 23:00 Temperature Temperature Source Pulse Rate 135 H 115 H 115 H Respiratory Rate 21 H 20 H 15 Blood Pressure 111/84 H 104/80 113/79 Blood Pressure Mean 93 88 90 Pulse Ox 98 96 99 Oxygen Delivery Method Room Air Room Air Room Air Weight Weight: 167 lb 12.8 oz Body Mass Index (BMI) 27.1 Physical Exam Const alert, oriented x3 and average body habitus Constitutional Narrative: Moderate distress noted. General Appearance: cooperative HEENT normocephalic, head/scalp atraumatic, hearing grossly normal bilaterally and moist oral mucous membranes Eyes PERRL, EOMs intact bilaterally and conjunctivae normal Neck no lymphadenopathy, supple and no JVD Resp normal respiratory effort, no retractions, no use of accessory muscles and clearto auscultation bilaterally Cardio regular rate and regular rhythm Cardio Narrative: Tachycardia noted at ~115 bpm. GI normal to inspection, nondistended, normoactive bowel sounds, soft to palpation,non-tender and non-distended Extremity normal to inspection, full ROM and no clubbing, cyanosis or edema Skin Skin Narrative: Patient has evidence of rash, abscess, wounds or jaundice. Neuro oriented x3, CN's II-XII intact bilaterally, moves all extremities and no focal motor deficits Sensorium / Orientation: awake, alert, oriented to person, oriented to place andoriented to time Speech: speech normal Psych Mood & Affect: anxious Results Medical Records Data Attestation: I reviewed the patient's medical records Lab / Micro Data Attestation: I reviewed the patient's lab results. 10/08/24 18:55 10/08/24 18:55 Labs: Laboratory Results - last 24 hr 10/08/24 18:55: WBC 16.9 H, RBC 5.52, Hgb 16.5, Hct 49.6, MCV 89.9, MCH 29.9, MCHC 33.3, RDW Std Deviation 45.5 H, RDW Coeff of Natty 13.8, Plt Count 280, MPV 11.3, Immature Gran % (Auto) 0.400, Neut %(Auto) 81.9 H, Lymph % (Auto) 9.0 L, [place] % (Auto) 8.0, Eos % (Auto) 0.5, Baso % (Auto) 0.2, Absolute Neuts (auto) 13.8 H, Absolute Lymphs (auto) 1.53, Nucleated RBC % 0, Sodium 143, Potassium 4.3, Chloride 107, Carbon Dioxide 24.8, Anion Gap 11, BUN 20 H, Creatinine 0.80,Estim Creat Clear Calc 81.97, Est GFR (MDRD) Non-Af 98, BUN/Creatinine Ratio 25.1 H, Glucose 118 H, Calcium 9.4, Total Bilirubin 1.08, AST 24, ALT 25, Alkaline Phosphatase 99, Troponin T High Sens 12, Total Protein 7.3, Albumin 4.1, Globulin 3.1, Albumin/Globulin Ratio 1.3, TSH 2.930 10/08/24 19:25: Urine Color Yellow, Urine Clarity Sl. Cloudy, Urine pH 6.0, Ur Specific [place] 1.020, Urine Protein 30 H, Urine Glucose (UA) Normal, Urine Ketones 5 H, Urine Occult Blood 10 H, UrineNitrite Negative, Urine Bilirubin Negative, Urine Urobilinogen Normal, Ur Leukocyte Esterase 500 H,Urine RBC 5- 10SEEN, Urine WBC 25-50 SEEN, Ur Squamous Epith Cells 0-5 SEEN, Ur Renal Epithelial Cell 0-5 SEEN, Urine Bacteria 4+, Urine Mucus 0 SEEN 10/08/24 20:00: Lactic Acid 1.3 10/08/24 20:55: Troponin T Hi Sens 2 Hr 13 Imaging Radiology Impression Testicular Ultrasound 10/08/24 19:53 IMPRESSION: No evidence of testicular torsion. Asymmetric enlargement of the right epididymis with hypervascularity, which may represent epididymitis. Clinical and laboratory correlation recommended. Reading Location: [id number] Assessment & Plan Assessment/Plan (1) Acute cystitis with hematuria: (2) Leukocytosis: QUALIFIERS: Leukocytosis type: unspecified Qualified Code(s): D72.829 - Elevated white blood cell count, unspecified (3) Epididymitis: (4) Atrial flutter with rapid ventricular response: (5) Overweight (BMI 25.0-29.9): PLAN: Plan 1. UA positive for Acute Cystitis; with microscopic hematuria with Leukocytosisof 16.9K present on admission and patient who has deliberately not seen a physician in several years - Admit to PCU. Continue IV ceftriaxone begun in theER and await culture and sensitivity data. Give ondansetron IV prn nausea and vomiting. Give acetaminophen prn for [id number] (level 1-5/10) pain or fever. Give morphine IV prnf or severe (level 6-10/10) pain. 2. Right-sided Epididymitis evident on ultrasound this admission complicating #1 - Maintain IV antibiotics already started for #1. 3. New-onset Atrial Flutter with RVR at ~140 bpm compounding #1 & #2 - Start diltiazem IV drip with goal to keep heart rate < 100 bpm. Start full-dose enoxaparin. I will defer decision to consult [facility] hospitalistwith help appreciated in advance. 4. Overweight; with BMI of 27.1 this admission adding to the burden of disease outlined from #1 - #3 - Weight loss will be recommended. Check TSH in light of #3. 5. History of hernia; s/p repair - Noted. 6. DVT prophylaxis - Patient on full-dose enoxaparin for #3. Total time: Approximately (but not less than) 75 minutes. Charges/Coding Visit Charges Inpatient E&M: 11251 Init Hosp L3 10/09/24 0654 Cosigner Signature (if applicable): CC: Dr. Kilo Lewis MD; Dr. Michael Reyna DO~ Signed [facility]05-26-2025 Discharge summary Author Stacey Devine [facility] Note Date/Time October 09, 2024 12:07 am [facility] Medical Records Department [address] [place] [address] Emergency Department Summary 10/08/24 MR#: [id number] Acct: [id number] Name: STACIE BARRAZA Rep #:[id number] : 1955 68 From: Stacey DURAND PCP: Dr. Kilo Lewis MD Status :ADM [place] Location: [place] [address] HPI <KIZZY Amos - Last Filed: 10/08/24 22:01> History of Present Illness Chief Complaint: Flank Pain Narrative Narrative: Patient presenting today with right testicular pain that somewhat radiates to his right groin and right flank that started yesterday evening. He reports thatthe pain has progressively gotten worse. He denies any trauma to his testicle, abnormal penile discharge, dysuria, hematuria, and history of kidney stones. Hehas not been to a PCP in several years, he is unaware of any chronic medical conditions he may have. REPLACED BY [facility] <KIZZY Amos - Last Filed: 10/08/24 22:01> REPLACED BY [facility] Medical History Hernia Home Medications ?Medication ?Instructions ?Recorded ?Last Taken ?Type multivitamin with folic acid 400 1 tab PO DAILY Unknown History mcg tablet (Thera) Allergy/AdvReac Type Severity Reaction Status Date / Time Sulfa (Sulfonamide Allergy Unknown Verified 10/08/24 18:49 Antibiotics) Surgical History S/P hernia surgery Social History Smoking Status: Never smoker ROS <KIZZY Amos - Last Filed: 10/08/24 22:01> ROS ED Constitutional Constitutional ED: Denies chills or fever(s) Cardiovascular Cardiovascular: Denies chest pain Respiratory/Chest Respiratory/Chest: Denies dyspnea Gastrointestinal Gastrointestinal: Denies abdominal pain, nausea or vomiting Genitourinary Genitourinary ED: Denies dysuria, hematuria or urinary urgency Musculoskeletal Musculoskeletal: Denies back pain Integumentary Denies rash EXAM <KIZZY Amos - Last Filed: 10/08/24 22:01> Physical Exam Const Vital Signs: 10/08/24 18:47 10/08/24 19:16 10/08/24 20:04 Temperature 97.9 F Temperature Source Oral Pulse Rate 140 H 137 H 140 H Respiratory Rate 18 15 13 Blood Pressure 123/87 H 119/90 H 113/80 Blood Pressure Mean 99 99 91 Pulse Ox 98 100 97 Oxygen Delivery Method Room Air Room Air 10/08/24 21:00 10/08/24 22:00 10/08/24 23:00 Temperature Temperature Source Pulse Rate 135 H 115 H 115 H Respiratory Rate 21 H 20 H 15 Blood Pressure 111/84 H 104/80 113/79 Blood Pressure Mean 93 88 90 Pulse Ox 98 96 99 Oxygen Delivery Method Room Air Room Air Room Air Positive well nourished, well developed and no apparent distress General Appearance ED: well developed HEENT Reports normocephalic and head/scalp atraumatic Mouth ED: Yes moist mucous membranes normal Eyes PERRL and EOMs intact bilaterally Neck full ROM and supple Chest Wall inspection of chest normal Resp normal respiratory effort and clear to auscultation bilaterally Cardio regular rate and regular rhythm GI soft to palpation, non-tender, non-distended and no masses Narrative: Right testicular tenderness to palpation with edema and abnormal lie, absent cremasteric reflex on the right Back/Spine normal ROM and normal to inspection General Back: Negative for CVA tenderness Extremity normal to inspection and full ROM Neuro oriented x3, CN's II-XII intact bilaterally, moves all extremities, no focal motor deficits and no sensory deficits noted Sensorium / Orientation: awake and alert Psych mental status grossly normal and thought process normal Skin no rashes or lesions noted and no wounds <Dr. Janessa De La Torre DO - Last Filed: 10/09/24 00:07> Physical Exam Const Vital Signs: 10/08/24 18:47 10/08/24 19:16 10/08/24 20:04 Temperature 97.9 F Temperature Source Oral Pulse Rate 140 H 137 H 140 H Respiratory Rate 18 15 13 Blood Pressure 123/87 H 119/90 H 113/80 Blood Pressure Mean 99 99 91 Pulse Ox 98 100 97 Oxygen Delivery Method Room Air Room Air 10/08/24 21:00 10/08/24 22:00 10/08/24 23:00 Temperature Temperature Source Pulse Rate 135 H 115 H 115 H Respiratory Rate 21 H 20 H 15 Blood Pressure 111/84 H 104/80 113/79 Blood Pressure Mean 93 88 90 Pulse Ox 98 96 99 Oxygen Delivery Method Room Air Room Air Room Air MDM <KIZZY Amos - Last Filed: 10/08/24 22:01> [facility] Narrative Medical decision making narrative: Presenting today with pain to the right testicle that started yesterday, the pain somewhat radiates to his groin and flank. His right testicle is very tender to palpation, exam is somewhat limited due to his pain. I do have concerns for testicular torsion, testicular ultrasound will be obtained. Labs obtained. He does have a leukocytosis at 16.9, his CMP is largely unremarkable. UA shows 500 leukocytes, 25-50 WBCs, and 4+ bacteria, this will be cultured andhe will be given a dose of Rocephin. His lactic acid is WNL. He is tachycardichere with a heart rate around 130, EKG was obtained and shows atrial flutter. He denies any history of this. After being given IV fluids and pain medication he continued to be tachycardic, he was given IV metoprolol. Testicular ultrasound shows epididymitis, he will be treated for this with antibiotics. Lab Data Attestation: I reviewed the patient's lab results. Labs: Laboratory Results - last 24 hr 10/08/24 10/08/24 10/08/24 18:55 19:25 20:00 WBC 16.9 H RBC 5.52 Hgb 16.5 Hct 49.6 MCV 89.9 MCH 29.9 MCHC 33.3 RDW Std Deviation 45.5 H RDW Coeff of Natty 13.8 Plt Count 280 MPV 11.3 Immature Gran % (Auto) 0.400 Neut % (Auto) 81.9 H Lymph % (Auto) 9.0 L [place] % (Auto) 8.0 Eos % (Auto) 0.5 Baso % (Auto) 0.2 Absolute Neuts (auto) 13.8 H Absolute Lymphs (auto) 1.53 Nucleated RBC % 0 Sodium 143 Potassium 4.3 Chloride 107 Carbon Dioxide 24.8 Anion Gap 11 BUN 20 H Creatinine 0.80 Estim Creat Clear Calc 81.97 Est GFR (MDRD) Non-Af 98 BUN/Creatinine Ratio 25.1 H Glucose 118 H Lactic Acid 1.3 Calcium 9.4 Total Bilirubin 1.08 AST 24 ALT 25 Alkaline Phosphatase 99 Troponin T High Sens 12 Troponin T Hi Sens 2 Hr Total Protein 7.3 Albumin 4.1 Globulin 3.1 Albumin/Globulin Ratio 1.3 TSH 2.930 Urine Color Yellow Urine Clarity Sl. Cloudy Urine pH 6.0 Ur Specific [place] 1.020 Urine Protein 30 H Urine Glucose (UA) Normal Urine Ketones 5 H Urine Occult Blood 10 H Urine Nitrite Negative Urine Bilirubin Negative Urine Urobilinogen Normal Ur Leukocyte Esterase 500 H Urine RBC 5-10 SEEN Urine WBC 25-50 SEEN Ur Squamous Epith Cells 0-5 SEEN Ur Renal Epithelial Cell 0-5 SEEN Urine Bacteria 4+ Urine Mucus 0 SEEN 10/08/ 20:55 WBC RBC Hgb Hct MCV MCH MCHC RDW Std Deviation RDW Coeff of Natty Plt Count MPV Immature Gran % (Auto) Neut % (Auto) Lymph % (Auto) [place] % (Auto) Eos % (Auto) Baso % (Auto) Absolute Neuts (auto) Absolute Lymphs (auto) Nucleated RBC % Sodium Potassium Chloride Carbon Dioxide Anion Gap BUN Creatinine Estim Creat Clear Calc Est GFR (MDRD) Non-Af BUN/Creatinine Ratio Glucose Lactic Acid Calcium Total Bilirubin AST ALT Alkaline Phosphatase Troponin T High Sens Troponin T Hi Sens 2 Hr 13 Total Protein Albumin Globulin Albumin/Globulin Ratio TSH Urine Color Urine Clarity Urine pH Ur Specific [place] Urine Protein Urine Glucose (UA) Urine Ketones Urine Occult Blood Urine Nitrite Urine Bilirubin Urine Urobilinogen Ur Leukocyte Esterase Urine RBC Urine WBC Ur Squamous Epith Cells Ur Renal Epithelial Cell Urine Bacteria Urine Mucus Radiography Diagnostic Testing: Clinical Impression(s) from Imaging Studies Testicular Ultrasound 10/08/24 19:53 IMPRESSION: No evidence of testicular torsion. Asymmetric enlargement of the right epididymis with hypervascularity, which may represent epididymitis. Clinical and laboratory correlation recommended. Reading Location: [facility] EKG Initial EKG: Comments: 115 bpm, atrial flutter, no ST elevation, interpreted by attending ED physician <Dr. Janessa De La Torre, DO - Last Filed: 10/09/24 00:07> [facility] Narrative Medical decision making narrative: Presenting today with pain to the right testicle that started yesterday, the pain somewhat radiates to his groin and flank. His right testicle is very tender to palpation, exam is somewhat limited due to his pain. I do have concerns for testicular torsion, testicular ultrasound will be obtained. Labs obtained. He does have a leukocytosis at 16.9, his CMP is largely unremarkable. UA shows 500 leukocytes, 25-50 WBCs, and 4+ bacteria, this will be cultured andhe will be given a dose of Rocephin. His lactic acid is WNL. He is tachycardichere with a heart rate around 130, EKG was obtained and shows atrial flutter. He denies any history of this. After being given IV fluids and pain medication he continued to be tachycardic, he was given IV metoprolol. Testicular ultrasound shows epididymitis, he will be treated for this with antibiotics. I have personally performed a face to face assessment of the patient and have reviewed the MARIAMA Note. I performed a substantive portion of the visit including all aspects of the following. My herrera findings include: History Patient is evaluated for worsening right testicular pain that started yesterday evening. Has tried ibuprofen for pain relief. In triage patient has noted to have tachycardia. EKG is obtained which shows Atrial flutter at a rate of [address] segment changes. On telemetry patient's rates is more in the 130s to 140s. Initially given IV fluids and pain control in case this is more of a pain response as he does not have any history of arrhythmia however patientdoes admit he does not regularly see a physician. Concern for testicular torsion, epididymitis, incarcerated hernia, new onset of atrial flutter/atrial fibrillation, ACS. Patient CBC does show a leukocytosis of 16.9 which is nonspecific. Lactate is added on which is normal. BMP/liver panel normal. High sensitive troponin initially normal at 12. TSH checked which is normal at 2.93. Urinalysis consistent with infection with 500 leukocyte esterase, 25-50 white blood cells and 4+ bacteria. Urine culture is sent. Patient started on IV Rocephin. Testicular ultrasound shows asymmetric enlargement of the right epididymis whichcould represent epididymitis. No evidence of testicular torsion. This is consistent with his clinical presentation. Patient is given IV morphine and fluids with improvement of pain but he still has a tachyarrhythmia. He is given aliquots of IV metoprolol with minimal improvement. His blood pressure is somewhat soft with this. He is relatively asymptomatic from the standpoint. I did speak with cardiology on-call, Dr. Montero, who states ideally the patient should be admitted especially as he doesnot have any known medical history/reliable outpatient follow-up. Would recommend anticoagulation we does decide to leave with Eliaugustis and start on Lopressor twice daily 25 mg. Patient thankfully is agreeable with admission. Is given a dose of metoprolol 25 mg in the emergency room for further rate control. Case discussed with hospitalist for admission. He does request that I order an echocardiogram for tomorrow. This was placed. Lab Data Labs: Laboratory Results - last 24 hr 10/08/24 10/08/24 10/08/24 18:55 19:25 20:00 WBC 16.9 H RBC 5.52 Hgb 16.5 Hct 49.6 MCV 89.9 MCH 29.9 MCHC 33.3 RDW Std Deviation 45.5 H RDW Coeff of Natty 13.8 Plt Count 280 MPV 11.3 Immature Gran % (Auto) 0.400 Neut % (Auto) 81.9 H Lymph % (Auto) 9.0 L [place] % (Auto) 8.0 Eos % (Auto) 0.5 Baso % (Auto) 0.2 Absolute Neuts (auto) 13.8 H Absolute Lymphs (auto) 1.53 Nucleated RBC % 0 Sodium 143 Potassium 4.3 Chloride 107 Carbon Dioxide 24.8 Anion Gap 11 BUN 20 H Creatinine 0.80 Estim Creat Clear Calc 81.97 Est GFR (MDRD) Non-Af 98 BUN/Creatinine Ratio 25.1 H Glucose 118 H Lactic Acid 1.3 Calcium 9.4 Total Bilirubin 1.08 AST 24 ALT 25 Alkaline Phosphatase 99 Troponin T High Sens 12 Troponin T Hi Sens 2 Hr Total Protein 7.3 Albumin 4.1 Globulin 3.1 Albumin/Globulin Ratio 1.3 TSH 2.930 Urine Color Yellow Urine Clarity Sl. Cloudy Urine pH 6.0 Ur Specific [place] 1.020 Urine Protein 30 H Urine Glucose (UA) Normal Urine Ketones 5 H Urine Occult Blood 10 H Urine Nitrite Negative Urine Bilirubin Negative Urine Urobilinogen Normal Ur Leukocyte Esterase 500 H Urine RBC 5-10 SEEN Urine WBC 25-50 SEEN Ur Squamous Epith Cells 0-5 SEEN Ur Renal Epithelial Cell 0-5 SEEN Urine Bacteria 4+ Urine Mucus 0 SEEN 10/08/24 20:55 WBC RBC Hgb Hct MCV MCH MCHC RDW Std Deviation RDW Coeff of Natty Plt Count MPV Immature Gran % (Auto) Neut % (Auto) Lymph % (Auto) [place] % (Auto) Eos % (Auto) Baso % (Auto) Absolute Neuts (auto) Absolute Lymphs (auto) Nucleated RBC % Sodium Potassium Chloride Carbon Dioxide Anion Gap BUN Creatinine Estim Creat Clear Calc Est GFR (MDRD) Non-Af BUN/Creatinine Ratio Glucose Lactic Acid Calcium Total Bilirubin AST ALT Alkaline Phosphatase Troponin T High Sens Troponin T Hi Sens 2 Hr 13 Total Protein Albumin Globulin Albumin/Globulin Ratio TSH Urine Color Urine Clarity Urine pH Ur Specific [place] Urine Protein Urine Glucose (UA) Urine Ketones Urine Occult Blood Urine Nitrite Urine Bilirubin Urine Urobilinogen Ur Leukocyte Esterase Urine RBC Urine WBC Ur Squamous Epith Cells Ur Renal Epithelial Cell Urine Bacteria Urine Mucus Radiography Diagnostic Testing: Clinical Impression(s) from Imaging Studies Testicular Ultrasound 10/08/24 19:53 IMPRESSION: No evidence of testicular torsion. Asymmetric enlargement of the right epididymis with hypervascularity, which may represent epididymitis. Clinical and laboratory correlation recommended. Reading Location: [id number] Management Discussion w/another healthcare provider: Hospitalist and Research Analyst (Cardiology) Discharge Plan Triage Chief Complaint: Flank Pain Other Complaint: Male Pain/Injury ED Midlevel Provider: Stacey Devine ED Provider: Janessa De La Torre Dx/Rx/DC Orders Clinical Impression: Epididymitis, Acute cystitis with hematuria, Leukocytosis, Atrial flutter with rapid ventricular response Primary Care Provider: Kilo Lewis Disposition Disposition: Acute Care Hospital [facility] What to do if you have Problems For any increased pain, shortness of breath, bleeding, nausea or vomiting, chestpain, or any unexpected problems, contact your Primary Care Provider. Call [facility] ([phone]) or report to the closest Emergency Room. Call 911 if necessary. 10/08/242200 <Electronically signed by Stacey DURAND> Cosigner Signature (if applicable): 10/09/24 0007 <Electronically signed by Janessa De La Torre DO> CC: Dr. Kilo Lewis MD ~ Signed [facility] Work Phone: 1(482) 899-431205-26-2025 Evaluation note* Diagnosis Onset Date Resolution Status Admit Date Acute cystitis with hematuria acute October 08, 2024 11:59pm Atrial flutter with rapid ventricular response acute October 08 025 11:59pm Epididymitis acute October 08 11:59pm Leukocytosis acute October 08 11:59pm Overweight (BMI 25.0-29.9) acute October 08, 2024 11:59pm Severe left ventricular syst olic dysfunction (LVSD) acute October 08 11:59pm UTI (urinary tract infection) acute October 08, 2024 11:59pm [facility] Work Phone: [phone]) 574-680805-26-2025 Evaluation note* Diagnosis Onset Date Resolution Status Admit Date Acute cystitis with hematuria acute October 08, 2024 11:59pm Atrial flutter with rapid ventricular response acute October 08 025 11:59pm Epididymitis acute October 08 11:59pm Leukocytosis acute October 08 11:59pm Overweight (BMI 25.0-29.9) acute October 08, 2024 11:59pm Severe left ventricular syst olic dysfunction (LVSD) acute October 08 11:59pm UTI (urinary tract infection) acute October 08, 2024 11:59pm Atrial flutter with rapid ventricular response acute October 23 025 1:33pm Cardiomyopathy acute October 23, 2024 1:33pm [facility] Work Phone: [phone]) 723-584805-26-2025 Evaluation note* Diagnosis Onset Date Resolution Status Admit Date Severe left ventricular syst olic dysfunction (LVSD) acute October 08 11:59pm Acute cystitis with hematuria resolv ed October 08, 2024 11:59pm Atrial flutter with rapid ventricular response resolved October 08, 025 11:59pm Epididymitis resolved October 08 11:59pm Leukocytosis resolved October 08 11:59pm Overweight (BMI 25.0-29.9) resolved October 08, 2024 11:59pm UTI (urinary tract infection) resolv ed October 08, 2024 11:59pm Severe left ventricular syst olic dysfunction (LVSD) acute October 23 1:33pm Atrial flutter with rapid ventricular response resolved October 23 025 1:33pm Cardiomyopathy acute 2024 1:41pm Severe left ventricular syst olic dysfunction (LVSD) acute December 01 1:41pm Atrial flutter with rapid ventricular response resolved 2024 1:41pm [facility] Work Phone: [phone]) 191-208505-26-2025 Discharge summary [facility] Medical Records Department [address] [place] [address] Emergency Department Summary 10/08/24 MR#: [id number] Acct: [id number] Name: STACIE BARRAZA Rep #:[id number] : 1955 68 From: Stacey DURAND PCP: Dr. Kilo Lewis MD Status :ADM [place] Location: [address] History of Present Illness Chief Complaint: Flank Pain Narrative Narrative: Patient presenting today with right testicular pain that somewhat radiates to his right groin and right flank that started yesterday evening. He reports thatthe pain has progressively gotten worse. He denies any trauma to his testicle, abnormal penile discharge, dysuria, hematuria, and history of kidney stones. Hehas not been to a PCP in several years, he is unaware of any chronic medical conditions he may have. [facility] Medical History Hernia Home Medications ?Medication ?Instructions ?Recorded ?Last Taken ?Type multivitamin with folic acid 400 1 tab PO DAILY Unknown History mcg tablet (Thera) Allergy/AdvReac Type Severity Reaction Status Date / Time Sulfa (Sulfonamide Allergy Unknown Verified 10/08/24 18:49 Antibiotics) Surgical History S/P hernia surgery Social History Smoking Status: Never smoker ROS ROS ED Constitutional Constitutional ED: Denies chills or fever(s) Cardiovascular Cardiovascular: Denies chest pain Respiratory/Chest Respiratory/Chest: Denies dyspnea Gastrointestinal Gastrointestinal: Denies abdominal pain, nausea or vomiting Genitourinary Genitourinary ED: Denies dysuria, hematuria or urinary urgency Musculoskeletal Musculoskeletal: Denies back pain Integumentary Denies rash EXAM Physical Exam Const Vital Signs: 10/08/24 18:47 10/08/24 19:16 10/08/24 20:04 Temperature 97.9 F Temperature Source Oral Pulse Rate 140 H 137 H 140 H Respiratory Rate 18 15 13 Blood Pressure 123/87 H 119/90 H 113/80 Blood Pressure Mean 99 99 91 Pulse Ox 98 100 97 Oxygen Delivery Method Room Air Room Air 10/08/24 21:00 10/08/24 22:00 10/08/24 23:00 Temperature Temperature Source Pulse Rate 135 H 115 H 115 H Respiratory Rate 21 H 20 H 15 Blood Pressure 111/84 H 104/80 113/79 Blood Pressure Mean 93 88 90 Pulse Ox 98 96 99 Oxygen Delivery Method Room Air Room Air Room Air Positive well nourished, well developed and no apparent distress General Appearance ED: well developed HEENT Reports normocephalic and head/scalp atraumatic Mouth ED: Yes moist mucous membranes normal Eyes PERRL and EOMs intact bilaterally Neck full ROM and supple Chest Wall inspection of chest normal Resp normal respiratory effort and clear to auscultation bilaterally Cardio regular rate and regular rhythm GI soft to palpation, non-tender, non-distended and no masses Narrative: Right testicular tenderness to palpation with edema and abnormal lie, absent cremasteric reflex on the right Back/Spine normal ROM and normal to inspection General Back: Negative for CVA tenderness Extremity normal to inspection and full ROM Neuro oriented x3, CN's II-XII intact bilaterally, moves all extremities, no focal motor deficits and no sensory deficits noted Sensorium / Orientation: awake and alert Psych mental status grossly normal and thought process normal Skin no rashes or lesions noted and no wounds Physical Exam Const Vital Signs: 10/08/24 18:47 10/08/24 19:16 10/08/24 20:04 Temperature 97.9 F Temperature Source Oral Pulse Rate 140 H 137 H 140 H Respiratory Rate 18 15 13 Blood Pressure 123/87 H 119/90 H 113/80 Blood Pressure Mean 99 99 91 Pulse Ox 98 100 97 Oxygen Delivery Method Room Air Room Air 10/08/24 21:00 10/08/24 22:00 10/08/24 23:00 Temperature Temperature Source Pulse Rate 135 H 115 H 115 H Respiratory Rate 21 H 20 H 15 Blood Pressure 111/84 H 104/80 113/79 Blood Pressure Mean 93 88 90 Pulse Ox 98 96 99 Oxygen Delivery Method Room Air Room Air Room Air MDM MDM MDM Narrative Medical decision making narrative: Presenting today with pain to the right testicle that started yesterday, the pain somewhat radiatesto his groin and flank. His right testicle is very tender to palpation, exam is somewhat limited due to his pain. I do have concerns for testicular torsion, testicular ultrasound will be obtained. Labs obtained. He does have a leukocytosis at 16.9, his CMP is largely unremarkable. UA shows 500 leukocytes, 25-50 WBCs, and 4+ bacteria, this will be cultured andhe will be given a dose of Rocephin. His lactic acid is WNL. He is tachycardichere with a heart rate around 130, EKG was obtained and shows atrial flutter. He denies any history of this. After being given IV fluids and pain medication he continued to be tachycardic, he was given IV metoprolol. Testicular ultrasound shows epididymitis, he will be treated for this with antibiotics. Lab Data Attestation: I reviewed the patient's lab results. Labs: Laboratory Results - last 24 hr 10/08/24 10/08/24 10/08/24 18:55 19:25 20:00 WBC 16.9 H RBC 5.52 Hgb 16.5 Hct 49.6 MCV 89.9 MCH 29.9 MCHC 33.3 RDW Std Deviation 45.5 H RDW Coeff of Natty 13.8 Plt Count 280 MPV 11.3 Immature Gran % (Auto) 0.400 Neut % (Auto) 81.9 H Lymph % (Auto) 9.0 L [place] % (Auto) 8.0 Eos % (Auto) 0.5 Baso % (Auto) 0.2 Absolute Neuts (auto) 13.8 H Absolute Lymphs (auto) 1.53 Nucleated RBC % 0 Sodium 143 Potassium 4.3 Chloride 107 Carbon Dioxide 24.8 Anion Gap 11 BUN 20 H Creatinine 0.80 Estim Creat Clear Calc 81.97 Est GFR (MDRD) Non-Af 98 BUN/Creatinine Ratio 25.1 H Glucose 118 H Lactic Acid 1.3 Calcium 9.4 Total Bilirubin 1.08 AST 24 ALT 25 Alkaline Phosphatase 99 Troponin T High Sens 12 Troponin T Hi Sens 2 Hr Total Protein 7.3 Albumin 4.1 Globulin 3.1 Albumin/Globulin Ratio 1.3 TSH 2.930 Urine Color Yellow Urine Clarity Sl. Cloudy Urine pH 6.0 Ur Specific [place] 1.020 Urine Protein 30 H Urine Glucose (UA) Normal Urine Ketones 5 H Urine Occult Blood 10 H Urine Nitrite Negative Urine Bilirubin Negative Urine Urobilinogen Normal Ur Leukocyte Esterase 500 H Urine RBC 5-10 SEEN Urine WBC 25-50 SEEN Ur Squamous Epith Cells 0-5 SEEN Ur Renal Epithelial Cell 0-5 SEEN Urine Bacteria 4+ Urine Mucus 0 SEEN 10/08/24 20:55 WBC RBC Hgb Hct MCV MCH MCHC RDW Std Deviation RDW Coeff of Natty Plt Count MPV Immature Gran % (Auto) Neut % (Auto) Lymph % (Auto) [place] % (Auto) Eos % (Auto) Baso % (Auto) Absolute Neuts (auto) Absolute Lymphs (auto) Nucleated RBC % Sodium Potassium Chloride Carbon Dioxide Anion Gap BUN Creatinine Estim Creat Clear Calc Est GFR (MDRD) Non-Af BUN/Creatinine Ratio Glucose Lactic Acid Calcium Total Bilirubin AST ALT Alkaline Phosphatase Troponin T High Sens Troponin T Hi Sens 2 Hr 13 Total Protein Albumin Globulin Albumin/Globulin Ratio TSH Urine Color Urine Clarity Urine pH Ur Specific [place] Urine Protein Urine Glucose (UA) Urine Ketones Urine Occult Blood Urine Nitrite Urine Bilirubin Urine Urobilinogen Ur Leukocyte Esterase Urine RBC Urine WBC Ur Squamous Epith Cells Ur Renal Epithelial Cell Urine Bacteria Urine Mucus Radiography Diagnostic Testing: Clinical Impression(s) from Imaging Studies Testicular Ultrasound 10/08/24 19:53 IMPRESSION: No evidence of testicular torsion. Asymmetric enlargement of the right epididymis with hypervascularity, which may represent epididymitis. Clinical and laboratory correlation recommended. Reading Location: [facility] EKG Initial EKG: Comments: 115 bpm, atrial flutter, no ST elevation, interpreted by attending ED physician OLMAN THURMAN Narrative Medical decision making narrative: Presenting today with pain to the right testicle that started yesterday, the pain somewhat radiatesto his groin and flank. His right testicle is very tender to palpation, exam is somewhat limited due to his pain. I do have concerns for testicular torsion, testicular ultrasound will be obtained. Labs obtained. He does have a leukocytosis at 16.9, his CMP is largely unremarkable. UA shows 500 leukocytes, 25-50 WBCs, and 4+ bacteria, this will be cultured andhe will be given a dose of Rocephin. His lactic acid is WNL. He is tachycardichere with a heart rate around 130, EKG was obtained and shows atrial flutter. He denies any history of this. After being given IV fluids and pain medication he continued to be tachycardic, he was given IV metoprolol. Testicular ultrasound shows epididymitis, he will be treated for this with antibiotics. I have personally performed a face to face assessment of the patient and have reviewed the [facility] Note. I performed a substantive portion of the visit including all aspects of the following. My herrera findings include: History Patient is evaluated for worsening right testicular pain that started yesterday evening. Has tried ibuprofen for pain relief. In triage patient has noted to have tachycardia. EKG is obtained which shows Atrial flutter at a rate of [address] segment changes. On telemetry patient's rates is more in the 130s to 140s. Initially given IV fluids and pain control in case this is more of a pain response as he does not have any history of arrhythmia however patientdoes admit he does not regularly see a physician. Concern for testicular torsion, epididymitis, incarcerated hernia, new onset of atrial flutter/atrial fibrillation, ACS. Patient CBC does show a leukocytosis of 16.9 which is nonspecific. Lactate is added on which is normal. BMP/liver panel normal. High sensitive troponin initially normal at 12. TSH checked which is normal at 2.93. Urinalysis consistent with infection with 500 leukocyte esterase, 25-50 white blood cells and 4+ bacteria. Urine culture is sent. Patient started on IV Rocephin. Testicular ultrasound shows asymmetric enlargement of the right epididymis whichcould represent epididymitis. No evidence oftesticular torsion. This is consistent with his clinical presentation. Patient is given IV morphine and fluids with improvement of pain but he still has a tachyarrhythmia. He is given aliquots of IV metoprolol with minimal improvement. His blood pressure is somewhat soft with this. He is relatively asymptomatic from the standpoint. I did speak with cardiology on-call,Dr. Montero, who states ideally the patient should be admitted especially as he doesnot have any known medical history/reliable outpatient follow-up. Would recommend anticoagulation we does decide toleave with Eliquis and start on Lopressor twice daily 25 mg. Patient thankfully is agreeable with admission. Is given a dose of metoprolol 25 mg in the emergency room for further rate control. Case discussed with hospitalist for admission. He does request thatI order an echocardiogram for tomorrow. This was placed. Lab Data Labs: Laboratory Results - last 24 hr 10/08/24 10/08/24 10/08/24 18:55 19:25 20:00 WBC 16.9 H RBC 5.52 Hgb 16.5 Hct 49.6 MCV 89.9 MCH 29.9 MCHC 33.3 RDW Std Deviation 45.5 H RDW Coeff of Natty 13.8 Plt Count 280 MPV 11.3 Immature Gran % (Auto) 0.400 Neut % (Auto) 81.9 H Lymph % (Auto) 9.0 L [place] % (Auto) 8.0 Eos % (Auto) 0.5 Baso % (Auto) 0.2 Absolute Neuts (auto) 13.8 H Absolute Lymphs (auto) 1.53 Nucleated RBC % 0 Sodium 143 Potassium 4.3 Chloride 107 Carbon Dioxide 24.8 Anion Gap 11 BUN 20 H Creatinine 0.80 Estim Creat Clear Calc 81.97 Est GFR (MDRD) Non-Af 98 BUN/Creatinine Ratio 25.1 H Glucose 118 H Lactic Acid 1.3 Calcium 9.4 Total Bilirubin 1.08 AST 24 ALT 25 Alkaline Phosphatase 99 Troponin T High Sens 12 Troponin T Hi Sens 2 Hr Total Protein 7.3 Albumin 4.1 Globulin 3.1 Albumin/Globulin Ratio 1.3 TSH 2.930 Urine Color Yellow Urine Clarity Sl. Cloudy Urine pH 6.0 Ur Specific [place] 1.020 Urine Protein 30 H Urine Glucose (UA) Normal Urine Ketones 5 H Urine Occult Blood 10 H Urine Nitrite Negative Urine Bilirubin Negative Urine Urobilinogen Normal Ur Leukocyte Esterase 500 H Urine RBC 5-10 SEEN Urine WBC 25-50 SEEN Ur Squamous Epith Cells 0-5 SEEN Ur Renal Epithelial Cell 0-5 SEEN Urine Bacteria 4+ Urine Mucus 0 SEEN 10/08/24 20:55 WBC RBC Hgb Hct MCV MCH MCHC RDW Std Deviation RDW Coeff of Natty Plt Count MPV Immature Gran % (Auto) Neut % (Auto) Lymph % (Auto) [place] % (Auto) Eos % (Auto) Baso % (Auto) Absolute Neuts (auto) Absolute Lymphs (auto) Nucleated RBC % Sodium Potassium Chloride Carbon Dioxide Anion Gap BUN Creatinine Estim Creat Clear Calc Est GFR (MDRD) Non-Af BUN/Creatinine Ratio Glucose Lactic Acid Calcium Total Bilirubin AST ALT Alkaline Phosphatase Troponin T High Sens Troponin T Hi Sens 2 Hr 13 Total Protein Albumin Globulin Albumin/Globulin Ratio TSH Urine Color Urine Clarity Urine pH Ur Specific [place] Urine Protein Urine Glucose (UA) Urine Ketones Urine Occult Blood Urine Nitrite Urine Bilirubin Urine Urobilinogen Ur Leukocyte Esterase Urine RBC Urine WBC Ur Squamous Epith Cells Ur Renal Epithelial Cell Urine Bacteria Urine Mucus Radiography Diagnostic Testing: Clinical Impression(s) from Imaging Studies Testicular Ultrasound 10/08/24 19:53 IMPRESSION: No evidence of testicular torsion. Asymmetric enlargement of the right epididymis with hypervascularity, which may represent epididymitis. Clinical and laboratory correlation recommended. Reading Location: [id number] Management Discussion w/another healthcare provider: Hospitalist and Research Analyst (Cardiology) Discharge Plan Triage Chief Complaint: Flank Pain Other Complaint: Male Pain/Injury ED Midlevel Provider: Stacey Devine ED Provider: Janessa De La Torre Dx/Rx/DC Orders Clinical Impression: Epididymitis, Acute cystitis with hematuria, Leukocytosis, Atrial flutter with rapid ventricular response Primary Care Provider: Kilo Lewis Disposition Disposition: Acute Care Hospital [facility] What to do if you have Problems For any increased pain, shortness of breath, bleeding, nausea or vomiting, chestpain, or any unexpected problems, contact your Primary Care Provider. Call [facility] ([phone]) or report tothe closest Emergency Room. Call 911 if necessary. 10/08/242200 Cosigner Signature (if applicable): 10/09/24 000 CC: Dr. Kilo Lewis MD ~ Signed [facility]05-25-2025 Radiology Diagnostic study note [facility] Imaging Services [address] [place] [address] Testicular with Arterial Flow MR#: [id number] Acct: [id number] Name: STACIE BARRAZA Rep #: [id number] : 1955 M 68 From: Nasima Casarez MD PCP: Dr. Kilo Lewis MD Status: REG ER Study:Testicular with Arterial Flow Date of E xam: 10/08/24 Exam# [id number] Ordering Dr: Stacey Miramontes PROCEDURE: TESTICULAR WITH ARTERIAL FLOW 10/08/2024 REASON FOR EXAM: R TESTICULAR PAIN TECHNIQUE: Roberts scale imaging and color and spectral Doppler analysis of the scrotal contents. COMPARISON: None. FINDINGS: RIGHT testicle: 4.1 x 3.3 x 2.3 cm Homogeneous echotexture. No intratesticular mass. Right epididymis: Mild asymmetric enlargement of the right epididymis with increased vascularity. LEFT testicle: 4 point x 3.3 x 2.4 cm Homogeneous echotexture. No intratesticular mass. Left epididymis: Unremarkable Other findings: No hydrocele or large varicocele. DOPPLER FINDINGS: Symmetric color doppler blood flow signal at both testes. Normal arterial inflow and venous outflow waveforms at both testes. US/Testicular with Arterial Flow IMPRESSION: No evidence of testicular torsion. Asymmetric enlargement of the right epididymis with hypervascularity, which may represent epididymitis. Clinical and laboratory correlation recommended. Reading Location: [facility] CC: Dr. Kilo Lewis MD; KIZZY Amos ~ Sharepoint Net Developer: Signed [facility]05-25-2025 Discharge summary Author Stacey Devine [facility] Note Date/Time October 09, 2024 12:07 am [facility] Medical Records Department [address] [place] [address] Emergency Department Summary 10/08/24 MR#: [id number] Acct: [id number] Name: STACIE BARRAZA Rep #:[id number] : 1955 68 From: Stacey DURAND PCP: Dr. Kilo Lewis MD Status :ADM [place] Location: [address] <KIZZY Amos - Last Filed: 10/08/24 22:01> History of Present Illness Chief Complaint: Flank Pain Narrative Narrative: Patient presenting today with right testicular pain that somewhat radiates to his right groin and right flank that started yesterday evening. He reports thatthe pain has progressively gotten worse. He denies any trauma to his testicle, abnormal penile discharge, dysuria, hematuria, and history of kidney stones. Hehas not been to a PCP in several years, he is unaware of any chronic medical conditions he may have. PFSH <KIZZY Amos - Last Filed: 10/08/24 22:01> PFSH Medical History Hernia Home Medications ?Medication ?Instructions ?Recorded ?Last Taken ?Type multivitamin with folic acid 400 1 tab PO DAILY Unknown History mcg tablet (Thera) Allergy/AdvReac Type Severity Reaction Status Date / Time Sulfa (Sulfonamide Allergy Unknown Verified 10/08/24 18:49 Antibiotics) Surgical History S/P hernia surgery Social History Smoking Status: Never smoker ROS <KIZZY Amos - Last Filed: 10/08/24 22:01> ROS ED Constitutional Constitutional ED: Denies chills or fever(s) Cardiovascular Cardiovascular: Denies chest pain Respiratory/Chest Respiratory/Chest: Denies dyspnea Gastrointestinal Gastrointestinal: Denies abdominal pain, nausea or vomiting Genitourinary Genitourinary ED: Denies dysuria, hematuria or urinary urgency Musculoskeletal Musculoskeletal: Denies back pain Integumentary Denies rash EXAM <KIZZY Amos - Last Filed: 10/08/24 22:01> Physical Exam Const Vital Signs: 10/08/24 18:47 10/08/24 19:16 10/08/24 20:04 Temperature 97.9 F Temperature Source Oral Pulse Rate 140 H 137 H 140 H Respiratory Rate 18 15 13 Blood Pressure 123/87 H 119/90 H 113/80 Blood Pressure Mean 99 99 91 Pulse Ox 98 100 97 Oxygen Delivery Method Room Air Room Air 10/08/24 21:00 10/08/24 22:00 10/08/24 23:00 Temperature Temperature Source Pulse Rate 135 H 115 H 115 H Respiratory Rate 21 H 20 H 15 Blood Pressure 111/84 H 104/80 113/79 Blood Pressure Mean 93 88 90 Pulse Ox 98 96 99 Oxygen Delivery Method Room Air Room Air Room Air Positive well nourished, well developed and no apparent distress General Appearance ED: well developed HEENT Reports normocephalic and head/scalp atraumatic Mouth ED: Yes moist mucous membranes normal Eyes PERRL and EOMs intact bilaterally Neck full ROM and supple Chest Wall inspection of chest normal Resp normal respiratory effort and clear to auscultation bilaterally Cardio regular rate and regular rhythm GI soft to palpation, non-tender, non-distended and no masses Narrative: Right testicular tenderness to palpation with edema and abnormal lie, absent cremasteric reflex on the right Back/Spine normal ROM and normal to inspection General Back: Negative for CVA tenderness Extremity normal to inspection and full ROM Neuro oriented x3, CN's II-XII intact bilaterally, moves all extremities, no focal motor deficits and no sensory deficits noted Sensorium / Orientation: awake and alert Psych mental status grossly normal and thought process normal Skin no rashes or lesions noted and no wounds <Dr. Janessa De La Torre DO - Last Filed: 10/09/24 00:07> Physical Exam Const Vital Signs: 10/08/24 18:47 10/08/24 19:16 10/08/24 20:04 Temperature 97.9 F Temperature Source Oral Pulse Rate 140 H 137 H 140 H Respiratory Rate 18 15 13 Blood Pressure 123/87 H 119/90 H 113/80 Blood Pressure Mean 99 99 91 Pulse Ox 98 100 97 Oxygen Delivery Method Room Air Room Air 10/08/24 21:00 10/08/24 22:00 10/08/24 23:00 Temperature Temperature Source Pulse Rate 135 H 115 H 115 H Respiratory Rate 21 H 20 H 15 Blood Pressure 111/84 H 104/80 113/79 Blood Pressure Mean 93 88 90 Pulse Ox 98 96 99 Oxygen Delivery Method Room Air Room Air Room Air [facility] <KIZZY Amos - Last Filed: 10/08/24 22:01> [facility] Narrative Medical decision making narrative: Presenting today with pain to the right testicle that started yesterday, the pain somewhat radiates to his groin and flank. His right testicle is very tender to palpation, exam is somewhat limited due to his pain. I do have concerns for testicular torsion, testicular ultrasound will be obtained. Labs obtained. He does have a leukocytosis at 16.9, his CMP is largely unremarkable. UA shows 500 leukocytes, 25-50 WBCs, and 4+ bacteria, this will be cultured andhe will be given a dose of Rocephin. His lactic acid is WNL. He is tachycardichere with a heart rate around 130, EKG was obtained and shows atrial flutter. He denies any history of this. After being given IV fluids and pain medication he continued to be tachycardic, he was given IV metoprolol. Testicular ultrasound shows epididymitis, he will be treated for this with antibiotics. Lab Data Attestation: I reviewed the patient's lab results. Labs: Laboratory Results - last 24 hr 10/08/24 10/08/24 10/08/24 18:55 19:25 20:00 WBC 16.9 H RBC 5.52 Hgb 16.5 Hct 49.6 MCV 89.9 MCH 29.9 MCHC 33.3 RDW Std Deviation 45.5 H RDW Coeff of Natty 13.8 Plt Count 280 MPV 11.3 Immature Gran % (Auto) 0.400 Neut % (Auto) 81.9 H Lymph % (Auto) 9.0 L [place] % (Auto) 8.0 Eos % (Auto) 0.5 Baso % (Auto) 0.2 Absolute Neuts (auto) 13.8 H Absolute Lymphs (auto) 1.53 Nucleated RBC % 0 Sodium 143 Potassium 4.3 Chloride 107 Carbon Dioxide 24.8 Anion Gap 11 BUN 20 H Creatinine 0.80 Estim Creat Clear Calc 81.97 Est GFR (MDRD) Non-Af 98 BUN/Creatinine Ratio 25.1 H Glucose 118 H Lactic Acid 1.3 Calcium 9.4 Total Bilirubin 1.08 AST 24 ALT 25 Alkaline Phosphatase 99 Troponin T High Sens 12 Troponin T Hi Sens 2 Hr Total Protein 7.3 Albumin 4.1 Globulin 3.1 Albumin/Globulin Ratio 1.3 TSH 2.930 Urine Color Yellow Urine Clarity Sl. Cloudy Urine pH 6.0 Ur Specific [place] 1.020 Urine Protein 30 H Urine Glucose (UA) Normal Urine Ketones 5 H Urine Occult Blood 10 H Urine Nitrite Negative Urine Bilirubin Negative Urine Urobilinogen Normal Ur Leukocyte Esterase 500 H Urine RBC 5-10 SEEN Urine WBC 25-50 SEEN Ur Squamous Epith Cells 0-5 SEEN Ur Renal Epithelial Cell 0-5 SEEN Urine Bacteria 4+ Urine Mucus 0 SEEN 10/08/24 20:55 WBC RBC Hgb Hct MCV MCH MCHC RDW Std Deviation RDW Coeff of Natty Plt Count MPV Immature Gran % (Auto) Neut % (Auto) Lymph % (Auto) [place] % (Auto) Eos % (Auto) Baso % (Auto) Absolute Neuts (auto) Absolute Lymphs (auto) Nucleated RBC % Sodium Potassium Chloride Carbon Dioxide Anion Gap BUN Creatinine Estim Creat Clear Calc Est GFR (MDRD) Non-Af BUN/Creatinine Ratio Glucose Lactic Acid Calcium Total Bilirubin AST ALT Alkaline Phosphatase Troponin T High Sens Troponin T Hi Sens 2 Hr 13 Total Protein Albumin Globulin Albumin/Globulin Ratio TSH Urine Color Urine Clarity Urine pH Ur Specific [place] Urine Protein Urine Glucose (UA) Urine Ketones Urine Occult Blood Urine Nitrite Urine Bilirubin Urine Urobilinogen Ur Leukocyte Esterase Urine RBC Urine WBC Ur Squamous Epith Cells Ur Renal Epithelial Cell Urine Bacteria Urine Mucus Radiography Diagnostic Testing: Clinical Impression(s) from Imaging Studies Testicular Ultrasound 10/08/24 19:53 IMPRESSION: No evidence of testicular torsion. Asymmetric enlargement of the right epididymis with hypervascularity, which may represent epididymitis. Clinical and laboratory correlation recommended. Reading Location: [facility] EKG Initial EKG: Comments: 115 bpm, atrial flutter, no ST elevation, interpreted by attending ED physician <Dr. Janessa De La Torre, DO - Last Filed: 10/09/24 00:07> MDM MDM Narrative Medical decision making narrative: Presenting today with pain to the right testicle that started yesterday, the pain somewhat radiates to his groin and flank. His right testicle is very tender to palpation, exam is somewhat limited due to his pain. I do have concerns for testicular torsion, testicular ultrasound will be obtained. Labs obtained. He does have a leukocytosis at 16.9, his CMP is largely unremarkable. UA shows 500 leukocytes, 25-50 WBCs, and 4+ bacteria, this will be cultured andhe will be given a dose of Rocephin. His lactic acid is WNL. He is tachycardichere with a heart rate around 130, EKG was obtained and shows atrial flutter. He denies any history of this. After being given IV fluids and pain medication he continued to be tachycardic, he was given IV metoprolol. Testicular ultrasound shows epididymitis, he will be treated for this with antibiotics. I have personally performed a face to face assessment of the patient and have reviewed the MARIAMA Note. I performed a substantive portion of the visit including all aspects of the following. My herrera findings include: History Patient is evaluated for worsening right testicular pain that started yesterday evening. Has tried ibuprofen for pain relief. In triage patient has noted to have tachycardia. EKG is obtained which shows Atrial flutter at a rate of [address] segment changes. On telemetry patient's rates is more in the 130s to 140s. Initially given IV fluids and pain control in case this is more of a pain response as he does not have any history of arrhythmia however patientdoes admit he does not regularly see a physician. Concern for testicular torsion, epididymitis, incarcerated hernia, new onset of atrial flutter/atrial fibrillation, ACS. Patient CBC does show a leukocytosis of 16.9 which is nonspecific. Lactate is added on which is normal. BMP/liver panel normal. High sensitive troponin initially normal at 12. TSH checked which is normal at 2.93. Urinalysis consistent with infection with 500 leukocyte esterase, 25-50 white blood cells and 4+ bacteria. Urine culture is sent. Patient started on IV Rocephin. Testicular ultrasound shows asymmetric enlargement of the right epididymis whichcould represent epididymitis. No evidence of testicular torsion. This is consistent with his clinical presentation. Patient is given IV morphine and fluids with improvement of pain but he still has a tachyarrhythmia. He is given aliquots of IV metoprolol with minimal improvement. His blood pressure is somewhat soft with this. He is relatively asymptomatic from the standpoint. I did speak with cardiology on-call, Dr. Montero, who states ideally the patient should be admitted especially as he doesnot have any known medical history/reliable outpatient follow-up. Would recommend anticoagulation we does decide to leave with Elipolina and start on Lopressor twice daily 25 mg. Patient thankfully is agreeable with admission. Is given a dose of metoprolol 25 mg in the emergency room for further rate control. Case discussed with hospitalist for admission. He does request that I order an echocardiogram for tomorrow. This was placed. Lab Data Labs: Laboratory Results - last 24 hr 10/08/24 10/08/24 10/08/24 18:55 19:25 20:00 WBC 16.9 H RBC 5.52 Hgb 16.5 Hct 49.6 MCV 89.9 MCH 29.9 MCHC 33.3 RDW Std Deviation 45.5 H RDW Coeff of Natty 13.8 Plt Count 280 MPV 11.3 Immature Gran % (Auto) 0.400 Neut % (Auto) 81.9 H Lymph % (Auto) 9.0 L [place] % (Auto) 8.0 Eos % (Auto) 0.5 Baso % (Auto) 0.2 Absolute Neuts (auto) 13.8 H Absolute Lymphs (auto) 1.53 Nucleated RBC % 0 Sodium 143 Potassium 4.3 Chloride 107 Carbon Dioxide 24.8 Anion Gap 11 BUN 20 H Creatinine 0.80 Estim Creat Clear Calc 81.97 Est GFR (MDRD) Non-Af 98 BUN/Creatinine Ratio 25.1 H Glucose 118 H Lactic Acid 1.3 Calcium 9.4 Total Bilirubin 1.08 AST 24 ALT 25 Alkaline Phosphatase 99 Troponin T High Sens 12 Troponin T Hi Sens 2 Hr Total Protein 7.3 Albumin 4.1 Globulin 3.1 Albumin/Globulin Ratio 1.3 TSH 2.930 Urine Color Yellow Urine Clarity Sl. Cloudy Urine pH 6.0 Ur Specific [place] 1.020 Urine Protein 30 H Urine Glucose (UA) Normal Urine Ketones 5 H Urine Occult Blood 10 H Urine Nitrite Negative Urine Bilirubin Negative Urine Urobilinogen Normal Ur Leukocyte Esterase 500 H Urine RBC 5-10 SEEN Urine WBC 25-50 SEEN Ur Squamous Epith Cells 0-5 SEEN Ur Renal Epithelial Cell 0-5 SEEN Urine Bacteria 4+ Urine Mucus 0 SEEN 10/08/24 20:55 WBC RBC Hgb Hct MCV MCH MCHC RDW Std Deviation RDW Coeff of Natty Plt Count MPV Immature Gran % (Auto) Neut % (Auto) Lymph % (Auto) [place] % (Auto) Eos % (Auto) Baso % (Auto) Absolute Neuts (auto) Absolute Lymphs (auto) Nucleated RBC % Sodium Potassium Chloride Carbon Dioxide Anion Gap BUN Creatinine Estim Creat Clear Calc Est GFR (MDRD) Non-Af BUN/Creatinine Ratio Glucose Lactic Acid Calcium Total Bilirubin AST ALT Alkaline Phosphatase Troponin T High Sens Troponin T Hi Sens 2 Hr 13 Total Protein Albumin Globulin Albumin/Globulin Ratio TSH Urine Color Urine Clarity Urine pH Ur Specific [place] Urine Protein Urine Glucose (UA) Urine Ketones Urine Occult Blood Urine Nitrite Urine Bilirubin Urine Urobilinogen Ur Leukocyte Esterase Urine RBC Urine WBC Ur Squamous Epith Cells Ur Renal Epithelial Cell Urine Bacteria Urine Mucus Radiography Diagnostic Testing: Clinical Impression(s) from Imaging Studies Testicular Ultrasound 10/08/24 19:53 IMPRESSION: No evidence of testicular torsion. Asymmetric enlargement of the right epididymis with hypervascularity, which may represent epididymitis. Clinical and laboratory correlation recommended. Reading Location: [facility] Management Discussion w/another healthcare provider: Hospitalist and Research Analyst (Cardiology) Discharge Plan Triage Chief Complaint: Flank Pain Other Complaint: Male Pain/Injury ED Midlevel Provider: Stacey Devine ED Provider: Janessa De La Torre Dx/Rx/DC Orders Clinical Impression: Epididymitis, Acute cystitis with hematuria, Leukocytosis, Atrial flutter with rapid ventricular response Primary Care Provider: Kilo Lewis Disposition Disposition: Acute Care Hospital [facility] What to do if you have Problems For any increased pain, shortness of breath, bleeding, nausea or vomiting, chestpain, or any unexpected problems, contact your Primary Care Provider. Call [facility] ([phone]) or report to the closest Emergency Room. Call 911 if necessary. 10/08/24 2201 <Electronically signed by Stacey DURAND> Cosigner Signature (if applicable): 10/09/24 0007 <Electronically signed by Janessa De La Torre DO> CC: Dr. Kilo Lewis MD ~ Signed [facility] Work Phone: Evaluation noteNo assessment information available [facility] Work Phone: Evaluation note* Diagnosis Onset Date Resolution Status Admit Date Acute cystitis with hematuria acute October 08, 2024 11:40pm Atrial flutter with rapid ventricular response acute October 08, 025 11:40pm Epididymitis acute October 08 11:40pm Leukocytosis acute October 08 11:40pm Overweight (BMI 25.0-29.9) acute October 08, 2024 11:40pm [facility] Work Phone: Reason for referral (narrative)No reason for referral information availableWKettering [facility] Work Phone: Chief Complaint and Reason for Visit Chief Complaint Admit Date ATRIAL FLUTTER WITH RVR October 08, 2024 1 1:40pm Reason for Visit Admit Date Acute cystitis with hematuria October 08, 2024 11:40pm 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 October 08, 2024 11:40pm Epididymitis October 08, 2024 11:40 pm Leukocytosis October 08, 2024 11:40 pm Overweight (BMI 25.0-29.9) October 08 11:40pm Chief Complaint Admit Date UTI, RIGHT EPIDIDYMITIS AND NEW-ONSET AT [facility] October 08, 2024 11:59pm UTI, RIGHT EPIDIDYMITIS AND NEW-ONSET AT [facility] October 09, 2024 11:45am UTI, RIGHT EPIDIDYMITIS AND NEW-[place]SET AT [facility] October 10, 2024 10:19am UTI, RIGHT EPIDIDYMITIS AND NEW-[place]SET AT [facility] October 10, 2024 11:00am UTI, RIGHT EPIDIDYMITIS AND NEW-[place]SET AT [facility] October 11, 2024 12:12pm UTI, RIGHT EPIDIDYMITIS AND NEW-[place]SET AT [facility] October 12, 2024 11:09am UTI, RIGHT EPIDIDYMITIS AND NEW-[place]SET AT [facility] October 13, 2024 11:13am UTI, RIGHT EPIDIDYMITIS AND NEW-[place]SET AT [facility] October 13, 2024 3:52pm UTI, RIGHT EPIDIDYMITIS AND NEW-[place]SET AT [facility] October 14, 2024 12:01pm UTI, RIGHT EPIDIDYMITIS AND NEW-[place]SET AT [facility] October 14, 2024 2:31pm UTI, RIGHT EPIDIDYMITIS AND NEW-[place]SET AT [facility] October 15, 2024 12:29pm UTI, RIGHT EPIDIDYMITIS AND NEW-[place]SET AT [facility] October 15, 2024 1:51pm UTI, RIGHT EPIDIDYMITIS AND NEW-[place]SET AT [facility] October 16, 2024 8:47am UTI, RIGHT EPIDIDYMITIS AND NEW-ONSET AT [facility] October 16, 2024 8:56am UTI, RIGHT EPIDIDYMITIS AND NEW-[place]SET AT [facility] October 17, 2024 8:03am UTI, RIGHT EPIDIDYMITIS AND NEW-[place]SET AT [facility] October 17, 2024 8:12am UTI, RIGHT EPIDIDYMITIS AND NEW-[place]SET AT [facility] October 18, 2024 9:08am UTI, RIGHT EPIDIDYMITIS AND NEW-[place]SET AT [facility] October 18, 2024 12:40pm Reason for Visit Admit Date Acute cystitis with hematuria October 08, 2024 11:59pm 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 October 08, 2024 11:59pm Epididymitis October 08, 2024 11:59 pm Leukocytosis October 08, 2024 11:59 pm Overweight (BMI 25.0-29.9) October 08 11:59pm Severe left ventricular systolic dysfunc tion (LVSD) October 08, 2024 11:59pm UTI (urinary tract infection) October 08, 2024 11:59pm Chief Complaint Admit Date UTI, RIGHT EPIDIDYMITIS AND NEW-ONSET AT [facility] October 08, 2024 11:59pm UTI, RIGHT EPIDIDYMITIS AND NEW-[place]SET AT [facility] October 09, 2024 11:45am UTI, RIGHT EPIDIDYMITIS AND NEW-[place]SET AT [facility] October 10, 2024 10:19am UTI, RIGHT EPIDIDYMITIS AND NEW-[place]SET AT [facility] October 10, 2024 11:00am UTI, RIGHT EPIDIDYMITIS AND NEW-[place]SET AT [facility] October 11, 2024 12:12pm UTI, RIGHT EPIDIDYMITIS AND NEW-[place] AT [facility] October 12, 2024 11:09am UTI, RIGHT EPIDIDYMITIS AND NEW-[place] AT [facility] October 13, 2024 11:13am UTI, RIGHT EPIDIDYMITIS AND NEW-[place] AT [facility] October 13, 2024 3:52pm UTI, RIGHT EPIDIDYMITIS AND NEW-[place] AT [facility] October 14, 2024 12:01pm UTI, RIGHT EPIDIDYMITIS AND NEW-[place] AT [facility] October 14, 2024 2:31pm UTI, RIGHT EPIDIDYMITIS AND NEW-[place] AT [facility] October 15, 2024 12:29pm UTI, RIGHT EPIDIDYMITIS AND NEW-[place] AT [facility] October 15, 2024 1:51pm UTI, RIGHT EPIDIDYMITIS AND NEW-[place] AT [facility] October 16, 2024 8:47am UTI, RIGHT EPIDIDYMITIS AND NEW-[place] AT [facility] October 16, 2024 8:56am UTI, RIGHT EPIDIDYMITIS AND NEW-[place]SET AT [facility] October 17, 2024 8:03am UTI, RIGHT EPIDIDYMITIS AND NEW-[place]SET AT [facility] October 17, 2024 8:12am UTI, RIGHT EPIDIDYMITIS AND NEW-[place] AT [facility] October 18, 2024 9:08am UTI, RIGHT EPIDIDYMITIS AND [place] AT [facility] October 18, 2024 12:40pm S/P H 10/19October 23, 2024 1:33p m Reason for Visit Admit Date Acute cystitis with hematuria October 08, 2024 11:59pm 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 October 08, 2024 11:59pm Epididymitis October 08, 2024 11:59 pm Leukocytosis October 08, 2024 11:59 pm Overweight (BMI 25.0-29.9) October 08 11:59pm Severe left ventricular systolic dysfunc tion (LVSD) October 08, 2024 11:59pm UTI (urinary tract infection) October 08, 2024 11:59pm 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 October 23, 2024 1:33pm Cardiomyopathy October 23, 2024 1:33p m Chief Complaint Admit Date UTI, RIGHT EPIDIDYMITIS AND [place] AT [facility] October 08, 2024 11:59pm UTI, RIGHT EPIDIDYMITIS AND [place] AT [facility] October 09, 2024 11:45am UTI, RIGHT EPIDIDYMITIS AND [place] AT [facility] October 10, 2024 10:19am UTI, RIGHT EPIDIDYMITIS AND [place] AT [facility] October 10, 2024 11:00am UTI, RIGHT EPIDIDYMITIS AND [place] AT [facility] October 11, 2024 12:12pm UTI, RIGHT EPIDIDYMITIS AND [place] AT [facility] October 12, 2024 11:09am UTI, RIGHT EPIDIDYMITIS AND [place] AT [facility] October 13, 2024 11:13am UTI, RIGHT EPIDIDYMITIS AND NEW-[place] AT [facility] October 13, 2024 3:52pm UTI, RIGHT EPIDIDYMITIS AND [place] AT [facility] October 14, 2024 12:01pm UTI, RIGHT EPIDIDYMITIS AND [place] AT [facility] October 14, 2024 2:31pm UTI, RIGHT EPIDIDYMITIS AND [place] AT [facility] October 15, 2024 12:29pm UTI, RIGHT EPIDIDYMITIS AND [place] AT [facility] October 15, 2024 1:51pm UTI, RIGHT EPIDIDYMITIS AND [place] AT [facility] October 16, 2024 8:47am UTI, RIGHT EPIDIDYMITIS AND [place] AT [facility] October 16, 2024 8:56am UTI, RIGHT EPIDIDYMITIS AND [place] AT [facility] October 17, 2024 8:03am UTI, RIGHT EPIDIDYMITIS AND [place] AT [facility] October 17, 2024 8:12am UTI, RIGHT EPIDIDYMITIS AND [place] AT [facility] October 18, 2024 9:08am UTI, RIGHT EPIDIDYMITIS AND [place] AT [facility] October 18, 2024 12:40pm S/P [facility] 10/19October 23, 2024 1:33p m CARDIOMYOPATHY November 29, 2024 2:42 pm 5 WEEKS PER [facility] 2024 1:41 pm Reason for Visit Admit Date Severe left ventricular systolic dysfunc tion (LVSD) October 08, 2024 11:59pm Acute cystitis with hematuria October 08, 2024 11:59pm 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 October 08, 2024 11:59pm Epididymitis October 08, 2024 11:59 pm Leukocytosis October 08, 2024 11:59 pm Overweight (BMI 25.0-29.9) October 08 11:59pm UTI (urinary tract infection) October 08, 2024 11:59pm Severe left ventricular systolic dysfunc tion (LVSD) October 23, 2024 1:33pm 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 October 23, 2024 1:33pm Cardiomyopathy 2024 1:41 pm Severe left ventricular systolic dysfunc tion (LVSD) 2024 1:41pm 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 2024 1:41pm Chief Complaint Admit Date UTI, RIGHT EPIDIDYMITIS AND [place] AT [facility] October 08, 2024 11:59pm UTI, RIGHT EPIDIDYMITIS AND [place] AT [facility] October 09, 2024 11:45am UTI, RIGHT EPIDIDYMITIS AND [place] AT [facility] October 10, 2024 10:19am UTI, RIGHT EPIDIDYMITIS AND [place] AT [facility] October 10, 2024 11:00am UTI, RIGHT EPIDIDYMITIS AND [place] AT [facility] October 11, 2024 12:12pm UTI, RIGHT EPIDIDYMITIS AND [place] AT [facility] October 12, 2024 11:09am UTI, RIGHT EPIDIDYMITIS AND [place] AT [facility] October 13, 2024 11:13am UTI, RIGHT EPIDIDYMITIS AND [place] AT [facility] October 13, 2024 3:52pm UTI, RIGHT EPIDIDYMITIS AND [place] AT [facility] October 14, 2024 12:01pm UTI, RIGHT EPIDIDYMITIS AND [place] AT [facility] October 14, 2024 2:31pm UTI, RIGHT EPIDIDYMITIS AND [place] AT [facility] October 15, 2024 12:29pm UTI, RIGHT EPIDIDYMITIS AND [place] AT [facility] October 15, 2024 1:51pm UTI, RIGHT EPIDIDYMITIS AND [place] AT [facility] October 16, 2024 8:47am UTI, RIGHT EPIDIDYMITIS AND [place] AT [facility] October 16, 2024 8:56am UTI, RIGHT EPIDIDYMITIS AND [place] AT [facility] October 17, 2024 8:03am UTI, RIGHT EPIDIDYMITIS AND [place] AT [facility] October 17, 2024 8:12am UTI, RIGHT EPIDIDYMITIS AND [place] AT [facility] October 18, 2024 9:08am UTI, RIGHT EPIDIDYMITIS AND [place] AT [facility] October 18, 2024 12:40pm S/P [facility] 10/19October 23, 2024 1:33p m CARDIOMYOPATHY November 29, 2024 2:42 pm 5 WEEKS PER [facility] 2024 1:41 pm INT LAB ORDER 2024 2:53 pm Advance Directives Advance Directive Response Recorded Date/ Time Do you have a Healthcare Power of Payroll Representative? Yes October 09, 2024 1:06am Family History Relationship Condition Age at Onset Recorded Date/T seble father Coronary artery disease Unknown grandfather Coronary artery disease Unknown Summary Purpose Additional Source Comments Care Teams (unrecognized sec tion and content) Team Status: Active Member Role Status Dates Dr. Kilo Lewis MD Primary Care Provider Acti ve Team Status: Inactive Member Role Status Dates Dr. Kilo Lewis MD Primary Care Provider Acti ve Start: October 08, 2024 End: October 18, 2024 Dr. Janessa De La Torre DO Emergency Provider Active Start: October 08, 2024 End: October 18, 2024 Dr. Michael Reyna DO Admit Provider Active Start: October 08, 2024 End: October 18, 2024 Dr. Michael Reyna DO Other Provider Active Start: October 08, 2024 End: October 18, 2024 Dr. Jonas Cedeno MD Other Provider Active Star t: October 08, 2024 End: October 18, 2024 Dr. Madison Lemus MD Other Provider Active St art: October 08, 2024 End: October 18, 2024 Dr. Garrison Viveros MD Other Provider Active Sta rt: October 08, 2024 End: October 18, 2024 Dr. Chaitanya Saucedo DO Attending Provider Active Start: October 08, 2024 End: October 18, 2024 Team Status: Active Member Role Status Dates Dr. Kilo Lewis MD Primary Care Provider Acti ve Start: October 09, 2024 Dr. Jonas Cedeno MD Attending Provider Active Start: October 09, 2024 Team Status: Active Member Role Status Dates Dr. Kilo Lewis MD Primary Care Provider Acti ve Start: October 09, 2024 Dr. Janessa De La Torre DO Emergency Provider Active Start: October 09, 2024 Dr. Michael Reyna DO Admit Provider Active Start: October 09, 2024 Dr. Michael Reyna DO Other Provider Active Start: October 09, 2024 Dr. Madison Lemus MD Attending Provider Active Start: October 09, 2024 Dr. Madison Lemus MD Other Provider Active St art: October 09, 2024 Team Status: Active Member Role Status Dates Dr. Kilo Lewis MD Primary Care Provider Acti ve Start: October 10, 2024 Dr. Janessa De La Torre DO Emergency Provider Active Start: October 10, 2024 Dr. Michael Reyna , Admit Provider Active Start: October 10, 2024 Dr. Michael Reyna DO Other Provider Active Start: October 10, 2024 Dr. Madison Lemus MD Attending Provider Active Start: October 10, 2024 Dr. Madison Lemus MD Other Provider Active St art: October 10, 2024 Dr. Jonas Cedeno MD Other Provider Active Star t: October 10, 2024 Team Status: Active Member Role Status Dates Dr. Kilo Lewis MD Primary Care Provider Acti ve Start: October 10, 2024 Dr. Janessa De La Torre DO Emergency Provider Active Start: October 10, 2024 Dr. Michael Reyna DO Admit Provider Active Start: October 10, 2024 Dr. Michael Reyna DO Other Provider Active Start: October 10, 2024 Dr. Madison Lemus MD Other Provider Active St art: October 10, 2024 Dr. Jonas Cedeno MD Attending Provider Active Start: October 10, 2024 Dr. Jonas Cedeno MD Other Provider Active Star t: October 10, 2024 Team Status: Active Member Role Status Dates Dr. Kilo Lewis MD Primary Care Provider Acti ve Start: October 11, 2024 Dr. Janessa De La Torre DO Emergency Provider Active Start: October 11, 2024 Dr. Michael Reyna DO Admit Provider Active Start: October 11, 2024 Dr. Michael Reyna DO Other Provider Active Start: October 11, 2024 Dr. Madison Lemus MD Attending Provider Active Start: October 11, 2024 Dr. Madison Lemus MD Other Provider Active St art: October 11, 2024 Dr. Jonas Cedeno MD Other Provider Active Star t: October 11, 2024 Team Status: Active Member Role Status Dates Dr. Kilo Lewis MD Primary Care Provider Acti ve Start: October 12, 2024 Dr. Janessa De La Torre DO Emergency Provider Active Start: October 12, 2024 Dr. Michael de Javier , DO Admit Provider Active Start: October 12, 2024 Dr. Michael Reyna , DO Other Provider Active Start: October 12, 2024 Dr. Madison Lemus MD Attending Provider Active Start: October 12, 2024 Dr. Madison Lemus MD Other Provider Active St art: October 12, 2024 Dr. Jonas Cedeno MD Other Provider Active Star t: October 12, 2024 Team Status: Active Member Role Status Dates Dr. Kilo Lewis MD Primary Care Provider Acti ve Start: October 13, 2024 Dr. Janessa De La Torre , Emergency Provider Active Start: October 13, 2024 Dr. Michael Reyna DO Admit Provider Active Start: October 13, 2024 Dr. Michael Reyna DO Other Provider Active Start: October 13, 2024 Dr. Madison Lemus MD Attending Provider Active Start: October 13, 2024 Dr. Madison Lemus MD Other Provider Active St art: October 13, 2024 Dr. Jonas Cedeno MD Other Provider Active Star t: October 13, 2024 Team Status: Active Member Role Status Dates Dr. Kilo Lewis MD Primary Care Provider Acti ve Start: October 13, 2024 Dr. Janessa De La Torre DO Emergency Provider Active Start: October 13, 2024 Dr. Michael Reyna DO Admit Provider Active Start: October 13, 2024 Dr. Michael Reyna DO Other Provider Active Start: October 13, 2024 Dr. Madison Lemus MD Other Provider Active St art: October 13, 2024 Dr. Jonas Cedeno MD Attending Provider Active Start: October 13, 2024 Dr. Jonas Cedeno MD Other Provider Active Star t: October 13, 2024 Team Status: Active Member Role Status Dates Dr. Kilo Lewis MD Primary Care Provider Acti ve Start: October 14, 2024 Dr. Janessa De La Torre DO Emergency Provider Active Start: October 14, 2024 Dr. Michael Reyna , DO Admit Provider Active Start: October 14, 2024 Dr. Michael Reyna DO Other Provider Active Start: October 14, 2024 Dr. Jonas Cedeno MD Other Provider Active Star t: October 14, 2024 Dr. Garrison Viveros MD Attending Provider Active Start: October 14, 2024 Dr. Garrison Viveros MD Other Provider Active Sta rt: October 14, 2024 Dr. Madison Lemus MD Other Provider Active St art: October 14, 2024 Team Status: Active Member Role Status Dates Dr. Kilo Lewis MD Primary Care Provider Acti ve Start: October 14, 2024 Dr. Janessa De La Torre DO Emergency Provider Active Start: October 14, 2024 Dr. Michael Reyna DO Admit Provider Active Start: October 14, 2024 Dr. Michael Reyna DO Other Provider Active Start: October 14, 2024 Dr. Jonas Cedeno MD Attending Provider Active Start: October 14, 2024 Dr. Jonas Cedeno MD Other Provider Active Star t: October 14, 2024 Dr. Garrison Viveros MD Other Provider Active Sta rt: October 14, 2024 Dr. Madison Lemus MD Other Provider Active St art: October 14, 2024 Team Status: Active Member Role Status Dates Dr. Kilo Lewis MD Primary Care Provider Acti ve Start: October 15, 2024 Dr. Janessa De La Torre DO Emergency Provider Active Start: October 15, 2024 Dr. Michael Reyna DO Admit Provider Active Start: October 15, 2024 Dr. Michael Reyna DO Other Provider Active Start: October 15, 2024 Dr. Jonas Cedeno MD Attending Provider Active Start: October 15, 2024 Dr. Jonas Cedeno MD Other Provider Active Star t: October 15, 2024 Dr. Garrison Viveros MD Other Provider Active Sta rt: October 15, 2024 Dr. Madison Lemus MD Other Provider Active St art: October 15, 2024 Team Status: Active Member Role Status Dates Dr. Kilo Lewis MD Primary Care Provider Acti ve Start: October 15, 2024 Dr. Janessa De La Torre DO Emergency Provider Active Start: October 15, 2024 Dr. Michael Reyna DO Admit Provider Active Start: October 15, 2024 Dr. Michael Reyna DO Other Provider Active Start: October 15, 2024 Dr. Jonas Cedeno MD Other Provider Active Star t: October 15, 2024 Dr. Garrison Viveros MD Attending Provider Active Start: October 15, 2024 Dr. Garrison Viveros MD Other Provider Active Sta rt: October 15, 2024 Dr. Madison Lemus MD Other Provider Active St art: October 15, 2024 Team Status: Active Member Role Status Dates Dr. Kilo Lewis MD Primary Care Provider Acti ve Start: October 16, 2024 Dr. Janessa De La Torre DO Emergency Provider Active Start: October 16, 2024 Dr. Michael Reyna DO Admit Provider Active Start: October 16, 2024 Dr. Michael Reyna DO Other Provider Active Start: October 16, 2024 Dr. Jonas Cedeno MD Other Provider Active Star t: October 16, 2024 Dr. Madison Lemus MD Other Provider Active St art: October 16, 2024 Dr. Chaitanya Saucedo DO Other Provider Active Star t: October 16, 2024 Dr. Garrison Viveros MD Other Provider Active Sta rt: October 16, 2024 Dr. Michael Heard MD Attending Provider Active Start: October 16, 2024 Team Status: Active Member Role Status Dates Dr. Kilo Lewis MD Primary Care Provider Acti ve Start: October 16, 2024 Dr. Janessa De La Torre DO Emergency Provider Active Start: October 16, 2024 Dr. Michael Reyna DO Admit Provider Active Start: October 16, 2024 Dr. Michael Reyna DO Other Provider Active Start: October 16, 2024 Dr. Jonas Cedeno MD Other Provider Active Star t: October 16, 2024 Dr. Madison Lemus MD Other Provider Active St art: October 16, 2024 Dr. Chaitanya Saucedo DO Attending Provider Active Start: October 16, 2024 Dr. Chaitanya Saucedo DO Other Provider Active Star t: October 16, 2024 Dr. Garrison Viveros MD Other Provider Active Sta rt: October 16, 2024 Team Status: Active Member Role Status Dates Dr. Kilo Lewis MD Primary Care Provider Acti ve Start: October 17, 2024 Dr. Janessa De La Torre DO Emergency Provider Active Start: October 17, 2024 Dr. Michael Reyna , DO Admit Provider Active Start: October 17, 2024 Dr. Michael Reyna DO Other Provider Active Start: October 17, 2024 Dr. Jonas Cedeno MD Other Provider Active Star t: October 17, 2024 Dr. Madison Lemus MD Other Provider Active St art: October 17, 2024 Dr. Chaitanya Saucedo DO Other Provider Active Star t: October 17, 2024 Dr. Garrison Viveros MD Other Provider Active Sta rt: October 17, 2024 Dr. Michael Heard MD Attending Provider Active Start: October 17, 2024 Team Status: Active Member Role Status Dates Dr. Kilo Lewis MD Primary Care Provider Acti ve Start: October 17, 2024 Dr. Janessa De La Torre DO Emergency Provider Active Start: October 17, 2024 Dr. Michael Reyna DO Admit Provider Active Start: October 17, 2024 Dr. Michael Reyna DO Other Provider Active Start: October 17, 2024 Dr. Jonas Cedeno MD Other Provider Active Star t: October 17, 2024 Dr. Madison Lemus MD Other Provider Active St art: October 17, 2024 Dr. Chaitanya Saucedo DO Attending Provider Active Start: October 17, 2024 Dr. Chaitanya Saucedo DO Other Provider Active Star t: October 17, 2024 Dr. Garrison Viveros MD Other Provider Active Sta rt: October 17, 2024 Team Status: Active Member Role Status Dates Dr. Kilo Lewis MD Primary Care Provider Acti ve Start: October 18, 2024 Dr. Janessa De La Torre DO Emergency Provider Active Start: October 18, 2024 Dr. Michael Reyna DO Admit Provider Active Start: October 18, 2024 Dr. Michael Reyna DO Other Provider Active Start: October 18, 2024 Dr. Jonas Cedeno MD Other Provider Active Star t: October 18, 2024 Dr. Madison Lemus MD Other Provider Active St art: October 18, 2024 Dr. Chaitanya Saucedo DO Other Provider Active Star t: October 18, 2024 Dr. Garrison Viveros MD Other Provider Active Sta rt: October 18, 2024 Dr. Michael Heard MD Attending Provider Active Start: October 18, 2024 Team Status: Active Member Role Status Dates Dr. Kilo Lewis MD Primary Care Provider Acti ve Start: October 18, 2024 Dr. Janessa De La Torre DO Emergency Provider Active Start: October 18, 2024 Dr. Michael Reyna DO Admit Provider Active Start: October 18, 2024 Dr. Michael Reyna DO Other Provider Active Start: October 18, 2024 Dr. Jonas Cedeno MD Other Provider Active Star t: October 18, 2024 Dr. Madison Lemus MD Other Provider Active St art: October 18, 2024 Dr. Chaitanya Saucedo DO Attending Provider Active Start: October 18, 2024 Dr. Chaitanya Saucedo DO Other Provider Active Star t: October 18, 2024 Dr. Garrison Viveros MD Other Provider Active Sta rt: October 18, 2024 Team Status: Active Member Role Status Dates Dr. Reinier Lewis MD Family Provider Active Dr. Reinier Lewis MD Primary Care Provider Activ e Team Status: Inactive Member Role Status Dates Dr. Reinier Lewis MD Primary Care Provider Activ e Reinier GAGE MD Attending Provider Active Team Status: Active Member Role Status Dates Dr. Kilo Lewis MD Primary Care Provider Acti ve Start: October 08, 2024 Dr. Janessa De La Torre DO Emergency Provider Active Start: October 08, 2024 Dr. Michael Reyna DO Admit Provider Active Start: October 08, 2024 Dr. Michael Reyna DO Attending Provider Active Start: October 08, 2024 Team Status: Inactive Member Role Status Dates Dr. Kilo Lewis MD Primary Care Provider Acti ve Start: October 23, 2024 End: October 23, 2024 Dr. Kilo Lewis MD Referring Provider Active Start: October 23, 2024 End: October 23, 2024 Trisha Colmenares NP, PROTOTYPE MACHINIST-C Attending Provider Active Start: October 23, 2024 End: October 23, 2024 Team Status: Active Member Role/Relationship Status Dates Dr. Kilo Lewis MD Primary Care Provider Acti ve Team Status: Inactive Member Role/Relationship Status Dates Dr. Kilo Lewis MD Primary Care Provider Acti ve Start: October 08, 2024 End: October 18, 2024 Dr. Janessa De La Torre DO Emergency Provider Active Start: October 08, 2024 End: October 18, 2024 Dr. Michael Renya , Admit Provider Active Start: October 08, 2024 End: October 18, 2024 Dr. Michael Reyna DO Other Provider Active Start: October 08, 2024 End: October 18, 2024 Dr. Jonas Cedeno MD Other Provider Active Star t: October 08, 2024 End: October 18, 2024 Dr. Madison Lemus MD Other Provider Active St art: October 08, 2024 End: October 18, 2024 Dr. Garrison Viveros MD Other Provider Active Sta rt: October 08, 2024 End: October 18, 2024 Dr. Chaitanya Saucedo DO Attending Provider Active Start: October 08, 2024 End: October 18, 2024 Team Status: Active Member Role/Relationship Status Dates Dr. Kilo Lewis MD Primary Care Provider Acti ve Start: October 09, 2024 Dr. Jonas Cedeno MD Attending Provider Active Start: October 09, 2024 Team Status: Active Member Role/Relationship Status Dates Dr. Kilo Lewis MD Primary Care Provider Acti ve Start: October 09, 2024 Dr. Janessa De La Torre DO Emergency Provider Active Start: October 09, 2024 Dr. Michael Reyna DO Admit Provider Active Start: October 09, 2024 Dr. Michael Reyna DO Other Provider Active Start: October 09, 2024 Dr. Madison Lemus MD Attending Provider Active Start: October 09, 2024 Dr. Madison Lemus MD Other Provider Active St art: October 09, 2024 Team Status: Active Member Role/Relationship Status Dates Dr. Kilo Lewis MD Primary Care Provider Acti ve Start: October 10, 2024 Dr. Janessa De La Torre DO Emergency Provider Active Start: October 10, 2024 Dr. Michael Reyna DO Admit Provider Active Start: October 10, 2024 Dr. Michael Reyna DO Other Provider Active Start: October 10, 2024 Dr. Madison Lemus MD Attending Provider Active Start: October 10, 2024 Dr. Madison Lemus MD Other Provider Active St art: October 10, 2024 Dr. Jonas Cedeno MD Other Provider Active Star t: October 10, 2024 Team Status: Active Member Role/Relationship Status Dates Dr. Kilo Lewis MD Primary Care Provider Acti ve Start: October 10, 2024 Dr. Janessa De La Torre DO Emergency Provider Active Start: October 10, 2024 Dr. Michael Reyna , DO Admit Provider Active Start: October 10, 2024 Dr. Michael Reyna DO Other Provider Active Start: October 10, 2024 Dr. Madison Lemus MD Other Provider Active St art: October 10, 2024 Dr. Jonas Cedeno MD Attending Provider Active Start: October 10, 2024 Dr. Jonas Cedeno MD Other Provider Active Star t: October 10, 2024 Team Status: Active Member Role/Relationship Status Dates Dr. Kilo Lewis MD Primary Care Provider Acti ve Start: October 11, 2024 Dr. Janessa De La Torre DO Emergency Provider Active Start: October 11, 2024 Dr. Michael Reyna DO Admit Provider Active Start: October 11, 2024 Dr. Michael Reyna DO Other Provider Active Start: October 11, 2024 Dr. Madison Lemus MD Attending Provider Active Start: October 11, 2024 Dr. Madison Lemus MD Other Provider Active St art: October 11, 2024 Dr. Jonas Cedeno MD Other Provider Active Star t: October 11, 2024 Team Status: Active Member Role/Relationship Status Dates Dr. Kilo Lewis MD Primary Care Provider Acti ve Start: October 12, 2024 Dr. Janessa De La Torre DO Emergency Provider Active Start: October 12, 2024 Dr. Michael Reyna DO Admit Provider Active Start: October 12, 2024 Dr. Michael Reyna DO Other Provider Active Start: October 12, 2024 Dr. Madison Lemus MD Attending Provider Active Start: October 12, 2024 Dr. Madison Lemus MD Other Provider Active St art: October 12, 2024 Dr. Jonas Cedeno MD Other Provider Active Star t: October 12, 2024 Team Status: Active Member Role/Relationship Status Dates Dr. Kilo Lewis MD Primary Care Provider Acti ve Start: October 13, 2024 Dr. Janessa De La Torre DO Emergency Provider Active Start: October 13, 2024 Dr. Michael Reyna , DO Admit Provider Active Start: October 13, 2024 Dr. Michael Reyna DO Other Provider Active Start: October 13, 2024 Dr. Madison Lemus MD Attending Provider Active Start: October 13, 2024 Dr. Madison Lemus MD Other Provider Active St art: October 13, 2024 Dr. Jonas Cedeno MD Other Provider Active Star t: October 13, 2024 Team Status: Active Member Role/Relationship Status Dates Dr. Kilo Lewis MD Primary Care Provider Acti ve Start: October 13, 2024 Dr. Janessa De La Torre DO Emergency Provider Active Start: October 13, 2024 Dr. Michael Reyna DO Admit Provider Active Start: October 13, 2024 Dr. Michael Reyna DO Other Provider Active Start: October 13, 2024 Dr. Madison Lemus MD Other Provider Active St art: October 13, 2024 Dr. Jonas Cedeno MD Attending Provider Active Start: October 13, 2024 Dr. Jonas Cedeno MD Other Provider Active Star t: October 13, 2024 Team Status: Active Member Role/Relationship Status Dates Dr. Kilo Lewis MD Primary Care Provider Acti ve Start: October 14, 2024 Dr. Janessa De La Torre DO Emergency Provider Active Start: October 14, 2024 Dr. Michael Reyna DO Admit Provider Active Start: October 14, 2024 Dr. Michael Reyna DO Other Provider Active Start: October 14, 2024 Dr. Jonas Cedeno MD Other Provider Active Star t: October 14, 2024 Dr. Garrison Viveros MD Attending Provider Active Start: October 14, 2024 Dr. Garrison Viveros MD Other Provider Active Sta rt: October 14, 2024 Dr. Madison Lemus MD Other Provider Active St art: October 14, 2024 Team Status: Active Member Role/Relationship Status Dates Dr. Kilo Lewis MD Primary Care Provider Acti ve Start: October 14, 2024 Dr. Janessa De La Torre DO Emergency Provider Active Start: October 14, 2024 Dr. Michael Reyna DO Admit Provider Active Start: October 14, 2024 Dr. Michael Reyna DO Other Provider Active Start: October 14, 2024 Dr. Jonas Cedeno MD Attending Provider Active Start: October 14, 2024 Dr. Jonas Cedeno MD Other Provider Active Star t: October 14, 2024 Dr. Garrison Viveros MD Other Provider Active Sta rt: October 14, 2024 Dr. Madison Lemus MD Other Provider Active St art: October 14, 2024 Team Status: Active Member Role/Relationship Status Dates Dr. Kilo Lewis MD Primary Care Provider Acti ve Start: October 15, 2024 Dr. Janessa De La Torre DO Emergency Provider Active Start: October 15, 2024 Dr. Michael Reyna DO Admit Provider Active Start: October 15, 2024 Dr. Michael Reyna DO Other Provider Active Start: October 15, 2024 Dr. Jonas Cedeno MD Attending Provider Active Start: October 15, 2024 Dr. Jonas Cedeno MD Other Provider Active Star t: October 15, 2024 Dr. Garrison Viveros MD Other Provider Active Sta rt: October 15, 2024 Dr. Madison Lemus MD Other Provider Active St art: October 15, 2024 Team Status: Active Member Role/Relationship Status Dates Dr. Kilo Lewis MD Primary Care Provider Acti ve Start: October 15, 2024 Dr. Janessa De La Torre DO Emergency Provider Active Start: October 15, 2024 Dr. Michael Reyna DO Admit Provider Active Start: October 15, 2024 Dr. Michael Reyna DO Other Provider Active Start: October 15, 2024 Dr. Jonas Cedeno MD Other Provider Active Star t: October 15, 2024 Dr. Garrison Viveros MD Attending Provider Active Start: October 15, 2024 Dr. Garrison Viveros MD Other Provider Active Sta rt: October 15, 2024 Dr. Madison Lemus MD Other Provider Active St art: October 15, 2024 Team Status: Active Member Role/Relationship Status Dates Dr. Kilo Lewis MD Primary Care Provider Acti ve Start: October 16, 2024 Dr. Janessa De La Torre DO Emergency Provider Active Start: October 16, 2024 Dr. Michael Reyna DO Admit Provider Active Start: October 16, 2024 Dr. Michael Reyna DO Other Provider Active Start: October 16, 2024 Dr. Jonas Cedeno MD Other Provider Active Star t: October 16, 2024 Dr. Madison Lemus MD Other Provider Active St art: October 16, 2024 Dr. Chaitanya Saucedo DO Other Provider Active Star t: October 16, 2024 Dr. Garrison Viveros MD Other Provider Active Sta rt: October 16, 2024 Dr. Michael Heard MD Attending Provider Active Start: October 16, 2024 Team Status: Active Member Role/Relationship Status Dates Dr. Kilo Lewis MD Primary Care Provider Acti ve Start: October 16, 2024 Dr. Janessa De La Torre DO Emergency Provider Active Start: October 16, 2024 Dr. Michael Reyna DO Admit Provider Active Start: October 16, 2024 Dr. Michael Reyna DO Other Provider Active Start: October 16, 2024 Dr. Jonas Cedeno MD Other Provider Active Star t: October 16, 2024 Dr. Madison Lemus MD Other Provider Active St art: October 16, 2024 Dr. Chaitanya Saucedo DO Attending Provider Active Start: October 16, 2024 Dr. Chaitanya Saucedo DO Other Provider Active Star t: October 16, 2024 Dr. Garrison Viveros MD Other Provider Active Sta rt: October 16, 2024 Team Status: Active Member Role/Relationship Status Dates Dr. Kilo Lewis MD Primary Care Provider Acti ve Start: October 17, 2024 Dr. Janessa De La Torre DO Emergency Provider Active Start: October 17, 2024 Dr. Michael Reyna DO Admit Provider Active Start: October 17, 2024 Dr. Michael Renya DO Other Provider Active Start: October 17, 2024 Dr. Jonas Cedeno MD Other Provider Active Star t: October 17, 2024 Dr. Madison Lemus MD Other Provider Active St art: October 17, 2024 Dr. Chaitanya Saucedo DO Other Provider Active Star t: October 17, 2024 Dr. Garrison Viveros MD Other Provider Active Sta rt: October 17, 2024 Dr. Michael Heard MD Attending Provider Active Start: October 17, 2024 Team Status: Active Member Role/Relationship Status Dates Dr. Kilo Lewis MD Primary Care Provider Acti ve Start: October 17, 2024 Dr. Janessa De La Torre DO Emergency Provider Active Start: October 17, 2024 Dr. Michael Reyna DO Admit Provider Active Start: October 17, 2024 Dr. Michael Reyna DO Other Provider Active Start: October 17, 2024 Dr. Jonas Cedeno MD Other Provider Active Star t: October 17, 2024 Dr. Madison Lemus MD Other Provider Active St art: October 17, 2024 Dr. Chaitanya Saucedo DO Attending Provider Active Start: October 17, 2024 Dr. Chaitanya Saucedo DO Other Provider Active Star t: October 17, 2024 Dr. Garrison Viveros MD Other Provider Active Sta rt: October 17, 2024 Team Status: Active Member Role/Relationship Status Dates Dr. Kilo Lewis MD Primary Care Provider Acti ve Start: October 18, 2024 Dr. Janessa De La Torre DO Emergency Provider Active Start: October 18, 2024 Dr. Michael Reyna DO Admit Provider Active Start: October 18, 2024 Dr. Michael Reyna DO Other Provider Active Start: October 18, 2024 Dr. Jonas Cedeno MD Other Provider Active Star t: October 18, 2024 Dr. Madison Lemus MD Other Provider Active St art: October 18, 2024 Dr. Chaitanya Saucedo DO Other Provider Active Star t: October 18, 2024 Dr. Garrison Viveros MD Other Provider Active Sta rt: October 18, 2024 Dr. Michael Heard MD Attending Provider Active Start: October 18, 2024 Team Status: Active Member Role/Relationship Status Dates Dr. Kilo Lewis MD Primary Care Provider Acti ve Start: October 18, 2024 Dr. Janessa De La Torre DO Emergency Provider Active Start: October 18, 2024 Dr. Michael Reyna DO Admit Provider Active Start: October 18, 2024 Dr. Michael Reyna DO Other Provider Active Start: October 18, 2024 Dr. Jonas Cedeno MD Other Provider Active Star t: October 18, 2024 Dr. Madison Lemus MD Other Provider Active St art: October 18, 2024 Dr. Chaitanya Saucedo DO Attending Provider Active Start: October 18, 2024 Dr. Chaitanya Saucedo DO Other Provider Active Star t: October 18, 2024 Dr. Garrison Viveros MD Other Provider Active Sta rt: October 18, 2024 Team Status: Inactive Member Role/Relationship Status Dates Dr. Kilo Lweis MD Primary Care Provider Acti ve Start: October 23, 2024 End: October 23, 2024 Dr. Kilo Lewis MD Referring Provider Active Start: October 23, 2024 End: October 23, 2024 Trisha Colmenares PROTOTYPE MACHINIST, PROTOTYPE MACHINIST-C Attending Provider Active Start: October 23, 2024 End: October 23, 2024 Team Status: Active Member Role/Relationship Status Dates Dr. Kilo Lewis MD Primary Care Provider Acti ve Start: November 29, 2024 Trisha Colmenares PROTOTYPE MACHINIST, PROTOTYPE MACHINIST-C Attending Provider Active Start: November 29, 2024 Trisha Colmenares PROTOTYPE MACHINIST, PROTOTYPE MACHINIST-C Referring Provider Active Start: November 29, 2024 Team Status: Active Member Role/Relationship Status Dates Dr. Kilo Lewis MD Primary Care Provider Acti ve Start: November 29, 2024 Dr. Bhavesh Song MD Attending Provider Active S tart: November 29, 2024 Team Status: Inactive Member Role/Relationship Status Dates Dr. Kilo Lewis MD Primary Care Provider Acti ve Start: 2024 End: 2024 Dr. Kilo Lewis MD Referring Provider Active Start: 2024 End: 2024 Regla Morgan PA, PA Attending Provider Active Start: 2024 End: 2024 Team Status: Inactive Member Role/Relationship Status Dates Dr. Kilo Lewis MD Primary Care Provider Acti ve Start: November 29, 2024 End: November 29, 2024 Trisha Colmenares PROTOTYPE MACHINIST, PROTOTYPE MACHINIST-C Attending Provider Active Start: November 29, 2024 End: November 29, 2024 Trisha Colmenares NP, PROTOTYPE MACHINIST-C Referring Provider Active Start: November 29, 2024 End: November 29, 2024 Team Status: Active Member Role/Relationship Status Dates Dr. Kilo Lewis MD Primary Care Provider Acti ve Start: 2024 KIZZY Blount Attending Provider Active Start: 2024 KIZZY Blount Referring Provider Active Start: 2024 Goals (unrecognized section and content) Goals may be documented in a n alternate sectionGoals may be documented in an alternate section (unrecognized sect ion and content) No Status Records Found INFORMATION SOURCE (unrecogn ized section and content) DATE CREATED AUTHOR 12/02/2024 [facility] FOR RECORDS PERTAINING TO PATIENTS WHO ARE OR HAVE BEEN ENROLLED IN A CHEMICAL DEPENDENCY/SUBSTANCEABUSE PROGRAM, SOME INFORMATION MAY BE OMITTED. This clinical summary was aggregated from multiple sources. Caution should be exercised in using it in the provision of clinical care. This summary normalizes information from multiple sources, and as a consequence, information in this document may materially change the coding, format and clinical context of patient data. In addition, data may be omitted in some cases. CLINICAL DECISIONS SHOULD BE BASED ON THE PRIMARY CLINICAL RECORDS. [employer] [facility]. provides no warranty or guarantee of the accuracy or completeness of information in this document.
== END | disposition home or self-care (01) ==
LOC: LAB 09:38
PROVIDERS: PCP Family Medicine; Referring Provider Nurse Practitioner Family; Visit Provider Nurse Practitioner Family
DX: I42.9 Cardiomyopathy, unspecified (principal); I51.89 Other ill-defined heart diseases
CPT/HCPCS: 36415; 80048

== ENCOUNTER 2024-12-19 10:39 | Day surgery (SDC) | payer BC, SELFPAY ==
[2024-12-18 08:17] VITALS: BMI 24.5
--- NOTE | 2024-12-19 12:37 | CARDIOVERS ---
Cardioversion Cardioversion: Patient was brought to the [facility] recovery area in the fasting state. ECG revealed that he remains in atrial flutter with a variable AV conduction. The patient received informed consent for direct-current cardioversion with anesthesia. The patient was hooked up to the appropriate monitoring devices and the defibrillator. The patient was anesthetized by Dr. Orozco with 6 mg of etomidate. After appropriate anesthesia was achieved a single 100 J synchronized shock was delivered. The patient was successfully converted to sinus rhythm. Repeat ECG showed sinus rhythm and no significant ST or T wave changes. The patient awoke from anesthesia there was no obvious neurologic deficits he responded appropriately. The patient will be reevaluated in the [place] [facility] office December 29, 2024. He knows to stay on his Eliquis and we will reevaluate him with blood pressure monitoring and alteration of his medical regiment to maximize his guideline directed medical therapy for LV recovery. Procedures Coronary Therapeutic CF Procedures [id number]: [id number] Cardioversion electric ext
--- NOTE | 2024-12-19 12:39 | PRO.PCM_ITS ---
Procedures Pulmonary Pulmonary Procedures /Diagnostic Testin Con Sedation Non-invasive Procedural Procedure Information Date of Procedure: 12/19/24 Description of procedure: CONSCIOUS SEDATION REPORT DATE OF SERVICE: December 19, 2024 BRIEF HISTORY OF PRESENT ILLNESS: The patient is a 69-year-old male who presented to [facility] to undergo an elective outpatient cardioversion due to underlying atrial flutter. The patient has never previously undergone a cardioversion. He denied any prior anesthetic complications. The patient is a non-smoker. His last surface echocardiogram demonstrated an ejection fraction of approximately 35%. The patient is systemically anticoagulated on Eliquis. PHYSICAL EXAMINATION: VITAL SIGNS: Reviewed and were acceptable. GENERAL: The patient is a male, in no apparent distress, speaking in full sentences. HEENT: Normocephalic, atraumatic. Mucous membranes are moist and pink. Good mouth opening noted. Trachea is midline. Good neck mobility. Mallampati 1 CHEST: S1, S2 irregularly irregular. No murmurs, rubs or gallops were noted. LUNGS: Clear to auscultation bilaterally without appreciable wheezes, rales or rhonchi. ABDOMEN: Soft, nontender, nondistended. Positive bowel sounds. EXTREMITIES: There is no clubbing, cyanosis or edema. ASA Class: II DESCRIPTION OF PROCEDURE: After confirmation of informed consent, the patient's anesthesia plan was reviewed in detail. Etomidate was chosen. Risks and benefits were reviewed and the patient agreed to proceed. At 1219, the patient was given 6 mg of etomidate. The patient achieved an appropriate level of sedation and was given a 100 joule synchronized cardioversion by Dr. Heard at the bedside. This was successful in achieving normal sinus rhythm. The patient was monitored until 1234, at which time he reached his baseline mental status and function. The patient tolerated the procedure well. COMPLICATIONS: None ESTIMATED BLOOD LOSS: None RECOMMENDATIONS: Okay to recover in usual fashion.
== END 2024-12-19 13:20 | disposition home or self-care (01) ==
PROVIDERS: PCP Family Medicine; Referring Provider Internal Medicine Cardiovascular Disease; Visit Provider Internal Medicine Cardiovascular Disease
DX: I48.92 Unspecified atrial flutter (principal); I42.9 Cardiomyopathy, unspecified; Z79.01 Long term (current) use of anticoagulants; Z79.899 Other long term (current) drug therapy
CPT/HCPCS: 92960; 93005

== ENCOUNTER → 2025-02-12 | Outpatient (CLI) | payer BC, SELFPAY ==
--- NOTE | 2025-02-12 10:33 | STE_ITS ---
Reason For Study Reason For Study: Atrial Flutter; Cardiomyopathy Stress Results Protocol: Sebastián Protocol Maximum Predicted HR: 153 bpm Target HR: 130 bpm % Maximum Predicted HR: 90 % DurationHeart Rate Stage (mm:ss) (bpm) BP Comment Baseline 69 124/72No Chest Pain Sebastián Protocol Stage I 3:00 97 130/70No Chest Pain Sebastián Protocol Stage II 3:00 116 144/72No Chest Pain Sebastián Protocol Stage III 1:24 137 170/64No Chest Pain Recovery 86 120/74No Chest Pain Stress Duration: 7:24 mm:ss Maximum Stress HR: 137 bpm METS: 10 Baseline Echocardiogram Findings Stress Echo Wall motion Data Resting WM Intermediate WM Stress WM ECHO/Stress Test Echo w/o Contrast Interpretation Summary Exercise stress echo. 69-year-old lady with a history of atrial fibrillation flutter and cardiomyopat hy. Resting EKG demonstrates sinus rhythm with a rate of 65 bpm. Resting blood pres sure is 124/72 mmHg. The patient exercised according to regular Sebastián protocol for total duration of 7 minutes a nd 24 seconds completing a minute and 24 seconds into stage III of the Sebastián protocol the maximum heart rate attained wa s 137 bpm which was 89% of max impacted heart rate the maximum workload was 10.1 metabolic equivalents. At rest there w ere no ST or T wave changes noted suggest ischemia and at peak exercise upsloping ST changes were noted which did not claire t the criteria for ischemia. No chest pain was noted and no clinical angina was present. The peak blood pressure was 170/64 mmHg which was a normal blood pressure response to exercise. Stress echocardiogram. The resting echocardiogram demonstrated global left vent ricular systolic dysfunction estimated at 37%. At peak exercise there was thickening of all torres reduction of the ventri cular cavity size peaking of ejection fraction at approximately 45%. No wall motion abnormalities were present. Conclusion: Exercise stress echo with no EKG criteria for ischemia at a moderate to high wo rkload. Resting cardiomyopathy present. No ischemia present. Ordering Physician: Michael Heard Referring Physician: Michael Heard Performed By: Todd Saleh RCS
== END | disposition home or self-care (01) ==
PROVIDERS: PCP Family Medicine; Referring Provider Internal Medicine Cardiovascular Disease; Visit Provider Internal Medicine Cardiovascular Disease
DX: I48.92 Unspecified atrial flutter (principal)
CPT/HCPCS: 93017; 93350

== ENCOUNTER 2025-03-18 14:56 | Emergency (ER) | payer BC, SELFPAY ==
[2025-03-18 14:56] VITALS: BP 112/77; PULSE 60; RESP 16; TEMP 36.6; O2SAT 100; BMI 25.9
--- NOTE | 2025-03-18 14:58 | RAD_ITS ---
PROCEDURE: RAD/Ankle min 3 Views
--- NOTE | 2025-03-18 15:58 | ED.VIS.FALL ---
HPI HPI - Fall History of Present Illness Chief Complaint: Lower Extremity Injury Detail of Chief Complaint: And right hand injury post fall today. Informant: patient Occured/Mechanism Occurred: Today Mechanism/Context: Yes trip Usually ambulates: Without assistance Pain/Injury Pain Location: upper extremity and lower extremity Quality of Pain: Sharp Current Severity: Moderate Maximum Severity: Moderate Associated Symptoms Associated Symptoms: Negative for Parasthesias, Weakness, Loss of function or Loss of consciousness Narrative Narrative: 69-year-old male history of A-fib on Eliquis was going down his back steps of his home tripped went down landed awkwardly on his right ankle and right hand. Denies any head injury. Denies any other complaints. Johnson fine prior to the fall. No LOC. Prior similar symptoms: No Recent Illness/Hospitalization: No [facility] Medical History History of cardioversion Severe left ventricular systolic dysfunction (LVSD) Hernia Home Medications ?Medication ?Instructions ?Recorded ?Last Taken ?Type multivitamin with folic acid 400 1 tab PO DAILY supplement 03/05/15 Unknown History mcg tablet (Thera) apixaban 5 mg tablet (Eliquis) 5 mg PO BID #180 tabs 11/13/24 12/19/24 Rx furosemide 20 mg tablet 20 mg PO DAILY #90 tabs 11/13/24 12/19/24 Rx metoprolol tartrate 25 mg tablet 25 mg PO BID #180 tabs 11/13/24 12/19/24 Rx sacubitril 24 mg-valsartan 26 mg 1 tab PO BID #180 tabs 11/13/24 12/19/24 Rx tablet (Entresto) spironolactone 25 mg tablet 25 mg PO DAILY #90 tabs 11/13/24 12/19/24 Rx calcium 200 mg (carbonate, 1 tab PO BID 12/29/24 Unknown History citrate)-magnesium 50 mg (as oxide) tablet (CalMag Thins) Allergy/AdvReac Type Severity Reaction Status Date / Time Sulfa (Sulfonamide Allergy Unknown Verified 03/18/25 14:56 Antibiotics) Family History Father CAD (coronary artery disease) Grandfather CAD (coronary artery disease) Surgical History S/P hernia surgery Social History Smoking Status: Never smoker alcohol intake: never substance use type: does not use caffeine: Yes ROS ROS ED ROS Narrative Denies recent illness. Constitutional Constitutional ED: Denies chills or fever(s) Eyes Eyes: Denies blurry vision ENT ENT ED: Denies ear pain Cardiovascular Cardiovascular: Denies chest pain Respiratory/Chest Respiratory/Chest: Denies cough Gastrointestinal Gastrointestinal: Denies abdominal pain Genitourinary Genitourinary ED: Denies dysuria Musculoskeletal Musculoskeletal: Denies arthralgias Integumentary Denies abscess Neurologic Neurologic: Denies headache(s) Psychiatric Psychiatric: Denies anxiety or depression Hematologic/Lymphatic Hematologic/Lymphatic: Denies lymphadenopathy Allergic/Immunologic Allergic/Immunologic ED: Denies mouth swelling, tongue swelling or urticaria EXAM Physical Exam Narrative Exam Narrative: Well-appearing 69-year-old male taken from triage to hallway chair to do the current volume. Vital signs are stable afebrile. No acute distress. H EENT exam pupils round react light. Moist mucous membranes. No trauma to his face or scalp. No hematoma or bruising. Nontender. C-spine and neck nontender. Back nontender. Lungs clear to auscultation bilaterally. Heart rate about 60 no murmur. Chest wall ribs nontender. Abdomen soft nontender. Pelvic girdle intact. Neurologically awake alert. Answering questions following commands. No focal motor deficits. Extremities left upper and left lower extremity nontender normal range of motion. Right hip and knee nontender right lateral ankle tender and swollen. Foot nontender neurovascularly intact normal dorsi plantarflexion. Achilles intact. Normal DP pulse. He is tender along the lateral malleolus and the distal fibula. Right upper extremity shoulder upper arm elbow forearm nontender. Wrist nontender. Full flexion extension. Right hand tender along the right fifth or small finger metacarpal. Able to open close his hand normal radial pulse skin intact. Const Vital Signs: 03/18/25 14:56 Temperature 97.8 F Temperature Source Temporal Pulse Rate 60 Respiratory Rate 16 Blood Pressure 112/77 Blood Pressure Mean 88 Pulse Ox 100 Oxygen Delivery Method Room Air MDM MDM MDM Narrative Medical decision making narrative: 69-year-old male tripped and went down about 3 steps at home outside landing awkwardly on his right hand and right ankle. Both to be x-rayed. He did not hit his head. He is on Eliquis but has no head injury. No signs of trauma to his head. Radiography Diagnostic Testing: Right ankle x-ray, 3 views, interpreted by myself shows a nondisplaced distal fibula fracture seen best on the lateral view. Right hand x-ray, 3 views, interpreted by myself shows Procedures Lower Extremity Splints Lower Extremity Splint: Orthoglass Splint Fabrication: Fabricated Location: Right (Nondisplaced distal fibula fracture. Placed in a short leg posterior Ortho-Glass splint. Well-padded. Patient tolerated well. Understands is nonweightbearing.) Discharge Plan Triage Chief Complaint: Lower Extremity Injury ED Provider: Isac Brewster Dx/Rx/DC Orders Prescriptions: No Action CalMag Thins 200 mg calcium- 50 mg tablet 1 tab PO BID multivitamin with folic acid [Thera] 1 TABLET tablet 1 tab PO DAILY Eliquis 5 mg tablet 5 mg PO BID Qty: 180 3RF furosemide 20 mg tablet 20 mg PO DAILY Qty: 90 3RF metoprolol tartrate 25 mg tablet 25 mg PO BID Qty: 180 3RF Entresto 24-26 mg tablet 1 tab PO BID Qty: 180 3RF spironolactone 25 mg tablet 25 mg PO DAILY Qty: 90 3RF Primary Care Provider: Kilo Lewis Referrals: Kilo Lewis MD [Primary Care Provider, Family Practice] Print Language: Libyan
--- NOTE | 2025-03-18 16:20 | RAD_ITS ---
PROCEDURE: RAD/Hand Min 3 Views
[2025-03-18 16:58] VITALS: BP 112/77; PULSE 60; RESP 16; TEMP 36.6; O2SAT 100
== END 2025-03-18 17:08 | disposition home or self-care (01) ==
PROVIDERS: Emergency Provider Emergency Medicine; PCP Family Medicine; Visit Provider Emergency Medicine
DX: S82.831A Other fracture of upper and lower end of right fibula, initial encounter for closed fracture (principal); I48.91 Unspecified atrial fibrillation; M79.601 Pain in right arm; W10.9XXA Fall (on) (from) unspecified stairs and steps, initial encounter; Y92.008 Other place in unspecified non-institutional (private) residence as the place of occurrence of the external cause; Z79.01 Long term (current) use of anticoagulants; Z79.899 Other long term (current) drug therapy
CPT/HCPCS: 29515; 73130; 73610; 99282

== ENCOUNTER → 2025-04-09 | Outpatient (CLI) | payer BC, SELFPAY ==
--- NOTE | 2025-04-09 14:19 | ECHOL_ITS ---
Reason For Study Reason For Study: CARDIOMYOPATHY Procedure This was a limited 2D transthoracic echocardiogram. Myocardial strain analysis was performed in this exam to aid in the assessment of cardiac function. Exam performed in department. Left Ventricle Normal LV size. The global longitudinal strain = -17.3% (borderline). The left ventricular ejection fraction is 55 %. No regional wall motion abnormalities noted. Right Ventricle Normal RV size. Normal systolic function. Atria Normal left atrium. Normal right atrium. Mitral Valve Normal mitral valve. Tricuspid Valve Normal tricuspid valve. Mild (1+) tricuspid valve insufficiency. Aortic Valve Trisinus/trileaflet aortic valve. Mild focal aortic valve calcification. Pulmonic Valve Normal pulmonic valve. Great Vessels Normal aortic root. The pulmonary artery is normal size. Inferior vena cava collapse with respiration. Pericardium/Pleural No pericardial effusion. MMode/2D Measurements & Calculations LVIDd: 4.5 cm IVSd: 1.1 cm LAV(MOD- bp): 52.0 ml LVIDs: 2.9 cm LVPWd: 0.94 cm LAV(MOD- bp) Indexed: 28.3 ml/m2 RVDd: 4.2 cm FS: 34.7 % LAV(MOD- sp2): 42.8 ml LAV(MOD- sp4): 56.8 ml SV(MOD- sp4): 24.8 ml LVAd ap4: 19.9 cm2 LVAd ap2: 20.6 cm2 LVLd ap4: 7.0 cm LVLd ap2: 7.2 cm SI(MOD- sp4): 13.5 ml/m2 EDV(MOD-sp4): 46.6 ml EDV(MOD-sp2): 49.5 ml EDV(sp4-el): 47.9 ml EDV(sp2-el): 50.1 ml LVAs ap4: 12.3 cm2 LVAs ap2: 12.7 cm2 LVLs ap4: 6.2 cm LVLs ap2: 6.3 cm ESV(MOD-sp4): 21.8 ml ESV(MOD-sp2): 22.7 ml ESV(sp4-el): 20.9 ml ESV(sp2-el): 21.6 ml EF(MOD-sp4): 53.3 % EF(MOD-sp2): 54.1 % EF(sp4-el): 56.5 % SV(MOD-sp2): 26.8 ml SV(sp4-el): 27.1 ml Ao sinus diam: 3.6 cm SI(MOD-sp2): 14.6 ml/m2 LA dimension(2D): 3.4 cm LA A4 area: 21.0 cm2 RA A4 area: 20.6 cm2 TAPSE: 2.6 cm Time Measurements MV dec time: 0.30 sec Doppler Measurements & Calculations MV E max rios: 40.7 cm/sec Lat Peak E' Rios: 12.1 cm/sec Med Peak E' Rios: 7.0 cm/sec MV A max rios: 51.5 cm/sec E/E' lat: 3.4 E/E' med: 5.8 MV E/A: 0.79 MV dec slope: 136.5 cm/sec2 TR max rios: 186.1 cm/sec TR max P.8 mmHg ECHO/Echo, Limited Study Interpretation Summary Normal LV size. The left ventricular ejection fraction is 55 %. The global longitudinal strain = -17.3% (borderline). Mild (1+) tricuspid valve insufficiency. Mild focal aortic valve calcification. Ordering Physician: Trisha Colmenares Referring Physician: Kilo Lewis MD Performed By: Alexa Razo RDCS
== END | disposition home or self-care (01) ==
LOC: CVS 14:18
PROVIDERS: PCP Family Medicine; Referring Provider Nurse Practitioner Gerontology; Visit Provider Nurse Practitioner Gerontology
DX: I42.9 Cardiomyopathy, unspecified (principal); I51.89 Other ill-defined heart diseases
CPT/HCPCS: 93308